=== PATIENT | male | born 1945 | race Caucasian/White ===

== ENCOUNTER 2018-05-10 13:47 | Inpatient (IN) ==
[2018-05-10] MEDS ORDERED: LACTATED RINGERS 1,000 ML IV ONE ×2 (14:05→15:20)
--- NOTE | 2018-05-10 14:22 | Emergency Department Note ---
General Adult HPI - General Chief complaint: Blood Pressure Problem Stated complaint: BG 380, low BP, comes from wound care Time Seen by Provider: 05/10/18 14:03 Source: patient Mode of arrival: ambulatory Limitations: no limitations - History of Present Illness HPI Narrative: This patient was sent over from wound care for hypotension. His blood pressure was in the 70s-80s range. Patient does take the pressure medicine and Lasix although he says he has been drinking plenty of fluid recently he has a little chronic pain in his right leg that got worse after having back surgery in September. He spent 3 months in the detention after that. He did fall in January aggravated a buttock ulcer and he has been getting wound care for that. He has had a cough productive of white phlegm recently but not short of breath. Denies nausea vomiting or abdominal pain or chest pain. This patient does take a number of antihypertensives as well as Lasix in the morning. - Related Data Home Medications Medication Instructions Recorded Confirmed cholecalciferol (vitamin D3) 5,000 5,000 unit PO QDAY tab 08/27/14 05/10/18 unit tablet furosemide 40 mg tablet 40 mg PO QDAY tab 12/09/17 05/10/18 HYDROcodone/ACETAMINOPHEN [Lorcet 10 mg PO BID 05/10/18 05/10/18 Hd 10-325 mg Tablet] Liraglutide [Victoza 2-Dagoberto] 0.3 mg SC DAILY 05/10/18 05/10/18 Minocycline [Minocin] 100 mg PO BID 05/10/18 05/10/18 Testosterone Cypionate 100 mg IM Q2W 05/10/18 05/10/18 [Depo-Testosterone] Warfarin [Coumadin] 5 mg PO DAILY 05/10/18 05/10/18 sitaGLIPtin [Januvia] 100 mg PO DAILY 05/10/18 05/10/18 tiZANidine [Zanaflex] 4 mg PO Q6H 05/10/18 05/10/18 Previous Rx's Medication Instructions Recorded pen needle,diabetic 31 gauge X See Dose Instructions .ROUTE 11/27/14 1/4", remover and disposal unit .MEDSUPPLY #100 each pravastatin 20 mg tablet 20 mg PO HS #90 tab 02/16/16 allopurinol 300 mg tablet 300 mg PO QDAY #90 tab 03/09/17 ramipril 5 mg capsule 5 mg PO BID 90 Days #180 cap 04/27/17 sotalol 80 mg tablet 40 mg PO QDAY #45 tab 06/20/17 CPAP Machine #1 each 08/22/17 gabapentin 300 mg capsule 600 mg PO Q8H #180 cap 08/22/17 Heavy Duty Wheelchair #1 ea 01/03/18 Hospital bed #1 ea 01/03/18 ROHO Cushion #1 ea 02/10/18 carvedilol 25 mg tablet 25 mg PO BID 90 Days #180 tab 02/10/18 Allergies Allergy/AdvReac Type Severity Reaction Status Date / Time No Known Drug Allergies Allergy Verified 05/10/18 13:54 Review of Systems All systems ED: reviewed and negative except as stated. Past Medical History - Past Medical History [facility] Narrative: Medical History (Last Reviewed 01/03/18 @ 18:15 by Heike Raman, JAILYN, DAYANA) Pressure ulcer (Acute) Pressure ulcer of foot (Acute) Anticoagulant long-term use (Chronic) Lumbar disc disease (Chronic) Carpal tunnel syndrome (Chronic) Hypogonadism in male (Chronic) Peripheral vascular disease (Chronic) Testicular hypofunction (Chronic) Obstructive sleep apnea (Chronic) Morbid obesity (Chronic) Hypertension (Chronic) Hyperlipidemia (Chronic) Hormone replacement therapy (Chronic) Gout (Chronic) Diabetes mellitus, type II (Chronic) Coronary artery disease (Chronic) Congestive heart failure (Chronic) History of colonic polyps (Chronic) Atrial fibrillation (Chronic) MRSA (methicillin resistant staph aureus) culture positive (Resolved) Ulcer of lower extremity due to diabetes mellitus (Resolved) Past Surgical History (Last Reviewed 01/03/18 @ 18:15 by Heike Raman, JAILYN, DAYANA) Colonoscopy planned (Resolved) H/O vascular surgery (Resolved) History of cardioversion (Resolved) History of total right knee replacement (Resolved) Family History (Last Reviewed 01/03/18 @ 18:15 by Heike Raman, JAILYN, CREDIT AND COLLECTIONS REPRESENTATIVE) Father Family history of coronary artery bypass surgery Acute myocardial infarction Mother Type 2 diabetes mellitus Cardiac disease Cerebrovascular accident - Social History smoking status: Former smoker Physical Exam Limitations: no limitations General appearance: alert Head: atraumatic, normocephalic Eye: Present: normal appearance ENT: normal exam Neck: Present: normal inspection Chest: Present: normal inspection Respiratory: Present: normal lung sounds bilaterally Cardiovascular: Present: regular rate, normal rhythm, normal heart sounds Abdominal: Present: soft. Absent: distention, tenderness Neurological: Present: alert Psychiatric: Present: normal affect, normal mood Skin: Present: warm, cool, dry Course Vital Signs Temperature 97.1 F 05/10/18 13:51 Pulse Rate 74 05/10/18 13:51 Respiratory Rate 18 05/10/18 13:51 Blood Pressure 87/58 05/10/18 13:51 Pulse Oximetry (%) 97 05/10/18 13:51 Temperature 97.1 F 05/10/18 13:51 Pulse Rate 75 05/10/18 15:21 Respiratory Rate 18 05/10/18 15:21 Blood Pressure 106/56 05/10/18 15:21 Pulse Oximetry (%) 99 05/10/18 15:21 Medical Decision Making - MDM Narrative Medical decision making narrative: Patient's blood pressure responded to 2 L of fluid coming up to 120 systolic. However his lactic acid was 6 his INR was 4.7 without any evidence of bleeding. This patient will be admitted to the hospital by Dr. Maloney. We did blood cultures and gave him antibiotics. - Lab Data Lab results reviewed: Yes I reviewed the patient's lab results. Result diagrams: 05/10/18 14:17 05/10/18 14:17 Lab Results 05/10/18 05/10/18 05/10/18 Range/Units 14:17 14:17 14:17 WBC 6.3 (4.5-11.0) K/mcL RBC 4.00 L (4.50-5.90) M/mcL Hgb 13.1 L (13.5-16.5) g/dL Hct 39.2 L (41.0-55.0) % MCV 98.2 (80.0-100.0) fL MCH 32.7 (26.0-34.0) pg MCHC 33.3 (31.0-36.0) g/dL RDW 15.2 H (11.5-14.5) % Plt Count 162 (140-440) K/mcL MPV 8.8 (7.4-10.4) fL Gran % 74.0 (38.0-78.0) % Lymph % (Auto) 13.1 L (15.5-49.0) % [place] % (Auto) 12.1 H (1.0-12.0) % Eos % (Auto) 0.6 (0.0-7.0) % Baso % (Auto) 0.2 (0.0-2.0) % Gran # 4.7 (1.8-8.0) K/mcL Lymph # (Auto) 0.8 L (1.5-4.8) K/mcL [place] # (Auto) 0.8 (0.1-0.9) K/mcL Eos # (Auto) 0 (0.0-0.7) K/mcL Baso # (Auto) 0 (0.0-0.3) K/mcL PT (11.9-14.5) sec INR (0.9-1.1) VBG Lactic Acid 6.0 H* (0.5-2.0) mmol/L Sodium 136 (133-145) mmol/L Potassium 4.1 (3.3-5.1) mmol/L Chloride 92 L (96-108) mmol/L Carbon Dioxide 25 (22-30) mmol/L Anion Gap 19.0 H (8-16) BUN 17 (8-23) mg/dl Creatinine 1.3 H (0.7-1.2) mg/dl GFR Calculation 55 Glucose 228 H (70-105) mg/dL Calcium 9.3 (8.6-10.4) mg/dl Total Bilirubin 0.8 (0.0-1.0) mg/dL AST 18 (0-37) U/l ALT 14 (0-40) U/l Alkaline Phosphatase 110 (39-117) U/L Troponin T (0-0.03) ng/ml Total Protein 6.9 (5.9-8.4) gm/dL Albumin 3.5 (3.2-5.2) gm/dL Globulin 3.4 (2.2-3.7) gm/dL Albumin/Globulin Ratio 1.0 (1.0-2.3) Beta-Hydroxybutyrate 0.38 H (< 0.27) mmol/L 05/10/18 05/10/18 Range/Units 14:17 14:22 WBC (4.5-11.0) K/mcL RBC (4.50-5.90) M/mcL Hgb (13.5-16.5) g/dL Hct (41.0-55.0) % MCV (80.0-100.0) fL MCH (26.0-34.0) pg MCHC (31.0-36.0) g/dL RDW (11.5-14.5) % Plt Count (140-440) K/mcL MPV (7.4-10.4) fL Gran % (38.0-78.0) % Lymph % (Auto) (15.5-49.0) % [place] % (Auto) (1.0-12.0) % Eos % (Auto) (0.0-7.0) % Baso % (Auto) (0.0-2.0) % Gran # (1.8-8.0) K/mcL Lymph # (Auto) (1.5-4.8) K/mcL [place] # (Auto) (0.1-0.9) K/mcL Eos # (Auto) (0.0-0.7) K/mcL Baso # (Auto) (0.0-0.3) K/mcL PT 43.6 H (11.9-14.5) sec INR 4.7 H (0.9-1.1) VBG Lactic Acid (0.5-2.0) mmol/L Sodium (133-145) mmol/L Potassium (3.3-5.1) mmol/L Chloride (96-108) mmol/L Carbon Dioxide (22-30) mmol/L Anion Gap (8-16) BUN (8-23) mg/dl Creatinine (0.7-1.2) mg/dl GFR Calculation Glucose (70-105) mg/dL Calcium (8.6-10.4) mg/dl Total Bilirubin (0.0-1.0) mg/dL AST (0-37) U/l ALT (0-40) U/l Alkaline Phosphatase (39-117) U/L Troponin T 0.02 (0-0.03) ng/ml Total Protein (5.9-8.4) gm/dL Albumin (3.2-5.2) gm/dL Globulin (2.2-3.7) gm/dL Albumin/Globulin Ratio (1.0-2.3) Beta-Hydroxybutyrate (< 0.27) mmol/L - Radiology Data Radiology results reviewed: Yes I reviewed the patient's radiology results. Disposition Pt seen by DATE PITTER/PA only: No Clinical Impression: Sepsis Disposition: Xfer As Inpt ([facility]) Condition: Good Referrals: Heike Raman, JAILYN, CREDIT AND COLLECTIONS REPRESENTATIVE [Primary Care Provider] - Time of Disposition: 16:31
[2018-05-10 14:52] LABS: Basophils # (Auto) 0 K/mcL (0.0-0.3); Basophils % (Auto) 0.2 % (0.0-2.0); Eosinophils # (Auto) 0 K/mcL (0.0-0.7); Eosinophils % (Auto) 0.6 % (0.0-7.0); Lymphocytes # (Auto) 0.8 K/mcL (1.5-4.8); Lymphocytes % (Auto) 13.1 % (15.5-49.0); Mean Cell Volume 98.2 fL (80.0-100.0); Mean Corpuscular HGB Conc 33.3 g/dL (31.0-36.0); Monocytes # (Auto) 0.8 K/mcL (0.1-0.9); Monocytes % (Auto) 12.1 % (1.0-12.0); Platelet Count 162 K/mcL (140-440); Red Cell Distribution Width 15.2 % (11.5-14.5)
--- NOTE | 2018-05-10 15:07 | XRay Report ---
CLINICAL INFORMATION: hypotension COMPARISON: 11/16/2011 FINDINGS: Mild cardiomegaly is accentuated by lordotic positioning and suboptimal inspiratory result. Mediastinum and pulmonary vessels are normal. There is minor bibasilar atelectasis. IMPRESSION: Mild stable cardiomegaly. Minor bibasilar atelectasis Interpreted and Authenticated by: Philippe Edwards 05/10/18
[2018-05-10 15:21] LABS: ALT/SGPT 14 U/l (0-40); Albumin 3.5 gm/dL (3.2-5.2); Alkaline Phosphatase 110 U/L (39-117); Beta Hydroxybutyrate 0.38 mmol/L (< 0.27); Blood Urea Nitrogen 17 mg/dl (8-23)
[2018-05-10] MEDS ORDERED: VANCOMYCIN 1,500 MG in 0.9 % SODIUM CHLORIDE 500 ML IV ONE (15:23)
[2018-05-10] MEDS ORDERED: LEVOFLOXACIN 750 MG/150 ML BAG IV ONE (15:23)
[2018-05-10] MEDS ORDERED: PIPERACILLIN SODIUM/TAZOBACTAM 3.375 GM in DEXTROSE 5% IN WATER 50 ML IV ONE (15:23)
[2018-05-10] MEDS ORDERED: 0.9 % SODIUM CHLORIDE 1,000 ML IV ONE (15:47)
[2018-05-10 16:54] LABS: Appearance,Urine CLEAR; Bacteria,Urine 0 /hpf (0); Bilirubin,Urine NEG (NEG); Color,Urine STRAW; Glucose,Urine (UA) NEGATIVE (NEG); Leukocyte Esterase,Urine NEG /uL (NEG); Protein,Urine NEG (NEG); Specific Gravity,Urine 1.009 (1.000-1.035); Urine Blood 0.03 mg/dL (<0.03); Urine Hyaline Cast 3 /lpf (0-2); Urine RBC 7 /hpf (0-1); Urine Squamous Epithelial Cell < 1 /hpf (0-4); Urine WBC 0 /hpf (0-4); Urobilinogen,Urine NEG (NEG)
--- NOTE | 2018-05-10 17:19 | Internal Med History&Physical ---
Medical - H&P: [facility] Patient information: Note initiated : 05/10/18 at 5:15 pm Service Date, if different from initiated Date: [] Patient: Luke Palacios a 72 y/o M admitted on for BG 380, low BP, comes from wound care. Chief Complaint: [] History of present illness: Mr. Palacios is a 72 year old M who was sent in from the wound care clinic because he was hypotensive in the 70s and 80s. Patient states his blood pressures checked by home health care worker 3 days a week and he typically runs around 110 systolic. He takes beta-abner LAURA inhibitors Lasix and hydrocodone. He states his been no changes in medication lately. He says he had a head cold recently with some cough of white sputum and some sinus congestion but otherwise no shortness of breath no fevers or chills. No other recent illnesses. Does have diarrhea 3-4 episodes per day for the past 3-4 days. However he says that is not too unusual as he occasionally gets diarrhea. He was given 2 L of IV fluids in the ER with improvement his blood pr essure to systolic 120. Chest x-ray unremarkable urinalysis shows hyaline casts. His renal function has worsened and his lactate was 6 when he came in. Glucose was elevated with a mild elevated BHB. Wound surgeon evaluated his wound and felt it looked okay. Is also found to have an elevated INR. No abdominal pain. Other than the low blood pressures vital signs are stable in the ED. He was afebrile. Patient states his felt little bit more tired over the past couple days but otherwise no real complaints of abnormality other than the head cold. He does not recall taking any extra blood pressure medications diuretics. States he may have taken an extra pain medication lately but could not give any specifics. Review of Systems: Pertinent positives as above. Denies headache/fever/c hills/nausea/vomiting/chest or abdominal pain/dyspnea. Remaining 10 point review of systems reviewed negative Medical - H&P: PM Medical history: Medical History (Last Reviewed 01/03/18 @ 18:15 by Heike Raman, JAILYN, DIRECTOR OF FIRST IMPRESSIONS) Pressure ulcer (Acute) Pressure ulcer of foot (Acute) Anticoagulant long-term use (Chronic) Lumbar disc disease (Chronic) Carpal tunnel syndrome (Chronic) Hypogonadism in male (Chronic) Peripheral vascular disease (Chronic) Testicular hypofunction (Chronic) Obstructive sleep apnea (Chronic) Morbid obesity (Chronic) Hypertension (Chronic) Hyperlipidemia (Chronic) Hormone replacement therapy (Chronic) Gout (Chronic) Diabetes mellitus, type II (Chronic) Coronary artery disease (Chronic) Congestive heart failure (Chronic) History of colonic polyps (Chronic) Atrial fibrillation (Chronic) MRSA (methicillin resistant staph aureus) culture positive (Resolved) Ulcer of lower extremity due to diabetes mellitus (Resolved) Past Surgical History (Last Reviewed 01/03/18 @ 18:15 by Heike Raman, JAILYN, DAYANA) Colonoscopy planned (Resolved) H/O vascular surgery (Resolved) History of cardioversion (Resolved) History of total right knee replacement (Resolved) Family History (Last Reviewed 01/03/18 @ 18:15 by Heike Raman, JAILYN, DAYANA) Father Family history of coronary artery bypass surgery Acute myocardial infarction Mother Type 2 diabetes mellitus Cardiac disease Cerebrovascular accident Social History (Last Updated 02/03/18 @ 13:57 by Heike Raman, JAILYN, DAYANA) Quit smoking and drinking 30 years ago Ambulate with walker Lives by himself Medical - H&P: Meds Home Medications Medication Instructions Recorded Confirmed Type cholecalciferol (vitamin D3) 5,000 5,000 unit PO QDAY tab 08/27/14 05/10/18 History unit tablet pen needle,diabetic 31 gauge X See Dose Instructions .ROUTE 11/27/14 02/03/18 Rx 1/4", remover and disposal unit .MEDSUPPLY #100 each pravastatin 20 mg tablet 20 mg PO HS #90 tab 02/16/16 05/10/18 Rx allopurinol 300 mg tablet 300 mg PO QDAY #90 tab 03/09/17 05/10/18 Rx ramipril 5 mg capsule 5 mg PO BID 90 Days #180 cap 04/27/17 05/10/18 Rx sotalol 80 mg tablet 40 mg PO QDAY #45 tab 06/20/17 05/10/18 Rx CPAP Machine #1 each 08/22/17 02/03/18 Rx gabapentin 300 mg capsule 600 mg PO Q8H #180 cap 08/22/17 05/10/18 Rx furosemide 40 mg tablet 40 mg PO QDAY tab 12/09/17 05/10/18 History Heavy Duty Wheelchair #1 ea 01/03/18 02/03/18 Rx Hospital bed #1 ea 01/03/18 02/03/18 Rx DARIANA Cushion #1 ea 02/10/18 Rx carvedilol 25 mg tablet 25 mg PO BID 90 Days #180 tab 02/10/18 05/10/18 Rx HYDROcodone/ACETAMINOPHEN [Lorcet 10 mg PO BID 05/10/18 05/10/18 History Hd 10-325 mg Tablet] Liraglutide [Victoza 2-Dagoberto] 0.3 mg SC DAILY 05/10/18 05/10/18 History Minocycline [Minocin] 100 mg PO BID 05/10/18 05/10/18 History Testosterone Cypionate 100 mg IM Q2W 05/10/18 05/10/18 History [Depo-Testosterone] Warfarin [Coumadin] 5 mg PO DAILY 05/10/18 05/10/18 History sitaGLIPtin [Januvia] 100 mg PO DAILY 05/10/18 05/10/18 History tiZANidine [Zanaflex] 4 mg PO Q6H 05/10/18 05/10/18 History Allergies Allergy/AdvReac Type Severity Reaction Status Date / Time No Known Drug Allergies Allergy Verified 05/10/18 13:54 Medical - H&P: Exam - Constitutional Vitals: Temp Pulse Resp BP Pulse Ox 97.1 F 71 18 128/68 96 05/10/18 13:51 05/10/18 16:42 05/10/18 15:21 05/10/18 16:42 05/10/18 16:42 Exam: General: Alert, Awake, No acute Distress, obese Eyes/N/T: EOMI, PEERL, DMM Head/Neck: neck supple, normocephalic atraumatic CV: irreg irreg, 2/6 SM Pulm: Clear b/l, no wheezing/rhonchi/rales Abd: soft, nontender, +BS x4 Ext: no clubbing/cyanosis, 2+ b/l LE edema chronic and venous stasis changes Neuro: Alert, no focal deficits, moves all extremities, CN 2-12 grossly intact, symmetrical strength b/l upper/lower but much weaker lower, sensations intact b/l upper/lower Skin: warm/dry Medical - H&P: Reslt - Labs CBC & Chem 7: 05/10/18 14:17 05/10/18 14:17 Labs: Short CBC 05/10/18 Range/Units 14:17 WBC 6.3 (4.5-11.0) K/mcL Hgb 13.1 L (13.5-16.5) g/dL Hct 39.2 L (41.0-55.0) % Plt Count 162 (140-440) K/mcL BMP 05/10/18 14:17 Sodium 136 Potassium 4.1 Chloride 92 L Carbon Dioxide 25 BUN 17 Creatinine 1.3 H Glucose 228 H Calcium 9.3 Cardiac Enzymes 05/10/18 Range/Units 14:17 Troponin T 0.02 (0-0.03) ng/ml Liver Function 05/10/18 Range/Units 14:17 Total Bilirubin 0.8 (0.0-1.0) mg/dL AST 18 (0-37) U/l ALT 14 (0-40) U/l Alkaline Phosphatase 110 (39-117) U/L Albumin 3.5 (3.2-5.2) gm/dL Urine 05/10/18 Range/Units 16:23 Urine Color Straw Urine Appearance Clear Urine pH 6.0 (5.0-9.0) Ur Specific [place] 1.009 (1.000-1.035) Urine Protein Neg (NEG) mg/dL Urine Glucose (UA) Negative (NEG) mg/dL - Impressions Chest x-ray with some atelectasis urinalysis with hyaline casts Medical - H&P: A/P - Narrative A/P Narrative: A: *Hypotension: Exact etiology undetermined. Mild bandemia but no fever. CXR/UA unremarkable. Does have a wound that was seen by nuclear weapons specialist which is felt to be okay, but still could be a source of infection. Also could be combination of diuretics/pain/blood pressure medications - *Lactic acidosis: 2/2 above *early DKA: Also contributing to hypovolemia *DEVORA: 2/2 above *Coagulopathy: Secondary to warfarin *Afib: on sotolol/coreg/warfarin *Buttock wounds: follows with Dr. Mayes *Deconditioning/debility: *Obesity: *PVD w/stents by Dr. Meek: *DM w/neuropathy: *Obese: *HTN: BB/ACEI/lasix *chronic pain: *diarrhea P: -IVF's, f/u Lacate -f/u renal fxn -Abx, f/u BC's -[facility] -Dr. Mak -stool studies -coreg/ramipril/lasix held, - -may need placement, CORRECTION was discussed in past -pt/ot -ppx: warfarin per pharmacy (held currently for elevated INR) Full code
[2018-05-10 17:33] LABS: Anisocytosis FEW (NONE SEEN); Band Neutrophils % 12 % (0-10); Basophils % (Manual) 1 % (0-2); Eosinophils % (Manual) 1 % (0-7); Lymphocytes % 7 % (15-49); Monocytes % (Manual) 14 % (1-12); Platelet Estimate NORMAL (NORMAL); RBC Morphology ABNORMAL (NORMAL); Segmented Neutrophils % 65 % (38-78)
[2018-05-10] MEDS ORDERED: VANCOMYCIN PER PHARMACY IV SCH (17:37)
[2018-05-10] MEDS ORDERED: PROCHLORPERAZINE 10 MG/2 ML VIAL IV PRN (19:39)
[2018-05-10] MEDS ORDERED: ACETAMINOPHEN 325 MG TABLET PO PRN (19:39)
[2018-05-10] MEDS ORDERED: DEXTROSE 50% 50 ML VIAL IV PRN (19:39)
[2018-05-10] MEDS ORDERED: POTASSIUM CHLORIDE 20 MEQ TABLET PO PRN ×2 (19:39)
[2018-05-10] MEDS ORDERED: IPRATROPIUM/ALBUTEROL 3 ML AMPUL.NEB NEB PRN (19:39)
[2018-05-10] MEDS ORDERED: ONDANSETRON 4 MG/2 ML VIAL IV PRN (19:39)
[2018-05-10] MEDS ORDERED: METOPROLOL TARTRATE 5 MG/5 ML VIAL IV PRN (19:39)
[2018-05-10] MEDS ORDERED: DEXTROSE 31 GM ORAL.SUSP PO PRN (19:39)
[2018-05-10] MEDS ORDERED: POLYETHYLENE GLYCOL 3350 17 GM PACKET PO PRN (19:39)
[2018-05-10] MEDS ORDERED: POTASSIUM CHLORIDE 40 MEQ in DEXTROSE 5% IN WATER 500 ML IV PRN (19:39)
[2018-05-10] MEDS ORDERED: PROMETHAZINE 25 MG TABLET PO PRN (19:39)
[2018-05-10] MEDS ORDERED: MAGNESIUM SULFATE 2 GM/50 ML BAG IV PRN (19:39)
[2018-05-10] MEDS ORDERED: PRAVASTATIN 20 MG TABLET PO SCH (21:00)
[2018-05-10] MEDS: SIMVASTATIN 10 MG TABLET PO SCH (21:12)
[2018-05-10] MEDS: HYDROcodone/APAP 10/325MG TABLET PO SCH (21:12)
[2018-05-10] MEDS: tiZANidine 4 MG TABLET PO SCH (21:12)
[2018-05-10] MEDS: GABAPENTIN 300 MG CAPSULE PO SCH (21:12)
[2018-05-10] MEDS: INSULIN LISPRO 1 UNIT/0.01 ML UNIT SQ SCH (21:13)
[2018-05-10] MEDS: 0.9 % SODIUM CHLORIDE 1,000 ML IV SCH (21:16)
[2018-05-10] MEDS: 0.9 % SODIUM CHLORIDE 10 ML SYRINGE IV SCH (21:17)
[2018-05-10] MEDS: PIPERACILLIN SODIUM/TAZOBACTAM 3.375 GM in DEXTROSE 5% IN WATER 50 ML IV SCH ×2 (22:58→23:46)
[2018-05-11] MEDS: PIPERACILLIN SODIUM/TAZOBACTAM 3.375 GM in DEXTROSE 5% IN WATER 50 ML IV SCH ×4 (05:21→23:59)
[2018-05-11] MEDS: 0.9 % SODIUM CHLORIDE 10 ML SYRINGE IV SCH ×3 (05:22→21:35)
[2018-05-11] MEDS: GABAPENTIN 300 MG CAPSULE PO SCH ×3 (05:23→21:34)
[2018-05-11] MEDS: 0.9 % SODIUM CHLORIDE 1,000 ML IV SCH (05:23)
[2018-05-11 06:16] LABS: Mean Cell Volume 98.4 fL (80.0-100.0); Mean Corpuscular HGB Conc 33.9 g/dL (31.0-36.0); Platelet Count 117 K/mcL (140-440); RBC 3.34 M/mcL (4.50-5.90); Red Cell Distribution Width 15.3 % (11.5-14.5)
[2018-05-11 06:33] LABS: ALT/SGPT 11 U/l (0-40); Albumin 2.9 gm/dL (3.2-5.2); Albumin/Globulin Ratio 1.1 (1.0-2.3); Alkaline Phosphatase 89 U/L (39-117); Bilirubin,Direct < 0.2 mg/dL (0.0-0.3); Blood Urea Nitrogen 14 mg/dl (8-23); Gamma Glutamyl Transpeptidase 47 U/L (8-61); Uric Acid 3.7 mg/dL (2.5-8.0)
[2018-05-11 07:36] LABS: Band Neutrophils % 2 % (0-10); Lymphocytes % 26 % (15-49); Monocytes % (Manual) 8 % (1-12); Platelet Estimate DECREASED (NORMAL); RBC Morphology NORMAL (NORMAL); Segmented Neutrophils % 64 % (38-78)
--- NOTE | 2018-05-11 07:37 | Internal Med Progress Note ---
Medical - PN: Subj Patient information: Note initiated : 05/11/18 at 7:34 am Service Date, if different from initiated Date: [] Patient: Luke Palacios a 72 y/o M admitted on 05/10/18 for BG 380, low BP, comes from wound care. Chief Complaint: [] Interval history: Mr. Palacios is a 72 year old M who was sent in from the wound care clinic because he was hypotensive in the 70s and 80s. Patient states his blood pressures checked by home health care worker 3 days a week and he typically runs around 110 systolic. He takes beta-abner LAURA inhibitors Lasix and hydrocodone. He states his been no changes in medication lately. He says he had a head cold recently with some cough of white sputum and some sinus congestion but otherwise no shortness of breath no fevers or chills. No other recent illnesses. Does have diarrhea 3-4 episodes per day for the past 3-4 days. However he says that is not too unusual as he occasionally gets diarrhea. He was given 2 L of IV fluids in the ER with improvement his blood pressure to systolic 120. Chest x-ray unremarkable urinalysis shows hyaline casts. His renal function has worsened and his lactate was 6 when he came in. Glucose was elevated with a mild elevated BHB. Wound surgeon evaluated his wound and felt it looked okay. Is also found to have an elevated INR. No abdominal pain. Other than the low blood pressures vital signs are stable in the ED. He was a febrile. Patient states his felt little bit more tired over the past couple days but otherwise no real complaints of abnormality other than the head cold. He does not recall taking any extra blood pressure medications diuretics. States he may have taken an extra pain medication lately but could not give any specifics. 05/11 - Constitutional Vitals: Vital Signs Temp Pulse Resp BP Pulse Ox 98.1 F 86 18 144/76 97 05/11/18 04:00 05/10/18 21:30 05/11/18 04:00 05/11/18 04:00 05/11/18 04:00 Period Temp Pulse Resp BP Sys/Elizalde Pulse Ox Last 24 Hr 97.1 F-98.6 F 71-88 14-20 87-144/51-78 94-99 Intake and Output 05/10/18 05/11/18 05/11/18 21:59 05:59 13:59 Intake Total 2900 1222 Output Total 1000 Balance 2900 222 Weight 132.619 kg Intake & Output: Intake & Output 05/10/18 05/11/18 05/11/18 21:59 05:59 13:59 Intake Total 2900 1222 Output Total 1000 Balance 2900 222 Weight 132.619 kg Intake: IV 2900 862 Sodium Chloride 0.9% 1,000 ml @ 1000 812 100 mls/hr IV .Q10H [facility] Rx#: [id number] Lactated Ringers 1,000 ml @ 1200 Wide Open IV BOLUS ONE Rx#: [id number] Zosyn 3.375 gm In Dextrose 5% 50 50 in Water 50 ml @ 100 mls/hr IV Q6H [facility] Rx#:[id number] Vancomycin 1,500 mg In Sodium 500 Chloride 0.9% 500 ml @ 333.3 mls/hr IV ONCE ONE Rx#: [id number] Oral 360 Output: Urine Catheter Amount 1000 Other: Meal Nourishment/Supplement Percent of Meal Consumed 100% Feeding Ability Independent Nourishment/Supplement name sandwich Urine Appearance Uretheral (Hyman) Clear Urine Color Dark Yellow Uretheral (Hyman) Bright Yellow Urine Odor Normal Exam: General: Alert, Awake, No acute Distress, obese Eyes/N/T: EOMI, Head/Neck: neck supple, CV: irreg irreg, 2/6 SM Pulm: Clear b/l, no wheezing/rhonchi/rales Abd: soft, nontender, +BS x4 Ext: no clubbing/cyanosis, 2+ b/l LE edema chronic and venous stasis changes Neuro: Alert, no focal deficits, moves all extremities, Skin: warm/dry Medical - PN: Obj Da - Labs CBC & Chem 7: 05/11/18 03:48 05/11/18 03:48 Labs: Abnormal Lab Results 05/11/18 05/11/18 05/11/18 04:16 03:48 03:48 RBC 3.34 L Hgb 11.1 L Hct 32.9 L RDW 15.3 H Plt Count 117 L Lymph % (Auto) [place] % (Auto) Lymph # (Auto) Band Neutrophils % Lymphocytes % Monocytes % (Manual) Anisocytosis PT INR VBG Lactic Acid 2.5 H Chloride Anion Gap Creatinine Glucose 182 H Calcium 8.5 L C-Reactive Protein Total Protein 5.6 L Albumin 2.9 L Triglycerides 173 H Beta-Hydroxybutyrate Urine Occult Blood Urine RBC Hyaline Casts 05/11/18 05/10/18 05/10/18 03:48 19:50 16:23 RBC Hgb Hct RDW Plt Count Lymph % (Auto) [place] % (Auto) Lymph # (Auto) Band Neutrophils % Lymphocytes % Monocytes % (Manual) Anisocytosis PT 45.7 H INR 5.0 H VBG Lactic Acid 2.4 H Chloride Anion Gap Creatinine Glucose Calcium C-Reactive Protein Total Protein Albumin Triglycerides Beta-Hydroxybutyrate Urine Occult Blood 0.03 A Urine RBC 7 H Hyaline Casts 3 H 05/10/18 05/10/18 05/10/18 14:22 14:17 14:17 RBC Hgb Hct RDW Plt Count Lymph % (Auto) [place] % (Auto) Lymph # (Auto) Band Neutrophils % 12 H Lymphocytes % 7 L Monocytes % (Manual) 14 H Anisocytosis Few A PT 43.6 H INR 4.7 H VBG Lactic Acid Chloride Anion Gap Creatinine Glucose Calcium C-Reactive Protein 2.6 H Total Protein Albumin Triglycerides Beta-Hydroxybutyrate Urine Occult Blood Urine RBC Hyaline Casts 05/10/18 05/10/18 05/10/18 14:17 14:17 14:17 RBC 4.00 L Hgb 13.1 L Hct 39.2 L RDW 15.2 H Plt Count Lymph % (Auto) 13.1 L [place] % (Auto) 12.1 H Lymph # (Auto) 0.8 L Band Neutrophils % Lymphocytes % Monocytes % (Manual) Anisocytosis PT INR VBG Lactic Acid 6.0 H* Chloride 92 L Anion Gap 19.0 H Creatinine 1.3 H Glucose 228 H Calcium C-Reactive Protein Total Protein Albumin Triglycerides Beta-Hydroxybutyrate 0.38 H Urine Occult Blood Urine RBC Hyaline Casts Meds: Medications Acetaminophen (Tylenol) 650 mg PO Q6HP PRN PRN Reason: PAIN/FEVER > 101 Hydrocodone Bitart/Acetaminophen ([place] 10/325mg) 1 tab PO BID [facility] Last Admin: 05/10/18 21:12 Dose: 1 tab Documented by: Albuterol/Ipratropium (Duoneb) 3 ml NEB Q4HP PRN PRN Reason: Shortness Of Breath Allopurinol (Zylopriim) 300 mg PO QDAY [facility] Dextrose (Dextrose 50%) 0 ml IV UD PRN PRN Reason: Hypoglycemia Diagnostic Test (Pha) (Accu-Chek) 1 each FS ACHS [facility] Last Admin: 05/10/18 21:13 Dose: 1 each Documented by: Gabapentin (Neurontin) 600 mg PO Q8 [facility] Last Admin: 05/11/18 05:23 Dose: 600 mg Documented by: Glucose (Insta-Glucose) 15 gm PO PRN PRN PRN Reason: Hypoglycemia Piperacillin Sod/Tazobactam (Sod 3.375 gm/ Dextrose) 50 mls @ 100 mls/hr IV Q6H [facility]; Protocol Last Admin: 05/11/18 05:21 Dose: 100 mls/hr Documented by: Vancomycin HCl 2,000 mg/ (Sodium Chloride) 500 mls @ 250 mls/hr IV Q24H [facility] Potassium Chloride 40 meq/ (Dextrose) 520 mls @ 130 mls/hr IV ONCE PRN PRN Reason: Potassium < 3 Magnesium Sulfate (Magnesium Sulfate) 2 gm in 50 mls @ 50 mls/hr IV ONCE PRN PRN Reason: Magnesium </= 1.6 Sodium Chloride (Sodium Chloride 0.9%) 1,000 mls @ 100 mls/hr IV .Q10H [facility] Stop: 05/11/18 15:38 Last Admin: 05/11/18 05:23 Dose: 100 mls/hr Documented by: Insulin Human Lispro (Humalog) 0 unit SQ [facility]; Protocol Last Admin: 05/10/18 21:13 Dose: Not Given Documented by: Metoprolol Tartrate (Lopressor) 5 mg IV Q2HP PRN PRN Reason: HR>110 Non-Formulary Medication (Testosterone Cypionate [Depo-Testosterone]) 100 mg IM Q2W [facility] Ondansetron HCl (Zofran) 4 mg IV Q4HP PRN PRN Reason: Nausea And Vomiting Polyethylene Glycol (Miralax) 17 gm PO DAILYP PRN PRN Reason: Constipation Potassium Chloride (Kdur) 40 meq PO ONCE PRN PRN Reason: Potssium is 3-3.5 Potassium Chloride (Kdur) 40 meq PO ONCE PRN PRN Reason: Potassium < 3 Prochlorperazine (Compazine) 10 mg IV Q6HP PRN PRN Reason: Nausea And Vomiting Promethazine HCl (Phenergan) 0 mg PO Q6HP PRN PRN Reason: Nausea And Vomiting Simvastatin (Zocor) 10 mg PO HS [facility] Last Admin: 05/10/18 21:12 Dose: 10 mg Documented by: Sitagliptin Phosphate (Januvia) 100 mg PO DAILY [facility] Sodium Chloride (Saline Flush) 10 ml IV Q8 [facility] Last Admin: 05/11/18 05:22 Dose: 10 ml Documented by: Sotalol HCl (Betapace) 40 mg PO QDAY [facility] Tizanidine HCl (Zanaflex) 4 mg PO Q12 [facility] Last Admin: 05/10/18 21:12 Dose: 4 mg Documented by: Vancomycin HCl (Vancomycin Per Pharmacy) 1 order IV UD [facility]; Protocol Medical - PN: A/P - Time Spent With Patient Total time spent is greater than 50% in coordination of care (as documented) at patient's floor/unit and/or counseling patient: - Narrative A/P Narrative: A: *Hypotension: Exact etiology undetermined. Mild bandemia initially but no fever. Bandemia resolved. CXR/UA unremarkable. Does have new cough he states from "cold". Does have a wound that was seen by addictions recovery specialist which is felt to be okay, but still could be a source of infection. Also could be combination of diuretics/pain/blood pressure medications -resolved with IVF's *Lactic acidosis: 2/2 above, improving *DM w/hyperglycemia and ?early DKA/HHS: Improved, contributor to hypovolemia *DEVORA: 2/2 above -improved with IVF *Coagulopathy: Secondary to warfarin *Afib: on sotolol/coreg/warfarin *Buttock wounds: follows with Dr. Mayes *Deconditioning/debility: *Obesity: *PVD w/stents by Dr. Meek: *DM w/neuropathy: *Obese: *HTN: BB/ACEI/lasix *chronic pain: *diarrhea: since since admit *?PNA: initial cxr unremarkable but PCT elevated, with cough P: -IVF's finish, f/u [facility] -emiric Abx vanc/zosyn (h/o MRSA wound), f/u BC's and PCT -[facility] -Dr. Mayes -stool studies -CT chest given neg cxr and cough with elevated pct -cont sotalol, slowly restart on coreg/ramipril/lasix held, -INR increase, low dose PO vit k -may need placement, LISA was discussed in past -pt/ot -ppx: warfarin per pharmacy (held currently for elevated INR) Full code Medical - PN: Qual - VTE Deep Vein Thrombosis/Pulmonary Embolism Present on Admission: No
[2018-05-11] MEDS: INSULIN LISPRO 1 UNIT/0.01 ML UNIT SQ SCH ×4 (08:14→21:33)
[2018-05-11] MEDS ORDERED: PHYTONADIONE 10 MG/ML AMPUL PO ONE (09:05)
[2018-05-11] MEDS ORDERED: CARVEDILOL 12.5 MG TABLET PO ONE (09:24)
[2018-05-11] MEDS: SOTALOL 80 MG TABLET PO SCH (09:36)
[2018-05-11] MEDS: tiZANidine 4 MG TABLET PO SCH ×2 (09:36→21:34)
[2018-05-11] MEDS: ALLOPURINOL 300 MG TABLET PO SCH (09:36)
[2018-05-11] MEDS: sitaGLIPtin 100 MG TABLET PO SCH (09:36)
[2018-05-11] MEDS: HYDROcodone/APAP 10/325MG TABLET PO SCH ×2 (09:37→21:34)
[2018-05-11] MEDS: VANCOMYCIN 2,000 MG in 0.9 % SODIUM CHLORIDE 500 ML IV SCH (09:41)
--- NOTE | 2018-05-11 12:40 | Cat Scan Report ---
CLINICAL INFORMATION: Chest pain and hypotension COMPARISON: None TECHNIQUE: 0.625 mm axial slices were obtained from the lung apices through the bases without intravenous contrast. 2.5 mm Sagittal, coronal and axial reformatted images were processed and reviewed at bone, lung and soft tissue windows. 7 mm axial MIP images were also reconstructed to optimize pulmonary nodule detection.The exam was performed using radiation dose optimization techniques including, but not limited to, automated exposure control, adjustment of the mA and/or kV according to patient size and use of iterative reconstruction technique. FINDINGS: Pulmonary parenchymal windows show minimal atelectasis in both posterior dependent lower lobes. No diffuse or regional infiltrates. Small region of tubular bronchiectasis in the posterior medial basilar segmental and subsegmental bronchi of the right lower lobe appreciated. Small left and tiny right pleural effusions are noted. Mediastinal windows show the heart is moderately enlarged with very heavy calcific plaque in the coronary arteries. Central pulmonary artery are enlarged: Main pulmonary diameter is 3.7 cm. The noncontrast rescuer is normal in contour and caliber. There is no adenopathy in the mediastinal, hilar or axillary regions. The esophagus is unremarkable. Bones and soft tissues of the chest wall are unremarkable. Images through the superior abdomen show tiny stones layering dependently within the gallbladder. IMPRESSION: 1. Minor atelectasis in both dependent posterior lower lobes. No infiltrates or nodules. 2. Central pulmonary artery enlargement suggesting pulmonary hypertension. This is more specifically evaluated with echocardiogram. 3. Moderate cardiomegaly with heavy calcific plaque in the coronary arteries. Patient is at risk for ischemic heart disease. 4. Tiny bilateral pleural effusions 5. Cholelithiasis Interpreted and Authenticated by: Philippe Edwards 05/11/18
--- NOTE | 2018-05-11 15:07 | General Surgery Consult Note ---
History of Present Illness Patient information: Note initiated : 05/11/18 at 2:36 pm Service Date, if different from initiated Date: [] Patient: Luke Palacios 72 y/o M admitted on 05/10/18 for BG 380, low BP, comes from wound care. Chief Complaint: [] Requesting physician: Neal Maloney (Wound Management) History of present illness: I saw this patient in ICU 120 / B along with Heike RN, In patient wound care nurse. Patient was seen in wound care center and to sent to ER prior to admission. He presented with Hypotension, diarrhea and SIRS. In ER noted to have lactic acidosis and flare up / exacerbation of pre-existing multiple medical problems. He has progressive weakness/ deconditioning and mobility restriction over the past few years. There are chronic skin wounds and pressure sores over the sacral region, dorsal feet and onychomycotic toe nails both feet. He is morbidly obese and ambulates few steps with a cane. Medications and Allergies Home Medications Medication Instructions Recorded Confirmed Type cholecalciferol (vitamin D3) 5,000 5,000 unit PO QDAY tab 08/27/14 05/10/18 History unit tablet pravastatin 20 mg tablet 20 mg PO HS #90 tab 02/16/16 05/10/18 Rx allopurinol 300 mg tablet 300 mg PO QDAY #90 tab 03/09/17 05/10/18 Rx ramipril 5 mg capsule 5 mg PO BID 90 Days #180 cap 04/27/17 05/10/18 Rx sotalol 80 mg tablet 40 mg PO QDAY #45 tab 06/20/17 05/10/18 Rx CPAP Machine #1 each 08/22/17 02/03/18 Rx gabapentin 300 mg capsule 600 mg PO Q8H #180 cap 08/22/17 05/10/18 Rx furosemide 40 mg tablet 40 mg PO QDAY tab 12/09/17 05/10/18 History Heavy Duty Wheelchair #1 ea 01/03/18 02/03/18 Rx Hospital bed #1 ea 01/03/18 02/03/18 Rx ROHO Cushion #1 ea 02/10/18 Rx carvedilol 25 mg tablet 25 mg PO BID 90 Days #180 tab 02/10/18 05/10/18 Rx Ascorbic Acid/Bioflavonoids [C 1 tab PO DAILY 05/10/18 05/10/18 History 1,558-[id number] Cap] HYDROcodone/ACETAMINOPHEN [[place]et 10 mg PO BID 05/10/18 05/10/18 History Hd 10-325 mg Tablet] Liraglutide [Victoza 2-Dagoberto] 0.3 mg SC DAILY 05/10/18 05/10/18 History Liraglutide [Victoza 2-Dagoberto] 0.3 mg SQ BID 05/10/18 05/10/18 History Minocycline [Minocin] 100 mg PO BID 05/10/18 05/10/18 History Pen Needle, Diabetic [Carefine Pen 1 each MC BID 05/10/18 05/10/18 History Needle] Testosterone Cypionate 100 mg IM Q2W 05/10/18 05/10/18 History [Depo-Testosterone] Warfarin [Coumadin] 5 mg PO DAILY 05/10/18 05/10/18 History sitaGLIPtin [Januvia] 100 mg PO DAILY 05/10/18 05/10/18 History tiZANidine [Zanaflex] 4 mg PO Q6H 05/10/18 05/10/18 History Allergies Allergy/AdvReac Type Severity Reaction Status Date / Time No Known Drug Allergies Allergy Verified 05/10/18 13:54 Exam Temp Pulse Resp BP Pulse Ox 98.4 F 86 18 104/68 96 05/11/18 12:15 05/10/18 21:30 05/11/18 12:15 05/11/18 12:15 05/11/18 12:15 - General physical appearance well developed, well nourished, moderate distress, moderate pain, chronically ill, other (Pain is worse when moving in bed. ) - Eyes PERRL, normal ocular movement - ENT normal pinna, normal nares, normal mucosa, no congestion - Head Head exam IM: Present: atraumatic, normal inspection, normocephalic - Neck no masses, trachea midline, no venous distension, other (Clear speech) - Cardiovascular Cardiovascular exam IM: Present: irregular rhythm, systolic murmur - Respiratory normal respiratory effort, clear to auscultation - Abdomen Abdomen: Present: soft, non tender, bowel sounds - Rectum Rectum: Present: other (Loose stool. Guaic positive. Patient on anticoagulants, Coagulopathy correcting. Lactic acidosis resolved. ) - Integumentary Present: other (Sacral pressure ulcer Grade 1 / Epidermal. over 8 - 10 CM away from anal verge) - Neurologic Present: other (Moves all extermities) - Musculoskeletal Present: other (Bed confined at this time. Stiffness extremities muscles and joints, Mostly chronic.) - Psychiatric Present: oriented to time, oriented to person, oriented to place, speech is normal, memory intact Results - Labs 05/12/18 03:42 05/12/18 03:41 Abnormal lab results 05/10/18 05/10/18 05/10/18 Range/Units 14:17 14:17 14:17 RBC 4.00 L (4.50-5.90) M/mcL Hgb 13.1 L (13.5-16.5) g/dL Hct 39.2 L (41.0-55.0) % RDW 15.2 H (11.5-14.5) % Plt Count (140-440) K/mcL Lymph % (Auto) 13.1 L (15.5-49.0) % [place] % (Auto) 12.1 H (1.0-12.0) % Lymph # (Auto) 0.8 L (1.5-4.8) K/mcL Band Neutrophils % (0-10) % Lymphocytes % (15-49) % Monocytes % (Manual) (1-12) % Platelet Estimate (NORMAL) Anisocytosis (NONE SEEN) PT (11.9-14.5) sec INR (0.9-1.1) VBG Lactic Acid 6.0 H* (0.5-2.0) mmol/L Chloride 92 L (96-108) mmol/L Anion Gap 19.0 H (8-16) Creatinine 1.3 H (0.7-1.2) mg/dl Glucose 228 H (70-105) mg/dL Calcium (8.6-10.4) mg/dl C-Reactive Protein (0.0-0.8) mg/dl Total Protein (5.9-8.4) gm/dL Albumin (3.2-5.2) gm/dL Triglycerides (<150) mg/dl Beta-Hydroxybutyrate 0.38 H (< 0.27) mmol/L Urine Occult Blood (<0.03) mg/dL Urine RBC (0-1) /hpf Hyaline Casts (0-2) /lpf 05/10/18 05/10/18 05/10/18 Range/Units 14:17 14:17 14:22 RBC (4.50-5.90) M/mcL Hgb (13.5-16.5) g/dL Hct (41.0-55.0) % RDW (11.5-14.5) % Plt Count (140-440) K/mcL Lymph % (Auto) (15.5-49.0) % [place] % (Auto) (1.0-12.0) % Lymph # (Auto) (1.5-4.8) K/mcL Band Neutrophils % 12 H (0-10) % Lymphocytes % 7 L (15-49) % Monocytes % (Manual) 14 H (1-12) % Platelet Estimate (NORMAL) Anisocytosis Few A (NONE SEEN) PT 43.6 H (11.9-14.5) sec INR 4.7 H (0.9-1.1) VBG Lactic Acid (0.5-2.0) mmol/L Chloride (96-108) mmol/L Anion Gap (8-16) Creatinine (0.7-1.2) mg/dl Glucose (70-105) mg/dL Calcium (8.6-10.4) mg/dl C-Reactive Protein 2.6 H (0.0-0.8) mg/dl Total Protein (5.9-8.4) gm/dL Albumin (3.2-5.2) gm/dL Triglycerides (<150) mg/dl Beta-Hydroxybutyrate (< 0.27) mmol/L Urine Occult Blood (<0.03) mg/dL Urine RBC (0-1) /hpf Hyaline Casts (0-2) /lpf 05/10/18 05/10/18 05/11/18 Range/Units 16:23 19:50 03:48 RBC (4.50-5.90) M/mcL Hgb (13.5-16.5) g/dL Hct (41.0-55.0) % RDW (11.5-14.5) % Plt Count (140-440) K/mcL Lymph % (Auto) (15.5-49.0) % [place] % (Auto) (1.0-12.0) % Lymph # (Auto) (1.5-4.8) K/mcL Band Neutrophils % (0-10) % Lymphocytes % (15-49) % Monocytes % (Manual) (1-12) % Platelet Estimate (NORMAL) Anisocytosis (NONE SEEN) PT 45.7 H (11.9-14.5) sec INR 5.0 H (0.9-1.1) VBG Lactic Acid 2.4 H (0.5-2.0) mmol/L Chloride (96-108) mmol/L Anion Gap (8-16) Creatinine (0.7-1.2) mg/dl Glucose (70-105) mg/dL Calcium (8.6-10.4) mg/dl C-Reactive Protein (0.0-0.8) mg/dl Total Protein (5.9-8.4) gm/dL Albumin (3.2-5.2) gm/dL Triglycerides (<150) mg/dl Beta-Hydroxybutyrate (< 0.27) mmol/L Urine Occult Blood 0.03 A (<0.03) mg/dL Urine RBC 7 H (0-1) /hpf Hyaline Casts 3 H (0-2) /lpf 05/11/18 05/11/18 05/11/18 Range/Units 03:48 03:48 04:16 RBC 3.34 L (4.50-5.90) M/mcL Hgb 11.1 L (13.5-16.5) g/dL Hct 32.9 L (41.0-55.0) % RDW 15.3 H (11.5-14.5) % Plt Count 117 L (140-440) K/mcL Lymph % (Auto) (15.5-49.0) % [place] % (Auto) (1.0-12.0) % Lymph # (Auto) (1.5-4.8) K/mcL Band Neutrophils % (0-10) % Lymphocytes % (15-49) % Monocytes % (Manual) (1-12) % Platelet Estimate Decreased A (NORMAL) Anisocytosis (NONE SEEN) PT (11.9-14.5) sec INR (0.9-1.1) VBG Lactic Acid 2.5 H (0.5-2.0) mmol/L Chloride (96-108) mmol/L Anion Gap (8-16) Creatinine (0.7-1.2) mg/dl Glucose 182 H (70-105) mg/dL Calcium 8.5 L (8.6-10.4) mg/dl C-Reactive Protein (0.0-0.8) mg/dl Total Protein 5.6 L (5.9-8.4) gm/dL Albumin 2.9 L (3.2-5.2) gm/dL Triglycerides 173 H (<150) mg/dl Beta-Hydroxybutyrate (< 0.27) mmol/L Urine Occult Blood (<0.03) mg/dL Urine RBC (0-1) /hpf Hyaline Casts (0-2) /lpf Diabetes panel 05/10/18 05/11/18 Range/Units 14:17 03:48 Sodium 136 138 (133-145) mmol/L Potassium 4.1 3.7 (3.3-5.1) mmol/L Chloride 92 L 97 (96-108) mmol/L Carbon Dioxide 25 28 (22-30) mmol/L BUN 17 14 (8-23) mg/dl Creatinine 1.3 H 0.9 (0.7-1.2) mg/dl Glucose 228 H 182 H (70-105) mg/dL Calcium 9.3 8.5 L (8.6-10.4) mg/dl AST 18 16 (0-37) U/l ALT 14 11 (0-40) U/l Alkaline Phosphatase 110 89 (39-117) U/L Total Protein 6.9 5.6 L (5.9-8.4) gm/dL Albumin 3.5 2.9 L (3.2-5.2) gm/dL Triglycerides 173 H (<150) mg/dl Calcium panel 05/10/18 05/11/18 Range/Units 14:17 03:48 Calcium 9.3 8.5 L (8.6-10.4) mg/dl Phosphorus 3.1 (2.7-4.5) mg/dL Albumin 3.5 2.9 L (3.2-5.2) gm/dL Pituitary panel 05/10/18 05/11/18 Range/Units 14:17 03:48 Sodium 136 138 (133-145) mmol/L Potassium 4.1 3.7 (3.3-5.1) mmol/L Chloride 92 L 97 (96-108) mmol/L Carbon Dioxide 25 28 (22-30) mmol/L BUN 17 14 (8-23) mg/dl Creatinine 1.3 H 0.9 (0.7-1.2) mg/dl Glucose 228 H 182 H (70-105) mg/dL Calcium 9.3 8.5 L (8.6-10.4) mg/dl Adrenal panel 05/10/18 05/11/18 Range/Units 14:17 03:48 Sodium 136 138 (133-145) mmol/L Potassium 4.1 3.7 (3.3-5.1) mmol/L Chloride 92 L 97 (96-108) mmol/L Carbon Dioxide 25 28 (22-30) mmol/L BUN 17 14 (8-23) mg/dl Creatinine 1.3 H 0.9 (0.7-1.2) mg/dl Glucose 228 H 182 H (70-105) mg/dL Calcium 9.3 8.5 L (8.6-10.4) mg/dl Total Bilirubin 0.8 0.7 (0.0-1.0) mg/dL AST 18 16 (0-37) U/l ALT 14 11 (0-40) U/l Alkaline Phosphatase 110 89 (39-117) U/L Total Protein 6.9 5.6 L (5.9-8.4) gm/dL Albumin 3.5 2.9 L (3.2-5.2) gm/dL All other labs normal. Assessment and Plan (1) Pressure ulcer Status: Chronic Priority: Low Comment: See wound care orderes Qualifiers: Pressure injury location: sacral region Pressure injury stage: stage 2 Qualified Code(s): L89.152 - Pressure ulcer of sacral region, stage 2 (2) Pressure ulcer of foot See wound care orders. Status: Chronic Priority: Low Qualifiers: Pressure injury stage: stage 1 Laterality: right Qualified Code(s): L89.891 - Pressure ulcer of other site, stage 1
[2018-05-11] MEDS: CARVEDILOL 12.5 MG TABLET PO SCH (17:38)
[2018-05-11] MEDS: SIMVASTATIN 10 MG TABLET PO SCH (21:34)
[2018-05-12 04:13] LABS: Basophils # (Auto) 0 K/mcL (0.0-0.3); Basophils % (Auto) 0.6 % (0.0-2.0); Eosinophils # (Auto) 0.2 K/mcL (0.0-0.7); Eosinophils % (Auto) 5.3 % (0.0-7.0); Granulocytes % (Auto) 50.3 % (38.0-78.0); Lymphocytes # (Auto) 1.4 K/mcL (1.5-4.8); Lymphocytes % (Auto) 30.8 % (15.5-49.0); Mean Cell Volume 99.2 fL (80.0-100.0); Monocytes # (Auto) 0.6 K/mcL (0.1-0.9); Platelet Count 121 K/mcL (140-440); RBC 3.42 M/mcL (4.50-5.90); Red Cell Distribution Width 14.9 % (11.5-14.5)
[2018-05-12 04:37] LABS: ALT/SGPT 10 U/l (0-40); Albumin 2.8 gm/dL (3.2-5.2); Alkaline Phosphatase 84 U/L (39-117); Bilirubin,Direct 0.2 mg/dL (0.0-0.3); Blood Urea Nitrogen 10 mg/dl (8-23); Gamma Glutamyl Transpeptidase 50 U/L (8-61); Uric Acid 2.8 mg/dL (2.5-8.0)
[2018-05-12] MEDS: PIPERACILLIN SODIUM/TAZOBACTAM 3.375 GM in DEXTROSE 5% IN WATER 50 ML IV SCH ×3 (05:50→17:36)
[2018-05-12] MEDS: 0.9 % SODIUM CHLORIDE 10 ML SYRINGE IV SCH ×3 (05:51→21:45)
[2018-05-12] MEDS: GABAPENTIN 300 MG CAPSULE PO SCH ×3 (05:52→21:44)
--- NOTE | 2018-05-12 07:24 | Internal Med Progress Note ---
Medical - PN: Subj Patient information: Note initiated : 05/12/18 at 7:17 am Service Date, if different from initiated Date: [] Patient: Luke Palacios a 72 y/o M admitted on 05/10/18 for BG 380, low BP, comes from wound care. Chief Complaint: [] Interval history: Mr. Palacios is a 72 year old M who was sent in from the wound care clinic because he was hypotensive in the 70s and 80s. Patient states his blood pressures checked by home health care worker 3 days a week and he typically runs around 110 systolic. He takes beta-abner LAURA inhibitors Lasix and hydrocodone. He states his been no changes in medication lately. He says he had a head cold recently with some cough of white sputum and some sinus congestion but otherwise no shortness of breath no fevers or chills. No other recent illnesses. Does have diarrhea 3-4 episodes per day for the past 3-4 days. However he says that is not too unusual as he occasionally gets diarrhea. He was given 2 L of IV fluids in the ER with improvement his blood pressure to systolic 120. Chest x-ray unremarkable urinalysis shows hyaline casts. His renal function has worsened and his lactate was 6 when he came in. Glucose was elevated with a mild elevated BHB. Wound surgeon evaluated his wound and felt it looked okay. Is also found to have an elevated INR. No abdominal pain. Other than the low blood pressures vital signs are stable in the ED. He was a febrile. Patient states his felt little bit more tired over the past couple days but otherwise no real complaints of abnormality other than the head cold. He does not recall taking any extra blood pressure medications diuretics. States he may have taken an extra pain medication lately but could not give any specifics. 05/11 no diarrhea o/n. no other issues or complaints. occasional cough. Review of Systems: denies headache/fever/chills/nausea/vomiting/chest or abdominal pain/dyspnea/diarrhea. Otherwise see above. 05/12 Poor sleep from what he states is interruptions. Did have diarrhea last night, C. difficile negative. Generalized aches and pains. Has cough of white sputum, no shortness of breath or chest pain Review of Systems: denies headache/fever/chills/nausea/vomiting/chest or abdominal pain/dyspnea. Otherwise see above. - Constitutional Vitals: Vital Signs Temp Pulse Resp BP Pulse Ox 98.4 F 86 18 137/79 96 05/12/18 01:15 05/10/18 21:30 05/12/18 04:37 05/12/18 04:37 05/12/18 04:37 Period Temp Pulse Resp BP Sys/Elizalde Pulse Ox Last 24 Hr 98.1 F-100.4 F 18-20 104-156/68-85 93-98 Intake and Output 05/11/18 05/12/18 05/12/18 21:59 05:59 13:59 Intake Total 290 50 50 Output Total 1200 1000 Balance -910 -950 50 Weight 134.309 kg Intake & Output: Intake & Output 05/11/18 05/12/18 05/12/18 21:59 05:59 13:59 Intake Total 290 50 50 Output Total 1200 1000 Balance -910 -950 50 Weight 134.309 kg Intake: IV 50 50 50 Zosyn 3.375 gm In Dextrose 5% 50 50 50 in Water 50 ml @ 100 mls/hr IV Q6H [facility] Rx#:[id number] Oral 240 Output: Urine Catheter Amount 1200 1000 Other: Meal Dinner Percent of Meal Consumed 100% Feeding Ability Assist with Tray Set Up Urine Appearance Clear Urine Color Bright Yellow Light María Elena Urine Odor Normal Stool Size Moderate Stool Color Brown Stool Consistency Liquid # of times incontinent of 1 Bowels Exam: General: Alert, Awake, No acute Distress, obese Eyes/N/T: EOMI, Head/Neck: neck supple, CV: irreg irreg, 2/6 SM Pulm: Clear b/l, no wheezing/rhonchi/rales Abd: soft, nontender, +BS x4 Ext: no clubbing/cyanosis, 1+ b/l LE edema chronic and venous stasis changes Neuro: Alert, no focal deficits, moves all extremities, Skin: warm/dry Medical - PN: Obj Da - Labs CBC & Chem 7: 05/12/18 03:42 05/12/18 03:41 Labs: Abnormal Lab Results 05/12/18 05/12/18 05/12/18 03:43 03:42 03:41 WBC 4.4 L RBC 3.42 L Hgb 11.5 L Hct 33.9 L RDW 14.9 H Plt Count 121 L Lymph % (Auto) Mcleod % (Auto) 13.0 H Lymph # (Auto) 1.4 L Band Neutrophils % Lymphocytes % Monocytes % (Manual) Platelet Estimate Anisocytosis PT 21.5 H INR 1.9 H VBG Lactic Acid Chloride Anion Gap Creatinine Glucose 137 H Calcium C-Reactive Protein Total Protein 5.6 L Albumin 2.8 L Triglycerides Beta-Hydroxybutyrate Urine Occult Blood Urine RBC Hyaline Casts 05/11/18 05/11/18 05/11/18 04:16 03:48 03:48 WBC RBC 3.34 L Hgb 11.1 L Hct 32.9 L RDW 15.3 H Plt Count 117 L Lymph % (Auto) Mcleod % (Auto) Lymph # (Auto) Band Neutrophils % Lymphocytes % Monocytes % (Manual) Platelet Estimate Decreased A Anisocytosis PT INR VBG Lactic Acid 2.5 H Chloride Anion Gap Creatinine Glucose 182 H Calcium 8.5 L C-Reactive Protein Total Protein 5.6 L Albumin 2.9 L Triglycerides 173 H Beta-Hydroxybutyrate Urine Occult Blood Urine RBC Hyaline Casts 05/11/18 05/10/18 05/10/18 03:48 19:50 16:23 WBC RBC Hgb Hct RDW Plt Count Lymph % (Auto) [place]cleod % (Auto) Lymph # (Auto) Band Neutrophils % Lymphocytes % Monocytes % (Manual) Platelet Estimate Anisocytosis PT 45.7 H INR 5.0 H VBG Lactic Acid 2.4 H Chloride Anion Gap Creatinine Glucose Calcium C-Reactive Protein Total Protein Albumin Triglycerides Beta-Hydroxybutyrate Urine Occult Blood 0.03 A Urine RBC 7 H Hyaline Casts 3 H 05/10/18 05/10/18 05/10/18 14:22 14:17 14:17 WBC RBC Hgb Hct RDW Plt Count Lymph % (Auto) Mcleod % (Auto) Lymph # (Auto) Band Neutrophils % 12 H Lymphocytes % 7 L Monocytes % (Manual) 14 H Platelet Estimate Anisocytosis Few A PT 43.6 H INR 4.7 H VBG Lactic Acid Chloride Anion Gap Creatinine Glucose Calcium C-Reactive Protein 2.6 H Total Protein Albumin Triglycerides Beta-Hydroxybutyrate Urine Occult Blood Urine RBC Hyaline Casts 05/10/18 05/10/18 05/10/18 14:17 14:17 14:17 WBC RBC 4.00 L Hgb 13.1 L Hct 39.2 L RDW 15.2 H Plt Count Lymph % (Auto) 13.1 L Mcleod % (Auto) 12.1 H Lymph # (Auto) 0.8 L Band Neutrophils % Lymphocytes % Monocytes % (Manual) Platelet Estimate Anisocytosis PT INR VBG Lactic Acid 6.0 H* Chloride 92 L Anion Gap 19.0 H Creatinine 1.3 H Glucose 228 H Calcium C-Reactive Protein Total Protein Albumin Triglycerides Beta-Hydroxybutyrate 0.38 H Urine Occult Blood Urine RBC Hyaline Casts Meds: Medications Acetaminophen (Tylenol) 650 mg PO Q6HP PRN PRN Reason: PAIN/FEVER > 101 Hydrocodone Bitart/Acetaminophen ([place] 10/325mg) 1 tab PO BID [facility] Last Admin: 05/11/18 21:34 Dose: 1 tab Documented by: Albuterol/Ipratropium (Duoneb) 3 ml NEB Q4HP PRN PRN Reason: Shortness Of Breath Allopurinol (Zylopriim) 300 mg PO QDAY [facility] Last Admin: 05/11/18 09:36 Dose: 300 mg Documented by: Carvedilol (Coreg) 25 mg PO BIDCC [facility] Last Admin: 05/11/18 17:38 Dose: 25 mg Documented by: Dextrose (Dextrose 50%) 0 ml IV UD PRN PRN Reason: Hypoglycemia Diagnostic Test (Pha) (Accu-Chek) 1 each FS ACHS [facility] Last Admin: 05/11/18 21:33 Dose: 1 each Documented by: Gabapentin (Neurontin) 600 mg PO Q8 [facility] Last Admin: 05/12/18 05:52 Dose: 600 mg Documented by: Glucose (Insta-Glucose) 15 gm PO PRN PRN PRN Reason: Hypoglycemia Piperacillin Sod/Tazobactam (Sod 3.375 gm/ Dextrose) 50 mls @ 100 mls/hr IV Q6H [facility]; Protocol Last Infusion: 05/12/18 06:20 Dose: Infused Documented by: Vancomycin HCl 2,000 mg/ (Sodium Chloride) 500 mls @ 250 mls/hr IV Q24H [facility] Last Infusion: 05/11/18 12:00 Dose: Infused Documented by: Potassium Chloride 40 meq/ (Dextrose) 520 mls @ 130 mls/hr IV ONCE PRN PRN Reason: Potassium < 3 Magnesium Sulfate (Magnesium Sulfate) 2 gm in 50 mls @ 50 mls/hr IV ONCE PRN PRN Reason: Magnesium </= 1.6 Insulin Human Lispro (Humalog) 0 unit SQ [facility]; Protocol Last Admin: 05/11/18 21:33 Dose: 6 units Documented by: Metoprolol Tartrate (Lopressor) 5 mg IV Q2HP PRN PRN Reason: HR>110 Ondansetron HCl (Zofran) 4 mg IV Q4HP PRN PRN Reason: Nausea And Vomiting Polyethylene Glycol (Miralax) 17 gm PO DAILYP PRN PRN Reason: Constipation Potassium Chloride (Kdur) 40 meq PO ONCE PRN PRN Reason: Potssium is 3-3.5 Potassium Chloride (Kdur) 40 meq PO ONCE PRN PRN Reason: Potassium < 3 Prochlorperazine (Compazine) 10 mg IV Q6HP PRN PRN Reason: Nausea And Vomiting Promethazine HCl (Phenergan) 0 mg PO Q6HP PRN PRN Reason: Nausea And Vomiting Simvastatin (Zocor) 10 mg PO HS [facility] Last Admin: 05/11/18 21:34 Dose: 10 mg Documented by: Sitagliptin Phosphate (Januvia) 100 mg PO DAILY [facility] Last Admin: 05/11/18 09:36 Dose: 100 mg Documented by: Sodium Chloride (Saline Flush) 10 ml IV Q8 [facility] Last Admin: 05/12/18 05:51 Dose: 10 ml Documented by: Sotalol HCl (Betapace) 40 mg PO QDAY [facility] Last Admin: 05/11/18 09:36 Dose: 40 mg Documented by: Tizanidine HCl (Zanaflex) 4 mg PO Q12 [facility] Last Admin: 05/11/18 21:34 Dose: 4 mg Documented by: Vancomycin HCl (Vancomycin Per Pharmacy) 1 order IV [facility]; Protocol Medical - PN: A/P - Time Spent With Patient Total time spent is greater than 50% in coordination of care (as documented) at patient's floor/unit and/or counseling patient: - Narrative A/P Narrative: A: *Hypotension: Exact etiology undetermined. Mild bandemia initially but no fever. Bandemia resolved. Chest CT/UA unremarkable. Does have new cough he states from "cold". 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 Also could be combination of diuretics/pain/blood pressure medications -resolved with IVF's -PCT 0.22<<0.36 -BC neg *Lactic acidosis: 2/2 above, resolved *DM w/hyperglycemia and ?early DKA/HHS: Improved, contributor to hypovolemia *DEVORA: 2/2 above -improved with IVF *Coagulopathy: Secondary to warfarin *Afib: on sotolol/coreg/warfarin *Buttock wounds: follows with Dr. Mayes *Deconditioning/debility: *Obesity: *PVD w/stents by Dr. Meek: *DM w/neuropathy: *Obese: *HTN: BB/ACEI/lasix *chronic pain: *diarrhea: c. diff neg *URI: PCT elevated but nothing on chest CT P: -emiric Abx vanc(d/c)/zosyn (h/o MRSA wound 2017 - MRSA nares negative), f/u BC's and PCT -[facility] -Dr. Mayes for wounds -cont sotalol, restarted coreg, restart ramipril/lasix depending on BP -likely needs placement, -pt/ot -f/u with Cardio regarding CT chest coronary findings -ppx: warfarin per pharmacy, bridge Full code Medical - PN: Qual - VTE Deep Vein Thrombosis/Pulmonary Embolism Present on Admission: No
[2018-05-12] MEDS: INSULIN LISPRO 1 UNIT/0.01 ML UNIT SQ SCH ×4 (09:02→21:44)
[2018-05-12] MEDS: CARVEDILOL 12.5 MG TABLET PO SCH ×2 (09:04→17:36)
[2018-05-12] MEDS: sitaGLIPtin 100 MG TABLET PO SCH (09:04)
[2018-05-12] MEDS: ALLOPURINOL 300 MG TABLET PO SCH (09:04)
[2018-05-12] MEDS: HYDROcodone/APAP 10/325MG TABLET PO SCH ×2 (09:04→21:44)
[2018-05-12] MEDS: tiZANidine 4 MG TABLET PO SCH ×3 (09:04→17:39)
[2018-05-12] MEDS: SOTALOL 80 MG TABLET PO SCH (09:05)
[2018-05-12] MEDS: VANCOMYCIN 2,000 MG in 0.9 % SODIUM CHLORIDE 500 ML IV SCH (10:35)
[2018-05-12] MEDS: ENOXAPARIN 120 MG/0.8 ML SYRINGE SQ SCH ×2 (10:48→21:42)
[2018-05-12] MEDS: LOPERAMIDE 2 MG CAPSULE PO PRN ×2 (10:48→19:10)
--- NOTE | 2018-05-12 11:23 | Discharge Summary ---
Medical - DS: Prov Patient information: Note initiated : 05/12/18 at 11:20 am Service Date, if different from initiated Date: [] Patient: Luke Palacios 72 y/o M admitted on 05/10/18 for BG 380, low BP, comes from wound care. Chief Complaint: [] Date of admission: 05/10/18 19:12 Discharge date: 05/15/18 Primary care physician: Heike Raman Consults: 05/10/18 Consult to Physician [CONS] Stat Comment: Consulting Provider: Neal Maloney Reason For Exam: Physician to Consult 05/10/18 15:50 Consult to Physician [CONS] Stat Comment: Consulting Provider: Efrain Blas Reason For Exam: Physician to Consult Medical - DS: Meds - Discharge Medications Prescriptions: Enoxaparin [Lovenox] 120 mg SQ BID #4 syringe Ramipril [Altace] 2.5 mg PO BID 90 Days #30 cap Active and Home Medications: Home Medications cholecalciferol (vitamin D3) 5,000 unit tablet 5,000 unit PO QDAY tab 08/27/14 [History Confirmed 05/10/18 Last Taken 05/10/18 08:00] pravastatin 20 mg tablet 20 mg PO HS #90 tab 02/16/16 [Rx Confirmed 05/10/18 Last Taken 05/09/18 21:00] allopurinol 300 mg tablet 300 mg PO QDAY #90 tab 03/09/17 [Rx Confirmed 05/10/18 Last Taken 05/10/18 08:00] ramipril 5 mg capsule 5 mg PO BID 90 Days #180 cap 04/27/17 [Rx Confirmed 05/10/18 Last Taken 05/10/18 08:00] sotalol 80 mg tablet 40 mg PO QDAY #45 tab 06/20/17 [Rx Confirmed 05/10/18 Last Taken 05/10/18 08:00] CPAP Machine #1 each 08/22/17 [Rx Confirmed 02/03/18 Last Taken Unknown] gabapentin 300 mg capsule 600 mg PO Q8H #180 cap 08/22/17 [Rx Confirmed 05/10/18 Last Taken 05/10/18 15:00] furosemide 40 mg tablet 40 mg PO QDAY tab 12/09/17 [History Confirmed 05/10/18 Last Taken 05/10/18 08:00] Heavy Duty Wheelchair #1 ea 01/03/18 [Rx Confirmed 02/03/18 Last Taken Unknown] Hospital bed #1 ea 01/03/18 [Rx Confirmed 02/03/18 Last Taken Unknown] DARIANA Uribeion #1 ea 02/10/18 [Rx Last Taken Unknown] carvedilol 25 mg tablet 25 mg PO BID 90 Days #180 tab 02/10/18 [Rx Confirmed 05/10/18 Last Taken 05/10/18 08:00] Ascorbic Acid/Bioflavonoids [C 1,031-Uxrcxqtopmfgi-Oz Cap] 1 tab PO DAILY 05/10/18 [History Confirmed 05/10/18 Last Taken 05/10/18 08:00] HYDROcodone/ACETAMINOPHEN [Lorcet Hd 10-325 mg Tablet] 10 mg PO BID 05/10/18 [History Confirmed 05/10/18 Last Taken 05/10/18 08:00] Liraglutide [Victoza 2-Dagoberto] 0.3 mg SC DAILY 05/10/18 [History Confirmed 05/10/18 Last Taken Unknown] Liraglutide [Victoza 2-Dagoberto] 0.3 mg SQ BID 05/10/18 [History Confirmed 05/10/18 Last Taken 05/10/18 08:00] Minocycline [Minocin] 100 mg PO BID 05/10/18 [History Confirmed 05/10/18 Last Taken 05/10/18 08:00] Pen Needle, Diabetic [Carefine Pen Needle] 1 each MC BID 05/10/18 [History Confirmed 05/10/18 Last Taken 05/10/18 08:00] Testosterone Cypionate [Depo-Testosterone] 100 mg IM Q2W 05/10/18 [History Confirmed 05/10/18 Last Taken 01/25/18] Warfarin [Coumadin] 5 mg PO DAILY 05/10/18 [History Confirmed 05/10/18 Last Taken 05/10/18 08:00] sitaGLIPtin [Januvia] 100 mg PO DAILY 05/10/18 [History Confirmed 05/10/18 Last Taken 05/10/18 08:00] tiZANidine [Zanaflex] 4 mg PO Q6H 05/10/18 [History Confirmed 05/10/18 Last Taken 05/10/18 12:00] Home Medications cholecalciferol (vitamin D3) 5,000 unit tablet 5,000 unit PO QDAY tab 08/27/14 [History Confirmed 05/10/18 Last Taken 05/10/18 08:00] pravastatin 20 mg tablet 20 mg PO HS #90 tab 02/16/16 [Rx Confirmed 05/10/18 Last Taken 05/09/18 21:00] allopurinol 300 mg tablet 300 mg PO QDAY #90 tab 03/09/17 [Rx Confirmed 05/10/18 Last Taken 05/10/18 08:00] sotalol 80 mg tablet 40 mg PO QDAY #45 tab 06/20/17 [Rx Confirmed 05/10/18 Last Taken 05/10/18 08:00] CPAP Machine #1 each 08/22/17 [Rx Confirmed 02/03/18 Last Taken Unknown] gabapentin 300 mg capsule 600 mg PO Q8H #180 cap 08/22/17 [Rx Confirmed 05/10/18 Last Taken 05/10/18 15:00] furosemide 40 mg tablet 40 mg PO QDAY tab 12/09/17 [History Confirmed 05/10/18 Last Taken 05/10/18 08:00] Heavy Duty Wheelchair #1 ea 01/03/18 [Rx Confirmed 02/03/18 Last Taken Unknown] Hospital bed #1 ea 01/03/18 [Rx Confirmed 02/03/18 Last Taken Unknown] ROHO Cushion #1 ea 02/10/18 [Rx Last Taken Unknown] carvedilol 25 mg tablet 25 mg PO BID 90 Days #180 tab 02/10/18 [Rx Confirmed 05/10/18 Last Taken 05/10/18 08:00] Ascorbic Acid/Bioflavonoids [C 1,817-Irnvfhykmqdbk-Rq Cap] 1 tab PO DAILY 05/10/18 [History Confirmed 05/10/18 Last Taken 05/10/18 08:00] HYDROcodone/ACETAMINOPHEN [Lorcet Hd 10-325 mg Tablet] 10 mg PO BID 05/10/18 [History Confirmed 05/10/18 Last Taken 05/10/18 08:00] Liraglutide [Victoza 2-Dagoberto] 0.3 mg SC DAILY 05/10/18 [History Confirmed 05/10/18 Last Taken Unknown] Liraglutide [Victoza 2-Dagoberto] 0.3 mg SQ BID 05/10/18 [History Confirmed 05/10/18 Last Taken 05/10/18 08:00] Minocycline [Minocin] 100 mg PO BID 05/10/18 [History Confirmed 05/10/18 Last Taken 05/10/18 08:00] Pen Needle, Diabetic [Carefine Pen Needle] 1 each MC BID 05/10/18 [History Confirmed 05/10/18 Last Taken 05/10/18 08:00] Testosterone Cypionate [Depo-Testosterone] 100 mg IM Q2W 05/10/18 [History Confirmed 05/10/18 Last Taken 01/25/18] Warfarin [Coumadin] 5 mg PO DAILY 05/10/18 [History Confirmed 05/10/18 Last Taken 05/10/18 08:00] sitaGLIPtin [Januvia] 100 mg PO DAILY 05/10/18 [History Confirmed 05/10/18 Last Taken 05/10/18 08:00] tiZANidine [Zanaflex] 4 mg PO Q6H 05/10/18 [History Confirmed 05/10/18 Last Taken 05/10/18 12:00] Ramipril [Altace] 2.5 mg PO BID 90 Days #30 cap 05/12/18 [Rx Last Taken Unknown] Enoxaparin [Lovenox] 120 mg SQ BID #4 syringe 05/15/18 [Rx Last Taken Unknown] Medical - DS: Hosp Hospital course: Mr. Palacios is a 72 year old M Mr. Palacios is a 72 year old M who was sent in from the wound care clinic because he was hypotensive in the 70s and 80s. Patient states his blood pressures checked by home health care worker 3 days a week and he typically runs around 110 systolic. He takes beta-abner LAURA inhibitors Lasix and hydrocodone. He states his been no changes in medication lately. He says he had a head cold recently with some cough of white sputum and some sinus congestion but otherwise no shortness of breath no fevers or chills. No other recent illnesses. Does have diarrhea 3-4 episodes per day for the past 3-4 days. However he says that is not too unusual as he occasionally gets diarrhea. He was given 2 L of IV fluids in the ER with improvement his blood pressure to systolic 120. Chest x-ray unremarkable urinalysis shows hyaline casts. His renal function has worsened and his lactate was 6 when he came in. Glucose was elevated with a mild elevated BHB. Wound surgeon evaluated his wound and felt it looked okay. Is also found to have an elevated INR. No abdominal pain. Other than the low blood pressures vital signs are stable in the ED. He was afebrile. Patient states his felt little bit more tired over the past couple days but otherwise no real complaints of abnormality other than the head cold. He does not recall taking any extra blood pressure medications diuretics. States he may have taken an extra pain medication lately but could not give any specifics. 05/11 no diarrhea o/n. no other issues or complaints. occasional cough. Review of Systems: denies headache/fever/chills/nausea/vomiting/chest or abdominal pain/dyspnea/diarrhea. Otherwise see above. 05/12 Poor sleep from what he states is interruptions. Did have diarrhea last night, C. difficile negative. Generalized aches and pains. Has cough of white sputum, no shortness of breath or chest pain 05/13 One episode of diarrhea this morning. Does not seem to be complaining as many aches and pains. Occasional mild cough. No new complaints. 05/14 Poor sleep but is always had a hard time sleeping. Seems to be in good spirits. No new complaints. Desires to go to her nursing facility. 05/15 Overnight events. Doing well stable for discharge. Discharge diagnosis: Hypotension multifactorial including pain meds blood pressure meds diuretic Secondary discharge diagnosis: Diabetes with hyperglycemia acute kidney injury warfarin coagulopathy A. fib buttocks wounds deconditioning obesity peripheral vascular disease obesity hypertension chronic pain upper respiratory tract infection - Time Spent with Patient Total time spent providing and/or coordinating discharge services: Greater than 30 minutes Medical - DS: Exam - Constitutional Vitals: Vital Signs Temp Resp BP BP Pulse Ox 05/12/18 09:06 98.4 F 150/64 96 05/12/18 04:37 18 137/79 96 05/12/18 01:15 98.4 F 18 94 05/11/18 20:03 98.9 F 20 120/71 98 05/11/18 20:00 95 05/11/18 16:49 98.1 F 129/81 05/11/18 16:00 98.1 F 20 129/81 96 05/11/18 12:15 98.4 F 18 104/68 96 Intake and Output 05/11/18 05/12/18 05/12/18 21:59 05:59 13:59 Intake Total 290 50 50 Output Total 1200 1000 Balance -910 -950 50 Intake: IV 50 50 50 Zosyn 3.375 gm In Dextrose 5% 50 50 50 in Water 50 ml @ 100 mls/hr IV Q6H [facility] Rx#:[id number] Oral 240 Output: Urine Catheter Amount 1200 1000 Other: Meal Dinner Percent of Meal Consumed 100% Feeding Ability Assist with Tray Set Up Urine Appearance Clear Urine Color Bright Yellow Light María Elena Urine Odor Normal Stool Size Moderate Stool Color Brown Stool Consistency Liquid # of times incontinent of 1 Bowels Weight 134.309 kg Medical - DS: Data Labs on day of discharge: Labs from last 24 hours 05/12/18 05/12/18 05/12/18 08:02 03:43 03:43 WBC RBC Hgb Hct MCV MCH MCHC RDW Plt Count MPV Gran % Lymph % (Auto) [place] % (Auto) Eos % (Auto) Baso % (Auto) Gran # Lymph # (Auto) [place] # (Auto) Eos # (Auto) Baso # (Auto) PT 21.5 H INR 1.9 H VBG Lactic Acid Sodium Potassium Chloride Carbon Dioxide Anion Gap BUN Creatinine GFR Calculation Glucose Uric Acid Calcium Phosphorus Magnesium Total Bilirubin Direct Bilirubin GGT AST ALT Alkaline Phosphatase Lactate Dehydrogenase C-Reactive Protein Total Protein Albumin Globulin Albumin/Globulin Ratio Triglycerides Procalcitonin 0.22 Vancomycin Trough 10.3 05/12/18 05/12/18 05/12/18 03:42 03:42 03:41 WBC 4.4 L RBC 3.42 L Hgb 11.5 L Hct 33.9 L MCV 99.2 MCH 33.7 MCHC 34.0 RDW 14.9 H Plt Count 121 L MPV 8.3 Gran % 50.3 Lymph % (Auto) 30.8 [place] % (Auto) 13.0 H Eos % (Auto) 5.3 Baso % (Auto) 0.6 Gran # 2.2 Lymph # (Auto) 1.4 L [place] # (Auto) 0.6 Eos # (Auto) 0.2 Baso # (Auto) 0 PT INR VBG Lactic Acid 1.6 Sodium Potassium Chloride Carbon Dioxide Anion Gap BUN Creatinine GFR Calculation Glucose Uric Acid Calcium Phosphorus Magnesium Total Bilirubin Direct Bilirubin GGT AST ALT Alkaline Phosphatase Lactate Dehydrogenase C-Reactive Protein 3.7 H Total Protein Albumin Globulin Albumin/Globulin Ratio Triglycerides Procalcitonin Vancomycin Trough 05/12/18 03:41 WBC RBC Hgb Hct MCV MCH MCHC RDW Plt Count MPV Gran % Lymph % (Auto) [place] % (Auto) Eos % (Auto) Baso % (Auto) Gran # Lymph # (Auto) [place] # (Auto) Eos # (Auto) Baso # (Auto) PT INR VBG Lactic Acid Sodium 140 Potassium 3.5 Chloride 103 Carbon Dioxide 28 Anion Gap 9.0 BUN 10 Creatinine 0.8 GFR Calculation 89 Glucose 137 H Uric Acid 2.8 Calcium 8.6 Phosphorus 3.3 Magnesium 1.8 Total Bilirubin 0.9 Direct Bilirubin 0.2 GGT 50 AST 16 ALT 10 Alkaline Phosphatase 84 Lactate Dehydrogenase 152 C-Reactive Protein Total Protein 5.6 L Albumin 2.8 L Globulin 2.8 Albumin/Globulin Ratio 1.0 Triglycerides 133 Procalcitonin Vancomycin Trough Preliminary micro results at discharge 05/10/18 19:39 Stool Culture - Preliminary Stool 05/10/18 14:20 Blood Culture - Preliminary Blood 05/10/18 14:17 Blood Culture - Preliminary Blood Medical - DS: A/P - Patient/Caregiver Discharge Instructions Activity: as per physical therapy Diet: Consistent Carbohydrate Additional Instructions: Referral to see cardiology in 5-10 days regarding coronary artery findings on CT chest Prescriptions: Enoxaparin [Lovenox] 120 mg SQ BID #4 syringe Ramipril [Altace] 2.5 mg PO BID 90 Days #30 cap Other Amb Orders: Prothrombin Time INR Time Frame: 2 Days, Location: None Selected - Follow up Plan Follow up with: Heike Raman, DNP, [employer]CHNICIAN [Primary Care Provider] - Disposition: Xfer SNF Prognosis: Good Rehab Potential: Fair I certify that the patient requires SNF services: Yes Overall status at discharge: patient is back to baseline Medical - DS: Qual - VTE Deep Vein Thrombosis/Pulmonary Embolism Present on Admission: No
[2018-05-12] MEDS ORDERED: WARFARIN 5 MG TABLET PO SCH (14:00)
[2018-05-12] MEDS: SIMVASTATIN 10 MG TABLET PO SCH (21:44)
[2018-05-13] MEDS: PIPERACILLIN SODIUM/TAZOBACTAM 3.375 GM in DEXTROSE 5% IN WATER 50 ML IV SCH ×4 (00:32→17:31)
[2018-05-13] MEDS: tiZANidine 4 MG TABLET PO SCH ×4 (00:33→17:30)
[2018-05-13] MEDS: 0.9 % SODIUM CHLORIDE 10 ML SYRINGE IV SCH ×3 (06:02→21:08)
[2018-05-13] MEDS: GABAPENTIN 300 MG CAPSULE PO SCH ×3 (06:04→21:07)
--- NOTE | 2018-05-13 07:58 | Internal Med Progress Note ---
Medical - PN: Subj Patient information: Note initiated : 05/13/18 at 7:54 am Service Date, if different from initiated Date: [] Patient: Luke Palacios a 72 y/o M admitted on 05/10/18 for BG 380, low BP, comes from wound care. Chief Complaint: [] Interval history: Mr. Palacios is a 72 year old M who was sent in from the wound care clinic because he was hypotensive in the 70s and 80s. Patient states his blood pressures checked by home health care worker 3 days a week and he typically runs around 110 systolic. He takes beta-abner LAURA inhibitors Lasix and hydrocodone. He states his been no changes in medication lately. He says he had a head cold recently with some cough of white sputum and some sinus congestion but otherwise no shortness of breath no fevers or chills. No other recent illnesses. Does have diarrhea 3-4 episodes per day for the past 3-4 days. However he says that is not too unusual as he occasionally gets diarrhea. He was given 2 L of IV fluids in the ER with improvement his blood pressure to systolic 120. Chest x-ray unremarkable urinalysis shows hyaline casts. His renal function has worsened and his lactate was 6 when he came in. Glucose was elevated with a mild elevated BHB. Wound surgeon evaluated his wound and felt it looked okay. Is also found to have an elevated INR. No abdominal pain. Other than the low blood pressures vital signs are stable in the ED. He was a febrile. Patient states his felt little bit more tired over the past couple days but otherwise no real complaints of abnormality other than the head cold. He does not recall taking any extra blood pressure medications diuretics. States he may have taken an extra pain medication lately but could not give any specifics. 05/11 no diarrhea o/n. no other issues or complaints. occasional cough. Review of Systems: denies headache/fever/chills/nausea/vomiting/chest or abdominal pain/dyspnea/diarrhea. Otherwise see above. 05/12 Poor sleep from what he states is interruptions. Did have diarrhea last night, C. difficile negative. Generalized aches and pains. Has cough of white sputum, no shortness of breath or chest pain 05/13 One episode of diarrhea this morning. Does not seem to be complaining as many aches and pains. Occasional mild cough. No new complaints. Review of Systems: denies headache/fever/chills/nausea/vomiting/chest or abdominal pain/dyspnea. Otherwise see above. - Constitutional Vitals: Vital Signs Temp Pulse Resp BP Pulse Ox 98.2 F 80 20 138/82 94 05/13/18 06:48 05/13/18 04:00 05/13/18 06:48 05/13/18 06:48 05/13/18 06:48 Period Temp Pulse Resp BP Sys/Elizalde Pulse Ox Last 24 Hr 94.4 F-99.0 F 78-81 18-20 93-150/64-82 91-96 Intake and Output 05/12/18 05/13/18 05/13/18 21:59 05:59 13:59 Intake Total 910 650 50 Output Total 1000 650 Balance -90 0 50 Weight 133.356 kg Intake & Output: Intake & Output 05/12/18 05/13/18 05/13/18 21:59 05:59 13:59 Intake Total 910 650 50 Output Total 1000 650 Balance -90 0 50 Weight 133.356 kg Intake: IV 50 50 50 Zosyn 3.375 gm In Dextrose 5% 50 50 50 in Water 50 ml @ 100 mls/hr IV Q6H [facility] Rx#:[id number] Oral 860 600 Output: Urine Catheter Amount 1000 650 Other: Meal Dinner Percent of Meal Consumed 100% Feeding Ability Independent Exam: General: Alert, Awake, No acute Distress, obese Eyes/N/T: EOMI, Head/Neck: neck supple, CV: irreg irreg, 2/6 SM Pulm: Clear b/l, no wheezing/rhonchi/rales Abd: soft, nontender, +BS x4 Ext: no clubbing/cyanosis, 1+ b/l LE edema chronic and venous stasis changes Neuro: Alert, no focal deficits, moves all extremities, Skin: warm/dry Medical - PN: Obj Da - Labs CBC & Chem 7: 05/12/18 03:42 05/12/18 03:41 Labs: Abnormal Lab Results 05/12/18 05/12/18 05/12/18 03:43 03:42 03:41 WBC 4.4 L RBC 3.42 L Hgb 11.5 L Hct 33.9 L RDW 14.9 H Plt Count 121 L Lymph % (Auto) [place] % (Auto) 13.0 H Lymph # (Auto) 1.4 L Band Neutrophils % Lymphocytes % Monocytes % (Manual) Platelet Estimate Anisocytosis PT 21.5 H INR 1.9 H VBG Lactic Acid Chloride Anion Gap Creatinine Glucose Calcium C-Reactive Protein 3.7 H Total Protein Albumin Triglycerides Beta-Hydroxybutyrate Urine Occult Blood Urine RBC Hyaline Casts 05/12/18 05/11/18 05/11/18 03:41 04:16 03:48 WBC RBC 3.34 L Hgb 11.1 L Hct 32.9 L RDW 15.3 H Plt Count 117 L Lymph % (Auto) [place] % (Auto) Lymph # (Auto) Band Neutrophils % Lymphocytes % Monocytes % (Manual) Platelet Estimate Decreased A Anisocytosis PT INR VBG Lactic Acid 2.5 H Chloride Anion Gap Creatinine Glucose 137 H Calcium C-Reactive Protein Total Protein 5.6 L Albumin 2.8 L Triglycerides Beta-Hydroxybutyrate Urine Occult Blood Urine RBC Hyaline Casts 05/11/18 05/11/18 05/10/18 03:48 03:48 19:50 WBC RBC Hgb Hct RDW Plt Count Lymph % (Auto) [place] % (Auto) Lymph # (Auto) Band Neutrophils % Lymphocytes % Monocytes % (Manual) Platelet Estimate Anisocytosis PT 45.7 H INR 5.0 H VBG Lactic Acid 2.4 H Chloride Anion Gap Creatinine Glucose 182 H Calcium 8.5 L C-Reactive Protein Total Protein 5.6 L Albumin 2.9 L Triglycerides 173 H Beta-Hydroxybutyrate Urine Occult Blood Urine RBC Hyaline Casts 05/10/18 05/10/18 05/10/18 16:23 14:22 14:17 WBC RBC Hgb Hct RDW Plt Count Lymph % (Auto) [place] % (Auto) Lymph # (Auto) Band Neutrophils % 12 H Lymphocytes % 7 L Monocytes % (Manual) 14 H Platelet Estimate Anisocytosis Few A PT 43.6 H INR 4.7 H VBG Lactic Acid Chloride Anion Gap Creatinine Glucose Calcium C-Reactive Protein Total Protein Albumin Triglycerides Beta-Hydroxybutyrate Urine Occult Blood 0.03 A Urine RBC 7 H Hyaline Casts 3 H 05/10/18 05/10/18 05/10/18 14:17 14:17 14:17 WBC RBC Hgb Hct RDW Plt Count Lymph % (Auto) [place] % (Auto) Lymph # (Auto) Band Neutrophils % Lymphocytes % Monocytes % (Manual) Platelet Estimate Anisocytosis PT INR VBG Lactic Acid 6.0 H* Chloride 92 L Anion Gap 19.0 H Creatinine 1.3 H Glucose 228 H Calcium C-Reactive Protein 2.6 H Total Protein Albumin Triglycerides Beta-Hydroxybutyrate 0.38 H Urine Occult Blood Urine RBC Hyaline Casts 05/10/18 14:17 WBC RBC 4.00 L Hgb 13.1 L Hct 39.2 L RDW 15.2 H Plt Count Lymph % (Auto) 13.1 L [place] % (Auto) 12.1 H Lymph # (Auto) 0.8 L Band Neutrophils % Lymphocytes % Monocytes % (Manual) Platelet Estimate Anisocytosis PT INR VBG Lactic Acid Chloride Anion Gap Creatinine Glucose Calcium C-Reactive Protein Total Protein Albumin Triglycerides Beta-Hydroxybutyrate Urine Occult Blood Urine RBC Hyaline Casts Meds: Medications Acetaminophen (Tylenol) 650 mg PO Q6HP PRN PRN Reason: PAIN/FEVER > 101 Hydrocodone Bitart/Acetaminophen ([place] 10/325mg) 1 tab PO BID [facility] Last Admin: 05/12/18 21:44 Dose: 1 tab Documented by: Albuterol/Ipratropium (Duoneb) 3 ml NEB Q4HP PRN PRN Reason: Shortness Of Breath Allopurinol (Zylopriim) 300 mg PO QDAY [facility] Last Admin: 05/12/18 09:04 Dose: 300 mg Documented by: [facility] Last Admin: 05/12/18 17:36 Dose: 25 mg Documented by: Dextrose (Dextrose 50%) 0 ml IV UD PRN PRN Reason: Hypoglycemia Diagnostic Test (Pha) (Accu-Chek) 1 each FS ACHS [facility] Last Admin: 05/12/18 21:43 Dose: 1 each Documented by: Enoxaparin Sodium (Lovenox) 120 mg SQ BID [facility] Last Admin: 05/12/18 21:42 Dose: 120 mg Documented by: Furosemide (Lasix) 40 mg PO QDAY [facility] Gabapentin (Neurontin) 600 mg PO Q8 [facility] Last Admin: 05/13/18 06:04 Dose: 600 mg Documented by: Glucose (Insta-Glucose) 15 gm PO PRN PRN PRN Reason: Hypoglycemia Piperacillin Sod/Tazobactam (Sod 3.375 gm/ Dextrose) 50 mls @ 100 mls/hr IV Q6H [facility]; Protocol Last Infusion: 05/13/18 07:13 Dose: Infused Documented by: Potassium Chloride 40 meq/ (Dextrose) 520 mls @ 130 mls/hr IV ONCE PRN PRN Reason: Potassium < 3 Magnesium Sulfate (Magnesium Sulfate) 2 gm in 50 mls @ 50 mls/hr IV ONCE PRN PRN Reason: Magnesium </= 1.6 Insulin Human Lispro (Humalog) 0 unit SQ ACHS [facility]; Protocol Last Admin: 05/12/18 21:44 Dose: Not Given Documented by: Loperamide HCl (Imodium) 2 mg PO PRN PRN PRN Reason: Diarrhea Last Admin: 05/12/18 19:10 Dose: 2 mg Documented by: Metoprolol Tartrate (Lopressor) 5 mg IV Q2HP PRN PRN Reason: HR>110 Morphine Sulfate (Morphine) 1 - 2 mg IV Q3HP PRN PRN Reason: PAIN LEVEL > 6 Last Admin: 05/12/18 19:09 Dose: 1 mg Documented by: Ondansetron HCl (Zofran) 4 mg IV Q4HP PRN PRN Reason: Nausea And Vomiting Polyethylene Glycol (Miralax) 17 gm PO DAILYP PRN PRN Reason: Constipation Potassium Chloride (Kdur) 40 meq PO ONCE PRN PRN Reason: Potssium is 3-3.5 Last Admin: 05/12/18 09:05 Dose: 40 meq Documented by: Potassium Chloride (Kdur) 40 meq PO ONCE PRN PRN Reason: Potassium < 3 Prochlorperazine (Compazine) 10 mg IV Q6HP PRN PRN Reason: Nausea And Vomiting Promethazine HCl (Phenergan) 0 mg PO Q6HP PRN PRN Reason: Nausea And Vomiting Simvastatin (Zocor) 10 mg PO HS [facility] Last Admin: 05/12/18 21:44 Dose: 10 mg Documented by: Sitagliptin Phosphate (Januvia) 100 mg PO DAILY [facility] Last Admin: 05/12/18 09:04 Dose: 100 mg Documented by: Sodium Chloride (Saline Flush) 10 ml IV Q8 [facility] Last Admin: 05/13/18 06:02 Dose: 10 ml Documented by: Sotalol HCl (Betapace) 40 mg PO QDAY [facility] Last Admin: 03/15/19 09:05 Dose: 40 mg Documented by: Tizanidine HCl (Zanaflex) 4 mg PO Q6 [facility] Last Admin: 05/13/18 06:04 Dose: 4 mg Documented by: Warfarin Sodium (Coumadin Per Pharmacy) 1 order PO UD [facility] Warfarin Sodium (Coumadin) 5 mg PO DAILY@1400 [facility] Last Admin: 05/12/18 14:04 Dose: 5 mg Documented by: Medical - PN: A/P - Time Spent With Patient Total time spent is greater than 50% in coordination of care (as documented) at patient's floor/unit and/or counseling patient: - Narrative A/P Narrative: A: *Hypotension: Exact etiology undetermined. Mild bandemia initially but no fever. Bandemia resolved. Chest CT/UA unremarkable. Does have new cough he states from "cold". Does have a wound that was seen by tuberculosis specialist which is felt to be okay, but still could be a source of infection. Also could be combination of diuretics/pain/blood pressure medications. suspect may have take too many narcotics -resolved with IVF's -PCT 0.22<<0.36 -BC neg *Lactic acidosis: 2/2 above, resolved *DM w/hyperglycemia and ?early DKA/HHS & neuropathy: Improved, contributor to hypovolemia *DEVORA: 2/2 above -improved with IVF *Coagulopathy: Secondary to warfarin *Afib: on sotolol/coreg/warfarin *Buttock wounds: follows with Dr. Mayes *Deconditioning/debility: *Obesity: *PVD w/stents by Ho: *HTN: BB/ACEI/lasix *chronic pain: *diarrhea: c. diff neg *URI: PCT elevated but nothing on chest CT P: -emiric Abx vanc(d/c)/zosyn (h/o MRSA wound 2017 - MRSA nares negative), d/c -SSI -Dr. Mayes for wounds -cont sotalol, restarted coreg, restarted lasix, ramipril not started -needs placement -pt/ot -f/u with Cardio regarding CT chest coronary findings -ppx: warfarin per pharmacy, bridge Awaiting Placement Full code Medical - PN: Qual - VTE Deep Vein Thrombosis/Pulmonary Embolism Present on Admission: No
[2018-05-13] MEDS: ALLOPURINOL 300 MG TABLET PO SCH (08:57)
[2018-05-13] MEDS: INSULIN LISPRO 1 UNIT/0.01 ML UNIT SQ SCH ×4 (08:57→21:07)
[2018-05-13] MEDS: sitaGLIPtin 100 MG TABLET PO SCH (08:57)
[2018-05-13] MEDS: CARVEDILOL 12.5 MG TABLET PO SCH ×2 (08:57→17:29)
[2018-05-13] MEDS: SOTALOL 80 MG TABLET PO SCH (08:58)
[2018-05-13] MEDS: ENOXAPARIN 120 MG/0.8 ML SYRINGE SQ SCH ×2 (08:59→21:07)
[2018-05-13] MEDS: HYDROcodone/APAP 10/325MG TABLET PO SCH (08:59)
[2018-05-13] MEDS ORDERED: FUROSEMIDE 40 MG TABLET PO SCH (09:00)
[2018-05-13] MEDS: LOPERAMIDE 2 MG CAPSULE PO PRN ×3 (10:03→21:06)
[2018-05-13] MEDS ORDERED: POTASSIUM CHLORIDE 20 MEQ TABLET PO PRN ×2 (10:05)
[2018-05-13] MEDS ORDERED: MAGNESIUM SULFATE 2 GM/50 ML BAG IV PRN (10:05)
[2018-05-13] MEDS ORDERED: DEXTROSE 31 GM ORAL.SUSP PO PRN (10:05)
[2018-05-13] MEDS ORDERED: IPRATROPIUM/ALBUTEROL 3 ML AMPUL.NEB NEB PRN (10:05)
[2018-05-13] MEDS ORDERED: METOPROLOL TARTRATE 5 MG/5 ML VIAL IV PRN (10:05)
[2018-05-13] MEDS ORDERED: PROMETHAZINE 25 MG TABLET PO PRN (10:05)
[2018-05-13] MEDS ORDERED: DEXTROSE 50% 50 ML VIAL IV PRN (10:05)
[2018-05-13] MEDS ORDERED: ACETAMINOPHEN 325 MG TABLET PO PRN (10:05)
[2018-05-13] MEDS ORDERED: POTASSIUM CHLORIDE 40 MEQ in DEXTROSE 5% IN WATER 500 ML IV PRN (10:05)
[2018-05-13] MEDS ORDERED: PROCHLORPERAZINE 10 MG/2 ML VIAL IV PRN (10:05)
[2018-05-13] MEDS ORDERED: POLYETHYLENE GLYCOL 3350 17 GM PACKET PO PRN (10:05)
[2018-05-13] MEDS ORDERED: ONDANSETRON 4 MG/2 ML VIAL IV PRN (10:05)
--- NOTE | 2018-05-13 12:39 | General Surgery Progress Note ---
Subjective Patient reports: other (Patient out of ICU to Med Surg Floor. ) Narrative: Note initiated : 05/13/18 at 12:36 pm Service Date, if different from initiated Date: [] Patient: Luke Palacios 72 y/o M admitted on 05/10/18 for BG 380, low BP, comes from wound care. Chief Complaint: [] Objective Temp Pulse Resp BP Pulse Ox 98.2 F 80 20 138/82 96 05/13/18 06:48 05/13/18 04:00 05/13/18 06:48 05/13/18 06:48 05/13/18 08:00 AVSS. Saw patient. Resting comfortably. Pain is relieved. Eating lunch. No interval developments from wound care point of view. Lab results reviewed. - Additional Data Intake & Output - Last 24 hours: Intake & Output 05/11/18 05/12/18 05/13/18 05/14/18 05:59 05:59 05:59 05:59 Intake Total 4122 1550 1660 350 Output Total 1000 3100 1650 Balance 3122 -1550 10 350 Weight 292 lb 6 oz 296 lb 1.6 oz 294 lb - Labs 05/12/18 03:42 05/12/18 03:41 Assessment and Plan (1) Pressure ulcer Problem details: See wound care orderes Status: Chronic Current Visit: No (2) Pressure ulcer of foot Status: Chronic Current Visit: No - Narrative A/P Narrative: Assessment: Stable from wound care point of view. Plan: Continue current management. WILL SEE AGAIN ON Tuesday05/15/2018 - Time Spent With Patient Total time spent is greater than 50% in coordination of care (as documented) at patient's floor/unit and/or counseling patient: less than 15 minutes
[2018-05-13] MEDS: WARFARIN 5 MG TABLET PO SCH (14:47)
[2018-05-13] MEDS: SIMVASTATIN 10 MG TABLET PO SCH (21:06)
[2018-05-14] MEDS: HYDROcodone/APAP 10/325MG TABLET PO SCH ×3 (00:06→23:37)
[2018-05-14] MEDS: tiZANidine 4 MG TABLET PO SCH ×5 (00:06→23:37)
[2018-05-14] MEDS: LOPERAMIDE 2 MG CAPSULE PO PRN ×2 (03:47→11:19)
[2018-05-14] MEDS: GABAPENTIN 300 MG CAPSULE PO SCH ×3 (06:00→20:03)
[2018-05-14] MEDS: 0.9 % SODIUM CHLORIDE 10 ML SYRINGE IV SCH ×3 (06:00→20:03)
[2018-05-14] MEDS: CARVEDILOL 12.5 MG TABLET PO SCH ×2 (08:12→17:59)
[2018-05-14] MEDS: SOTALOL 80 MG TABLET PO SCH (08:13)
[2018-05-14] MEDS: sitaGLIPtin 100 MG TABLET PO SCH (08:13)
[2018-05-14] MEDS: ALLOPURINOL 300 MG TABLET PO SCH (08:14)
[2018-05-14] MEDS: INSULIN LISPRO 1 UNIT/0.01 ML UNIT SQ SCH ×4 (08:14→20:17)
[2018-05-14] MEDS: FUROSEMIDE 40 MG TABLET PO SCH (08:14)
[2018-05-14] MEDS: ENOXAPARIN 120 MG/0.8 ML SYRINGE SQ SCH ×2 (08:15→20:10)
--- NOTE | 2018-05-14 08:23 | Internal Med Progress Note ---
Medical - PN: Subj Patient information: Note initiated : 05/14/18 at 8:20 am Service Date, if different from initiated Date: [] Patient: Luke Palacios a 72 y/o M admitted on 05/10/18 for BG 380, low BP, comes from wound care. Chief Complaint: [] Interval history: Mr. Palacios is a 72 year old M who was sent in from the wound care clinic because he was hypotensive in the 70s and 80s. Patient states his blood pressures checked by home health care worker 3 days a week and he typically runs around 110 systolic. He takes beta-abner LAURA inhibitors Lasix and hydrocodone. He states his been no changes in medication lately. He says he had a head cold recently with some cough of white sputum and some sinus congestion but otherwise no shortness of breath no fevers or chills. No other recent illnesses. Does have diarrhea 3-4 episodes per day for the past 3-4 days. However he says that is not too unusual as he occasionally gets diarrhea. He was given 2 L of IV fluids in the ER with improvement his blood pressure to systolic 120. Chest x-ray unremarkable urinalysis shows hyaline casts. His renal function has worsened and his lactate was 6 when he came in. Glucose was elevated with a mild elevated BHB. Wound surgeon evaluated his wound and felt it looked okay. Is also found to have an elevated INR. No abdominal pain. Other than the low blood pressures vital signs are stable in the ED. He was a febrile. Patient states his felt little bit more tired over the past couple days but otherwise no real complaints of abnormality other than the head cold. He does not recall taking any extra blood pressure medications diuretics. States he may have taken an extra pain medication lately but could not give any specifics. 05/11 no diarrhea o/n. no other issues or complaints. occasional cough. Review of Systems: denies headache/fever/chills/nausea/vomiting/chest or abdominal pain/dyspnea/diarrhea. Otherwise see above. 05/12 Poor sleep from what he states is interruptions. Did have diarrhea last night, C. difficile negative. Generalized aches and pains. Has cough of white sputum, no shortness of breath or chest pain 05/13 One episode of diarrhea this morning. Does not seem to be complaining as many aches and pains. Occasional mild cough. No new complaints. 05/14 Poor sleep but is always had a hard time sleeping. Seems to be in good spirits. No new complaints. Desires to go to her nursing facility. Review of Systems: denies headache/fever/chills/nausea/vomiting/chest or abdominal pain/dyspnea. Otherwise see above. - Constitutional Vitals: Vital Signs Temp Pulse Resp BP Pulse Ox 97.8 F 86 16 129/68 96 05/14/18 03:46 05/14/18 03:46 05/14/18 03:46 05/14/18 03:46 05/14/18 03:46 Period Temp Pulse Resp BP Sys/Elizalde Pulse Ox Last 24 Hr 97.3 F-99.1 F 83-91 14-20 126-146/68-80 94-97 Intake and Output 05/13/18 05/14/18 05/14/18 21:59 05:59 13:59 Intake Total 1150 800 Output Total 3050 850 Balance -1900 -50 Weight 134.037 kg Intake & Output: Intake & Output 05/13/18 05/14/18 05/14/18 21:59 05:59 13:59 Intake Total 1150 800 Output Total 3050 850 Balance -1900 -50 Weight 134.037 kg Intake: Oral 1150 800 Output: Urine Catheter Amount 3050 850 Other: Meal Dinner Nourishment/Supplement Percent of Meal Consumed 100% 100% Feeding Ability Independent Independent Urine Appearance Clear Uretheral ([place]) Clear Urine Color Light María Elena Uretheral ([place]) Light María Elena Urine Odor Normal Stool Size Large Moderate Stool Color Yellow Brown Stool Consistency Loose Liquid # Bowel Movements 1 1 # of times incontinent of 1 Bowels Exam: General: Alert, Awake, No acute Distress, obese Eyes/N/T: EOMI, Head/Neck: neck supple, CV: irreg irreg, 2/6 SM Pulm: Clear b/l, no wheezing/rhonchi/rales Abd: soft, nontender, +BS x4 Ext: no clubbing/cyanosis, 1+ b/l LE edema chronic and venous stasis changes Neuro: Alert, no focal deficits, moves all extremities, Skin: warm/dry Medical - PN: Obj Da - Labs CBC & Chem 7: 05/12/18 03:42 05/12/18 03:41 Labs: Abnormal Lab Results 05/14/18 05/13/18 05/12/18 05:03 08:42 03:43 WBC RBC Hgb Hct RDW Plt Count [place] % (Auto) Lymph # (Auto) PT 18.3 H 18.5 H 21.5 H INR 1.5 H 1.6 H 1.9 H Glucose C-Reactive Protein Total Protein Albumin 05/12/18 05/12/18 05/12/18 03:42 03:41 03:41 WBC 4.4 L RBC 3.42 L Hgb 11.5 L Hct 33.9 L RDW 14.9 H Plt Count 121 L [place] % (Auto) 13.0 H Lymph # (Auto) 1.4 L PT INR Glucose 137 H C-Reactive Protein 3.7 H Total Protein 5.6 L Albumin 2.8 L Meds: Medications Acetaminophen (Tylenol) 650 mg PO Q6HP PRN PRN Reason: PAIN/FEVER > 101 Hydrocodone Bitart/Acetaminophen ([place] 10/325mg) 1 tab PO BID [facility] Last Admin: 05/14/18 08:13 Dose: 1 tab Documented by: Albuterol/Ipratropium (Duoneb) 3 ml NEB Q4HP PRN PRN Reason: Shortness Of Breath Allopurinol (Zylopriim) 300 mg PO QDAY [facility] Last Admin: 05/14/18 08:14 Dose: 300 mg Documented by: [facility]) [facility] Last Admin: 05/14/18 08:12 Dose: 25 mg Documented by: Dextrose (Dextrose 50%) 0 ml IV UD PRN PRN Reason: Hypoglycemia Diagnostic Test (Pha) (Accu-Chek) 1 each FS ACHS [facility] Last Admin: 05/14/18 08:14 Dose: 1 each Documented by: Enoxaparin Sodium (Lovenox) 120 mg SQ BID [facility] Last Admin: 05/14/18 08:15 Dose: 120 mg Documented by: Furosemide (Lasix) 40 mg PO QDAY [facility] Last Admin: 05/14/18 08:14 Dose: 40 mg Documented by: Gabapentin (Neurontin) 600 mg PO Q8 [facility] Last Admin: 05/14/18 06:00 Dose: 600 mg Documented by: Glucose (Insta-Glucose) 15 gm PO PRN PRN PRN Reason: Hypoglycemia Potassium Chloride 40 meq/ (Dextrose) 520 mls @ 130 mls/hr IV ONCE PRN PRN Reason: Potassium < 3 Magnesium Sulfate (Magnesium Sulfate) 2 gm in 50 mls @ 50 mls/hr IV ONCE PRN PRN Reason: Magnesium </= 1.6 Insulin Human Lispro (Humalog) 0 unit SQ ACHS [facility]; Protocol Last Admin: 05/14/18 08:14 Dose: 2 units Documented by: Loperamide HCl (Imodium) 2 mg PO PRN PRN PRN Reason: Diarrhea Last Admin: 05/14/18 03:47 Dose: 2 mg Documented by: Metoprolol Tartrate (Lopressor) 5 mg IV Q2HP PRN PRN Reason: HR>110 Morphine Sulfate (Morphine) 1 - 2 mg IV Q3HP PRN PRN Reason: PAIN LEVEL > 6 Last Admin: 05/13/18 21:06 Dose: 2 mg Documented by: Ondansetron HCl (Zofran) 4 mg IV Q4HP PRN PRN Reason: Nausea And Vomiting Polyethylene Glycol (Miralax) 17 gm PO DAILYP PRN PRN Reason: Constipation Potassium Chloride (Kdur) 40 meq PO ONCE PRN PRN Reason: Potssium is 3-3.5 Potassium Chloride (Kdur) 40 meq PO ONCE PRN PRN Reason: Potassium < 3 Prochlorperazine (Compazine) 10 mg IV Q6HP PRN PRN Reason: Nausea And Vomiting Promethazine HCl (Phenergan) 0 mg PO Q6HP PRN PRN Reason: Nausea And Vomiting Simvastatin (Zocor) 10 mg PO HS [facility] Last Admin: 05/13/18 21:06 Dose: 10 mg Documented by: Sitagliptin Phosphate (Januvia) 100 mg PO DAILY [facility] Last Admin: 05/14/18 08:13 Dose: 100 mg Documented by: Sodium Chloride (Saline Flush) 10 ml IV Q8 [facility] Last Admin: 05/14/18 06:00 Dose: 10 ml Documented by: Sotalol HCl (Betapace) 40 mg PO QDAY [facility] Last Admin: 05/14/18 08:13 Dose: 40 mg Documented by: Tizanidine HCl (Zanaflex) 4 mg PO Q6 [facility] Last Admin: 05/14/18 06:00 Dose: 4 mg Documented by: Warfarin Sodium (Coumadin) 5 mg PO DAILY@1400 [facility] Last Admin: 03/16/19 14:47 Dose: 5 mg Documented by: Warfarin Sodium (Coumadin Per Pharmacy) 1 order PO UD [facility] Medical - PN: A/P - Time Spent With Patient Total time spent is greater than 50% in coordination of care (as documented) at patient's floor/unit and/or counseling patient: - Narrative A/P Narrative: A: *Hypotension: Exact etiology undetermined. Mild bandemia initially but no fever. Bandemia resolved. Chest CT/UA unremarkable. Does have new cough he states from "cold". Does have a wound that was seen by relationship specialist wh ich is felt to be okay, but still could be a source of infection. Also could be combination of diuretics/pain/blood pressure medications. suspect may have take too much of his narcotics -resolved with IVF's -PCT 0.22<<0.36 -BC neg *Lactic acidosis: 2/2 above, resolved *DM w/hyperglycemia and ?early DKA/HHS & neuropathy: Improved, contributor to hypovolemia *DEVORA: 2/2 above -improved with IVF *Coagulopathy: Secondary to warfarin *Afib: on sotolol/coreg/warfarin *Buttock wounds: follows with Dr. Mayes *Deconditioning/debility: *Obesity: *PVD w/stents by Dr. Meek: *HTN: BB/ACEI/lasix *chronic pain: *diarrhea: c. diff neg *URI: PCT elevated but nothing on chest CT P: -emiric Abx d/c'd -SSI -Dr. Mayes for wounds -cont sotalol, restarted coreg, restarted lasix, ramipril not started yet -needs placement -pt/ot -f/u with Cardio regarding CT chest coronary findings -ppx: warfarin per pharmacy, bridge Awaiting Placement Full code Medical - PN: Qual - VTE Deep Vein Thrombosis/Pulmonary Embolism Present on Admission: No
[2018-05-14] MEDS: WARFARIN 5 MG TABLET PO SCH (14:31)
[2018-05-14] MEDS: SIMVASTATIN 10 MG TABLET PO SCH (20:03)
[2018-05-14] MEDS ORDERED: diphenhydrAMINE 25 MG CAPSULE PO ONE (21:00)
[2018-05-14] MEDS ORDERED: MELATONIN 3 MG TABLET PO SCH (21:00)
[2018-05-15] MEDS: GABAPENTIN 300 MG CAPSULE PO SCH ×2 (05:58→13:45)
[2018-05-15] MEDS: tiZANidine 4 MG TABLET PO SCH ×2 (05:58→11:59)
[2018-05-15] MEDS: 0.9 % SODIUM CHLORIDE 10 ML SYRINGE IV SCH (05:58)
[2018-05-15] MEDS: ENOXAPARIN 120 MG/0.8 ML SYRINGE SQ SCH (08:20)
[2018-05-15] MEDS: INSULIN LISPRO 1 UNIT/0.01 ML UNIT SQ SCH ×2 (08:20→11:59)
[2018-05-15] MEDS: sitaGLIPtin 100 MG TABLET PO SCH (08:21)
[2018-05-15] MEDS: ALLOPURINOL 300 MG TABLET PO SCH (08:21)
[2018-05-15] MEDS: SOTALOL 80 MG TABLET PO SCH (08:21)
[2018-05-15] MEDS: HYDROcodone/APAP 10/325MG TABLET PO SCH (08:21)
[2018-05-15] MEDS: CARVEDILOL 12.5 MG TABLET PO SCH (08:22)
[2018-05-15] MEDS: FUROSEMIDE 40 MG TABLET PO SCH (08:22)
[2018-05-15] MEDS: LOPERAMIDE 2 MG CAPSULE PO PRN (10:45)
[2018-05-15] MEDS: WARFARIN 5 MG TABLET PO SCH (13:45)
[2018-05-24] MEDS ORDERED: TESTOSTERONE CYPIONATE 100 MG IM SCH (09:00)
== END 2018-05-15 14:10 | DRG 312 ==
LOC: ED 13:47 → ICU 19:12 → MEDSUR 05-13 10:40
PROVIDERS: ADMIT Internal Medicine; ATTEND Internal Medicine

== ENCOUNTER 2019-02-12 01:25 | Inpatient (IN) ==
[2019-02-12] MEDS ORDERED: 0.9 % SODIUM CHLORIDE 1,000 ML IV ONE ×2 (01:51→03:06)
[2019-02-12] MEDS ORDERED: INSULIN REGULAR, HUMAN 1 UNIT/0.01 ML UNIT IV ONE ×2 (01:58→06:48)
[2019-02-12] MEDS ORDERED: ONDANSETRON 4 MG/2 ML VIAL IV ONE (02:09)
[2019-02-12 02:35] LABS: Hematocrit 48.1 % (41.0-55.0); Hemoglobin 15.8 g/dL (13.5-16.5); Mean Cell Volume 102.3 fL (80.0-100.0); Mean Corpuscular HGB Conc 32.9 g/dL (31.0-36.0); Mean Platelet Volume 8.5 fL (7.4-10.4); Platelet Count 256 K/mcL (140-440); RBC 4.71 M/mcL (4.50-5.90); Red Cell Distribution Width 15.4 % (11.5-14.5)
[2019-02-12 02:53] LABS: ALT/SGPT 45 U/l (0-40); AST/SGOT 69 U/l (0-37); Albumin 4.1 gm/dL (3.2-5.2); Albumin/Globulin Ratio 1.2 (1.0-2.3); Alkaline Phosphatase 100 U/L (39-117); Bilirubin,Total 0.7 mg/dL (0.0-1.0); Blood Urea Nitrogen 32 mg/dl (8-23); Calcium 10.2 mg/dl (8.6-10.4); Carbon Dioxide 21 mmol/L (22-30); Globulin 3.4 gm/dL (2.2-3.7); Glomerular Filtration Rate 49; Glucose 444 mg/dL (70-105)
[2019-02-12 02:58] LABS: Chloride 91 mmol/L (96-108)
[2019-02-12 03:02] LABS: Lymphocytes % 8 % (15-49); Macrocytosis 1+ (NONE SEEN); Monocytes % (Manual) 10 % (1-12); Platelet Estimate NORMAL (NORMAL); Polychromasia 1+ (NONE SEEN); RBC Morphology ABNORM (NORMAL); Segmented Neutrophils % 82 % (38-78)
[2019-02-12] MEDS ORDERED: LACTATED RINGERS 1,000 ML IV ONE (03:04)
[2019-02-12 04:48] LABS: Appearance,Urine HAZY; Bacteria,Urine 0 /hpf (0); Bilirubin,Urine NEG (NEG); Color,Urine YELLOW; Culture Indicated,Urine NO; Glucose,Urine (UA) >=500 mg/dL (NEG); Ketones,Urine 5/TR mg/dL (NEG); Leukocyte Esterase,Urine 75 /uL (NEG); Mucus,Urine FEW /hpf (0); Nitrate,Urine NEG (NEG); Protein,Urine 30 mg/dL (NEG); Specific Gravity,Urine 1.024 (1.000-1.035); Urine Amorphous Crystals FEW /hpf (0); Urine Blood NEG mg/dL (<0.03); Urine Hyaline Cast 88 /lpf (0-2); Urine RBC 1 /hpf (0-1); Urine Squamous Epithelial Cell < 1 /hpf (0-4); Urine WBC 7 /hpf (0-4); Urobilinogen,Urine NEG (NEG)
[2019-02-12] MEDS ORDERED: DILTIAZEM 25 MG/5 ML VIAL IV ONE (05:12)
[2019-02-12] MEDS ORDERED: cefTRIAXone 1 GM VIAL IV ONE (05:13)
[2019-02-12] MEDS ORDERED: AZITHROMYCIN 500 MG in DEXTROSE 5% IN WATER 250 ML IV ONE (05:13)
[2019-02-12] MEDS ORDERED: 0.9 % SODIUM CHLORIDE 1,000 ML IV SCH ×3 (05:15→12:30)
[2019-02-12] MEDS ORDERED: DILTIAZEM 125 MG in DEXTROSE 5% IN WATER 100 ML IV SCH (05:15)
[2019-02-12] MEDS ORDERED: NOREPINEPHRINE BITARTRATE 8 MG in 0.9 % SODIUM CHLORIDE 242 ML IV SCH ×2 (06:30→20:30)
[2019-02-12] MEDS ORDERED: 0.9 % SODIUM CHLORIDE 250 ML IV SCH (06:30)
--- NOTE | 2019-02-12 06:38 | Emergency Department Note ---
Nausea/Vomiting/Diarrhea HPI - General Chief complaint: Nausea/Vomiting/Diarrhea Stated complaint: n/v Time Seen by Provider: 02/12/19 05:11 Source: patient, EMS Mode of arrival: EMS - History of Present Illness HPI Narrative: This patient came to the emergency room because of a 2-day history of nausea and vomiting he is morbidly obese and bedridden at home and has 24-hour home care. He is a dqx-lrxearn-cfmarachr diabetic and has blood sugars in the 400 range. Also found to have a heart rate in the 130 range with atrial fib RVR. Does not have much in the way of cough. - Related Data Home Medications Medication Instructions Recorded Confirmed cholecalciferol (vitamin D3) 5,000 5,000 unit PO QDAY tab 08/27/14 05/10/18 unit tablet furosemide 40 mg tablet 40 mg PO QDAY tab 12/09/17 05/10/18 Ascorbic Acid/Bioflavonoids [C 1 tab PO DAILY 05/10/18 05/10/18 1,099-[id number]-Jv Cap] HYDROcodone/ACETAMINOPHEN [Lorcet 10 mg PO BID 05/10/18 05/10/18 Hd 10-325 mg Tablet] Liraglutide [Victoza 2-Dagoberto] 0.3 mg SC DAILY 05/10/18 05/10/18 Testosterone Cypionate 100 mg IM Q2W 05/10/18 05/10/18 [Depo-Testosterone] Warfarin [Coumadin] 5 mg PO DAILY 05/10/18 05/10/18 sitaGLIPtin [Januvia] 100 mg PO DAILY 05/10/18 05/10/18 DULoxetine [Cymbalta] 20 mg PO DAILY 02/12/19 02/12/19 Dapagliflozin Propanediol [Farxiga] 10 mg PO DAILY 02/12/19 02/12/19 Ramipril [Altace] 2.5 mg PO BID 02/12/19 02/12/19 Warfarin [Coumadin] 02/12/19 Previous Rx's Medication Instructions Recorded pravastatin 20 mg tablet 20 mg PO HS #90 tab 02/16/16 allopurinol 300 mg tablet 300 mg PO QDAY #90 tab 03/09/17 CPAP Machine #1 each 08/22/17 gabapentin 300 mg capsule 600 mg PO Q8H #180 cap 08/22/17 Heavy Duty Wheelchair #1 ea 01/03/18 Hospital bed #1 ea 01/03/18 DARIANA Cushion #1 ea 02/10/18 carvedilol 25 mg tablet 25 mg PO BID 90 Days #180 tab 02/10/18 Allergies Allergy/AdvReac Type Severity Reaction Status Date / Time No Known Drug Allergies Allergy Verified 02/12/19 01:38 Review of Systems All systems ED: reviewed and negative except as stated. Past Medical History - Past Medical History PMFSH Narrative: Medical History (Last Reviewed 01/03/18 @ 18:15 by Heike Raman, JAILYN, DAYANA) Pressure ulcer (Chronic) Pressure ulcer of foot (Chronic) Anticoagulant long-term use (Chronic) Lumbar disc disease (Chronic) Carpal tunnel syndrome (Chronic) Hypogonadism in male (Chronic) Peripheral vascular disease (Chronic) Testicular hypofunction (Chronic) Obstructive sleep apnea (Chronic) Morbid obesity (Chronic) Hypertension (Chronic) Hyperlipidemia (Chronic) Hormone replacement therapy (Chronic) Gout (Chronic) Diabetes mellitus, type II (Chronic) Coronary artery disease (Chronic) Congestive heart failure (Chronic) History of colonic polyps (Chronic) Atrial fibrillation (Chronic) MRSA (methicillin resistant staph aureus) culture positive (Resolved) Ulcer of lower extremity due to diabetes mellitus (Resolved) Past Surgical History (Last Reviewed 01/03/18 @ 18:15 by Heike Raman DNP, DAYANA) Colonoscopy planned (Resolved) H/O vascular surgery (Resolved) History of cardioversion (Resolved) History of total right knee replacement (Resolved) Family History (Last Reviewed 01/03/18 @ 18:15 by Heike Raman DNP, DAYANA) Father Family history of coronary artery bypass surgery Acute myocardial infarction Mother Type 2 diabetes mellitus Cardiac disease Cerebrovascular accident - Social History smoking status: Former smoker Physical Exam Patient does have some erythema of his coccyx and lower lumbar area but no specific breakdown or ulceration. Limitations: physical limitation General appearance: alert Head: atraumatic Eye: Present: normal appearance ENT: Present: normal exam Neck: Present: normal inspection Chest: Present: normal inspection Respiratory: Present: rales/crackles Cardiovascular: Present: tachycardia, irregular rhythm Abdominal: Present: soft. Absent: distention, tenderness Neurological: Present: alert Psychiatric: Present: normal affect Skin: Present: warm, dry Course Vital Signs Temperature 97.9 F 02/12/19 01:26 Pulse Rate 111 H 02/12/19 01:26 Respiratory Rate 20 02/12/19 01:26 Blood Pressure 125/80 02/12/19 01:26 Pulse Oximetry (%) 94 02/12/19 01:26 Temperature 99.1 F H 02/12/19 03:41 Pulse Rate 64 02/12/19 09:04 Respiratory Rate 22 02/12/19 05:53 Blood Pressure 104/81 02/12/19 09:04 Pulse Oximetry (%) 96 02/12/19 09:04 Nausea/Vomiting/Diarrhea - [facility] Narrative Medical decision making narrative: This patient seemed to be septic with a white count of 23,000 and possible pneumonia on his chest x-ray. His urine was clear. We started Zithromax and Rocephin. He did require some blood pressure support with Levophed in order to treat his atrial fib with diltiazem. His heart rate is now down to 100. He has had a slight cough for the last 2 days but nothing real prominent. No abdominal pain. I have discussed this with the hospitalist and he will be admi tted to the hospital. - Lab Data Lab results reviewed: Yes I reviewed the patient's lab results. Result diagrams: 02/12/19 02:00 02/12/19 02:00 Lab Results 02/12/19 02/12/19 02/12/19 Range/Units 02:00 02:00 02:00 WBC 23.0 H (4.5-11.0) K/mcL RBC 4.71 (4.50-5.90) M/mcL Hgb 15.8 (13.5-16.5) g/dL Hct 48.1 (41.0-55.0) % MCV 102.3 H (80.0-100.0) fL MCH 33.6 (26.0-34.0) pg MCHC 32.9 (31.0-36.0) g/dL RDW 15.4 H (11.5-14.5) % Plt Count 256 (140-440) K/mcL MPV 8.5 (7.4-10.4) fL Total Counted 100 Seg Neutrophils % 82 H (38-78) % Band Neutrophils % Not Reportable Lymphocytes % 8 L (15-49) % Monocytes % (Manual) 10 (1-12) % Platelet Estimate Normal (NORMAL) RBC Morphology Abnorm A (NORMAL) Polychromasia 1+ A (NONE SEEN) Macrocytosis 1+ A (NONE SEEN) VBG Lactic Acid (0.5-2.0) mmol/L Sodium 136 (133-145) mmol/L Potassium 5.6 H (3.3-5.1) mmol/L Chloride 91 L (96-108) mmol/L Carbon Dioxide 21 L (22-30) mmol/L Anion Gap 24.0 H (8-16) BUN 32 H (8-23) mg/dl Creatinine 1.4 H (0.7-1.2) mg/dl GFR Calculation 49 Glucose 444 H (70-105) mg/dL Calcium 10.2 (8.6-10.4) mg/dl Total Bilirubin 0.7 (0.0-1.0) mg/dL AST 69 H (0-37) U/l ALT 45 H (0-40) U/l Alkaline Phosphatase 100 (39-117) U/L Total Protein 7.5 (5.9-8.4) gm/dL Albumin 4.1 (3.2-5.2) gm/dL Globulin 3.4 (2.2-3.7) gm/dL Albumin/Globulin Ratio 1.2 (1.0-2.3) Beta-Hydroxybutyrate 3.41 H (< 0.27) mmol/L Urine Color Urine Appearance Urine pH (5.0-9.0) Ur Specific [place] (1.000-1.035) Urine Protein (NEG) mg/dL Urine Glucose (UA) (NEG) mg/dL Urine Ketones (NEG) mg/dL Urine Occult Blood (<0.03) mg/dL Urine Nitrate (NEG) Urine Bilirubin (NEG) mg/dL Urine Urobilinogen (NEG) mg/dL Ur Leukocyte Esterase (NEG) /uL Urine RBC (0-1) /hpf Urine WBC (0-4) /hpf Ur Squamous Epith Cells (0-4) /hpf Amorphous Crystals (0) /hpf Urine Bacteria (0) /hpf Hyaline Casts (0-2) /lpf Urine Mucus (0) /hpf Ur Culture Indicated? 02/12/19 02/12/19 Range/Units 03:40 05:20 WBC (4.5-11.0) K/mcL RBC (4.50-5.90) M/mcL Hgb (13.5-16.5) g/dL Hct (41.0-55.0) % MCV (80.0-100.0) fL MCH (26.0-34.0) pg MCHC (31.0-36.0) g/dL RDW (11.5-14.5) % Plt Count (140-440) K/mcL MPV (7.4-10.4) fL Total Counted Seg Neutrophils % (38-78) % Band Neutrophils % Lymphocytes % (15-49) % Monocytes % (Manual) (1-12) % Platelet Estimate (NORMAL) RBC Morphology (NORMAL) Polychromasia (NONE SEEN) Macrocytosis (NONE SEEN) VBG Lactic Acid 4.7 H* (0.5-2.0) mmol/L Sodium (133-145) mmol/L Potassium (3.3-5.1) mmol/L Chloride (96-108) mmol/L Carbon Dioxide (22-30) mmol/L Anion Gap (8-16) BUN (8-23) mg/dl Creatinine (0.7-1.2) mg/dl GFR Calculation Glucose (70-105) mg/dL Calcium (8.6-10.4) mg/dl Total Bilirubin (0.0-1.0) mg/dL AST (0-37) U/l ALT (0-40) U/l Alkaline Phosphatase (39-117) U/L Total Protein (5.9-8.4) gm/dL Albumin (3.2-5.2) gm/dL Globulin (2.2-3.7) gm/dL Albumin/Globulin Ratio (1.0-2.3) Beta-Hydroxybutyrate (< 0.27) mmol/L Urine Color Yellow Urine Appearance Hazy Urine pH 5.0 (5.0-9.0) Ur Specific [place] 1.024 (1.000-1.035) Urine Protein 30 A (NEG) mg/dL Urine Glucose (UA) >=500 A (NEG) mg/dL Urine Ketones 5/tr A (NEG) mg/dL Urine Occult Blood Neg (<0.03) mg/dL Urine Nitrate Neg (NEG) Urine Bilirubin Neg (NEG) mg/dL Urine Urobilinogen Neg (NEG) mg/dL Ur Leukocyte Esterase 75 A (NEG) /uL Urine RBC 1 (0-1) /hpf Urine WBC 7 H (0-4) /hpf Ur Squamous Epith Cells < 1 (0-4) /hpf Amorphous Crystals Few A (0) /hpf Urine Bacteria 0 (0) /hpf Hyaline Casts 88 H (0-2) /lpf Urine Mucus Few (0) /hpf Ur Culture Indicated? No - Radiology Data Radiology results reviewed: Yes I reviewed the patient's radiology results. Disposition Pt seen by RESTAURANT LEAD/PA only: No Clinical Impression: Sepsis, Atrial fibrillation with RVR Disposition: Xfer As Inpt ([facility]) Condition: Fair Referrals: Heike Raman, JAILYN, FRONT END MANAGER [Primary Care Provider] - Time of Disposition: 09:14
--- NOTE | 2019-02-12 08:24 | XRay Report ---
CLINICAL INFORMATION: cough COMPARISON: 06/23/2018 FINDINGS: Borderline cardiomegaly is unchanged. Mediastinum and pulmonary vessels are normal. Small left basilar infiltrate or atelectasis has developed with small left pleural effusion IMPRESSION: Small left basilar infiltrate or atelectasis and small left pleural effusion - new. Consider two-view upright chest x-ray. Patient can tolerate better assess the left lower lobe Interpreted and Authenticated by: Philippe Edwards 02/12/19
--- NOTE | 2019-02-12 10:07 | Cat Scan Report ---
CLINICAL INFORMATION: Sepsis. Evaluate for infection source COMPARISON: Chest CT 05/11/2018 TECHNIQUE: Water was utilized as enteric contrast. There are 0.625 mm helical slices were obtained from the lung apices through the subtrochanteric regions of the femurs. Following reconstruction, 2.5 mm sagittal, coronal and axial reformatted images were processed and reviewed at multiple windows and levels. 7 mm MIP reconstructions were obtained through the lungs to optimize nodule detection.The exam was performed using radiation dose optimization techniques including, but not limited to, automated exposure control, adjustment of the mA and/or kV according to patient size and use of iterative reconstruction technique. FINDINGS: Mediastinal windows show mild, yet stable, enlargement of the central pulmonary arteries compatible with pulmonary hypertension - main pulmonary diameter is 3.9 cm.. The noncontrast aorta is normal in diameter. The heart is mildly enlarged with very heavy calcific atherosclerotic plaque throughout the coronary arteries. The esophagus is grossly normal. There is no adenopathy in the mediastinal hilar or axillary regions. Thyroid is unremarkable. Pulmonary parenchymal windows show moderate left and small right pleural effusions which are new. There is subsegmental atelectasis in both posterior lower lobes. Complete consolidated atelectasis of the lingula is new from the previous exam. Abdominal images show the noncontrasted liver is normal. Small stones layer dependently within the gallbladder as previously seen. The gallbladder is, otherwise, normal CBD 5 mm. Both kidneys, adrenal glands, spleen pancreas and aorta are unremarkable. There is no free air, free fluid or adenopathy. The stomach, small large bowel are grossly normal. Pelvic images show a Hyman catheter properly positioned urinary bladder which is decompressed. No gross bladder abnormality. Prostate and seminal vesicles are normal. Bone windows show severe bilateral hip degeneration. Extensive postsurgical changes seen in the lower lumbar spine featuring L3-4 and L4-5 anterior/posterior fusion with wide laminectomy. There is extensive postsurgical granulation seen in the epidural space IMPRESSION: 1. No cause identified for sepsis 2. Completely consolidated atelectasis of the lingula likely due to mucus plugging. 3. Moderate left and small right pleural effusion with subsegmental atelectasis in both posterior lower lobes 4. Extensive calcific plaque in the coronary arteries that as previously seen 5. Mild enlargement central pulmonary arteries compatible pulmonary hypertension no change 6. Cholelithiasis. 7. Severe degeneration both hips Interpreted and Authenticated by: Philippe Edwards 02/12/19
[2019-02-12] MEDS ORDERED: ONDANSETRON 4 MG/2 ML VIAL IV PRN ×2 (12:23→13:08)
[2019-02-12] MEDS ORDERED: ACETAMINOPHEN 325 MG TABLET PO PRN ×2 (12:23→13:08)
[2019-02-12] MEDS ORDERED: INSULIN REGULAR, HUMAN 50 UNIT in 0.9 % SODIUM CHLORIDE 99.5 ML IV SCH (12:30)
[2019-02-12] MEDS ORDERED: NOREPINEPHRINE BITARTRATE 16 MG in 0.9 % SODIUM CHLORIDE 234 ML IV SCH (12:30)
[2019-02-12] MEDS: 0.9 % SODIUM CHLORIDE 1,000 ML IV SCH ×3 (13:57→15:33)
[2019-02-12] MEDS: 0.9 % SODIUM CHLORIDE 250 ML IV SCH (13:57)
[2019-02-12] MEDS: DILTIAZEM 125 MG in DEXTROSE 5% IN WATER 100 ML IV SCH ×2 (13:58→19:53)
[2019-02-12 13:59] LABS: ABG Methemoglobin 0.3 % (0.4-1.5); Total Hemoglobin 14.4 gm/dL (13.5-16.5); VBG Base Excess -2.4 (-2.0-2.0); VBG HCO3 23.1 mmol/L (24.0-28.0); VBG Oxygen Saturation 86.2 % (40.0-70.0); VBG PCO2 42.5 mmHg (41.0-51.0); VBG PH 7.35 U (7.32-7.42); VBG PO2 62 mmHg (25-40); VBG Total CO2 24.5 mmol/L (25.0-29.0)
[2019-02-12] MEDS ORDERED: 0.9 % SODIUM CHLORIDE 10 ML SYRINGE IV SCH (14:00)
[2019-02-12] MEDS: INSULIN REGULAR, HUMAN 50 UNIT in 0.9 % SODIUM CHLORIDE 99.5 ML IV SCH (14:08)
[2019-02-12 14:28] LABS: ALT/SGPT 64 U/l (0-40); AST/SGOT 102 U/l (0-37); Albumin 3.8 gm/dL (3.2-5.2); Albumin/Globulin Ratio 1.1 (1.0-2.3); Alkaline Phosphatase 83 U/L (39-117); Bilirubin,Direct < 0.2 mg/dL (0.0-0.3); Bilirubin,Total 0.6 mg/dL (0.0-1.0); Blood Urea Nitrogen 36 mg/dl (8-23); Calcium 9.7 mg/dl (8.6-10.4); Carbon Dioxide 23 mmol/L (22-30); Chloride 94 mmol/L (96-108); Globulin 3.4 gm/dL (2.2-3.7); Glomerular Filtration Rate 49; Glucose 381 mg/dL (70-105); Lactate Dehydrogenase 316 U/L (94-250); Triglycerides 128 mg/dl (<150); Uric Acid 6.6 mg/dL (2.5-8.0)
[2019-02-12] MEDS: PIPERACILLIN SODIUM/TAZOBACTAM 3.375 GM in DEXTROSE 5% IN WATER 50 ML IV SCH ×2 (15:22→19:00)
[2019-02-12] MEDS: 0.9 % SODIUM CHLORIDE 10 ML SYRINGE IV SCH ×2 (15:43→21:05)
[2019-02-12 16:23] LABS: Blood Urea Nitrogen 37 mg/dl (8-23); Calcium 9.9 mg/dl (8.6-10.4); Chloride 96 mmol/L (96-108); Glomerular Filtration Rate 54; Glucose 378 mg/dL (70-105)
[2019-02-12 16:26] LABS: Carbon Dioxide 18 mmol/L (22-30)
[2019-02-12 16:54] LABS: ABG Methemoglobin 0.3 % (0.4-1.5); Total Hemoglobin 14.1 gm/dL (13.5-16.5); VBG Base Excess 0.1 (-2.0-2.0); VBG HCO3 23.5 mmol/L (24.0-28.0); VBG Oxygen Saturation 92.7 % (40.0-70.0); VBG PCO2 34.5 mmHg (41.0-51.0); VBG PH 7.45 U (7.32-7.42); VBG PO2 161 mmHg (25-40); VBG Total CO2 24.6 mmol/L (25.0-29.0)
[2019-02-12 19:11] LABS: Appearance,Urine HAZY; Bacteria,Urine 0 /hpf (0); Bilirubin,Urine NEG (NEG); Color,Urine YELLOW; Culture Indicated,Urine YES; Glucose,Urine (UA) >=500 mg/dL (NEG); Ketones,Urine 5/TR mg/dL (NEG); Leukocyte Esterase,Urine 250 /uL (NEG); Mucus,Urine FEW /hpf (0); Nitrate,Urine NEG (NEG); Protein,Urine 100 mg/dL (NEG); Specific Gravity,Urine 1.027 (1.000-1.035); Urine Blood >=1.0 mg/dL (<0.03); Urine Budding Yeast FEW /hpf (0); Urine Hyaline Cast 140 /lpf (0-2); Urine RBC 117 /hpf (0-1); Urine Squamous Epithelial Cell 0 /hpf (0-4); Urine Transitional Epi Cells < 1 /hpf (0-2); Urine WBC 131 /hpf (0-4); Urobilinogen,Urine NEG (NEG)
[2019-02-12] MEDS ORDERED: DILTIAZEM 125 MG/25 ML VIAL IV ONE (19:46)
[2019-02-12 20:40] LABS: Blood Urea Nitrogen 36 mg/dl (8-23); Calcium 9.1 mg/dl (8.6-10.4); Carbon Dioxide 20 mmol/L (22-30); Chloride 98 mmol/L (96-108); Glomerular Filtration Rate 66; Glucose 341 mg/dL (70-105)
[2019-02-12 20:57] LABS: ABG Methemoglobin 0.3 % (0.4-1.5); Total Hemoglobin 13.6 gm/dL (13.5-16.5); VBG Base Excess 1.6 (-2.0-2.0); VBG HCO3 26.2 mmol/L (24.0-28.0); VBG Oxygen Saturation 92.4 % (40.0-70.0); VBG PCO2 41.2 mmHg (41.0-51.0); VBG PH 7.42 U (7.32-7.42); VBG PO2 93 mmHg (25-40); VBG Total CO2 27.4 mmol/L (25.0-29.0)
[2019-02-12] MEDS ORDERED: HEPARIN 5,000 UNIT/ML VIAL SQ SCH (21:00)
[2019-02-12] MEDS: HEPARIN 5,000 UNIT/ML VIAL SQ SCH (21:08)
--- NOTE | 2019-02-12 21:50 | Internal Med History&Physical ---
Medical - H&P: [facility] Patient information: Note initiated : 02/12/19 at 9:48 pm Service Date, if different from initiated Date: [] Patient: Luke Palacios a 73 y/o M admitted on 02/12/19 for n/v. Chief Complaint: [] History of present illness: Mr. Palacios is a 73 year old M This is a 73-year-old gentleman with morbid obesity, type 2 diabetes, atrial fibrillation on anticoagulation and sleep apnea was brought to the ER because of tiredness weakness nausea vomiting and severe abdominal pain. Patient has been having severe abdominal pain for the last 2 days and he was brought to the ER and initial evaluation in the ER his blood sugar was more than 400 his heart rate was in the 130s and blood pressure was in the 70s. Patient was started on given IV fluid and started on Levophed to improve the blood pressure as he was not improving with IV fluid. He was then started on Cardizem drip for the heart rate control and started on ceftriaxone and azithromycin and underwent CT of the abdomen pelvis and chest which did not reveal any source of infection but probable pneumonia. - Constitutional Constitutional: Present: chills, excessive sweating, fatigue, fever(s), headache(s), increased appetite, lethargy, malaise, night sweats - Cardiovascular Cardiovascular: Present: diaphoresis, dyspnea, dyspnea on exertion, edema, irregular heart rhythm, lightheadedness. Absent: chest pain - Respiratory Respiratory: Present: cough, dyspnea, dyspnea on exertion, wheezing. Absent: hemoptysis - Gastrointestinal Gastrointestinal: Present: abdominal pain, diarrhea, excessive flatus, nausea, vomiting. Absent: coffee ground emesis, constipation, melena - Genitourinary Genitourinary: Absent: genital lesions, genital pain, hematospermia, hematuria - Neurological Neurological: Present: dizziness, headache(s). Absent: burning sensations, confusion, convulsions, disequilibrium, focal weakness, frequent falls - Psychiatric Psychiatric: Present: anxiety. Absent: auditory hallucinations, behavioral changes, change in appetite, change in libido Medical - H&P: H Medical history: Medical History (Last Reviewed 01/03/18 @ 18:15 by Heike Raman, JAILYN, ASSISTANT ACTIVITIES DIRECTOR) Pressure ulcer (Chronic) Pressure ulcer of foot (Chronic) Anticoagulant long-term use (Chronic) Lumbar disc disease (Chronic) Carpal tunnel syndrome (Chronic) Hypogonadism in male (Chronic) Peripheral vascular disease (Chronic) Testicular hypofunction (Chronic) Obstructive sleep apnea (Chronic) Morbid obesity (Chronic) Hypertension (Chronic) Hyperlipidemia (Chronic) Hormone replacement therapy (Chronic) Gout (Chronic) Diabetes mellitus, type II (Chronic) Coronary artery disease (Chronic) Congestive heart failure (Chronic) History of colonic polyps (Chronic) Atrial fibrillation (Chronic) MRSA (methicillin resistant staph aureus) culture positive (Resolved) Ulcer of lower extremity due to diabetes mellitus (Resolved) Surgical history: Past Surgical History (Last Reviewed 01/03/18 @ 18:15 by Heike Raman, JAILYN, ASSISTANT ACTIVITIES DIRECTOR) Colonoscopy planned (Resolved) H/O vascular surgery (Resolved) History of cardioversion (Resolved) History of total right knee replacement (Resolved) Pertinent family history: Family History (Last Reviewed 01/03/18 @ 18:15 by Heike Raman, JAILYN, ASSISTANT ACTIVITIES DIRECTOR) Father Family history of coronary artery bypass surgery Acute myocardial infarction Mother Type 2 diabetes mellitus Cardiac disease Cerebrovascular accident Social history: Social History (Last Updated 02/03/18 @ 13:57 by Heike Raman, JAILYN, ASSISTANT ACTIVITIES DIRECTOR) No Social History Section defined Medical - H&P: Meds Home Medications Medication Instructions Recorded Confirmed Type cholecalciferol (vitamin D3) 5,000 5,000 unit PO QDAY tab 08/27/14 05/10/18 History unit tablet pravastatin 20 mg tablet 20 mg PO HS #90 tab 02/16/16 05/10/18 Rx allopurinol 300 mg tablet 300 mg PO QDAY #90 tab 03/09/17 05/10/18 Rx CPAP Machine #1 each 08/22/17 02/03/18 Rx gabapentin 300 mg capsule 600 mg PO Q8H #180 cap 08/22/17 05/10/18 Rx furosemide 40 mg tablet 40 mg PO QDAY tab 12/09/17 05/10/18 History Heavy Duty Wheelchair #1 ea 01/03/18 02/03/18 Rx Hospital bed #1 ea 01/03/18 02/03/18 Rx ROHO Cushion #1 ea 02/10/18 Rx carvedilol 25 mg tablet 25 mg PO BID 90 Days #180 tab 02/10/18 05/10/18 Rx Ascorbic Acid/Bioflavonoids [C 1 tab PO DAILY 05/10/18 05/10/18 History 1,694-Uobokfnxfqdne-Eh Cap] HYDROcodone/ACETAMINOPHEN [Lorcet 10 mg PO BID 05/10/18 05/10/18 History Hd 10-325 mg Tablet] Liraglutide [Victoza 2-Dagoberto] 0.3 mg SC DAILY 05/10/18 05/10/18 History Testosterone Cypionate 100 mg IM Q2W 05/10/18 05/10/18 History [Depo-Testosterone] Warfarin [Coumadin] 5 mg PO DAILY 05/10/18 05/10/18 History sitaGLIPtin [Januvia] 100 mg PO DAILY 05/10/18 05/10/18 History DULoxetine [Cymbalta] 20 mg PO DAILY 02/12/19 02/12/19 History Dapagliflozin Propanediol [Farxiga] 10 mg PO DAILY 02/12/19 02/12/19 History Ramipril [Altace] 2.5 mg PO BID 02/12/19 02/12/19 History Warfarin [Coumadin] 02/12/19 History Allergies Allergy/AdvReac Type Severity Reaction Status Date / Time No Known Drug Allergies Allergy Verified 02/12/19 01:38 Medical - H&P: Exam - Constitutional Vitals: Temp Pulse Resp BP Pulse Ox 97.8 F 94 H 23 H 118/56 94 02/12/19 16:31 02/12/19 16:31 02/12/19 16:31 02/12/19 16:31 02/12/19 16:31 General appearance: morbidly obese, severe distress - Head Head exam: Present: atraumatic - Expanded Head Exam Head exam: Absent: abrasion, Bedolla's sign, contusion, CSF otorrhea - Eye Eye exam: Present: conjunctival injection, PERRL. Absent: scleral icterus - ENT ENT exam: Present: mucous membranes dry. Absent: normal exam, normal oropharynx - Expanded ENT Exam Ear exam: Absent: auricular hematoma, auricular trauma, external canal tenderness Mouth exam: Present: dry mucosa, muffled voice. Absent: laceration - Neck Neck exam: Present: normal inspection. Absent: lymphadenopathy, meningismus, tenderness, thyromegaly - Expanded Neck Exam Neck exam: Absent: anterior neck swelling, midline deformity, tenderness - Respiratory Respiratory exam: Present: decreased breath sounds, prolonged expiratory phase. Absent: accessory muscle use, chest wall tenderness - Cardiovascular Cardiovascular exam: Present: irregular rhythm. Absent: JVD, rubs, +S3, +S4, systolic murmur - GI/Abdominal GI/Abdominal exam: Present: distended. Absent: organomegaly, tenderness - Back Exam Back exam: Present: normal inspection. Absent: CVA tenderness (R), rash noted - Neurological Exam Neurological exam: Present: alert, CN II-XII intact, motor sensory deficit, oriented X3, reflexes normal - Expanded Neurological Exam Neurological exam expanded: Present: ataxia Medical - H&P: Reslt - Labs CBC & Chem 7: 02/12/19 02:00 02/12/19 20:26 Labs: Short CBC 02/12/19 Range/Units 02:00 WBC 23.0 H (4.5-11.0) K/mcL Hgb 15.8 (13.5-16.5) g/dL Hct 48.1 (41.0-55.0) % Plt Count 256 (140-440) K/mcL BMP 02/12/19 02/12/19 02/12/19 02:00 13:30 13:30 Sodium 136 137 135 Potassium 5.6 H 5.1 5.0 Chloride 91 L 96 94 L Carbon Dioxide 21 L 18 L 23 BUN 32 H 37 H 36 H Creatinine 1.4 H 1.3 H 1.4 H Glucose 444 H 378 H 381 H Calcium 10.2 9.9 9.7 02/12/19 02/12/19 18:46 20:26 Sodium 137 136 Potassium 4.6 5.0 Chloride 98 95 L Carbon Dioxide 20 L 24 BUN 36 H Creatinine 1.1 Glucose 341 H Calcium 9.1 Cardiac Enzymes 02/12/19 02/12/19 Range/Units 13:30 18:46 Troponin T 0.21 H* 0.22 H* (0-0.03) ng/ml Liver Function 02/12/19 02/12/19 Range/Units 02:00 13:30 Total Bilirubin 0.7 0.6 (0.0-1.0) mg/dL Direct Bilirubin < 0.2 (0.0-0.3) mg/dL GGT 134 H (8-61) U/L AST 69 H 102 H (0-37) U/l ALT 45 H 64 H (0-40) U/l Alkaline Phosphatase 100 83 (39-117) U/L Albumin 4.1 3.8 (3.2-5.2) gm/dL Urine 02/12/19 02/12/19 Range/Units 03:40 16:19 Urine Color Yellow Yellow Urine Appearance Hazy Hazy Urine pH 5.0 5.0 (5.0-9.0) Ur Specific [place] 1.024 1.027 (1.000-1.035) Urine Protein 30 A 100 A (NEG) mg/dL Urine Glucose (UA) >=500 A >=500 A (NEG) mg/dL - ABG Interpretation ABG results: 02/12/19 02/12/19 02/12/19 13:30 16:27 20:26 ABG Methemoglobin 0.3 L 0.3 L 0.3 L VBG pH 7.35 7.45 H 7.42 VBG pCO2 42.5 34.5 L 41.2 VBG pO2 62 H 161 H 93 H VBG HCO3 23.1 L 23.5 L 26.2 VBG Total CO2 24.5 L 24.6 L 27.4 VBG O2 Saturation 86.2 H 92.7 H 92.4 H VBG Base Excess -2.4 L 0.1 1.6 Medical - H&P: A/P - Narrative A/P Narrative: Septic shock Probable community-acquired pneumonia Patient was in sepsis with a leukocytosis tachycardia lactic acidosis CT of the chest showing possible pneumonia Started him on Zosyn Blood culture pending Urine culture pending He was on Levophed drip will wean off the Levophed IV fluid resuscitation Possibility of aspiration pneumonitis Probable DKA We will start him on insulin drip Electrolyte monitoring Recheck metabolic panel every 4 hours Once his anion gap closed will stop the insulin drip and will start him on long- acting insulin Non-ST elevation NE probably due to septic shock and atrial fibrillation RVR Troponin was 0.2 we will monitor the troponin Ordered echocardiogram If it is remained plateaued probably due to non-ST lesion might type II Telemetry monitoring Atrial fibrillation RVR History atrial fibrillation We will start him on Cardizem drip Echocardiogram ordered Titrate the Cardizem drip He is on warfarin We will check his INR Pharmacy to dose Coumadin Patient takes Coreg 25 twice daily Morbid obesity and obesity hypoventilation Probable pulmonary hypertension Encourage the patient use CPAP Type 2 diabetes We will hold his p.o. medications He is on insulin drip Sliding scale insulin and long-acting insulin once his DKA is under control DVT prophylaxis-SCDs and he is on Coumadin CODE STATUS-full code Expected length of stay-2-3 midnights CPT code [id number] critical care time spent 105 minutes Medical - H&P: Qual - VTE Deep Vein Thrombosis/Pulmonary Embolism Present on Admission: No
[2019-02-12 23:06] LABS: INR 3.9 (0.9-1.1); Prothrombin Time 37.8 sec (11.9-14.5)
[2019-02-13] MEDS: PIPERACILLIN SODIUM/TAZOBACTAM 3.375 GM in DEXTROSE 5% IN WATER 50 ML IV SCH ×4 (00:22→17:51)
[2019-02-13] MEDS: 0.9 % SODIUM CHLORIDE 1,000 ML IV SCH ×6 (00:24→21:39)
[2019-02-13 00:36] LABS: ABG Methemoglobin 0.3 % (0.4-1.5); Total Hemoglobin 13.1 gm/dL (13.5-16.5); VBG Base Excess -0.7 (-2.0-2.0); VBG HCO3 23.2 mmol/L (24.0-28.0); VBG Oxygen Saturation 92.9 % (40.0-70.0); VBG PCO2 36.1 mmHg (41.0-51.0); VBG PH 7.43 U (7.32-7.42); VBG PO2 101 mmHg (25-40); VBG Total CO2 24.3 mmol/L (25.0-29.0)
[2019-02-13] MEDS ORDERED: INSULIN REGULAR, HUMAN 1 UNIT/0.01 ML UNIT ONE ×2 (00:47→00:52)
[2019-02-13] MEDS: INSULIN REGULAR, HUMAN 50 UNIT in 0.9 % SODIUM CHLORIDE 99.5 ML IV SCH ×2 (00:54→17:28)
[2019-02-13 01:17] LABS: Blood Urea Nitrogen 39 mg/dl (8-23); Calcium 8.9 mg/dl (8.6-10.4); Carbon Dioxide 22 mmol/L (22-30); Chloride 97 mmol/L (96-108); Glomerular Filtration Rate 74; Glucose 210 mg/dL (70-105)
[2019-02-13] MEDS ORDERED: DILTIAZEM 125 MG/25 ML VIAL IV ONE (03:10)
[2019-02-13] MEDS: DILTIAZEM 125 MG in DEXTROSE 5% IN WATER 100 ML IV SCH ×2 (03:14→17:30)
[2019-02-13 04:37] LABS: ABG Methemoglobin 0.3 % (0.4-1.5); VBG Base Excess 2.5 (-2.0-2.0); VBG HCO3 27.3 mmol/L (24.0-28.0); VBG Oxygen Saturation 92.5 % (40.0-70.0); VBG PCO2 42.5 mmHg (41.0-51.0); VBG PH 7.43 U (7.32-7.42); VBG PO2 83 mmHg (25-40); VBG Total CO2 28.6 mmol/L (25.0-29.0)
[2019-02-13 04:56] LABS: Basophils # (Auto) 0 K/mcL (0.0-0.3); Basophils % (Auto) 0.3 % (0.0-2.0); Eosinophils # (Auto) 0 K/mcL (0.0-0.7); Eosinophils % (Auto) 0 % (0.0-7.0); Granulocytes % (Auto) 80.1 % (38.0-78.0); Hematocrit 40.2 % (41.0-55.0); Hemoglobin 13.2 g/dL (13.5-16.5); Lymphocytes # (Auto) 1.7 K/mcL (1.5-4.8); Lymphocytes % (Auto) 10.3 % (15.5-49.0); Mean Cell Volume 101.6 fL (80.0-100.0); Mean Corpuscular HGB Conc 32.7 g/dL (31.0-36.0); Mean Platelet Volume 7.9 fL (7.4-10.4); Monocytes # (Auto) 1.5 K/mcL (0.1-0.9); Monocytes % (Auto) 9.3 % (1.0-12.0); Platelet Count 190 K/mcL (140-440); RBC 3.96 M/mcL (4.50-5.90); Red Cell Distribution Width 15.8 % (11.5-14.5); WBC 16.2 K/mcL (4.5-11.0)
[2019-02-13] MEDS: 0.9 % SODIUM CHLORIDE 10 ML SYRINGE IV SCH ×3 (05:58→21:51)
[2019-02-13] MEDS: 0.9 % SODIUM CHLORIDE 250 ML IV SCH ×2 (05:58→17:04)
[2019-02-13 08:51] LABS: INR 3.7 (0.9-1.1); Prothrombin Time 35.8 sec (11.9-14.5)
[2019-02-13] MEDS ORDERED: DEXTROSE 50% 50 ML VIAL IV PRN (10:45)
[2019-02-13] MEDS ORDERED: DEXTROSE 31 GM ORAL.SUSP PO PRN (10:45)
[2019-02-13 10:47] LABS: Blood Urea Nitrogen 33 mg/dl (8-23); Calcium 8.7 mg/dl (8.6-10.4); Carbon Dioxide 24 mmol/L (22-30); Chloride 97 mmol/L (96-108); Glomerular Filtration Rate 89; Glucose 166 mg/dL (70-105)
[2019-02-13] MEDS ORDERED: VANCOMYCIN PER PHARMACY IV SCH (11:12)
[2019-02-13] MEDS: HYDROcodone/APAP 5/325MG TABLET PO PRN ×3 (11:14→21:50)
[2019-02-13] MEDS: CARVEDILOL 12.5 MG TABLET PO SCH ×2 (11:14→17:09)
--- NOTE | 2019-02-13 11:22 | Internal Med Progress Note ---
Medical - PN: Subj Patient information: Note initiated : 02/13/19 at 11:20 am Service Date, if different from initiated Date: [] Patient: Luke Palacios 73 y/o M admitted on 02/12/19 for n/v. Chief Complaint: [] Interval history: This is a 73-year-old gentleman with morbid obesity, type 2 diabetes and atrial fibrillation admitted with A. fib RVR, septic shock and potential source of infection pneumonia versus sacral wound. He was started on DKA protocol with insulin drip and his blood sugar has been improved and started him on Lantus 30 units with the mealtime NovoLog and sliding scale 02/13-has had DKA improved anion gap closed and started him on long-acting insulin ordered an A1c level. His sacral wound culture growing heavy growth of gram-negative rods and gram-positive's and added vancomycin in addition to the Zosyn until we get the final report. Pertinent ROS: Review of system General-distress improved, morbidly obese having difficulty in breathing Respiratory-difficulty in breathing CVS-no chest pain no palpitation Abdomen-abdominal pain nausea vomiting improved Urinary symptoms no dysuria no pain Neuro-no dizziness no headache for now - Constitutional Vitals: Vital Signs Temp Pulse Resp BP Pulse Ox 98.1 F 97 H 17 81/58 99 02/13/19 08:01 02/13/19 09:01 02/13/19 10:01 02/13/19 10:01 02/13/19 10:01 Period Temp Pulse Resp BP Sys/Elizalde Pulse Ox Last 24 Hr 97 F-99.1 F 43-136 13-31 81-145/56-131 88-99 Intake and Output 02/12/19 02/13/19 02/13/19 21:59 05:59 13:59 Intake Total 477 2222 1189 Output Total 410 331 235 Balance 67 1891 954 Intake & Output: Intake & Output 02/12/19 02/13/19 02/13/19 21:59 05:59 13:59 Intake Total 477 2222 1189 Output Total 410 331 235 Balance 67 1891 954 Intake: IV 237 1882 1089 Sodium Chloride 0.9% 1,000 ml @ 1397 940 20 mls/hr IV .Q24H [facility] Rx#: [id number] Sodium Chloride 0.9% 250 ml @ 250 20 mls/hr IV .[id number] [facility] Rx#: [id number] Cardizem 125 mg In Dextrose 5% 118 125 95 in Water 100 ml @ 5 MG/HR 5 mls /hr IV Q24H [facility] Rx#:[id number] HumuLIN R 50 UNIT In Sodium 19 60 4 Chloride 0.9% 99.5 ml @ Per Protocol IV Q12H [facility] Rx#: [id number] Zosyn 3.375 gm In Dextrose 5% 100 50 50 in Water 50 ml @ 100 mls/hr IV Q6H [facility] Rx#:[id number] Oral 240 340 100 Output: Urine Catheter Amount 395 331 235 Emesis 15 Other: Urine Appearance Sediment Cloudy Cloudy Straight Sediment Sediment Urine Color Dark María Elena Dark Yellow Dark Yellow Straight Dark María Elena Dark Yellow General appearance: mild distress, morbidly obese - Head Head exam: Present: atraumatic, normal inspection - Eye Eye exam: Present: normal appearance. Absent: conjunctival injection, nystagmus, periorbital swelling - ENT ENT exam: Present: mucous membranes moist, normal external ear exam, normal oropharynx - Respiratory Respiratory exam: Present: accessory muscle use, decreased breath sounds, prolo nged expiratory phase. Absent: chest wall tenderness, respiratory distress - Cardiovascular Cardiovascular exam: Present: irregular rhythm. Absent: bradycardia, clicks, diastolic murmur, systolic murmur - GI/Abdominal GI/Abdominal exam: Present: normal bowel sounds, soft, distended. Absent: bruit - Neurological Exam Neurological exam: Present: alert, CN II-XII intact, oriented X3, reflexes normal. Absent: motor sensory deficit - Skin Additional comments: Sacral pressure ulcer stage III with a cellulitis Medical - PN: Obj Da - Labs CBC & Chem 7: 02/13/19 04:16 02/13/19 09:23 Labs: Abnormal Lab Results 02/13/19 02/13/19 02/13/19 09:23 07:55 04:16 WBC RBC Hgb Hct MCV RDW Gran % Lymph % (Auto) Gran # Carter # (Auto) Seg Neutrophils % Lymphocytes % RBC Morphology Polychromasia Macrocytosis PT 35.8 H INR 3.7 H ABG Methemoglobin 0.3 L VBG pH 7.43 H VBG pCO2 VBG pO2 83 H VBG HCO3 VBG Total CO2 VBG O2 Saturation 92.5 H VBG Base Excess 2.5 H VBG Lactic Acid Carboxyhemoglobin 3.8 H Total Hemoglobin 13.0 L Potassium Chloride Carbon Dioxide Anion Gap BUN 33 H Creatinine Glucose 166 H GGT AST ALT Lactate Dehydrogenase Troponin T Beta-Hydroxybutyrate Urine Protein Urine Glucose (UA) Urine Ketones Urine Occult Blood Ur Leukocyte Esterase Urine RBC Urine WBC Amorphous Crystals Hyaline Casts Urine Yeast (Budding) 02/13/19 02/13/19 02/13/19 04:16 00:15 00:15 WBC 16.2 H RBC 3.96 L Hgb 13.2 L Hct 40.2 L MCV 101.6 H RDW 15.8 H Gran % 80.1 H Lymph % (Auto) 10.3 L Gran # 13.0 H Carter # (Auto) 1.5 H Seg Neutrophils % Lymphocytes % RBC Morphology Polychromasia Macrocytosis PT INR ABG Methemoglobin 0.3 L VBG pH 7.43 H VBG pCO2 36.1 L VBG pO2 101 H VBG HCO3 23.2 L VBG Total CO2 24.3 L VBG O2 Saturation 92.9 H VBG Base Excess VBG Lactic Acid Carboxyhemoglobin 5.0 H Total Hemoglobin 13.1 L Potassium Chloride Carbon Dioxide Anion Gap BUN Creatinine Glucose GGT AST ALT Lactate Dehydrogenase Troponin T 0.21 H* Beta-Hydroxybutyrate Urine Protein Urine Glucose (UA) Urine Ketones Urine Occult Blood Ur Leukocyte Esterase Urine RBC Urine WBC Amorphous Crystals Hyaline Casts Urine Yeast (Budding) 02/13/19 02/12/19 02/12/19 00:15 22:14 20:26 WBC RBC Hgb Hct MCV RDW Gran % Lymph % (Auto) Gran # Carter # (Auto) Seg Neutrophils % Lymphocytes % RBC Morphology Polychromasia Macrocytosis PT 37.8 H INR 3.9 H ABG Methemoglobin VBG pH VBG pCO2 VBG pO2 VBG HCO3 VBG Total CO2 VBG O2 Saturation VBG Base Excess VBG Lactic Acid 3.3 H Carboxyhemoglobin Total Hemoglobin Potassium Chloride Carbon Dioxide Anion Gap BUN 39 H Creatinine Glucose 210 H GGT AST ALT Lactate Dehydrogenase Troponin T Beta-Hydroxybutyrate Urine Protein Urine Glucose (UA) Urine Ketones Urine Occult Blood Ur Leukocyte Esterase Urine RBC Urine WBC Amorphous Crystals Hyaline Casts Urine Yeast (Budding) 02/12/19 02/12/19 02/12/19 20:26 20:26 18:46 WBC RBC Hgb Hct MCV RDW Gran % Lymph % (Auto) Gran # Carter # (Auto) Seg Neutrophils % Lymphocytes % RBC Morphology Polychromasia Macrocytosis PT INR ABG Methemoglobin 0.3 L VBG pH VBG pCO2 VBG pO2 93 H VBG HCO3 VBG Total CO2 VBG O2 Saturation 92.4 H VBG Base Excess VBG Lactic Acid Carboxyhemoglobin 4.0 H Total Hemoglobin Potassium Chloride 95 L Carbon Dioxide Anion Gap 17.0 H BUN Creatinine Glucose GGT AST ALT Lactate Dehydrogenase Troponin T 0.22 H* Beta-Hydroxybutyrate Urine Protein Urine Glucose (UA) Urine Ketones Urine Occult Blood Ur Leukocyte Esterase Urine RBC Urine WBC Amorphous Crystals Hyaline Casts Urine Yeast (Budding) 02/12/19 02/12/19 02/12/19 18:46 16:27 16:19 WBC RBC Hgb Hct MCV RDW Gran % Lymph % (Auto) Gran # Carter # (Auto) Seg Neutrophils % Lymphocytes % RBC Morphology Polychromasia Macrocytosis PT INR ABG Methemoglobin 0.3 L VBG pH 7.45 H VBG pCO2 34.5 L VBG pO2 161 H VBG HCO3 23.5 L VBG Total CO2 24.6 L VBG O2 Saturation 92.7 H VBG Base Excess VBG Lactic Acid Carboxyhemoglobin 6.1 H Total Hemoglobin Potassium Chloride Carbon Dioxide 20 L Anion Gap 19.0 H BUN 36 H Creatinine Glucose 341 H GGT AST ALT Lactate Dehydrogenase Troponin T Beta-Hydroxybutyrate Urine Protein 100 A Urine Glucose (UA) >=500 A Urine Ketones 5/tr A Urine Occult Blood >=1.0 A Ur Leukocyte Esterase 250 A Urine RBC 117 H Urine WBC 131 H Amorphous Crystals Hyaline Casts 140 H Urine Yeast (Budding) Few A 02/12/19 02/12/19 02/12/19 13:30 13:30 13:30 WBC RBC Hgb Hct MCV RDW Gran % Lymph % (Auto) Gran # Carter # (Auto) Seg Neutrophils % Lymphocytes % RBC Morphology Polychromasia Macrocytosis PT INR ABG Methemoglobin 0.3 L VBG pH VBG pCO2 VBG pO2 62 H VBG HCO3 23.1 L VBG Total CO2 24.5 L VBG O2 Saturation 86.2 H VBG Base Excess -2.4 L VBG Lactic Acid Carboxyhemoglobin 4.5 H Total Hemoglobin Potassium Chloride 94 L Carbon Dioxide Anion Gap 18.0 H BUN 36 H Creatinine 1.4 H Glucose 381 H GGT 134 H AST 102 H ALT 64 H Lactate Dehydrogenase 316 H Troponin T 0.21 H* Beta-Hydroxybutyrate Urine Protein Urine Glucose (UA) Urine Ketones Urine Occult Blood Ur Leukocyte Esterase Urine RBC Urine WBC Amorphous Crystals Hyaline Casts Urine Yeast (Budding) 02/12/19 02/12/19 02/12/19 13:30 08:41 05:20 WBC RBC Hgb Hct MCV RDW Gran % Lymph % (Auto) Gran # Carter # (Auto) Seg Neutrophils % Lymphocytes % RBC Morphology Polychromasia Macrocytosis PT INR ABG Methemoglobin VBG pH VBG pCO2 VBG pO2 VBG HCO3 VBG Total CO2 VBG O2 Saturation VBG Base Excess VBG Lactic Acid 3.4 H 4.7 H* Carboxyhemoglobin Total Hemoglobin Potassium Chloride Carbon Dioxide 18 L Anion Gap 23.0 H BUN 37 H Creatinine 1.3 H Glucose 378 H GGT AST ALT Lactate Dehydrogenase Troponin T Beta-Hydroxybutyrate Urine Protein Urine Glucose (UA) Urine Ketones Urine Occult Blood Ur Leukocyte Esterase Urine RBC Urine WBC Amorphous Crystals Hyaline Casts Urine Yeast (Budding) 02/12/19 02/12/19 02/12/19 03:40 02:00 02:00 WBC RBC Hgb Hct MCV RDW Gran % Lymph % (Auto) Gran # Carter # (Auto) Seg Neutrophils % Lymphocytes % RBC Morphology Polychromasia Macrocytosis PT INR ABG Methemoglobin VBG pH VBG pCO2 VBG pO2 VBG HCO3 VBG Total CO2 VBG O2 Saturation VBG Base Excess VBG Lactic Acid Carboxyhemoglobin Total Hemoglobin Potassium 5.6 H Chloride 91 L Carbon Dioxide 21 L Anion Gap 24.0 H BUN 32 H Creatinine 1.4 H Glucose 444 H GGT AST 69 H ALT 45 H Lactate Dehydrogenase Troponin T Beta-Hydroxybutyrate 3.41 H Urine Protein 30 A Urine Glucose (UA) >=500 A Urine Ketones 5/tr A Urine Occult Blood Ur Leukocyte Esterase 75 A Urine RBC Urine WBC 7 H Amorphous Crystals Few A Hyaline Casts 88 H Urine Yeast (Budding) 02/12/19 02:00 WBC 23.0 H RBC Hgb Hct MCV 102.3 H RDW 15.4 H Gran % Lymph % (Auto) Gran # Carter # (Auto) Seg Neutrophils % 82 H Lymphocytes % 8 L RBC Morphology Abnorm A Polychromasia 1+ A Macrocytosis 1+ A PT INR ABG Methemoglobin VBG pH VBG pCO2 VBG pO2 VBG HCO3 VBG Total CO2 VBG O2 Saturation VBG Base Excess VBG Lactic Acid Carboxyhemoglobin Total Hemoglobin Potassium Chloride Carbon Dioxide Anion Gap BUN Creatinine Glucose GGT AST ALT Lactate Dehydrogenase Troponin T Beta-Hydroxybutyrate Urine Protein Urine Glucose (UA) Urine Ketones Urine Occult Blood Ur Leukocyte Esterase Urine RBC Urine WBC Amorphous Crystals Hyaline Casts Urine Yeast (Budding) Meds: Medications Acetaminophen (Tylenol) 650 mg PO Q4-6HP PRN; Protocol PRN Reason: Per Pain Protocol/Fever > 101 Hydrocodone Bitart/Acetaminophen ([place] 5/325mg) 1 tab PO Q4-6HP PRN; Protocol PRN Reason: Per Pain Protocol Last Admin: 02/13/19 11:14 Dose: 1 tab Documented by: Carvedilol (Coreg) 25 mg PO BIDCC K[facility]INE Last Admin: 02/13/19 11:14 Dose: 25 mg Documented by: Dextrose (Dextrose 50%) 0 ml IV UD PRN PRN Reason: Hypoglycemia Diagnostic Test (Pha) (Accu-Chek) 1 each FS Q1 [facility]; Protocol Last Admin: 02/13/19 10:28 Dose: 1 each Documented by: Diagnostic Test (Pha) (Accu-Chek) 1 each FS ACHS [facility] Glucose (Insta-Glucose) 15 gm PO PRN PRN PRN Reason: Hypoglycemia Diltiazem HCl 125 mg/ Dextrose 125 mls @ 5 mls/hr IV Q24H [facility]; Protocol Last Titration: 02/13/19 10:20 Dose: Infused Documented by: Norepinephrine Bitartrate 16 (mg/ Sodium Chloride) 250 mls @ 9.375 mls/hr IV Q24HP PRN; Protocol PRN Reason: Hypotension Sodium Chloride (Sodium Chloride 0.9%) 1,000 mls @ 20 mls/hr IV .Q24H [facility] Last Admin: 02/13/19 03:21 Dose: 5 mls/hr Documented by: Sodium Chloride (Sodium Chloride 0.9%) 1,000 mls @ 20 mls/hr IV .Q24H [facility] Last Infusion: 02/13/19 10:40 Dose: 10 mls/hr Documented by: Sodium Chloride (Sodium Chloride 0.9%) 1,000 mls @ 100 mls/hr IV .Q10H [facility] Last Admin: 02/13/19 09:20 Dose: 100 mls/hr Documented by: Sodium Chloride (Sodium Chloride 0.9%) 250 mls @ 20 mls/hr IV .[id number] [facility] Last Admin: 02/13/19 05:58 Dose: Not Given Documented by: Insulin Human Regular 50 unit/ (Sodium Chloride) 100 mls @ 0 mls/hr IV Q12H [facility]; Protocol Last Titration: 02/13/19 07:02 Dose: 6 ml/hr, 6 mls/hr Documented by: Piperacillin Sod/Tazobactam (Sod 3.375 gm/ Dextrose) 50 mls @ 100 mls/hr IV Q6H [facility]; Protocol Last Infusion: 02/13/19 07:10 Dose: Infused Documented by: Insulin Glargine (Lantus) 20 unit SQ DAILY [facility] Insulin Human Lispro (Humalog) 5 unit SQ ACHS [facility] Insulin Human Lispro (Humalog) 0 unit SQ ACHS [facility]; Protocol Ondansetron HCl (Zofran) 4 mg IV Q4-6HP PRN; Protocol PRN Reason: Nausea And Vomiting Sodium Chloride (Saline Flush) 10 ml IV Q8 [facility] Last Admin: 02/13/19 05:58 Dose: Not Given Documented by: Vancomycin HCl (Vancomycin Per Pharmacy) 1 order IV ONCE ONE; Protocol Stop: 02/13/19 11:13 Warfarin Sodium (Coumadin Per Pharmacy) 1 order PO DAILY@1400 [facility] - ABG Interpretation ABG results: 02/12/19 02/12/19 02/12/19 13:30 16:27 20:26 ABG Methemoglobin 0.3 L 0.3 L 0.3 L VBG pH 7.35 7.45 H 7.42 VBG pCO2 42.5 34.5 L 41.2 VBG pO2 62 H 161 H 93 H VBG HCO3 23.1 L 23.5 L 26.2 VBG Total CO2 24.5 L 24.6 L 27.4 VBG O2 Saturation 86.2 H 92.7 H 92.4 H VBG Base Excess -2.4 L 0.1 1.6 02/13/19 02/13/19 00:15 04:16 ABG Methemoglobin 0.3 L 0.3 L VBG pH 7.43 H 7.43 H VBG pCO2 36.1 L 42.5 VBG pO2 101 H 83 H VBG HCO3 23.2 L 27.3 VBG Total CO2 24.3 L 28.6 VBG O2 Saturation 92.9 H 92.5 H VBG Base Excess -0.7 2.5 H Medical - PN: A/P - Time Spent With Patient Total time spent is greater than 50% in coordination of care (as documented) at patient's floor/unit and/or counseling patient: - Narrative A/P Narrative: Septic shock-improved Probable sacral pressure ulcer cellulitis and or enterococcus UTI probable infected sacral wound patient was in sepsis with a leukocytosis ta chycardia lactic acidosis CT of the chest showing possible pneumonia patient did not have much respiratory symptom Sacral wound culture growing heavy growth of gram-negative rods and gram- positive's He was on Zosyn since admission and added vancomycin until we get the final report Blood culture pending Urine culture growing enterococcus We will decrease IV fluid resuscitation and eventually stop DKA-improved Uncontrolled diabetes Patient was on p.o. antidiabetic medications We will start him on Lantus 30 units and mealtime NovoLog 5 units and sliding scale His anion gap closed and insulin drip stopped Non-ST elevation VT probably due to septic shock and atrial fibrillation RVR Troponin was 0.2 remained plateaued around the same number No active chest pain No evidence of ischemic changes on the EKG Ordered echocardiogram If it is remained plateaued probably due to non-ST lesion might type II Telemetry monitoring Atrial fibrillation RVR History atrial fibrillation We will start him on Cardizem drip and titrate of the Cardizem drip Restarted Coreg 25 mg twice daily We will consider starting Cardizem p.o. if needed Echocardiogram ordered-pending T pharmacy to dose Coumadin his INR is supratherapeutic Pharmacy to dose Coumadin Morbid obesity and obesity hypoventilation Probable pulmonary hypertension Encourage the patient use CPAP Type 2 diabetes We will hold his p.o. medications Started him on Lantus 30 units, mealtime NovoLog and sliding scale DVT prophylaxis-SCDs and he is on Coumadin CODE STATUS-full code Expected length of stay-2-3 midnights Total critical care time 60 [id number] Medical - PN: Qual - VTE Deep Vein Thrombosis/Pulmonary Embolism Present on Admission: No
[2019-02-13] MEDS: INSULIN GLARGINE, HUMAN 1 UNIT/0.01 ML SQ SCH (11:38)
[2019-02-13] MEDS: INSULIN LISPRO 1 UNIT/0.01 ML UNIT SQ SCH ×6 (11:45→21:48)
[2019-02-13] MEDS: VANCOMYCIN 1,500 MG in 0.9 % SODIUM CHLORIDE 500 ML IV SCH ×2 (11:50→21:48)
[2019-02-13] MEDS ORDERED: NOREPINEPHRINE BITARTRATE 16 MG in 0.9 % SODIUM CHLORIDE 234 ML IV PRN (12:30)
[2019-02-13 14:51] LABS: Blood Urea Nitrogen 32 mg/dl (8-23); Calcium 8.9 mg/dl (8.6-10.4); Carbon Dioxide 27 mmol/L (22-30); Chloride 96 mmol/L (96-108); Glomerular Filtration Rate 89; Glucose 224 mg/dL (70-105)
[2019-02-13] MEDS: DILTIAZEM 30 MG TABLET PO SCH ×2 (15:43→18:50)
[2019-02-13] MEDS: HEPARIN 5,000 UNIT/ML VIAL SQ SCH (17:44)
[2019-02-13 20:36] LABS: Blood Urea Nitrogen 29 mg/dl (8-23); Calcium 8.6 mg/dl (8.6-10.4); Carbon Dioxide 22 mmol/L (22-30); Chloride 98 mmol/L (96-108); Glomerular Filtration Rate 89; Glucose 226 mg/dL (70-105)
[2019-02-14] MEDS: PIPERACILLIN SODIUM/TAZOBACTAM 3.375 GM in DEXTROSE 5% IN WATER 50 ML IV SCH ×4 (00:30→17:42)
[2019-02-14] MEDS: DILTIAZEM 30 MG TABLET PO SCH ×4 (00:31→18:48)
[2019-02-14] MEDS: INSULIN REGULAR, HUMAN 50 UNIT in 0.9 % SODIUM CHLORIDE 99.5 ML IV SCH ×2 (03:04→14:27)
[2019-02-14] MEDS: 0.9 % SODIUM CHLORIDE 250 ML IV SCH ×2 (03:05→15:35)
[2019-02-14] MEDS: 0.9 % SODIUM CHLORIDE 10 ML SYRINGE IV SCH ×3 (05:40→20:50)
[2019-02-14] MEDS: HYDROcodone/APAP 5/325MG TABLET PO PRN ×3 (06:48→20:47)
[2019-02-14 07:13] LABS: Basophils # (Auto) 0 K/mcL (0.0-0.3); Basophils % (Auto) 0.4 % (0.0-2.0); Eosinophils # (Auto) 0 K/mcL (0.0-0.7); Eosinophils % (Auto) 0.4 % (0.0-7.0); Granulocytes % (Auto) 83.2 % (38.0-78.0); Hematocrit 36.1 % (41.0-55.0); Lymphocytes % (Auto) 8.4 % (15.5-49.0); Mean Cell Volume 103.4 fL (80.0-100.0); Mean Corpuscular HGB Conc 33.2 g/dL (31.0-36.0); Mean Platelet Volume 8.4 fL (7.4-10.4); Monocytes # (Auto) 0.9 K/mcL (0.1-0.9); Monocytes % (Auto) 7.6 % (1.0-12.0); Platelet Count 154 K/mcL (140-440); RBC 3.49 M/mcL (4.50-5.90); Red Cell Distribution Width 14.8 % (11.5-14.5); WBC 11.5 K/mcL (4.5-11.0)
[2019-02-14 07:30] LABS: INR 3.2 (0.9-1.1); Prothrombin Time 32.6 sec (11.9-14.5)
[2019-02-14 07:35] LABS: Blood Urea Nitrogen 26 mg/dl (8-23); Calcium 8.7 mg/dl (8.6-10.4); Carbon Dioxide 22 mmol/L (22-30); Chloride 99 mmol/L (96-108); Glomerular Filtration Rate 94; Glucose 214 mg/dL (70-105)
[2019-02-14] MEDS: 0.9 % SODIUM CHLORIDE 1,000 ML IV SCH ×4 (07:41→15:36)
[2019-02-14] MEDS: INSULIN LISPRO 1 UNIT/0.01 ML UNIT SQ SCH ×8 (07:41→20:43)
[2019-02-14] MEDS: INSULIN GLARGINE, HUMAN 1 UNIT/0.01 ML SQ SCH (07:43)
[2019-02-14] MEDS: CARVEDILOL 12.5 MG TABLET PO SCH ×2 (08:41→17:42)
--- NOTE | 2019-02-14 10:52 | Internal Med Progress Note ---
Medical - PN: Subj Patient information: Note initiated : 02/14/19 at 10:50 am Service Date, if different from initiated Date: [] Patient: Luke Palacios 73 y/o M admitted on 02/12/19 for n/v. Chief Complaint: [] Interval history: This is a 73-year-old gentleman with morbid obesity, type 2 diabetes and atrial fibrillation admitted with A. fib RVR, septic shock and potential source of infection pneumonia versus sacral wound. He was started on DKA protocol with insulin drip and his blood sugar has been improved and started him on Lantus 30 units with the mealtime NovoLog and sliding scale 02/13-has had DKA improved anion gap closed and started him on long-acting insulin ordered an A1c level. His sacral wound culture growing heavy growth of gram-negative rods and gram-positive's and added vancomycin in addition to the Zosyn until we get the final report. 02/14-his culture reports urine culture pending, wound culture report pending and continued Zosyn and vancomycin for now. His A1c level is 7.1. Patient was started on Lantus 30 units, NovoLog 5 units with a meal and sliding scale his b lood sugar has been controlled. Explained to the patient and family about the elevated troponin level and this most likely due to septic shock. His heart rate improved and he is on Coreg and Cardizem p.o. and once his heart rate is controlled better with the Cardizem p.o. can be changed to extended release once daily. Pertinent ROS: Review of system General-distress improved, morbidly obese having difficulty in breathing Respiratory-difficulty in breathing CVS-no chest pain no palpitation Abdomen-abdominal pain nausea vomiting improved Urinary symptoms no dysuria no pain Neuro-no dizziness no headache for now - Constitutional Vitals: Vital Signs Temp Pulse Resp BP Pulse Ox 97.9 F 95 H 19 103/71 94 02/14/19 04:01 02/14/19 07:24 02/14/19 07:24 02/14/19 07:01 02/14/19 07:24 Period Temp Pulse Resp BP Sys/Elizalde Pulse Ox Last 24 Hr 97.4 F-98.7 F 48-135 13-37 81-128/48-98 92-97 Intake and Output 02/13/19 02/14/19 02/14/19 21:59 05:59 13:59 Intake Total 2446 159 3686 Output Total 546 510 60 Balance 1017 40 990 Weight 322 lb 9.6 oz Intake & Output: Intake & Output 02/13/19 02/14/19 02/14/19 21:59 05:59 13:59 Intake Total 0310 077 9157 Output Total 546 510 60 Balance 1017 40 990 Weight 322 lb 9.6 oz Intake: IV 5256 303 9206 Sodium Chloride 0.9% 1,000 ml @ 1000 1000 100 mls/hr IV .Q10H [facility] Rx#: [id number] Zosyn 3.375 gm In Dextrose 5% 50 50 50 in Water 50 ml @ 100 mls/hr IV Q6H [facility] Rx#:[id number] Vancomycin 1,500 mg In Sodium 333 500 Chloride 0.9% 500 ml @ 333.3 mls/hr IV Q12H [facility] Rx#: [id number] Oral 180 Output: Urine Catheter Amount 546 510 60 Other: Meal Dinner Percent of Meal Consumed 25% Urine Appearance Sediment Sediment Sediment Straight Sediment Clear Urine Color Straw Dark Yellow Dark Yellow Straight Straw Dark Yellow General appearance: mild distress, morbidly obese - Head Head exam: Present: atraumatic, normal inspection, normocephalic - Eye Eye exam: Present: conjunctival injection, normal appearance. Absent: periorbital swelling, periorbital tenderness - ENT ENT exam: Present: mucous membranes moist, normal exam, normal external ear exam, normal oropharynx - Neck Neck exam: Present: normal inspection. Absent: lymphadenopathy, tenderness - Respiratory Respiratory exam: Present: accessory muscle use, decreased breath sounds. Absent: respiratory distress - Cardiovascular Cardiovascular exam: Present: irregular rhythm. Absent: diastolic murmur, gallop - GI/Abdominal GI/Abdominal exam: Present: normal bowel sounds, soft, distended. Absent: bruit, tenderness - Neurological Exam Neurological exam: Present: alert, oriented X3, reflexes normal. Absent: motor sensory deficit Medical - PN: Obj Da - Labs CBC & Chem 7: 02/14/19 03:53 02/14/19 03:54 Labs: Abnormal Lab Results 02/14/19 02/14/19 02/14/19 03:54 03:54 03:53 WBC 11.5 H RBC 3.49 L Hgb 12.0 L Hct 36.1 L MCV 103.4 H MCH 34.3 H RDW 14.8 H Gran % 83.2 H Lymph % (Auto) 8.4 L Gran # 9.6 H Lymph # (Auto) 1.0 L [place] # (Auto) Seg Neutrophils % Lymphocytes % RBC Morphology Polychromasia Macrocytosis PT 32.6 H INR 3.2 H ABG Methemoglobin VBG pH VBG pCO2 VBG pO2 VBG HCO3 VBG Total CO2 VBG O2 Saturation VBG Base Excess VBG Lactic Acid Carboxyhemoglobin Total Hemoglobin Sodium Potassium Chloride Carbon Dioxide Anion Gap BUN 26 H Creatinine Glucose 214 H GGT AST ALT Lactate Dehydrogenase Troponin T Beta-Hydroxybutyrate Urine Protein Urine Glucose (UA) Urine Ketones Urine Occult Blood Ur Leukocyte Esterase Urine RBC Urine WBC Amorphous Crystals Hyaline Casts Urine Yeast (Budding) 02/13/19 02/13/19 02/13/19 20:38 18:29 13:52 WBC RBC Hgb Hct MCV MCH RDW Gran % Lymph % (Auto) Gran # Lymph # (Auto) [place] # (Auto) Seg Neutrophils % Lymphocytes % RBC Morphology Polychromasia Macrocytosis PT INR ABG Methemoglobin VBG pH VBG pCO2 VBG pO2 VBG HCO3 VBG Total CO2 VBG O2 Saturation VBG Base Excess VBG Lactic Acid Carboxyhemoglobin Total Hemoglobin Sodium 132 L Potassium Chloride Carbon Dioxide Anion Gap BUN 29 H 32 H Creatinine Glucose 226 H 224 H GGT AST ALT Lactate Dehydrogenase Troponin T Beta-Hydroxybutyrate Urine Protein Urine Glucose (UA) Urine Ketones Urine Occult Blood Ur Leukocyte Esterase Urine RBC Urine WBC Amorphous Crystals Hyaline Casts Urine Yeast (Budding) 02/13/19 02/13/19 02/13/19 09:23 07:55 04:16 WBC RBC Hgb Hct MCV MCH RDW Gran % Lymph % (Auto) Gran # Lymph # (Auto) [place] # (Auto) Seg Neutrophils % Lymphocytes % RBC Morphology Polychromasia Macrocytosis PT 35.8 H INR 3.7 H ABG Methemoglobin 0.3 L VBG pH 7.43 H VBG pCO2 VBG pO2 83 H VBG HCO3 VBG Total CO2 VBG O2 Saturation 92.5 H VBG Base Excess 2.5 H VBG Lactic Acid Carboxyhemoglobin 3.8 H Total Hemoglobin 13.0 L Sodium Potassium Chloride Carbon Dioxide Anion Gap BUN 33 H Creatinine Glucose 166 H GGT AST ALT Lactate Dehydrogenase Troponin T Beta-Hydroxybutyrate Urine Protein Urine Glucose (UA) Urine Ketones Urine Occult Blood Ur Leukocyte Esterase Urine RBC Urine WBC Amorphous Crystals Hyaline Casts Urine Yeast (Budding) 02/13/19 02/13/19 02/13/19 04:16 00:15 00:15 WBC 16.2 H RBC 3.96 L Hgb 13.2 L Hct 40.2 L MCV 101.6 H MCH RDW 15.8 H Gran % 80.1 H Lymph % (Auto) 10.3 L Gran # 13.0 H Lymph # (Auto) [place] # (Auto) 1.5 H Seg Neutrophils % Lymphocytes % RBC Morphology Polychromasia Macrocytosis PT INR ABG Methemoglobin 0.3 L VBG pH 7.43 H VBG pCO2 36.1 L VBG pO2 101 H VBG HCO3 23.2 L VBG Total CO2 24.3 L VBG O2 Saturation 92.9 H VBG Base Excess VBG Lactic Acid Carboxyhemoglobin 5.0 H Total Hemoglobin 13.1 L Sodium Potassium Chloride Carbon Dioxide Anion Gap BUN Creatinine Glucose GGT AST ALT Lactate Dehydrogenase Troponin T 0.21 H* Beta-Hydroxybutyrate Urine Protein Urine Glucose (UA) Urine Ketones Urine Occult Blood Ur Leukocyte Esterase Urine RBC Urine WBC Amorphous Crystals Hyaline Casts Urine Yeast (Budding) 02/13/19 02/12/19 02/12/19 00:15 22:14 20:26 WBC RBC Hgb Hct MCV MCH RDW Gran % Lymph % (Auto) Gran # Lymph # (Auto) [place] # (Auto) Seg Neutrophils % Lymphocytes % RBC Morphology Polychromasia Macrocytosis PT 37.8 H INR 3.9 H ABG Methemoglobin VBG pH VBG pCO2 VBG pO2 VBG HCO3 VBG Total CO2 VBG O2 Saturation VBG Base Excess VBG Lactic Acid 3.3 H Carboxyhemoglobin Total Hemoglobin Sodium Potassium Chloride Carbon Dioxide Anion Gap BUN 39 H Creatinine Glucose 210 H GGT AST ALT Lactate Dehydrogenase Troponin T Beta-Hydroxybutyrate Urine Protein Urine Glucose (UA) Urine Ketones Urine Occult Blood Ur Leukocyte Esterase Urine RBC Urine WBC Amorphous Crystals Hyaline Casts Urine Yeast (Budding) 02/12/19 02/12/19 02/12/19 20:26 20:26 18:46 WBC RBC Hgb Hct MCV MCH RDW Gran % Lymph % (Auto) Gran # Lymph # (Auto) [place] # (Auto) Seg Neutrophils % Lymphocytes % RBC Morphology Polychromasia Macrocytosis PT INR ABG Methemoglobin 0.3 L VBG pH VBG pCO2 VBG pO2 93 H VBG HCO3 VBG Total CO2 VBG O2 Saturation 92.4 H VBG Base Excess VBG Lactic Acid Carboxyhemoglobin 4.0 H Total Hemoglobin Sodium Potassium Chloride 95 L Carbon Dioxide Anion Gap 17.0 H BUN Creatinine Glucose GGT AST ALT Lactate Dehydrogenase Troponin T 0.22 H* Beta-Hydroxybutyrate Urine Protein Urine Glucose (UA) Urine Ketones Urine Occult Blood Ur Leukocyte Esterase Urine RBC Urine WBC Amorphous Crystals Hyaline Casts Urine Yeast (Budding) 02/12/19 02/12/19 02/12/19 18:46 16:27 16:19 WBC RBC Hgb Hct MCV MCH RDW Gran % Lymph % (Auto) Gran # Lymph # (Auto) [place] # (Auto) Seg Neutrophils % Lymphocytes % RBC Morphology Polychromasia Macrocytosis PT INR ABG Methemoglobin 0.3 L VBG pH 7.45 H VBG pCO2 34.5 L VBG pO2 161 H VBG HCO3 23.5 L VBG Total CO2 24.6 L VBG O2 Saturation 92.7 H VBG Base Excess VBG Lactic Acid Carboxyhemoglobin 6.1 H Total Hemoglobin Sodium Potassium Chloride Carbon Dioxide 20 L Anion Gap 19.0 H BUN 36 H Creatinine Glucose 341 H GGT AST ALT Lactate Dehydrogenase Troponin T Beta-Hydroxybutyrate Urine Protein 100 A Urine Glucose (UA) >=500 A Urine Ketones 5/tr A Urine Occult Blood >=1.0 A Ur Leukocyte Esterase 250 A Urine RBC 117 H Urine WBC 131 H Amorphous Crystals Hyaline Casts 140 H Urine Yeast (Budding) Few A 02/12/19 02/12/19 02/12/19 13:30 13:30 13:30 WBC RBC Hgb Hct MCV MCH RDW Gran % Lymph % (Auto) Gran # Lymph # (Auto) [place] # (Auto) Seg Neutrophils % Lymphocytes % RBC Morphology Polychromasia Macrocytosis PT INR ABG Methemoglobin 0.3 L VBG pH VBG pCO2 VBG pO2 62 H VBG HCO3 23.1 L VBG Total CO2 24.5 L VBG O2 Saturation 86.2 H VBG Base Excess -2.4 L VBG Lactic Acid Carboxyhemoglobin 4.5 H Total Hemoglobin Sodium Potassium Chloride 94 L Carbon Dioxide Anion Gap 18.0 H BUN 36 H Creatinine 1.4 H Glucose 381 H GGT 134 H AST 102 H ALT 64 H Lactate Dehydrogenase 316 H Troponin T 0.21 H* Beta-Hydroxybutyrate Urine Protein Urine Glucose (UA) Urine Ketones Urine Occult Blood Ur Leukocyte Esterase Urine RBC Urine WBC Amorphous Crystals Hyaline Casts Urine Yeast (Budding) 02/12/19 02/12/19 02/12/19 13:30 08:41 05:20 WBC RBC Hgb Hct MCV MCH RDW Gran % Lymph % (Auto) Gran # Lymph # (Auto) [place] # (Auto) Seg Neutrophils % Lymphocytes % RBC Morphology Polychromasia Macrocytosis PT INR ABG Methemoglobin VBG pH VBG pCO2 VBG pO2 VBG HCO3 VBG Total CO2 VBG O2 Saturation VBG Base Excess VBG Lactic Acid 3.4 H 4.7 H* Carboxyhemoglobin Total Hemoglobin Sodium Potassium Chloride Carbon Dioxide 18 L Anion Gap 23.0 H BUN 37 H Creatinine 1.3 H Glucose 378 H GGT AST ALT Lactate Dehydrogenase Troponin T Beta-Hydroxybutyrate Urine Protein Urine Glucose (UA) Urine Ketones Urine Occult Blood Ur Leukocyte Esterase Urine RBC Urine WBC Amorphous Crystals Hyaline Casts Urine Yeast (Budding) 02/12/19 02/12/19 02/12/19 03:40 02:00 02:00 WBC RBC Hgb Hct MCV MCH RDW Gran % Lymph % (Auto) Gran # Lymph # (Auto) [place] # (Auto) Seg Neutrophils % Lymphocytes % RBC Morphology Polychromasia Macrocytosis PT INR ABG Methemoglobin VBG pH VBG pCO2 VBG pO2 VBG HCO3 VBG Total CO2 VBG O2 Saturation VBG Base Excess VBG Lactic Acid Carboxyhemoglobin Total Hemoglobin Sodium Potassium 5.6 H Chloride 91 L Carbon Dioxide 21 L Anion Gap 24.0 H BUN 32 H Creatinine 1.4 H Glucose 444 H GGT AST 69 H ALT 45 H Lactate Dehydrogenase Troponin T Beta-Hydroxybutyrate 3.41 H Urine Protein 30 A Urine Glucose (UA) >=500 A Urine Ketones 5/tr A Urine Occult Blood Ur Leukocyte Esterase 75 A Urine RBC Urine WBC 7 H Amorphous Crystals Few A Hyaline Casts 88 H Urine Yeast (Budding) 02/12/19 02:00 WBC 23.0 H RBC Hgb Hct MCV 102.3 H MCH RDW 15.4 H Gran % Lymph % (Auto) Gran # Lymph # (Auto) [place] # (Auto) Seg Neutrophils % 82 H Lymphocytes % 8 L RBC Morphology Abnorm A Polychromasia 1+ A Macrocytosis 1+ A PT INR ABG Methemoglobin VBG pH VBG pCO2 VBG pO2 VBG HCO3 VBG Total CO2 VBG O2 Saturation VBG Base Excess VBG Lactic Acid Carboxyhemoglobin Total Hemoglobin Sodium Potassium Chloride Carbon Dioxide Anion Gap BUN Creatinine Glucose GGT AST ALT Lactate Dehydrogenase Troponin T Beta-Hydroxybutyrate Urine Protein Urine Glucose (UA) Urine Ketones Urine Occult Blood Ur Leukocyte Esterase Urine RBC Urine WBC Amorphous Crystals Hyaline Casts Urine Yeast (Budding) Meds: Medications Acetaminophen (Tylenol) 650 mg PO Q4-6HP PRN; Protocol PRN Reason: Per Pain Protocol/Fever > 101 Hydrocodone Bitart/Acetaminophen ([place] 5/325mg) 1 tab PO Q4-6HP PRN; Protocol PRN Reason: Per Pain Protocol Last Admin: 02/14/19 10:14 Dose: 1 tab Documented by: Carvedilol (Coreg) 25 mg PO BIDCC [facility] Last Admin: 02/14/19 08:41 Dose: 25 mg Documented by: Dextrose (Dextrose 50%) 0 ml IV UD PRN PRN Reason: Hypoglycemia Diagnostic Test (Pha) (Accu-Chek) 1 each FS ACHS [facility] Last Admin: 02/14/19 07:41 Dose: 1 each Documented by: Diltiazem HCl (Cardizem) 30 mg PO Q6 [facility] Last Admin: 02/14/19 05:36 Dose: 30 mg Documented by: Glucose (Insta-Glucose) 15 gm PO PRN PRN PRN Reason: Hypoglycemia Diltiazem HCl 125 mg/ Dextrose 125 mls @ 5 mls/hr IV Q24H [facility]; Protocol Last Admin: 02/13/19 17:30 Dose: Not Given Documented by: Norepinephrine Bitartrate 16 (mg/ Sodium Chloride) 250 mls @ 9.375 mls/hr IV Q24HP PRN; Protocol PRN Reason: Hypotension Sodium Chloride (Sodium Chloride 0.9%) 1,000 mls @ 20 mls/hr IV .Q24H [facility] Last Admin: 02/13/19 17:03 Dose: Not Given Documented by: Sodium Chloride (Sodium Chloride 0.9%) 1,000 mls @ 20 mls/hr IV .Q24H [facility] Last Admin: 02/13/19 17:05 Dose: Not Given Documented by: Sodium Chloride (Sodium Chloride 0.9%) 1,000 mls @ 100 mls/hr IV .Q10H [facility] Last Admin: 02/14/19 07:41 Dose: 100 mls/hr Documented by: Sodium Chloride (Sodium Chloride 0.9%) 250 mls @ 20 mls/hr IV .[id number] [facility] Last Admin: 02/14/19 03:05 Dose: Not Given Documented by: Insulin Human Regular 50 unit/ (Sodium Chloride) 100 mls @ 0 mls/hr IV Q12H [facility]; Protocol Last Admin: 02/14/19 03:04 Dose: Not Given Documented by: Piperacillin Sod/Tazobactam (Sod 3.375 gm/ Dextrose) 50 mls @ 100 mls/hr IV Q6H [facility]; Protocol Last Infusion: 02/14/19 07:00 Dose: Infused Documented by: Vancomycin HCl 1,500 mg/ (Sodium Chloride) 500 mls @ 333.3 mls/hr IV Q12H [facility] Last Infusion: 02/14/19 00:00 Dose: Infused Documented by: Insulin Glargine (Lantus) 20 unit SQ DAILY [facility] Last Admin: 02/14/19 07:43 Dose: 20 units Documented by: Insulin Human Lispro (Humalog) 5 unit SQ [facility] Last Admin: 02/14/19 07:41 Dose: 5 units Documented by: Insulin Human Lispro (Humalog) 0 unit SQ [facility]; Protocol Last Admin: 02/14/19 07:42 Dose: 3 units Documented by: Ondansetron HCl (Zofran) 4 mg IV Q4-6HP PRN; Protocol PRN Reason: Nausea And Vomiting Sodium Chloride (Saline Flush) 10 ml IV Q8 [facility] Last Admin: 02/14/19 05:40 Dose: 10 ml Documented by: Vancomycin HCl (Vancomycin Per Pharmacy) 1 order IV UD [facility]; Protocol Warfarin Sodium (Coumadin Per Pharmacy) 1 order PO DAILY@1400 [facility] Last Admin: 02/13/19 17:30 Dose: Not Given Documented by: - ABG Interpretation ABG results: 02/12/19 02/12/19 02/12/19 13:30 16:27 20:26 ABG Methemoglobin 0.3 L 0.3 L 0.3 L VBG pH 7.35 7.45 H 7.42 VBG pCO2 42.5 34.5 L 41.2 VBG pO2 62 H 161 H 93 H VBG HCO3 23.1 L 23.5 L 26.2 VBG Total CO2 24.5 L 24.6 L 27.4 VBG O2 Saturation 86.2 H 92.7 H 92.4 H VBG Base Excess -2.4 L 0.1 1.6 02/13/19 02/13/19 00:15 04:16 ABG Methemoglobin 0.3 L 0.3 L VBG pH 7.43 H 7.43 H VBG pCO2 36.1 L 42.5 VBG pO2 101 H 83 H VBG HCO3 23.2 L 27.3 VBG Total CO2 24.3 L 28.6 VBG O2 Saturation 92.9 H 92.5 H VBG Base Excess -0.7 2.5 H Medical - PN: A/P - Time Spent With Patient Total time spent is greater than 50% in coordination of care (as documented) at patient's floor/unit and/or counseling patient: - Narrative A/P Narrative: Septic shock-improved Probable enterococcus UTI sacral cellulitis Probable enterococcus UTI patient also has a skin abrasion and mild cellulitis of the sacral area probably from sliding in his bed no sacral pressure ulcer CT of the chest showing possible pneumonia patient did not have much respiratory symptom Sacral wound culture growing heavy growth of gram-negative rods and gram-positive's-final report pending He was on Zosyn since admission and added vancomycin until we get the final report Blood culture pending Urine culture growing enterococcus-final sensitivity pending Stopped IV fluid DKA-improved Uncontrolled diabetes Patient was on p.o. antidiabetic medications We will start him on Lantus 30 units and mealtime NovoLog 5 units and sliding scale His anion gap closed and insulin drip stopped Blood sugar has been controlled well Non-ST elevation VT probably due to septic shock and atrial fibrillation RVR Troponin was 0.2 remained plateaued around the same number No active chest pain No evidence of ischemic changes on the EKG Ordered echocardiogram-pending If it is remained plateaued probably due to non-ST lesion might type II Telemetry monitoring Atrial fibrillation RVR History atrial fibrillation Restarted Coreg 25 mg twice daily and Cardizem drip was stopped and started him on Cardizem p.o. 30 every 6 hourly Once his heart rate is under control the Cardizem can be changed to extended release Echocardiogram ordered-pending Tpharmacy to dose Coumadin his INR is supratherapeutic Pharmacy to dose Coumadin Morbid obesity and obesity hypoventilation Probable pulmonary hypertension Encourage the patient use CPAP Type 2 diabetes We will hold his p.o. medications Started him on Lantus 30 units, mealtime NovoLog and sliding scale DVT prophylaxis-SCDs and he is on Coumadin CODE STATUS-full code Expected length of stay-2 more midnights Medical - PN: Qual - VTE Deep Vein Thrombosis/Pulmonary Embolism Present on Admission: No
[2019-02-14] MEDS: VANCOMYCIN 1,500 MG in 0.9 % SODIUM CHLORIDE 500 ML IV SCH ×2 (11:03→20:42)
[2019-02-14] MEDS: DILTIAZEM 125 MG in DEXTROSE 5% IN WATER 100 ML IV SCH (14:27)
[2019-02-14] MEDS ORDERED: FUROSEMIDE 40 MG TABLET PO ONE (14:34)
[2019-02-14] MEDS: GABAPENTIN 300 MG CAPSULE PO SCH ×2 (14:40→20:42)
[2019-02-14 15:16] LABS: Blood Urea Nitrogen 24 mg/dl (8-23); Calcium 8.4 mg/dl (8.6-10.4); Carbon Dioxide 25 mmol/L (22-30); Chloride 99 mmol/L (96-108); Glomerular Filtration Rate 94; Glucose 263 mg/dL (70-105)
[2019-02-14] MEDS: tiZANidine 4 MG TABLET PO SCH ×2 (16:50→20:43)
[2019-02-14 20:31] LABS: Blood Urea Nitrogen 24 mg/dl (8-23); Calcium 8.7 mg/dl (8.6-10.4); Carbon Dioxide 26 mmol/L (22-30); Chloride 99 mmol/L (96-108); Glomerular Filtration Rate 89; Glucose 241 mg/dL (70-105)
[2019-02-15] MEDS: PIPERACILLIN SODIUM/TAZOBACTAM 3.375 GM in DEXTROSE 5% IN WATER 50 ML IV SCH ×2 (00:08→05:46)
[2019-02-15] MEDS: DILTIAZEM 30 MG TABLET PO SCH ×4 (00:09→17:28)
[2019-02-15] MEDS: INSULIN REGULAR, HUMAN 50 UNIT in 0.9 % SODIUM CHLORIDE 99.5 ML IV SCH (00:10)
[2019-02-15] MEDS: 0.9 % SODIUM CHLORIDE 250 ML IV SCH ×2 (02:55→17:14)
[2019-02-15] MEDS: HYDROcodone/APAP 5/325MG TABLET PO PRN ×4 (03:55→20:47)
[2019-02-15] MEDS: 0.9 % SODIUM CHLORIDE 10 ML SYRINGE IV SCH ×3 (05:46→20:57)
[2019-02-15 06:09] LABS: Basophils # (Auto) 0 K/mcL (0.0-0.3); Basophils % (Auto) 0.5 % (0.0-2.0); Eosinophils # (Auto) 0.1 K/mcL (0.0-0.7); Eosinophils % (Auto) 2.1 % (0.0-7.0); Granulocytes % (Auto) 73.3 % (38.0-78.0); Hematocrit 34.6 % (41.0-55.0); Hemoglobin 11.4 g/dL (13.5-16.5); Lymphocytes # (Auto) 1.2 K/mcL (1.5-4.8); Lymphocytes % (Auto) 16.6 % (15.5-49.0); Mean Cell Volume 103.3 fL (80.0-100.0); Mean Platelet Volume 8.3 fL (7.4-10.4); Monocytes # (Auto) 0.5 K/mcL (0.1-0.9); Monocytes % (Auto) 7.5 % (1.0-12.0); Platelet Count 139 K/mcL (140-440); RBC 3.34 M/mcL (4.50-5.90); Red Cell Distribution Width 15.3 % (11.5-14.5); WBC 7.3 K/mcL (4.5-11.0)
[2019-02-15 06:19] LABS: INR 2.9 (0.9-1.1); Prothrombin Time 29.6 sec (11.9-14.5)
[2019-02-15] MEDS: INSULIN LISPRO 1 UNIT/0.01 ML UNIT SQ SCH ×8 (07:54→20:46)
[2019-02-15] MEDS: CARVEDILOL 12.5 MG TABLET PO SCH ×3 (08:29→17:26)
[2019-02-15] MEDS: GABAPENTIN 300 MG CAPSULE PO SCH ×3 (08:29→20:47)
[2019-02-15] MEDS: tiZANidine 4 MG TABLET PO SCH ×3 (08:29→20:49)
[2019-02-15] MEDS: INSULIN GLARGINE, HUMAN 1 UNIT/0.01 ML SQ SCH (08:38)
[2019-02-15] MEDS ORDERED: FUROSEMIDE 40 MG TABLET PO SCH (09:00)
[2019-02-15] MEDS: VANCOMYCIN 1,500 MG in 0.9 % SODIUM CHLORIDE 500 ML IV SCH (09:13)
[2019-02-15] MEDS ORDERED: INSULIN GLARGINE, HUMAN 1 UNIT/0.01 ML SQ ONE (10:15)
[2019-02-15] MEDS: CIPROFLOXACIN 400 MG/200 ML BAG IV SCH ×3 (11:49→20:57)
[2019-02-15 12:37] LABS: Appearance,Urine HAZY; Bacteria,Urine FEW /hpf (0); Bilirubin,Urine NEG (NEG); Color,Urine YELLOW; Culture Indicated,Urine YES; Glucose,Urine (UA) 150 mg/dL (NEG); Ketones,Urine NEG (NEG); Leukocyte Esterase,Urine 75 /uL (NEG); Mucus,Urine FEW /hpf (0); Nitrate,Urine NEG (NEG); Protein,Urine NEG (NEG); Specific Gravity,Urine 1.016 (1.000-1.035); Urine Blood 0.2 mg/dL (<0.03); Urine Hyaline Cast 100 /lpf (0-2); Urine RBC 25 /hpf (0-1); Urine Squamous Epithelial Cell 3 /hpf (0-4); Urine Transitional Epi Cells < 1 /hpf (0-2); Urine WBC 20 /hpf (0-4); Urobilinogen,Urine NEG (NEG)
[2019-02-15] MEDS ORDERED: DILTIAZEM 125 MG in DEXTROSE 5% IN WATER 100 ML IV PRN (13:00)
[2019-02-15] MEDS ORDERED: INSULIN REGULAR, HUMAN 50 UNIT in 0.9 % SODIUM CHLORIDE 99.5 ML IV PRN (13:00)
[2019-02-15] MEDS ORDERED: WARFARIN 5 MG TABLET PO ONE (14:00)
[2019-02-15] MEDS: 0.9 % SODIUM CHLORIDE 1,000 ML IV SCH ×2 (14:32→15:09)
[2019-02-15] MEDS: FUROSEMIDE 40 MG/4 ML VIAL IV SCH (20:47)
--- NOTE | 2019-02-15 21:08 | Internal Med Progress Note ---
Medical - PN: Subj Patient information: Note initiated : 02/15/19 at 8:56 pm Service Date, if different from initiated Date: [] Patient: Luke Palacios 73 y/o M admitted on 02/12/19 for n/v. Chief Complaint: [] This is a 73-year-old gentleman with morbid obesity, type 2 diabetes and atrial fibrillation admitted with A. fib RVR, septic shock and potential source of infection pneumonia versus sacral wound. In the hospital, patient was given vancomycin and Zosyn. Wound culture showed Pseudomonas and urine culture showed enterococcus. Both are sensitive to the Cipro. his both lower legs were noted to be red, possible cellulitis. Today patient does not have any new complaints. Lying comfortably in bed. Denies fever, chills, nausea, or vomiting. No overnight events. - Constitutional Vitals: Vital Signs Temp Pulse Resp BP Pulse Ox 97.6 F 65 13 100/63 95 02/15/19 12:00 02/15/19 19:01 02/15/19 19:01 02/15/19 19:01 02/15/19 19:01 Period Temp Pulse Resp BP Sys/Elizalde Pulse Ox Last 24 Hr 97.6 F-97.6 F 45-103 11-21 85-198/57-179 86-99 Intake and Output 02/15/19 02/15/19 02/15/19 05:59 13:59 21:59 Intake Total 950 760 619 Output Total 475 720 650 Balance 475 40 -31 Intake & Output: Intake & Output 02/15/19 02/15/19 02/15/19 05:59 13:59 21:59 Intake Total 950 760 619 Output Total 475 720 650 Balance 475 40 -31 Intake: IV 550 200 319 Sodium Chloride 0.9% 1,000 ml @ 319 20 mls/hr IV .Q24H [facility] Rx#: [id number] Zosyn 3.375 gm In Dextrose 5% 50 in Water 50 ml @ 100 mls/hr IV Q6H [facility] Rx#:[id number] Vancomycin 1,500 mg In Sodium 500 Chloride 0.9% 500 ml @ 333.3 mls/hr IV Q12H [facility] Rx#: [id number] Oral 400 560 300 Output: Urine Catheter Amount 475 720 650 Other: Meal Breakfast Dinner Percent of Meal Consumed 75% 100% Urine Appearance Clear Clear Clear Straight Sediment Urine Color Pale Pale Straw # Bowel Movements 1 General appearance: no acute distress - Head Head exam: Present: atraumatic, normocephalic - Eye Eye exam: Present: EOMI, PERRL - ENT ENT exam: Present: normal exam - Neck Neck exam: Present: normal inspection - Respiratory Respiratory exam: Present: CTAB - Cardiovascular Cardiovascular exam: Present: normal rate and rhythm. Absent: JVD - GI/Abdominal GI/Abdominal exam: Present: normal bowel sounds, soft. Absent: tenderness - Extremities Exam Extremities exam: Present: tenderness (erythema and mild edema over both lower legs) - Neurological Exam Neurological exam: Present: alert, oriented X3. Absent: motor sensory deficit - Psychiatric Psychiatric exam: Present: normal affect, normal mood - Skin Skin exam: Present: warm Medical - PN: Obj Da - Labs CBC & Chem 7: 02/15/19 03:45 02/14/19 18:30 Labs: Abnormal Lab Results 02/15/19 02/15/19 02/15/19 12:09 03:45 03:45 WBC RBC 3.34 L Hgb 11.4 L Hct 34.6 L MCV 103.3 H MCH 34.1 H RDW 15.3 H Plt Count 139 L Gran % Lymph % (Auto) Gran # Lymph # (Auto) 1.2 L [place] # (Auto) PT 29.6 H INR 2.9 H ABG Methemoglobin VBG pH VBG pCO2 VBG pO2 VBG HCO3 VBG Total CO2 VBG O2 Saturation VBG Base Excess VBG Lactic Acid Carboxyhemoglobin Total Hemoglobin Sodium Chloride Anion Gap BUN Glucose Calcium Troponin T Urine Glucose (UA) 150 A Urine Occult Blood 0.2 A Ur Leukocyte Esterase 75 A Urine RBC 25 H Urine WBC 20 H Urine Bacteria Few A Hyaline Casts 100 H 02/14/1919 02/14/19 18:30 12:30 03:54 WBC RBC Hgb Hct MCV MCH RDW Plt Count Gran % Lymph % (Auto) Gran # Lymph # (Auto) [place] # (Auto) PT 32.6 H INR 3.2 H ABG Methemoglobin VBG pH VBG pCO2 VBG pO2 VBG HCO3 VBG Total CO2 VBG O2 Saturation VBG Base Excess VBG Lactic Acid Carboxyhemoglobin Total Hemoglobin Sodium Chloride Anion Gap BUN 24 H 24 H Glucose 241 H 263 H Calcium 8.4 L Troponin T Urine Glucose (UA) Urine Occult Blood Ur Leukocyte Esterase Urine RBC Urine WBC Urine Bacteria Hyaline Casts 02/14/19 02/14/19 02/13/19 03:54 03:53 20:38 WBC 11.5 H RBC 3.49 L Hgb 12.0 L Hct 36.1 L MCV 103.4 H MCH 34.3 H RDW 14.8 H Plt Count Gran % 83.2 H Lymph % (Auto) 8.4 L Gran # 9.6 H Lymph # (Auto) 1.0 L [place] # (Auto) PT INR ABG Methemoglobin VBG pH VBG pCO2 VBG pO2 VBG HCO3 VBG Total CO2 VBG O2 Saturation VBG Base Excess VBG Lactic Acid Carboxyhemoglobin Total Hemoglobin Sodium 132 L Chloride Anion Gap BUN 26 H Glucose 214 H Calcium Troponin T Urine Glucose (UA) Urine Occult Blood Ur Leukocyte Esterase Urine RBC Urine WBC Urine Bacteria Hyaline Casts 02/13/19 02/13/19 02/13/19 18:29 13:52 09:23 WBC RBC Hgb Hct MCV MCH RDW Plt Count Gran % Lymph % (Auto) Gran # Lymph # (Auto) [place] # (Auto) PT INR ABG Methemoglobin VBG pH VBG pCO2 VBG pO2 VBG HCO3 VBG Total CO2 VBG O2 Saturation VBG Base Excess VBG Lactic Acid Carboxyhemoglobin Total Hemoglobin Sodium Chloride Anion Gap BUN 29 H 32 H 33 H Glucose 226 H 224 H 166 H Calcium Troponin T Urine Glucose (UA) Urine Occult Blood Ur Leukocyte Esterase Urine RBC Urine WBC Urine Bacteria Hyaline Casts 02/13/19 02/13/19 02/13/19 07:55 04:16 04:16 WBC 16.2 H RBC 3.96 L Hgb 13.2 L Hct 40.2 L MCV 101.6 H MCH RDW 15.8 H Plt Count Gran % 80.1 H Lymph % (Auto) 10.3 L Gran # 13.0 H Lymph # (Auto) [place] # (Auto) 1.5 H PT 35.8 H INR 3.7 H ABG Methemoglobin 0.3 L VBG pH 7.43 H VBG pCO2 VBG pO2 83 H VBG HCO3 VBG Total CO2 VBG O2 Saturation 92.5 H VBG Base Excess 2.5 H VBG Lactic Acid Carboxyhemoglobin 3.8 H Total Hemoglobin 13.0 L Sodium Chloride Anion Gap BUN Glucose Calcium Troponin T Urine Glucose (UA) Urine Occult Blood Ur Leukocyte Esterase Urine RBC Urine WBC Urine Bacteria Hyaline Casts 02/13/19 02/13/19 02/13/19 00:15 00:15 00:15 WBC RBC Hgb Hct MCV MCH RDW Plt Count Gran % Lymph % (Auto) Gran # Lymph # (Auto) [place] # (Auto) PT INR ABG Methemoglobin 0.3 L VBG pH 7.43 H VBG pCO2 36.1 L VBG pO2 101 H VBG HCO3 23.2 L VBG Total CO2 24.3 L VBG O2 Saturation 92.9 H VBG Base Excess VBG Lactic Acid Carboxyhemoglobin 5.0 H Total Hemoglobin 13.1 L Sodium Chloride Anion Gap BUN 39 H Glucose 210 H Calcium Troponin T 0.21 H* Urine Glucose (UA) Urine Occult Blood Ur Leukocyte Esterase Urine RBC Urine WBC Urine Bacteria Hyaline Casts 02/12/19 02/12/19 02/12/19 22:14 20:26 20:26 WBC RBC Hgb Hct MCV MCH RDW Plt Count Gran % Lymph % (Auto) Gran # Lymph # (Auto) [place] # (Auto) PT 37.8 H INR 3.9 H ABG Methemoglobin 0.3 L VBG pH VBG pCO2 VBG pO2 93 H VBG HCO3 VBG Total CO2 VBG O2 Saturation 92.4 H VBG Base Excess VBG Lactic Acid 3.3 H Carboxyhemoglobin 4.0 H Total Hemoglobin Sodium Chloride Anion Gap BUN Glucose Calcium Troponin T Urine Glucose (UA) Urine Occult Blood Ur Leukocyte Esterase Urine RBC Urine WBC Urine Bacteria Hyaline Casts 02/12/19 20:26 WBC RBC Hgb Hct MCV MCH RDW Plt Count Gran % Lymph % (Auto) Gran # Lymph # (Auto) [place] # (Auto) PT INR ABG Methemoglobin VBG pH VBG pCO2 VBG pO2 VBG HCO3 VBG Total CO2 VBG O2 Saturation VBG Base Excess VBG Lactic Acid Carboxyhemoglobin Total Hemoglobin Sodium Chloride 95 L Anion Gap 17.0 H BUN Glucose Calcium Troponin T Urine Glucose (UA) Urine Occult Blood Ur Leukocyte Esterase Urine RBC Urine WBC Urine Bacteria Hyaline Casts Meds: Medications Acetaminophen (Tylenol) 650 mg PO Q4-6HP PRN; Protocol PRN Reason: Per Pain Protocol/Fever > 101 Hydrocodone Bitart/Acetaminophen ([place] 5/325mg) 1 tab PO Q4-6HP PRN; Protocol PRN Reason: Per Pain Protocol Last Admin: 02/15/19 20:47 Dose: 1 tab Documented by: Carvedilol (Coreg) 12.5 mg PO BIDCC [facility] Last Admin: 02/15/19 17:26 Dose: 12.5 mg Documented by: Dextrose (Dextrose 50%) 0 ml IV UD PRN PRN Reason: Hypoglycemia Diagnostic Test (Pha) (Accu-Chek) 1 each FS ACHS [facility] Last Admin: 02/15/19 20:46 Dose: 1 each Documented by: Diltiazem HCl (Cardizem) 30 mg PO Q6 [facility] Stop: 02/16/19 00:00 Last Admin: 02/15/19 17:28 Dose: Not Given Documented by: Diltiazem HCl (Cardizem) 30 mg PO Q8H [facility] Furosemide (Lasix) 40 mg IV Q12 [facility] Last Admin: 02/15/19 20:47 Dose: 40 mg Documented by: Gabapentin (Neurontin) 600 mg PO TID [facility] Last Admin: 02/15/19 20:47 Dose: 600 mg Documented by: Glucose (Insta-Glucose) 15 gm PO PRN PRN PRN Reason: Hypoglycemia Norepinephrine Bitartrate 16 (mg/ Sodium Chloride) 250 mls @ 9.375 mls/hr IV Q24HP PRN; Protocol PRN Reason: Hypotension Sodium Chloride (Sodium Chloride 0.9%) 1,000 mls @ 20 mls/hr IV .Q24H [facility] Last Infusion: 02/15/19 19:07 Dose: Infused Documented by: Sodium Chloride (Sodium Chloride 0.9%) 1,000 mls @ 20 mls/hr IV .Q24H [facility] Last Admin: 02/15/19 14:32 Dose: Not Given Documented by: Sodium Chloride (Sodium Chloride 0.9%) 250 mls @ 20 mls/hr IV .[id number] [facility] Last Admin: 02/15/19 17:14 Dose: Not Given Documented by: Ciprofloxacin (Cipro) 400 mg in 200 mls @ 200 mls/hr IV Q8H [facility] Last Admin: 02/15/19 16:30 Dose: 200 mls/hr Documented by: Diltiazem HCl 125 mg/ Dextrose 125 mls @ 5 mls/hr IV Q24HP PRN; Protocol PRN Reason: TITRATE TO KEEP HR <100,SBP>90 Insulin Human Regular 50 unit/ (Sodium Chloride) 100 mls @ 0 mls/hr IV Q12HP PRN; Protocol PRN Reason: HYPERGLYCEMIA, PER PROTOCOL Insulin Glargine (Lantus) 23 unit SQ DAILY [facility] Insulin Human Lispro (Humalog) [address] [facility] Last Admin: 02/15/19 20:46 Dose: 5 units Documented by: Insulin Human Lispro (Humalog) 0 unit SQ ACHS [facility]; Protocol Last Admin: 02/15/19 20:46 Dose: 4 units Documented by: Ondansetron HCl (Zofran) 4 mg IV Q4-6HP PRN; Protocol PRN Reason: Nausea And Vomiting Sodium Chloride (Saline Flush) 10 ml IV Q8 [facility] Last Admin: 02/15/19 15:09 Dose: 10 ml Documented by: Tizanidine HCl (Zanaflex) 4 mg PO TID [facility] Last Admin: 02/15/19 20:49 Dose: 4 mg Documented by: Warfarin Sodium (Coumadin Per Pharmacy) 1 order PO DAILY@1400 [facility] Last Admin: 02/15/19 15:06 Dose: Not Given Documented by: - ABG Interpretation ABG results: 02/12/19 02/12/19 02/12/19 13:30 16:27 20:26 ABG Methemoglobin 0.3 L 0.3 L 0.3 L VBG pH 7.35 7.45 H 7.42 VBG pCO2 42.5 34.5 L 41.2 VBG pO2 62 H 161 H 93 H VBG HCO3 23.1 L 23.5 L 26.2 VBG Total CO2 24.5 L 24.6 L 27.4 VBG O2 Saturation 86.2 H 92.7 H 92.4 H VBG Base Excess -2.4 L 0.1 1.6 02/13/19 02/13/19 00:15 04:16 ABG Methemoglobin 0.3 L 0.3 L VBG pH 7.43 H 7.43 H VBG pCO2 36.1 L 42.5 VBG pO2 101 H 83 H VBG HCO3 23.2 L 27.3 VBG Total CO2 24.3 L 28.6 VBG O2 Saturation 92.9 H 92.5 H VBG Base Excess -0.7 2.5 H Medical - PN: A/P - Time Spent With Patient Total time spent is greater than 50% in coordination of care (as documented) at patient's floor/unit and/or counseling patient: (1) Sepsis Status: Acute Current Visit: Yes (2) Atrial fibrillation with RVR Status: Acute Current Visit: Yes - Narrative A/P Narrative: Assessment: 1. Septic shock-improved Probable enterococcus UTI sacral cellulitis Urine culture showed enterococcus, sensitive to Cipro; wound culture showed Pseudomonas, sensitive to Cipro Blood culture no growth so far I discontinued vancomycin and Zosyn today, started patient on Cipro 2. Uncontrolled diabetes Continue Lantus 23 units and mealtime NovoLog 5 units and sliding scale 3. Elevation of troponin, Most likely due to septic shock and atrial fibrillation RVR Troponin was 0.2 remained plateaued around the same number No active chest pain No evidence of ischemic changes on the EKG echocardiogram-pending Lipitor 40m daily 4. Atrial fibrillation RVR History atrial fibrillation Rate controlled decreased Coreg to 12.5 mg twice daily and Cardizem p.o. to 30 every 8 hourly due to HR around 60 and soft BP. Echocardiogram ordered-pending pharmacy to dose Coumadin his INR 5. Morbid obesity and obesity hypoventilation Probable pulmonary hypertension Encourage the patient use CPAP DVT prophylaxis-SCDs and he is on Coumadin CODE STATUS-full code Medical - PN: Qual - VTE Deep Vein Thrombosis/Pulmonary Embolism Present on Admission: No
[2019-02-16] MEDS: DILTIAZEM 30 MG TABLET PO SCH ×4 (00:10→15:45)
[2019-02-16] MEDS: 0.9 % SODIUM CHLORIDE 250 ML IV SCH ×3 (04:35→23:37)
[2019-02-16] MEDS: HYDROcodone/APAP 5/325MG TABLET PO PRN ×3 (04:36→13:43)
[2019-02-16 05:11] LABS: Basophils # (Auto) 0 K/mcL (0.0-0.3); Basophils % (Auto) 0.5 % (0.0-2.0); Eosinophils # (Auto) 0.4 K/mcL (0.0-0.7); Eosinophils % (Auto) 5.1 % (0.0-7.0); Granulocytes % (Auto) 65.7 % (38.0-78.0); Hemoglobin 11.3 g/dL (13.5-16.5); Lymphocytes # (Auto) 1.4 K/mcL (1.5-4.8); Mean Cell Volume 102.7 fL (80.0-100.0); Mean Corpuscular HGB Conc 33.2 g/dL (31.0-36.0); Mean Platelet Volume 8.2 fL (7.4-10.4); Monocytes # (Auto) 0.6 K/mcL (0.1-0.9); Monocytes % (Auto) 8.7 % (1.0-12.0); Platelet Count 129 K/mcL (140-440); RBC 3.31 M/mcL (4.50-5.90); WBC 6.9 K/mcL (4.5-11.0)
[2019-02-16 05:36] LABS: ALT/SGPT 35 U/l (0-40); AST/SGOT 22 U/l (0-37); Albumin 2.9 gm/dL (3.2-5.2); Alkaline Phosphatase 63 U/L (39-117); Bilirubin,Total 0.3 mg/dL (0.0-1.0); Blood Urea Nitrogen 21 mg/dl (8-23); Calcium 8.6 mg/dl (8.6-10.4); Carbon Dioxide 25 mmol/L (22-30); Chloride 99 mmol/L (96-108); Glomerular Filtration Rate 94; Glucose 186 mg/dL (70-105)
[2019-02-16 05:40] LABS: Albumin/Globulin Ratio 1.2 (1.0-2.3); Globulin 2.5 gm/dL (2.2-3.7)
[2019-02-16 05:50] LABS: INR 2.4 (0.9-1.1); Prothrombin Time 26.2 sec (11.9-14.5)
[2019-02-16] MEDS: 0.9 % SODIUM CHLORIDE 10 ML SYRINGE IV SCH ×3 (06:01→23:36)
[2019-02-16] MEDS: CIPROFLOXACIN 400 MG/200 ML BAG IV SCH (06:01)
[2019-02-16] MEDS ORDERED: CARVEDILOL 12.5 MG TABLET PO SCH (08:00)
[2019-02-16] MEDS: FUROSEMIDE 40 MG/4 ML VIAL IV SCH ×2 (08:15→22:53)
[2019-02-16] MEDS: CARVEDILOL 12.5 MG TABLET PO SCH (08:16)
[2019-02-16] MEDS: GABAPENTIN 300 MG CAPSULE PO SCH ×3 (08:16→21:16)
[2019-02-16] MEDS: INSULIN LISPRO 1 UNIT/0.01 ML UNIT SQ SCH ×8 (08:23→21:17)
[2019-02-16] MEDS: tiZANidine 4 MG TABLET PO SCH ×3 (08:27→21:16)
[2019-02-16] MEDS ORDERED: ATORVASTATIN 40 MG TABLET PO SCH (09:00)
[2019-02-16] MEDS ORDERED: INSULIN GLARGINE, HUMAN 1 UNIT/0.01 ML SQ SCH (09:00)
[2019-02-16] MEDS ORDERED: LOPERAMIDE 2 MG CAPSULE PO ONE (09:09)
[2019-02-16] MEDS ORDERED: LOPERAMIDE 2 MG CAPSULE PO PRN ×2 (09:10→10:35)
[2019-02-16] MEDS ORDERED: INSULIN REGULAR, HUMAN 50 UNIT in 0.9 % SODIUM CHLORIDE 99.5 ML IV PRN (10:35)
[2019-02-16] MEDS ORDERED: DEXTROSE 31 GM ORAL.SUSP PO PRN (10:35)
[2019-02-16] MEDS ORDERED: DEXTROSE 50% 50 ML VIAL IV PRN (10:35)
[2019-02-16] MEDS ORDERED: ACETAMINOPHEN 325 MG TABLET PO PRN (10:35)
[2019-02-16] MEDS ORDERED: NOREPINEPHRINE BITARTRATE 16 MG in 0.9 % SODIUM CHLORIDE 234 ML IV PRN (10:35)
[2019-02-16] MEDS ORDERED: ONDANSETRON 4 MG/2 ML VIAL IV PRN (10:35)
[2019-02-16] MEDS ORDERED: DILTIAZEM 125 MG in DEXTROSE 5% IN WATER 100 ML IV PRN (10:35)
[2019-02-16] MEDS: 0.9 % SODIUM CHLORIDE 1,000 ML IV SCH ×2 (11:02)
[2019-02-16] MEDS ORDERED: WARFARIN 7.5 MG TABLET PO ONE (14:00)
[2019-02-16] MEDS ORDERED: CIPROFLOXACIN 400 MG/200 ML BAG IV SCH ×2 (14:00)
--- NOTE | 2019-02-16 19:51 | Internal Med Progress Note ---
Medical - PN: Subj Patient information: Note initiated : 02/16/19 at 7:49 pm Service Date, if different from initiated Date: [] Patient: Luke Palacios 73 y/o M admitted on 02/12/19 for n/v. Chief Complaint: [] This is a 73-year-old gentleman with morbid obesity, type 2 diabetes and atrial fibrillation admitted with A. fib RVR, septic shock and potential source of infection pneumonia versus sacral wound. In the hospital, patient was given vancomycin and Zosyn. Wound culture showed Pseudomonas and urine culture showed enterococcus. Both are sensitive to the Cipro. his both lower legs were noted to be red, possible cellulitis. Today patient is feeling fine adn does not have any new complaints. Denies fever, chills, nausea, or vomiting. No overnight events. - Constitutional Vitals: Vital Signs Temp Pulse Resp BP Pulse Ox 97.5 F 74 18 110/64 96 02/16/19 19:18 02/16/19 19:18 02/16/19 19:18 02/16/19 19:18 02/16/19 19:18 Period Temp Pulse Resp BP Sys/Elizalde Pulse Ox Last 24 Hr 97.1 F-98.1 F 48-74 12-20 94-162/55-89 93-99 Intake and Output 02/16/19 02/16/19 02/16/19 05:59 13:59 21:59 Intake Total 200 240 Output Total 5231 137 3006 Balance -1275 165 -1060 Weight 152.861 kg Patient Weight 02/17/19 05:59 Weight 152.861 kg Intake & Output: Intake & Output 02/16/19 02/16/19 02/16/19 05:59 13:59 21:59 Intake Total 200 240 Output Total 5275 368 2531 Balance -1275 -165 -1060 Weight 152.861 kg Intake: IV 200 Oral 240 Output: Urine Catheter Amount 8345 262 6859 Other: Meal Breakfast Percent of Meal Consumed 100% Urine Appearance Clear Clear Urine Color Bright Yellow Bright Yellow Urine Odor Normal # Bowel Movements 1 General appearance: no acute distress, obese - Head Head exam: Present: atraumatic, normocephalic - Eye Eye exam: Present: EOMI, PERRL - ENT ENT exam: Present: normal exam - Neck Neck exam: Present: normal inspection - Respiratory Respiratory exam: Present: normal respiratory exam, CTAB - Cardiovascular Cardiovascular exam: Present: normal rate and rhythm, RRR - GI/Abdominal GI/Abdominal exam: Present: normal bowel sounds, soft. Absent: tenderness - Extremities Exam Extremities exam: Absent: Mikaela's sign (Erythema is noted to the both the lower legs but improved) - Neurological Exam Neurological exam: Present: alert, oriented X3 (No focal neurological deficits) - Psychiatric Psychiatric exam: Present: normal mood - Skin Skin exam: Present: warm Medical - PN: Obj Da - Labs CBC & Chem 7: 02/16/19 03:50 02/16/19 03:50 Labs: Abnormal Lab Results 02/16/19 02/16/19 02/16/19 03:50 03:50 03:50 WBC RBC 3.31 L Hgb 11.3 L Hct 34.0 L MCV 102.7 H MCH 34.1 H RDW 15.0 H Plt Count 129 L Gran % Lymph % (Auto) Gran # Lymph # (Auto) 1.4 L PT 26.2 H INR 2.4 H Sodium BUN Glucose 186 H Calcium Total Protein 5.4 L Albumin 2.9 L Urine Glucose (UA) Urine Occult Blood Ur Leukocyte Esterase Urine RBC Urine WBC Urine Bacteria Hyaline Casts 02/15/19 02/15/19 02/15/19 12:09 03:45 03:45 WBC RBC 3.34 L Hgb 11.4 L Hct 34.6 L MCV 103.3 H MCH 34.1 H RDW 15.3 H Plt Count 139 L Gran % Lymph % (Auto) Gran # Lymph # (Auto) 1.2 L PT 29.6 H INR 2.9 H Sodium BUN Glucose Calcium Total Protein Albumin Urine Glucose (UA) 150 A Urine Occult Blood 0.2 A Ur Leukocyte Esterase 75 A Urine RBC 25 H Urine WBC 20 H Urine Bacteria Few A Hyaline Casts 100 H 02/14/19 02/14/19 02/14/19 18:30 12:30 03:54 WBC RBC Hgb Hct MCV MCH RDW Plt Count Gran % Lymph % (Auto) Gran # Lymph # (Auto) PT 32.6 H INR 3.2 H Sodium BUN 24 H 24 H Glucose 241 H 263 H Calcium 8.4 L Total Protein Albumin Urine Glucose (UA) Urine Occult Blood Ur Leukocyte Esterase Urine RBC Urine WBC Urine Bacteria Hyaline Casts 02/14/19 02/14/19 02/13/19 03:54 03:53 20:38 WBC 11.5 H RBC 3.49 L Hgb 12.0 L Hct 36.1 L MCV 103.4 H MCH 34.3 H RDW 14.8 H Plt Count Gran % 83.2 H Lymph % (Auto) 8.4 L Gran # 9.6 H Lymph # (Auto) 1.0 L PT INR Sodium 132 L BUN 26 H Glucose 214 H Calcium Total Protein Albumin Urine Glucose (UA) Urine Occult Blood Ur Leukocyte Esterase Urine RBC Urine WBC Urine Bacteria Hyaline Casts 02/13/19 18:29 WBC RBC Hgb Hct MCV MCH RDW Plt Count Gran % Lymph % (Auto) Gran # Lymph # (Auto) PT INR Sodium BUN 29 H Glucose 226 H Calcium Total Protein Albumin Urine Glucose (UA) Urine Occult Blood Ur Leukocyte Esterase Urine RBC Urine WBC Urine Bacteria Hyaline Casts Meds: Medications Acetaminophen (Tylenol) 650 mg PO Q4-6HP PRN; Protocol PRN Reason: Per Pain Protocol/Fever > 101 Hydrocodone Bitart/Acetaminophen ([place] 5/325mg) 1 tab PO Q4-6HP PRN; Protocol PRN Reason: Per Pain Protocol Last Admin: 02/16/19 13:43 Dose: 1 tab Documented by: Atorvastatin Calcium (Lipitor) 40 mg PO DAILY [facility] Carvedilol (Coreg) 6.25 mg PO BIDCC [facility] Dextrose (Dextrose 50%) 0 ml IV UD PRN PRN Reason: Hypoglycemia Diagnostic Test (Pha) (Accu-Chek) 1 each FS ACHS [facility] Last Admin: 02/16/19 17:12 Dose: 1 each Documented by: Diltiazem HCl (Cardizem) 30 mg PO Q8H [facility] Last Admin: 02/16/19 15:45 Dose: 30 mg Documented by: Furosemide (Lasix) 40 mg IV Q12 [facility] Gabapentin (Neurontin) 600 mg PO TID [facility] Last Admin: 02/16/19 14:13 Dose: 600 mg Documented by: Glucose (Insta-Glucose) 15 gm PO PRN PRN PRN Reason: Hypoglycemia Diltiazem HCl 125 mg/ Dextrose 125 mls @ 5 mls/hr IV Q24HP PRN; Protocol PRN Reason: TITRATE TO KEEP HR <100,SBP>90 Insulin Human Regular 50 unit/ (Sodium Chloride) 100 mls @ 0 mls/hr IV Q12HP PRN; Protocol PRN Reason: HYPERGLYCEMIA, PER PROTOCOL Norepinephrine Bitartrate 16 (mg/ Sodium Chloride) 250 mls @ 9.375 mls/hr IV Q24HP PRN; Protocol PRN Reason: Hypotension Sodium Chloride (Sodium Chloride 0.9%) 1,000 mls @ 20 mls/hr IV .Q24H [facility] Last Admin: 02/16/19 11:02 Dose: Not Given Documented by: Sodium Chloride (Sodium Chloride 0.9%) 1,000 mls @ 20 mls/hr IV .Q24H [facility] Last Admin: 02/16/19 11:02 Dose: Not Given Documented by: Sodium Chloride (Sodium Chloride 0.9%) 250 mls @ 20 mls/hr IV .[id number] [facility] Last Admin: 02/16/19 11:02 Dose: Not Given Documented by: Ciprofloxacin (Cipro) 400 mg in 200 mls @ 200 mls/hr IV Q8H [facility] Last Admin: 02/16/19 14:31 Dose: 200 mls/hr Documented by: Insulin Glargine (Lantus) 23 unit SQ DAILY [facility] Insulin Human Lispro (Humalog) 5 unit SQ ACHS [facility] Last Admin: 02/16/19 17:11 Dose: 5 units Documented by: Insulin Human Lispro (Humalog) 0 unit SQ ACHS [facility]; Protocol Last Admin: 02/16/19 17:12 Dose: 4 units Documented by: Loperamide HCl (Imodium) 2 mg PO PRN PRN PRN Reason: Diarrhea Ondansetron HCl (Zofran) 4 mg IV Q4-6HP PRN; Protocol PRN Reason: Nausea And Vomiting Sodium Chloride (Saline Flush) 10 ml IV Q8 [facility] Last Admin: 02/16/19 14:31 Dose: 10 ml Documented by: Tizanidine HCl (Zanaflex) 4 mg PO TID [facility] Last Admin: 02/16/19 14:13 Dose: 4 mg Documented by: Warfarin Sodium (Coumadin Per Pharmacy) 1 order PO UD [facility] - ABG Interpretation ABG results: 02/12/19 02/12/19 02/12/19 13:30 16:27 20:26 ABG Methemoglobin 0.3 L 0.3 L 0.3 L VBG pH 7.35 7.45 H 7.42 VBG pCO2 42.5 34.5 L 41.2 VBG pO2 62 H 161 H 93 H VBG HCO3 23.1 L 23.5 L 26.2 VBG Total CO2 24.5 L 24.6 L 27.4 VBG O2 Saturation 86.2 H 92.7 H 92.4 H VBG Base Excess -2.4 L 0.1 1.6 02/13/19 02/13/19 00:15 04:16 ABG Methemoglobin 0.3 L 0.3 L VBG pH 7.43 H 7.43 H VBG pCO2 36.1 L 42.5 VBG pO2 101 H 83 H VBG HCO3 23.2 L 27.3 VBG Total CO2 24.3 L 28.6 VBG O2 Saturation 92.9 H 92.5 H VBG Base Excess -0.7 2.5 H Medical - PN: A/P - Time Spent With Patient Total time spent is greater than 50% in coordination of care (as documented) at patient's floor/unit and/or counseling patient: (1) Sepsis Status: Acute Current Visit: Yes (2) Atrial fibrillation with RVR Status: Acute Current Visit: Yes - Narrative A/P Narrative: Assessment: 1. Septic shock-improved Probable enterococcus UTI sacral cellulitis Urine culture showed enterococcus, sensitive to Cipro; wound culture showed Pseudomonas, sensitive to Cipro Blood culture no growth so far I discontinued vancomycin and Zosyn today, started patient on Cipro. Leukocytosis resolved. Discussed with ID Dr. Brothers, we can switch to levaquin for convenient purpose. 2. Uncontrolled diabetes, better controlled Continue Lantus 23 units and mealtime NovoLog 5 units and sliding scale, 3. Elevation of troponin, Most likely due to septic shock and atrial fibrillation RVR Troponin was 0.2 remained plateaued around the same number No active chest pain No evidence of ischemic changes on the EKG echocardiogram-pending Lipitor 40m daily 4. Atrial fibrillation RVR History atrial fibrillation Rate controlled decreased Coreg to 12.5 mg twice daily and Cardizem p.o. to 30 every 8 hourly due to HR around 60 and soft BP. Echocardiogram ordered-pending pharmacy to dose Coumadin his INR 5. Morbid obesity and obesity hypoventilation Probable pulmonary hypertension Encourage the patient use CPAP DVT prophylaxis-SCDs and he is on Coumadin CODE STATUS-full code Medical - PN: Qual - VTE Deep Vein Thrombosis/Pulmonary Embolism Present on Admission: No
[2019-02-16] MEDS: LEVOFLOXACIN 750 MG/150 ML BAG IV SCH (21:25)
[2019-02-17] MEDS: DILTIAZEM 30 MG TABLET PO SCH ×2 (00:17→08:43)
[2019-02-17] MEDS: 0.9 % SODIUM CHLORIDE 10 ML SYRINGE IV SCH ×3 (05:16→21:06)
[2019-02-17] MEDS: HYDROcodone/APAP 5/325MG TABLET PO PRN ×2 (06:06→20:55)
[2019-02-17 06:40] LABS: Basophils # (Auto) 0 K/mcL (0.0-0.3); Basophils % (Auto) 0.6 % (0.0-2.0); Eosinophils # (Auto) 0.4 K/mcL (0.0-0.7); Eosinophils % (Auto) 4.5 % (0.0-7.0); Granulocytes % (Auto) 74.2 % (38.0-78.0); Hematocrit 38.4 % (41.0-55.0); Hemoglobin 12.5 g/dL (13.5-16.5); Lymphocytes # (Auto) 1.1 K/mcL (1.5-4.8); Mean Cell Volume 102.3 fL (80.0-100.0); Mean Corpuscular HGB Conc 32.7 g/dL (31.0-36.0); Mean Platelet Volume 8.2 fL (7.4-10.4); Monocytes # (Auto) 0.7 K/mcL (0.1-0.9); Monocytes % (Auto) 7.7 % (1.0-12.0); Platelet Count 168 K/mcL (140-440); RBC 3.75 M/mcL (4.50-5.90); Red Cell Distribution Width 14.8 % (11.5-14.5); WBC 8.7 K/mcL (4.5-11.0)
[2019-02-17 06:43] LABS: ALT/SGPT 31 U/l (0-40); AST/SGOT 23 U/l (0-37); Albumin/Globulin Ratio 1.1 (1.0-2.3); Alkaline Phosphatase 86 U/L (39-117); Bilirubin,Total 0.4 mg/dL (0.0-1.0); Blood Urea Nitrogen 19 mg/dl (8-23); Calcium 8.6 mg/dl (8.6-10.4); Carbon Dioxide 26 mmol/L (22-30); Chloride 97 mmol/L (96-108); Globulin 2.7 gm/dL (2.2-3.7); Glomerular Filtration Rate 100; Glucose 168 mg/dL (70-105)
[2019-02-17 07:05] LABS: INR 1.9 (0.9-1.1); Prothrombin Time 21.9 sec (11.9-14.5)
--- NOTE | 2019-02-17 07:37 | Internal Med Progress Note ---
Medical - PN: Subj Patient information: Note initiated : 02/17/19 at 7:30 am Service Date, if different from initiated Date: [] Patient: Luke Palacios 73 y/o M admitted on 02/12/19 for n/v. Chief Complaint: [] This is a 73-year-old gentleman with morbid obesity, type 2 diabetes and atrial fibrillation admitted with A. fib RVR, septic shock and potential source of infection pneumonia versus sacral wound. In the hospital, patient was given vancomycin and Zosyn. Wound culture showed Pseudomonas and urine culture showed enterococcus. Both are sensitive to the Cipro. his both lower legs were noted to be red, possible cellulitis. Today patient still complains of diarrhea. He had loose stool 5 times over the past 24 hours. Denies nausea, vomiting, fever, chills, or abdominal pain. She also complains of dry mouth. No overnight events. Vital signs are stable. INR 1.9 today, Potassium of 3.1 - Constitutional Vitals: Vital Signs Temp Pulse Resp BP Pulse Ox 97.5 F 87 22 101/60 92 02/17/19 06:41 02/17/19 06:41 02/17/19 06:41 02/17/19 06:41 02/17/19 06:41 Period Temp Pulse Resp BP Sys/Elizalde Pulse Ox Last 24 Hr 97.1 F-98.8 F 59-100 15-22 94-162/58-89 92-98 Intake and Output 02/16/19 02/17/19 02/17/19 21:59 05:59 13:59 Intake Total 240 300 Output Total 1300 2700 Balance -1060 -2700 300 Weight 152.861 kg Intake & Output: Intake & Output 02/16/19 02/17/19 02/17/19 21:59 05:59 13:59 Intake Total 240 300 Output Total 1300 2700 Balance -1060 -2700 300 Weight 152.861 kg Intake: Oral 240 300 Output: Urine Catheter Amount 1300 2700 Other: Meal Breakfast Percent of Meal Consumed 100% Urine Appearance Clear Urine Color Bright Yellow Urine Odor Normal General appearance: no acute distress - Head Head exam: Present: atraumatic, normal inspection, normocephalic - Eye Eye exam: Present: EOMI, PERRL - ENT ENT exam: Present: normal exam - Neck Neck exam: Present: normal inspection - Respiratory Respiratory exam: Present: normal respiratory exam, CTAB - Cardiovascular Cardiovascular exam: Present: irregular rhythm. Absent: JVD - GI/Abdominal GI/Abdominal exam: Present: normal bowel sounds, soft. Absent: tenderness - Extremities Exam Extremities exam: Absent: tenderness (Both lower leg erythema but significantly improved) - Neurological Exam Neurological exam: Present: alert, CN II-XII intact, oriented X3. Absent: motor sensory deficit - Psychiatric Psychiatric exam: Present: normal affect, normal mood - Skin Skin exam: Present: warm Medical - PN: Obj Da - Labs CBC & Chem 7: 02/17/19 04:20 02/17/19 04:20 Labs: Abnormal Lab Results 02/17/19 02/17/19 02/17/19 04:20 04:20 04:20 RBC 3.75 L Hgb 12.5 L Hct 38.4 L MCV 102.3 H MCH RDW 14.8 H Plt Count Lymph % (Auto) 13.0 L Lymph # (Auto) 1.1 L PT 21.9 H INR 1.9 H Potassium 3.1 L BUN Creatinine 0.6 L Glucose 168 H Calcium Total Protein 5.7 L Albumin 3.0 L Urine Glucose (UA) Urine Occult Blood Ur Leukocyte Esterase Urine RBC Urine WBC Urine Bacteria Hyaline Casts 02/16/19 02/16/19 02/16/19 03:50 03:50 03:50 RBC 3.31 L Hgb 11.3 L Hct 34.0 L MCV 102.7 H MCH 34.1 H RDW 15.0 H Plt Count 129 L Lymph % (Auto) Lymph # (Auto) 1.4 L PT 26.2 H INR 2.4 H Potassium BUN Creatinine Glucose 186 H Calcium Total Protein 5.4 L Albumin 2.9 L Urine Glucose (UA) Urine Occult Blood Ur Leukocyte Esterase Urine RBC Urine WBC Urine Bacteria Hyaline Casts 02/15/19 02/15/19 02/15/19 12:09 03:45 03:45 RBC 3.34 L Hgb 11.4 L Hct 34.6 L MCV 103.3 H MCH 34.1 H RDW 15.3 H Plt Count 139 L Lymph % (Auto) Lymph # (Auto) 1.2 L PT 29.6 H INR 2.9 H Potassium BUN Creatinine Glucose Calcium Total Protein Albumin Urine Glucose (UA) 150 A Urine Occult Blood 0.2 A Ur Leukocyte Esterase 75 A Urine RBC 25 H Urine WBC 20 H Urine Bacteria Few A Hyaline Casts 100 H 02/14/19 02/14/19 02/14/19 18:30 12:30 03:54 RBC Hgb Hct MCV MCH RDW Plt Count Lymph % (Auto) Lymph # (Auto) PT 32.6 H INR 3.2 H Potassium BUN 24 H 24 H Creatinine Glucose 241 H 263 H Calcium 8.4 L Total Protein Albumin Urine Glucose (UA) Urine Occult Blood Ur Leukocyte Esterase Urine RBC Urine WBC Urine Bacteria Hyaline Casts 02/14/19 03:54 RBC Hgb Hct MCV MCH RDW Plt Count Lymph % (Auto) Lymph # (Auto) PT INR Potassium BUN 26 H Creatinine Glucose 214 H Calcium Total Protein Albumin Urine Glucose (UA) Urine Occult Blood Ur Leukocyte Esterase Urine RBC Urine WBC Urine Bacteria Hyaline Casts Meds: Medications Acetaminophen (Tylenol) 650 mg PO Q4-6HP PRN; Protocol PRN Reason: Per Pain Protocol/Fever > 101 Hydrocodone Bitart/Acetaminophen ([place] 5/325mg) 1 tab PO Q4-6HP PRN; Protocol PRN Reason: Per Pain Protocol Last Admin: 02/17/19 06:06 Dose: 1 tab Documented by: Atorvastatin Calcium (Lipitor) 40 mg PO DAILY [facility] Carvedilol (Coreg) 6.25 mg PO BIDCC [facility] Dextrose (Dextrose 50%) 0 ml IV UD PRN PRN Reason: Hypoglycemia Diagnostic Test (Pha) (Accu-Chek) 1 each FS ACHS [facility] Last Admin: 02/16/19 21:03 Dose: 1 each Documented by: Diltiazem HCl (Cardizem) 30 mg PO Q8H [facility] Last Admin: 02/17/19 00:17 Dose: 30 mg Documented by: Furosemide (Lasix) 40 mg IV Q12 [facility] Last Admin: 02/16/19 22:53 Dose: 40 mg Documented by: Gabapentin (Neurontin) 600 mg PO TID [facility] Last Admin: 02/16/19 21:16 Dose: 600 mg Documented by: Glucose (Insta-Glucose) 15 gm PO PRN PRN PRN Reason: Hypoglycemia Diltiazem HCl 125 mg/ Dextrose 125 mls @ 5 mls/hr IV Q24HP PRN; Protocol PRN Reason: TITRATE TO KEEP HR <100,SBP>90 Insulin Human Regular 50 unit/ (Sodium Chloride) 100 mls @ 0 mls/hr IV Q12HP PRN; Protocol PRN Reason: HYPERGLYCEMIA, PER PROTOCOL Norepinephrine Bitartrate 16 (mg/ Sodium Chloride) 250 mls @ 9.375 mls/hr IV Q24HP PRN; Protocol PRN Reason: Hypotension Sodium Chloride (Sodium Chloride 0.9%) 1,000 mls @ 20 mls/hr IV .Q24H [facility] Last Admin: 02/16/19 11:02 Dose: Not Given Documented by: Sodium Chloride (Sodium Chloride 0.9%) 1,000 mls @ 20 mls/hr IV .Q24H [facility] Last Admin: 02/16/19 11:02 Dose: Not Given Documented by: Sodium Chloride (Sodium Chloride 0.9%) 250 mls @ 20 mls/hr IV .[id number] [facility] Last Admin: 02/16/19 23:37 Dose: Not Given Documented by: Levofloxacin (Levaquin) 750 mg in 150 mls @ 100 mls/hr IV DAILY [facility] Last Admin: 02/16/19 21:25 Dose: 100 mls/hr Documented by: Insulin Glargine (Lantus) 23 unit SQ DAILY [facility] Insulin Human Lispro (Humalog) 5 unit SQ ACHS [facility] Last Admin: 02/16/19 21:16 Dose: 5 units Documented by: Insulin Human Lispro (Humalog) 0 unit SQ ACHS [facility]; Protocol Last Admin: 02/16/19 21:17 Dose: 3 units Documented by: Loperamide HCl (Imodium) 2 mg PO PRN PRN PRN Reason: Diarrhea Ondansetron HCl (Zofran) 4 mg IV Q4-6HP PRN; Protocol PRN Reason: Nausea And Vomiting Sodium Chloride (Saline Flush) 10 ml IV Q8 [facility] Last Admin: 02/17/19 05:16 Dose: 10 ml Documented by: Tizanidine HCl (Zanaflex) 4 mg PO TID [facility] Last Admin: 02/16/19 21:16 Dose: 4 mg Documented by: Warfarin Sodium (Coumadin Per Pharmacy) 1 order PO UD [facility] - ABG Interpretation ABG results: 02/12/19 02/12/19 02/12/19 13:30 16:27 20:26 ABG Methemoglobin 0.3 L 0.3 L 0.3 L VBG pH 7.35 7.45 H 7.42 VBG pCO2 42.5 34.5 L 41.2 VBG pO2 62 H 161 H 93 H VBG HCO3 23.1 L 23.5 L 26.2 VBG Total CO2 24.5 L 24.6 L 27.4 VBG O2 Saturation 86.2 H 92.7 H 92.4 H VBG Base Excess -2.4 L 0.1 1.6 02/13/19 02/13/19 00:15 04:16 ABG Methemoglobin 0.3 L 0.3 L VBG pH 7.43 H 7.43 H VBG pCO2 36.1 L 42.5 VBG pO2 101 H 83 H VBG HCO3 23.2 L 27.3 VBG Total CO2 24.3 L 28.6 VBG O2 Saturation 92.9 H 92.5 H VBG Base Excess -0.7 2.5 H Medical - PN: A/P - Time Spent With Patient Total time spent is greater than 50% in coordination of care (as documented) at patient's floor/unit and/or counseling patient: (1) Sepsis Status: Acute Current Visit: Yes (2) Atrial fibrillation with RVR Status: Acute Current Visit: Yes - Narrative A/P Narrative: Assessment: 1. Septic shock-improved Probable enterococcus UTI sacral cellulitis Urine culture showed enterococcus, sensitive to Cipro; wound culture showed Pseudomonas, sensitive to Cipro Blood culture no growth so far I discontinued vancomycin and Zosyn today, started patient on Cipro. Leukocytosis resolved. Discussed with ID Dr. Brothers, switched cipro to levaquin for more convenient purpose. 2. Uncontrolled diabetes, better controlled Continue Lantus 23 units and mealtime NovoLog 5 units and sliding scale, 3. Elevation of troponin, Most likely due to septic shock and atrial fibrillation RVR Troponin was 0.2 remained plateaued around the same number No active chest pain No evidence of ischemic changes on the EKG echocardiogram-pending Lipitor 40m daily 4. Atrial fibrillation RVR History atrial fibrillation Rate controlled decreased Coreg to 6.25 mg twice daily and Cardizem p.o. to 30 every 8 hourly because his HR is around 60 and BP is soft. continue to monitor HR and BP Echocardiogram ordered-pending INR 1.9 today. pharmacy to dose Coumadin his INR 5. Morbid obesity and obesity hypoventilation Probable pulmonary hypertension Encourage the patient use CPAP 6. Electrolytes derangement replaced DVT prophylaxis-SCDs and he is on Coumadin CODE STATUS-full code Deposition: Home health with PT/OT/RN possibly on Tuesday Medical - PN: Qual - VTE Deep Vein Thrombosis/Pulmonary Embolism Present on Admission: No
--- NOTE | 2019-02-17 07:56 | Internal Med Progress Note ---
Medical - PN: Subj Patient information: Note initiated : 02/17/19 at 7:47 am Service Date, if different from initiated Date: [] Patient: Luke Palacios 73 y/o M admitted on 02/12/19 for n/v. Chief Complaint: [] Patient is a 89-year-old female with a history of high blood pressure who was brought into the ER by EMS due to weakness. Today patient is feeling better. 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 denies fever, chills, nausea, vomiting, or chest pain. Vital signs are stable White blood cells 4.7. Potassium level 2.7 No overnight events - Constitutional Vitals: Vital Signs Temp Pulse Resp BP Pulse Ox 97.5 F 87 22 101/60 92 02/17/19 06:41 02/17/19 06:41 02/17/19 06:41 02/17/19 06:41 02/17/19 06:41 Period Temp Pulse Resp BP Sys/Elizalde Pulse Ox Last 24 Hr 97.1 F-98.8 F 59-100 15-22 94-162/58-89 92-98 Intake and Output 02/16/19 02/17/19 02/17/19 21:59 05:59 13:59 Intake Total 240 300 Output Total 1300 2700 350 Balance -1060 -2700 -50 Weight 152.861 kg Intake & Output: Intake & Output 02/16/19 02/17/19 02/17/19 21:59 05:59 13:59 Intake Total 240 300 Output Total 1300 2700 350 Balance -1060 -2700 -50 Weight 152.861 kg Intake: Oral 240 300 Output: Urine Catheter Amount 1300 2700 Void Amount 350 Other: Meal Breakfast Percent of Meal Consumed 100% Urine Appearance Clear Clear Urine Color Bright Yellow Pale Urine Odor Normal Normal General appearance: no acute distress - Head Head exam: Present: atraumatic, normal inspection, normocephalic - Eye Eye exam: Present: EOMI, normal appearance, PERRL - Neck Neck exam: Present: normal inspection - Respiratory Respiratory exam: Present: decreased breath sounds (Bibasilar crackles) - Cardiovascular Cardiovascular exam: Present: normal rate and rhythm, RRR - GI/Abdominal GI/Abdominal exam: Present: normal bowel sounds, soft. Absent: tenderness - Extremities Exam Extremities exam: Present: full ROM. Absent: pedal edema, tenderness, Mikaela's sign - Neurological Exam Neurological exam: Present: alert, reflexes normal (No focal neurological deficits) - Psychiatric Psychiatric exam: Present: normal affect, normal mood - Skin Skin exam: Present: warm Medical - PN: Obj Da - Labs CBC & Chem 7: 02/17/19 04:20 02/17/19 04:20 Labs: Abnormal Lab Results 02/17/19 02/17/19 02/17/19 04:20 04:20 04:20 RBC 3.75 L Hgb 12.5 L Hct 38.4 L MCV 102.3 H MCH RDW 14.8 H Plt Count Lymph % (Auto) 13.0 L Lymph # (Auto) 1.1 L PT 21.9 H INR 1.9 H Potassium 3.1 L BUN Creatinine 0.6 L Glucose 168 H Calcium Total Protein 5.7 L Albumin 3.0 L Urine Glucose (UA) Urine Occult Blood Ur Leukocyte Esterase Urine RBC Urine WBC Urine Bacteria Hyaline Casts 02/16/19 02/16/19 02/16/19 03:50 03:50 03:50 RBC 3.31 L Hgb 11.3 L Hct 34.0 L MCV 102.7 H MCH 34.1 H RDW 15.0 H Plt Count 129 L Lymph % (Auto) Lymph # (Auto) 1.4 L PT 26.2 H INR 2.4 H Potassium BUN Creatinine Glucose 186 H Calcium Total Protein 5.4 L Albumin 2.9 L Urine Glucose (UA) Urine Occult Blood Ur Leukocyte Esterase Urine RBC Urine WBC Urine Bacteria Hyaline Casts 02/15/19 02/15/19 02/15/19 12:09 03:45 03:45 RBC 3.34 L Hgb 11.4 L Hct 34.6 L MCV 103.3 H MCH 34.1 H RDW 15.3 H Plt Count 139 L Lymph % (Auto) Lymph # (Auto) 1.2 L PT 29.6 H INR 2.9 H Potassium BUN Creatinine Glucose Calcium Total Protein Albumin Urine Glucose (UA) 150 A Urine Occult Blood 0.2 A Ur Leukocyte Esterase 75 A Urine RBC 25 H Urine WBC 20 H Urine Bacteria Few A Hyaline Casts 100 H 02/14/19 02/14/19 18:30 12:30 RBC Hgb Hct MCV MCH RDW Plt Count Lymph % (Auto) Lymph # (Auto) PT INR Potassium BUN 24 H 24 H Creatinine Glucose 241 H 263 H Calcium 8.4 L Total Protein Albumin Urine Glucose (UA) Urine Occult Blood Ur Leukocyte Esterase Urine RBC Urine WBC Urine Bacteria Hyaline Casts Meds: Medications Acetaminophen (Tylenol) 650 mg PO Q4-6HP PRN; Protocol PRN Reason: Per Pain Protocol/Fever > 101 Hydrocodone Bitart/Acetaminophen ([place] 5/325mg) 1 tab PO Q4-6HP PRN; Protocol PRN Reason: Per Pain Protocol Last Admin: 02/17/19 06:06 Dose: 1 tab Documented by: Atorvastatin Calcium (Lipitor) 40 mg PO DAILY [facility] Carvedilol (Coreg) 6.25 mg PO BIDCC [facility] Dextrose (Dextrose 50%) 0 ml IV UD PRN PRN Reason: Hypoglycemia Diagnostic Test (Pha) (Accu-Chek) 1 each FS ACHS [facility] Last Admin: 02/16/19 21:03 Dose: 1 each Documented by: Diltiazem HCl (Cardizem) 30 mg PO Q8H [facility] Last Admin: 02/17/19 00:17 Dose: 30 mg Documented by: Furosemide (Lasix) 40 mg IV Q12 [facility] Last Admin: 02/16/19 22:53 Dose: 40 mg Documented by: Gabapentin (Neurontin) 600 mg PO TID [facility] Last Admin: 02/16/19 21:16 Dose: 600 mg Documented by: Glucose (Insta-Glucose) 15 gm PO PRN PRN PRN Reason: Hypoglycemia Diltiazem HCl 125 mg/ Dextrose 125 mls @ 5 mls/hr IV Q24HP PRN; Protocol PRN Reason: TITRATE TO KEEP HR <100,SBP>90 Insulin Human Regular 50 unit/ (Sodium Chloride) 100 mls @ 0 mls/hr IV Q12HP PRN; Protocol PRN Reason: HYPERGLYCEMIA, PER PROTOCOL Norepinephrine Bitartrate 16 (mg/ Sodium Chloride) 250 mls @ 9.375 mls/hr IV Q24HP PRN; Protocol PRN Reason: Hypotension Sodium Chloride (Sodium Chloride 0.9%) 1,000 mls @ 20 mls/hr IV .Q24H [facility] Last Admin: 02/16/19 11:02 Dose: Not Given Documented by: Sodium Chloride (Sodium Chloride 0.9%) 1,000 mls @ 20 mls/hr IV .Q24H [facility] Last Admin: 02/16/19 11:02 Dose: Not Given Documented by: Sodium Chloride (Sodium Chloride 0.9%) 250 mls @ 20 mls/hr IV .[id number] [facility] Last Admin: 02/16/19 23:37 Dose: Not Given Documented by: Levofloxacin (Levaquin) 750 mg in 150 mls @ 100 mls/hr IV DAILY [facility] Last Admin: 02/16/19 21:25 Dose: 100 mls/hr Documented by: Insulin Glargine (Lantus) 23 unit SQ DAILY [facility] Insulin Human Lispro (Humalog) 5 unit SQ [facility] Last Admin: 02/16/19 21:16 Dose: 5 units Documented by: Insulin Human Lispro (Humalog) 0 unit SQ [facility]; Protocol Last Admin: 02/16/19 21:17 Dose: 3 units Documented by: Loperamide HCl (Imodium) 2 mg PO PRN PRN PRN Reason: Diarrhea Ondansetron HCl (Zofran) 4 mg IV Q4-6HP PRN; Protocol PRN Reason: Nausea And Vomiting Potassium Chloride (Klor-Con) 20 meq PO TIDCC [facility] Sodium Chloride (Saline Flush) 10 ml IV Q8 [facility] Last Admin: 02/17/19 05:16 Dose: 10 ml Documented by: Tizanidine HCl (Zanaflex) 4 mg PO TID [facility] Last Admin: 02/16/19 21:16 Dose: 4 mg Documented by: Warfarin Sodium (Coumadin Per Pharmacy) 1 order PO UD [facility] - ABG Interpretation ABG results: 02/12/19 02/12/19 02/12/19 13:30 16:27 20:26 ABG Methemoglobin 0.3 L 0.3 L 0.3 L VBG pH 7.35 7.45 H 7.42 VBG pCO2 42.5 34.5 L 41.2 VBG pO2 62 H 161 H 93 H VBG HCO3 23.1 L 23.5 L 26.2 VBG Total CO2 24.5 L 24.6 L 27.4 VBG O2 Saturation 86.2 H 92.7 H 92.4 H VBG Base Excess -2.4 L 0.1 1.6 02/13/19 02/13/19 00:15 04:16 ABG Methemoglobin 0.3 L 0.3 L VBG pH 7.43 H 7.43 H VBG pCO2 36.1 L 42.5 VBG pO2 101 H 83 H VBG HCO3 23.2 L 27.3 VBG Total CO2 24.3 L 28.6 VBG O2 Saturation 92.9 H 92.5 H VBG Base Excess -0.7 2.5 H Medical - PN: A/P - Time Spent With Patient Total time spent is greater than 50% in coordination of care (as documented) at patient's floor/unit and/or counseling patient: (1) Sepsis Status: Acute Current Visit: Yes (2) Atrial fibrillation with RVR Status: Acute Current Visit: Yes - Narrative A/P Narrative: Assessment: 1. Bilateral pneumonia 2. Abnormal liver enzymes 3. Hypokalemia 4. HTN 5. Elevation of BNP 6. Electrolytes derangement Plan: 1. MRSA screening and the influenza a and B screening - negative Blood culture and sputum culture - no growth so far Swallow eval was performed by ST -no evidence of dysphagia. Continue azithromycin, and switched Zosyn to ceftriaxone. 2. Elevation of liver enzyme, etiology unknown. trending down, Repeated liver enzymes in the morning 3. Potassium replaced, repeat potassium level in the morning 4. Blood pressure now is > 140. Will restart Home blood pressure med - amlodipine 2.5mg daily 5. BNP 3974. Echo was ordered. Intake and outpatient. Daily weight. Low dose of lasix 20mg Bid, reeval tomorrow 6. DVT prophylaxis: Lovenox and SCD 7. CODE STATUS: DNI Disposition: OT PT Medical - PN: Qual - VTE Deep Vein Thrombosis/Pulmonary Embolism Present on Admission: No
[2019-02-17] MEDS: CARVEDILOL 12.5 MG TABLET PO SCH ×2 (08:38→17:47)
[2019-02-17] MEDS: INSULIN LISPRO 1 UNIT/0.01 ML UNIT SQ SCH ×8 (08:39→21:05)
[2019-02-17] MEDS: FUROSEMIDE 40 MG/4 ML VIAL IV SCH ×2 (08:41→21:05)
[2019-02-17] MEDS: GABAPENTIN 300 MG CAPSULE PO SCH ×3 (08:41→21:04)
[2019-02-17] MEDS: tiZANidine 4 MG TABLET PO SCH ×3 (08:43→21:03)
[2019-02-17] MEDS: ATORVASTATIN 40 MG TABLET PO SCH (08:43)
[2019-02-17] MEDS: POTASSIUM CHLORIDE 20 MEQ PACKET PO SCH ×3 (08:44→17:47)
[2019-02-17] MEDS ORDERED: INSULIN GLARGINE, HUMAN 1 UNIT/0.01 ML SQ SCH (09:00)
[2019-02-17] MEDS: LEVOFLOXACIN 750 MG/150 ML BAG IV SCH (10:15)
[2019-02-17] MEDS: 0.9 % SODIUM CHLORIDE 1,000 ML IV SCH ×2 (12:11)
[2019-02-17] MEDS: 0.9 % SODIUM CHLORIDE 250 ML IV SCH (12:11)
--- NOTE | 2019-02-17 13:12 | Internal Med Progress Note ---
Medical - PN: Subj Patient information: Note initiated : 02/17/19 at 1:10 pm Service Date, if different from initiated Date: [] Patient: Luke Palacios 73 y/o M admitted on 02/12/19 for n/v. Chief Complaint: [] Interval history: This is a 73-year-old gentleman with morbid obesity, type 2 diabetes and atrial fibrillation admitted with A. fib RVR, septic shock and potential source of infection pneumonia versus sacral wound. He was started on DKA protocol with insulin drip and his blood sugar has been improved and started him on Lantus 30 units with the mealtime NovoLog and sliding scale 02/13-has had DKA improved anion gap closed and started him on long-acting insulin ordered an A1c level. His sacral wound culture growing heavy growth of gram-negative rods and gram-positive's and added vancomycin in addition to the Zosyn until we get the final report. 02/14-his culture reports urine culture pending, wound culture report pending and continued Zosyn and vancomycin for now. His A1c level is 7.1. Patient was started on Lantus 30 units, NovoLog 5 units with a meal and sliding scale his blood sugar has been controlled. Explained to the patient and family about the elevated troponin level and this most likely due to septic shock. His heart rate improved and he is on Coreg and Cardizem p.o. and once his heart rate is controlled better with the Cardizem p.o. can be changed to extended release once daily. Today patient is feeling fine adn does not have any new complaints. Denies fever, chills, nausea, or vomiting. No overnight events. Today patient still complains of diarrhea. He had loose stool 5 times over the past 24 hours. Denies nausea, vomiting, fever, chills, or abdominal pain. She also complains of dry mouth. No overnight events. Vital signs are stable. INR 1.9 today, Potassium of 3.1 Today patient is feeling better. 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 denies fever, chills, nausea, vomiting, or chest pain. Vital signs are stable White blood cells 4.7. Potassium level 2.7 No overnight events - Constitutional Vitals: Vital Signs Temp Pulse Resp BP Pulse Ox 97.5 F 87 22 101/60 92 02/17/19 06:41 02/17/19 06:41 02/17/19 06:41 02/17/19 06:41 02/17/19 06:41 Period Temp Pulse Resp BP Sys/Elizalde Pulse Ox Last 24 Hr 97.5 F-98.8 F 61-100 99-150/60-72 92-98 Intake and Output 02/16/19 02/17/19 02/17/19 21:59 05:59 13:59 Intake Total 240 150 660 Output Total 1300 2700 350 Balance -1060 -2550 310 Weight 152.861 kg Intake & Output: Intake & Output 02/16/19 02/17/19 02/17/19 21:59 05:59 13:59 Intake Total 240 150 660 Output Total 1300 2700 350 Balance -1060 -2550 310 Weight 152.861 kg Intake: IV 150 Oral 240 660 Output: Urine Catheter Amount 1300 2700 Void Amount 350 Other: Meal Breakfast Breakfast Percent of Meal Consumed 100% 50% Feeding Ability Assist with Tray Set Up Urine Appearance Clear Clear Urine Color Bright Yellow Pale Urine Odor Normal Normal Exam: General: Alert, Awake, No acute Distress Eyes/N/T: EOMI, PERRL, Head/Neck: neck supple, CV: irreg irreg, No murmurs, Pulm: decreased breath sounds (Bibasilar crackles). no wheezing Abd: soft, nontender, +BS x4 Ext: no clubbing/cyanosis/edema Neuro: Alert, no focal deficits, moves all extremities, Skin: warm/dry Medical - PN: Obj Da - Labs CBC & Chem 7: 02/17/19 04:20 02/17/19 04:20 Labs: Abnormal Lab Results 02/17/19 02/17/19 02/17/19 04:20 04:20 04:20 RBC 3.75 L Hgb 12.5 L Hct 38.4 L MCV 102.3 H MCH RDW 14.8 H Plt Count Lymph % (Auto) 13.0 L Lymph # (Auto) 1.1 L PT 21.9 H INR 1.9 H Potassium 3.1 L BUN Creatinine 0.6 L Glucose 168 H Calcium Total Protein 5.7 L Albumin 3.0 L Urine Glucose (UA) Urine Occult Blood Ur Leukocyte Esterase Urine RBC Urine WBC Urine Bacteria Hyaline Casts 02/16/19 02/16/19 02/16/19 03:50 03:50 03:50 RBC 3.31 L Hgb 11.3 L Hct 34.0 L MCV 102.7 H MCH 34.1 H RDW 15.0 H Plt Count 129 L Lymph % (Auto) Lymph # (Auto) 1.4 L PT 26.2 H INR 2.4 H Potassium BUN Creatinine Glucose 186 H Calcium Total Protein 5.4 L Albumin 2.9 L Urine Glucose (UA) Urine Occult Blood Ur Leukocyte Esterase Urine RBC Urine WBC Urine Bacteria Hyaline Casts 02/15/19 02/15/19 02/15/19 12:09 03:45 03:45 RBC 3.34 L Hgb 11.4 L Hct 34.6 L MCV 103.3 H MCH 34.1 H RDW 15.3 H Plt Count 139 L Lymph % (Auto) Lymph # (Auto) 1.2 L PT 29.6 H INR 2.9 H Potassium BUN Creatinine Glucose Calcium Total Protein Albumin Urine Glucose (UA) 150 A Urine Occult Blood 0.2 A Ur Leukocyte Esterase 75 A Urine RBC 25 H Urine WBC 20 H Urine Bacteria Few A Hyaline Casts 100 H 02/14/19 02/14/19 18:30 12:30 RBC Hgb Hct MCV MCH RDW Plt Count Lymph % (Auto) Lymph # (Auto) PT INR Potassium BUN 24 H 24 H Creatinine Glucose 241 H 263 H Calcium 8.4 L Total Protein Albumin Urine Glucose (UA) Urine Occult Blood Ur Leukocyte Esterase Urine RBC Urine WBC Urine Bacteria Hyaline Casts Meds: Medications Acetaminophen (Tylenol) 650 mg PO Q4-6HP PRN; Protocol PRN Reason: Per Pain Protocol/Fever > 101 Hydrocodone Bitart/Acetaminophen ([place] 5/325mg) 1 tab PO Q4-6HP PRN; Protocol PRN Reason: Per Pain Protocol Last Admin: 02/17/19 06:06 Dose: 1 tab Documented by: Atorvastatin Calcium (Lipitor) 40 mg PO DAILY [facility] Last Admin: 02/17/19 08:43 Dose: 40 mg Documented by: [facility] ([facility] Last Admin: 02/17/19 08:38 Dose: 6.25 mg Documented by: Dextrose (Dextrose 50%) 0 ml IV UD PRN PRN Reason: Hypoglycemia Diagnostic Test (Pha) (Accu-Chek) 1 each FS ACHS [facility] Last Admin: 02/17/19 12:00 Dose: 1 each Documented by: Diltiazem HCl (Cardizem) 30 mg PO Q8H [facility] Last Admin: 02/17/19 08:43 Dose: 30 mg Documented by: Furosemide (Lasix) 40 mg IV Q12 [facility] Last Admin: 02/17/19 08:41 Dose: 40 mg Documented by: Gabapentin (Neurontin) 600 mg PO TID [facility] Last Admin: 02/17/19 08:41 Dose: 600 mg Documented by: Glucose (Insta-Glucose) 15 gm PO PRN PRN PRN Reason: Hypoglycemia Diltiazem HCl 125 mg/ Dextrose 125 mls @ 5 mls/hr IV Q24HP PRN; Protocol PRN Reason: TITRATE TO KEEP HR <100,SBP>90 Insulin Human Regular 50 unit/ (Sodium Chloride) 100 mls @ 0 mls/hr IV Q12HP PRN; Protocol PRN Reason: HYPERGLYCEMIA, PER PROTOCOL Norepinephrine Bitartrate 16 (mg/ Sodium Chloride) 250 mls @ 9.375 mls/hr IV Q24HP PRN; Protocol PRN Reason: Hypotension Sodium Chloride (Sodium Chloride 0.9%) 1,000 mls @ 20 mls/hr IV .Q24H [facility] Last Admin: 02/17/19 12:11 Dose: Not Given Documented by: Sodium Chloride (Sodium Chloride 0.9%) 1,000 mls @ 20 mls/hr IV .Q24H [facility] Last Admin: 02/17/19 12:11 Dose: Not Given Documented by: Sodium Chloride (Sodium Chloride 0.9%) 250 mls @ 20 mls/hr IV .[id number] [facility] Last Admin: 02/17/19 12:11 Dose: Not Given Documented by: Levofloxacin (Levaquin) 750 mg in 150 mls @ 100 mls/hr IV DAILY [facility] Last Admin: 02/17/19 10:15 Dose: 100 mls/hr Documented by: Insulin Glargine (Lantus) 23 unit SQ DAILY [facility] Last Admin: 02/17/19 08:45 Dose: 23 units Documented by: Insulin Human Lispro (Humalog) 5 unit SQ [facility] Last Admin: 02/17/19 11:59 Dose: 5 units Documented by: Insulin Human Lispro (Humalog) 0 unit SQ [facility]; Protocol Last Admin: 02/17/19 12:00 Dose: 3 units Documented by: Loperamide HCl (Imodium) 2 mg PO PRN PRN PRN Reason: Diarrhea Ondansetron HCl (Zofran) 4 mg IV Q4-6HP PRN; Protocol PRN Reason: Nausea And Vomiting Potassium Chloride (Klor-Con) 20 meq PO TIDCC [facility] Last Admin: 02/17/19 08:44 Dose: 20 meq Documented by: Sodium Chloride (Saline Flush) 10 ml IV Q8 [facility] Last Admin: 02/17/19 05:16 Dose: 10 ml Documented by: Tizanidine HCl (Zanaflex) 4 mg PO TID [facility] Last Admin: 02/17/19 08:43 Dose: 4 mg Documented by: Warfarin Sodium (Coumadin Per Pharmacy) 1 order PO UD [facility] Warfarin Sodium (Coumadin) 5 mg PO ONCE@1400 ONE Stop: 02/17/19 14:01 - ABG Interpretation ABG results: 02/12/19 02/12/19 02/12/19 13:30 16:27 20:26 ABG Methemoglobin 0.3 L 0.3 L 0.3 L VBG pH 7.35 7.45 H 7.42 VBG pCO2 42.5 34.5 L 41.2 VBG pO2 62 H 161 H 93 H VBG HCO3 23.1 L 23.5 L 26.2 VBG Total CO2 24.5 L 24.6 L 27.4 VBG O2 Saturation 86.2 H 92.7 H 92.4 H VBG Base Excess -2.4 L 0.1 1.6 02/13/19 02/13/19 00:15 04:16 ABG Methemoglobin 0.3 L 0.3 L VBG pH 7.43 H 7.43 H VBG pCO2 36.1 L 42.5 VBG pO2 101 H 83 H VBG HCO3 23.2 L 27.3 VBG Total CO2 24.3 L 28.6 VBG O2 Saturation 92.9 H 92.5 H VBG Base Excess -0.7 2.5 H Medical - PN: A/P - Time Spent With Patient Total time spent is greater than 50% in coordination of care (as documented) at patient's floor/unit and/or counseling patient: - Narrative A/P Narrative: Assessment: *Septic Shock: resolved * PNA: *Sacral cellulitis(Pseudomonas): -Follows with Dr. Blas *UTI (enterococcus): * Hypokalemia: * HTN *NSTEMI: felt d/t septic shock and Afib rvr, no chest pain *acute on chronic Systolic CHF: home lasix 40, coreg/ACEI -echo EF 25-30% *Afib RVR: on sotalol/coreg/warfarin *Morbid Obesity: *NEISHA on CPAP: *DKA (DM w/neuropathy): resolved *HTN: *PVD w/stents by Dr. Meek: *Conditioning/debility: Plan: -Blood culture and sputum culture - no growth so far -Continue cefepime, pt on sotalol thus stopped levaquin -ID consult -replete electrolytes -restarted Home Coreg and sotalol, d/c dilt for poor EF, hold home ACEI for low BP -on lasix 40bid -statin -basal insulin and SSI -ppx: warfarin per pharm CODE STATUS: DNI Medical - PN: Qual - VTE Deep Vein Thrombosis/Pulmonary Embolism Present on Admission: No
[2019-02-17] MEDS ORDERED: METOPROLOL TARTRATE 5 MG/5 ML VIAL IV PRN (13:31)
[2019-02-17] MEDS ORDERED: WARFARIN 5 MG TABLET PO ONE (14:00)
[2019-02-17] MEDS: SOTALOL 80 MG TABLET PO SCH (21:03)
[2019-02-18] MEDS: 0.9 % SODIUM CHLORIDE 250 ML IV SCH ×2 (00:08→18:13)
[2019-02-18] MEDS: HYDROcodone/APAP 5/325MG TABLET PO PRN ×4 (03:18→22:00)
[2019-02-18] MEDS: 0.9 % SODIUM CHLORIDE 10 ML SYRINGE IV SCH ×3 (04:47→22:02)
[2019-02-18 06:30] LABS: INR 1.8 (0.9-1.1); Prothrombin Time 21.1 sec (11.9-14.5)
[2019-02-18 06:39] LABS: Bilirubin,Direct < 0.2 mg/dL (0.0-0.3)
[2019-02-18 06:40] LABS: ALT/SGPT 29 U/l (0-40); AST/SGOT 32 U/l (0-37); Alkaline Phosphatase 106 U/L (39-117); Bilirubin,Total 0.6 mg/dL (0.0-1.0); Blood Urea Nitrogen 14 mg/dl (8-23); Carbon Dioxide 27 mmol/L (22-30); Chloride 94 mmol/L (96-108); Globulin 3.1 gm/dL (2.2-3.7); Glomerular Filtration Rate 94; Glucose 210 mg/dL (70-105); Lactate Dehydrogenase 230 U/L (94-250); Phosphorous 2.8 mg/dL (2.7-4.5); Triglycerides 118 mg/dl (<150); Uric Acid 7.3 mg/dL (2.5-8.0)
--- NOTE | 2019-02-18 07:43 | Internal Med Progress Note ---
Medical - PN: Subj Patient information: Note initiated : 02/18/19 at 7:37 am Service Date, if different from initiated Date: [] Patient: Luke Palacios 73 y/o M admitted on 02/12/19 for n/v. Chief Complaint: [] Interval history: This is a 73-year-old gentleman with morbid obesity, type 2 diabetes and atrial fibrillation admitted with A. fib RVR, septic shock and potential source of infection pneumonia versus sacral wound. He was started on DKA protocol with insulin drip and his blood sugar has been improved and started him on Lantus 30 units with the mealtime NovoLog and sliding scale 02/13-has had DKA improved anion gap closed and started him on long-acting insulin ordered an A1c level. His sacral wound culture growing heavy growth of gram-negative rods and gram-positive's and added vancomycin in addition to the Zosyn until we get the final report. 02/14-his culture reports urine culture pending, wound culture report pending and continued Zosyn and vancomycin for now. His A1c level is 7.1. Patient was started on Lantus 30 units, NovoLog 5 units with a meal and sliding scale his blood sugar has been controlled. Explained to the patient and family about the elevated troponin level and this most likely due to septic shock. His heart rate improved and he is on Coreg and Cardizem p.o. and once his heart rate is controlled better with the Cardizem p.o. can be changed to extended release once daily. Today patient is feeling fine adn does not have any new complaints. Denies fever, chills, nausea, or vomiting. No overnight events. Today patient still complains of diarrhea. He had loose stool 5 times over the past 24 hours. Denies nausea, vomiting, fever, chills, or abdominal pain. She also complains of dry mouth. No overnight events. Vital signs are stable. INR 1.9 today, Potassium of 3.1 Today patient is feeling better. 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 denies fever, chills, nausea, vomiting, or chest pain. Vital signs are stable White blood cells 4.7. Potassium level 2.7 No overnight events 02/18 Patient states he slept poorly last night because of noise and interruption. Patient felt sweaty this morning. Eyes any chest pain or nausea. Denies shortness of breath, has occasional cough first thing in morning Denies fevers. Review of Systems: denies headache/fever/chills/nausea/vomiting/chest or abdominal pain/dyspnea/diarrhea. Otherwise see above. - Constitutional Vitals: Vital Signs Temp Pulse Resp BP Pulse Ox 98.3 F 109 H 16 137/87 93 02/18/19 03:11 02/18/19 03:11 02/18/19 03:11 02/18/19 03:11 02/18/19 03:11 Period Temp Pulse Resp BP Sys/Elizalde Pulse Ox Last 24 Hr 97.2 F-98.3 F 80-109 16-20 118-147/72-87 93-94 Intake and Output 02/17/19 02/18/19 02/18/19 21:59 05:59 13:59 Intake Total 1250 0 Output Total 800 3125 Balance 450 -3125 Weight 148.461 kg Intake & Output: Intake & Output 02/17/19 02/18/19 02/18/19 21:59 05:59 13:59 Intake Total 1250 0 Output Total 800 3125 Balance 450 -3125 Weight 148.461 kg Intake: Oral 1250 0 Output: Urine Catheter Amount 800 3125 Other: Urine Appearance Clear Clear Urine Color Dark Yellow Pale Urine Odor Strong Normal Exam: General: Alert, Awake, No acute Distress, obese Eyes/N/T: EOMI Head/Neck: neck supple, CV: irreg irreg, No murmurs, Pulm: decreased breath sounds (Bibasilar crackles). no wheezing Abd: soft, nontender, +BS x4 Ext: no clubbing/cyanosis, 2-3+ b/l LE edema Neuro: Alert, no focal deficits, moves all extremities, Skin: warm/dry Medical - PN: Obj Da - Labs CBC & Chem 7: 02/17/19 04:20 02/18/19 05:02 Labs: Abnormal Lab Results 02/18/19 02/18/19 02/17/19 05:02 05:02 04:20 RBC Hgb Hct MCV MCH RDW Plt Count Lymph % (Auto) Lymph # (Auto) PT 21.1 H INR 1.8 H Potassium 3.1 L Chloride 94 L Creatinine 0.6 L Glucose 210 H 168 H GGT 147 H Total Protein 5.7 L Albumin 3.0 L 3.0 L Urine Glucose (UA) Urine Occult Blood Ur Leukocyte Esterase Urine RBC Urine WBC Urine Bacteria Hyaline Casts 02/17/19 02/17/19 02/16/19 04:20 04:20 03:50 RBC 3.75 L Hgb 12.5 L Hct 38.4 L MCV 102.3 H MCH RDW 14.8 H Plt Count Lymph % (Auto) 13.0 L Lymph # (Auto) 1.1 L PT 21.9 H INR 1.9 H Potassium Chloride Creatinine Glucose 186 H GGT Total Protein 5.4 L Albumin 2.9 L Urine Glucose (UA) Urine Occult Blood Ur Leukocyte Esterase Urine RBC Urine WBC Urine Bacteria Hyaline Casts 02/16/19 02/16/19 02/15/19 03:50 03:50 12:09 RBC 3.31 L Hgb 11.3 L Hct 34.0 L MCV 102.7 H MCH 34.1 H RDW 15.0 H Plt Count 129 L Lymph % (Auto) Lymph # (Auto) 1.4 L PT 26.2 H INR 2.4 H Potassium Chloride Creatinine Glucose GGT Total Protein Albumin Urine Glucose (UA) 150 A Urine Occult Blood 0.2 A Ur Leukocyte Esterase 75 A Urine RBC 25 H Urine WBC 20 H Urine Bacteria Few A Hyaline Casts 100 H Meds: Medications Acetaminophen (Tylenol) 650 mg PO Q4-6HP PRN; Protocol PRN Reason: Per Pain Protocol/Fever > 101 Hydrocodone Bitart/Acetaminophen ([place] 5/325mg) 1 tab PO Q4-6HP PRN; Protocol PRN Reason: Per Pain Protocol Last Admin: 02/18/19 03:18 Dose: 1 tab Documented by: Atorvastatin Calcium (Lipitor) 40 mg PO DAILY [facility] Last Admin: 02/17/19 08:43 Dose: 40 mg Documented by: Carvedilol (Coreg) 6.25 mg PO BIDCC [facility] Last Admin: 02/17/19 17:47 Dose: 6.25 mg Documented by: Cefepime HCl (Maxipime) 2 gm IV Q12H [facility] Dextrose (Dextrose 50%) 0 ml IV UD PRN PRN Reason: Hypoglycemia Diagnostic Test (Pha) (Accu-Chek) 1 each FS ACHS [facility] Last Admin: 02/17/19 20:36 Dose: 1 each Documented by: Furosemide (Lasix) 40 mg IV Q12 [facility] Last Admin: 02/17/19 21:05 Dose: 40 mg Documented by: Gabapentin (Neurontin) 600 mg PO TID [facility] Last Admin: 02/17/19 21:04 Dose: 600 mg Documented by: Glucose (Insta-Glucose) 15 gm PO PRN PRN PRN Reason: Hypoglycemia Sodium Chloride (Sodium Chloride 0.9%) 250 mls @ 20 mls/hr IV .[id number] [facility] Last Admin: 02/18/19 00:08 Dose: Not Given Documented by: Insulin Glargine (Lantus) 25 unit SQ DAILY [facility] Insulin Human Lispro (Humalog) 5 unit SQ ACHS [facility] Last Admin: 02/17/19 21:04 Dose: 5 units Documented by: Insulin Human Lispro (Humalog) 0 unit SQ ACHS [facility]; Protocol Last Admin: 02/17/19 21:05 Dose: 2 units Documented by: Loperamide HCl (Imodium) 2 mg PO PRN PRN PRN Reason: Diarrhea Metoprolol Tartrate (Lopressor) 5 mg IV Q2HP PRN PRN Reason: Tachyarrhythmias HR>110 Ondansetron HCl (Zofran) 4 mg IV Q4-6HP PRN; Protocol PRN Reason: Nausea And Vomiting Potassium Chloride (Klor-Con) 20 meq PO TIDCC [facility] Last Admin: 02/17/19 17:47 Dose: 20 meq Documented by: Sodium Chloride (Saline Flush) 10 ml IV Q8 [facility] Last Admin: 02/18/19 04:47 Dose: 10 ml Documented by: Sotalol HCl (Betapace) 40 mg PO BID [facility] Last Admin: 02/17/19 21:03 Dose: 40 mg Documented by: Tizanidine HCl (Zanaflex) 4 mg PO TID [facility] Last Admin: 02/17/19 21:03 Dose: 4 mg Documented by: Warfarin Sodium (Coumadin Per Pharmacy) 1 order PO UD [facility] - ABG Interpretation ABG results: 02/12/19 02/12/19 02/12/19 13:30 16:27 20:26 ABG Methemoglobin 0.3 L 0.3 L 0.3 L VBG pH 7.35 7.45 H 7.42 VBG pCO2 42.5 34.5 L 41.2 VBG pO2 62 H 161 H 93 H VBG HCO3 23.1 L 23.5 L 26.2 VBG Total CO2 24.5 L 24.6 L 27.4 VBG O2 Saturation 86.2 H 92.7 H 92.4 H VBG Base Excess -2.4 L 0.1 1.6 02/13/19 02/13/19 00:15 04:16 ABG Methemoglobin 0.3 L 0.3 L VBG pH 7.43 H 7.43 H VBG pCO2 36.1 L 42.5 VBG pO2 101 H 83 H VBG HCO3 23.2 L 27.3 VBG Total CO2 24.3 L 28.6 VBG O2 Saturation 92.9 H 92.5 H VBG Base Excess -0.7 2.5 H Medical - PN: A/P - Time Spent With Patient Total time spent is greater than 50% in coordination of care (as documented) at patient's floor/unit and/or counseling patient: - Narrative A/P Narrative: Assessment: *Septic Shock: resolved *UTI (enterococcus): *Sacral cellulitis(Pseudomonas): -Follows with Dr. Blas *Hypokalemia: resolved *NSTEMI: felt d/t septic shock and Afib rvr, no chest pain *acute on chronic Systolic CHF: likely from fluid resuscitation and afib rvr. home lasix 40, coreg/ACEI -echo EF 25-30% () -good diuresis last several days *Afib RVR: on sotalol/coreg/warfarin -rate controlled *HTN: *Morbid Obesity: *NEISHA on CPAP: *DKA (DM w/neuropathy): resolved -A1c 9.1 *PVD w/stents by Dr. Meek: *Deconditioning/debility/Poor functional status: wheelchair bound since April Plan: -on cefepime, pt on sotalol thus stopped levaquin. review skin and likely d/c abx -replete electrolytes prn -restarted Home Coreg and sotalol, d/c dilt for poor EF, hold home ACEI for low BP -on lasix 40 IV bid -statin -basal insulin, mealtime insulin and SSI, restart home dapagliflozin and sitaglipitin -[facility] upon d/c -f/u with cardiology outpt -ppx: warfarin per pharm CODE STATUS: DNI Medical - PN: Qual - VTE Deep Vein Thrombosis/Pulmonary Embolism Present on Admission: No
[2019-02-18] MEDS: tiZANidine 4 MG TABLET PO SCH ×3 (08:14→22:10)
[2019-02-18] MEDS: FUROSEMIDE 40 MG/4 ML VIAL IV SCH (08:14)
[2019-02-18] MEDS: GABAPENTIN 300 MG CAPSULE PO SCH ×3 (08:14→22:00)
[2019-02-18] MEDS: SOTALOL 80 MG TABLET PO SCH ×2 (08:15→22:01)
[2019-02-18] MEDS: CARVEDILOL 12.5 MG TABLET PO SCH ×2 (08:15→17:10)
[2019-02-18] MEDS: ATORVASTATIN 40 MG TABLET PO SCH (08:15)
[2019-02-18] MEDS: INSULIN GLARGINE, HUMAN 1 UNIT/0.01 ML SQ SCH (08:16)
[2019-02-18] MEDS: INSULIN LISPRO 1 UNIT/0.01 ML UNIT SQ SCH ×8 (08:17→22:09)
[2019-02-18] MEDS: POTASSIUM CHLORIDE 20 MEQ PACKET PO SCH ×3 (08:18→15:08)
[2019-02-18 09:06] LABS: Estimated Average Glucose(eAG) 214 mg/dL; Hemoglobin A1C 9.1 % HGB (4.0-6.0)
[2019-02-18] MEDS: CEFEPIME 2 GM VIAL IV SCH ×2 (09:56→22:01)
[2019-02-18] MEDS ORDERED: ASPIRIN 81 MG TAB.CHEW CHEWED ONE (10:49)
--- NOTE | 2019-02-18 12:00 | Discharge Summary ---
Medical - DS: Prov Patient information: Note initiated : 02/18/19 at 11:57 am Service Date, if different from initiated Date: [] Patient: Luke Palacios 73 y/o M admitted on 02/12/19 for n/v. Chief Complaint: [] Date of admission: 02/12/19 12:51 Discharge date: 02/21/19 Primary care physician: Heike Raman Consults: 02/12/19 Consult to Physician [CONS] Stat Comment: Consulting Provider: Laurie Aranda Reason For Exam: Physician to Consult Medical - DS: Meds - Discharge Medications Prescriptions: Blood-Glucose Meter [Advanced Glucose Meter] 1 each ACHS #1 each Ramipril [Altace] 1.25 mg PO BID #60 cap Insulin Glargine,Hum.rec.anlog [Basaglar Kwikpen U-100] See Protocol SQ ACHS #1 insuln.pen Carvedilol [Coreg] 12.5 mg PO BIDCC #60 tab Blood Sugar Diagnostic [Glucose Test Strip] 1 each ACHS #120 strip Insulin Glargine,Hum.rec.anlog [Lantus Solostar] 30 unit SQ DAILY #1 insuln.pen Active and Home Medications: Home Medications cholecalciferol (vitamin D3) 125 mcg (5,000 unit) tablet 5,000 unit PO QDAY tab 08/27/14 [History Confirmed 02/13/19 Last Taken 02/10/19] pravastatin 20 mg tablet 20 mg PO HS #90 tab 02/16/16 [Rx Confirmed 02/13/19 Last Taken 02/11/19] CPAP Machine #1 each 08/22/17 [Rx Confirmed 02/03/18 Last Taken 02/12/19] furosemide 40 mg tablet 40 mg PO DAILY tab 12/09/17 [History Confirmed 02/13/19 Last Taken 05/10/18 08:00] Heavy Duty Wheelchair #1 ea 01/03/18 [Rx Confirmed 02/03/18 Last Taken 02/11/19] Hospital bed #1 ea 01/03/18 [Rx Confirmed 02/03/18 Last Taken 02/12/19] ROHO Cushion #1 ea 02/10/18 [Rx Last Taken Unknown] carvedilol 25 mg tablet 25 mg PO BID 90 Days #180 tab 02/10/18 [Rx Confirmed 02/13/19 Last Taken 05/10/18 08:00] Ascorbic Acid/Bioflavonoids [C 1,843-Hxpjszcztfpon-Nz Cap] 1 tab PO DAILY 05/10/18 [History Confirmed 02/13/19 Last Taken 02/10/19] HYDROcodone/ACETAMINOPHEN [Lorcet Hd 10-325 mg Tablet] 1 tab PO TIDP PRN 05/10/18 [History Confirmed 02/13/19 Last Taken 02/12/19] Liraglutide [Victoza 2-Dagoberto] 0.3 mg SC DAILY 05/10/18 [History Confirmed 05/10/18 Last Taken Unknown] Testosterone Cypionate [Depo-Testosterone] 100 mg IM Q2W 05/10/18 [History Confirmed 05/10/18 Last Taken 12/29/18] Warfarin [Coumadin] 5 mg PO TUTHSA@1400 05/10/18 [History Confirmed 02/13/19 Last Taken 02/10/19] sitaGLIPtin [Januvia] 100 mg PO DAILY 05/10/18 [History Confirmed 02/13/19 Last Taken 02/11/19] DULoxetine [Cymbalta] 20 mg PO DAILY 02/12/19 [History Confirmed 02/12/19 Last Taken 02/11/19] Dapagliflozin Propanediol [Farxiga] 10 mg PO DAILY 02/12/19 [History Confirmed 02/12/19 Last Taken 02/11/19] Ramipril [Altace] 2.5 mg PO BID 02/12/19 [History Confirmed 02/12/19 Last Taken 02/11/19] Warfarin [Coumadin] 7.5 mg PO SUMOWEFR@1400 02/12/19 [History Confirmed 02/13/19 Last Taken 02/09/19] Allopurinol [Zylopriim] 300 mg PO DAILY 02/13/19 [History Confirmed 02/13/19 Last Taken Unknown] Diltiazem [Cardizem] 30 mg PO TID 02/13/19 [History Confirmed 02/13/19 Last Taken Unknown] Gabapentin 600 mg PO TIDP PRN 02/13/19 [History Confirmed 02/13/19 Last Taken Unknown] Sotalol HCl [Sorine] 40 mg PO BID 02/13/19 [History Confirmed 02/13/19 Last Taken Unknown] tiZANidine HCL [Tizanidine HCl] 4 mg PO QID 02/13/19 [History Confirmed 02/13/19 Last Taken Unknown] Home Medications cholecalciferol (vitamin D3) 125 mcg (5,000 unit) tablet 5,000 unit PO QDAY tab 08/27/14 [History Confirmed 02/13/19 Last Taken 02/10/19] pravastatin 20 mg tablet 20 mg PO HS #90 tab 02/16/16 [Rx Confirmed 02/13/19 Last Taken 02/11/19] furosemide 40 mg tablet 40 mg PO DAILY tab 12/09/17 [History Confirmed 02/13/19 Last Taken 05/10/18 08:00] Ascorbic Acid/Bioflavonoids [C 1,789-Gxmnwnjgrupbs-Xc Cap] 1 tab PO DAILY 05/10/18 [History Confirmed 02/13/19 Last Taken 02/10/19] HYDROcodone/ACETAMINOPHEN [Lorcet Hd 10-325 mg Tablet] 1 tab PO TIDP PRN 05/10/18 [History Confirmed 02/13/19 Last Taken 02/12/19] Liraglutide [Victoza 2-Dagoberto] 0.3 mg SC DAILY 05/10/18 [History Confirmed 02/19/19 Last Taken Unknown] Testosterone Cypionate [Depo-Testosterone] 100 mg IM Q2W 05/10/18 [History Confirmed 02/19/19 Last Taken 12/29/18] Warfarin [Coumadin] 5 mg PO TUTHSA@1400 05/10/18 [History Confirmed 02/13/19 Last Taken 02/10/19] sitaGLIPtin [Januvia] 100 mg PO DAILY 05/10/18 [History Confirmed 02/13/19 Last Taken 02/11/19] DULoxetine [Cymbalta] 20 mg PO DAILY 02/12/19 [History Confirmed 02/12/19 Last Taken 02/11/19] Dapagliflozin Propanediol [Farxiga] 10 mg PO DAILY 02/12/19 [History Confirmed 02/12/19 Last Taken 02/11/19] Warfarin [Coumadin] 7.5 mg PO SUMOWEFR@1400 02/12/19 [History Confirmed 02/13/19 Last Taken 02/09/19] Allopurinol [Zylopriim] 300 mg PO DAILY 02/13/19 [History Confirmed 02/13/19 Last Taken Unknown] Gabapentin 600 mg PO TIDP PRN 02/13/19 [History Confirmed 02/13/19 Last Taken Unknown] Sotalol HCl [Sorine] 40 mg PO BID 02/13/19 [History Confirmed 02/13/19 Last Taken Unknown] tiZANidine HCL [Tizanidine HCl] 4 mg PO QID 02/13/19 [History Confirmed 02/13/19 Last Taken Unknown] Ramipril [Altace] 1.25 mg PO BID #60 cap 02/18/19 [Rx Last Taken Unknown] CPAP Machine 1 each .ROUTE .MEDSUPPLY 02/19/19 [History Confirmed 02/19/19 Last Taken 02/12/19] Heavy Duty Wheelchair 1 each .ROUTE CONT 02/19/19 [History Confirmed 02/19/19 Last Taken Unknown] Hospital Bed 1 each .ROUTE CONT 02/19/19 [History Confirmed 02/19/19 Last Taken Unknown] Roho Cushion 1 each .ROUTE CONT 02/19/19 [History Confirmed 02/19/19 Last Taken Unknown] Carvedilol [Coreg] 12.5 mg PO BIDCC #60 tab 02/20/19 [Rx Last Taken Unknown] Insulin Glargine,Hum.rec.anlog [Lantus Solostar] 30 unit SQ DAILY #1 insuln.pen 02/20/19 [Rx Last Taken Unknown] Blood Sugar Diagnostic [Glucose Test Strip] 1 each ACHS #120 strip 02/21/19 [Rx Last Taken Unknown] Blood-Glucose Meter [Advanced Glucose Meter] 1 each ACHS #1 each 02/21/19 [Rx Last Taken Unknown] Insulin Glargine,Hum.rec.anlog [Basaglar Kwikpen U-100] See Protocol SQ ACHS #1 insuln.pen 02/21/19 [Rx Last Taken Unknown] Medical - DS: Hosp Hospital Course: Assessment: *Septic Shock: resolved *UTI (enterococcus): finished course abx *Sacral cellulitis(Pseudomonas): finished course abx -Follows with Dr. Blas *Hypokalemia: resolved *NSTEMI: felt d/t septic shock and Afib rvr, no chest pain *acute on chronic Systolic CHF: likely from fluid resuscitation and afib rvr. home lasix 40, coreg/ACEI. Improved -echo EF 25-30%. *Afib RVR: on sotalol/coreg/warfarin *HTN: *Morbid Obesity: *NEISHA on CPAP: *DKA (DM w/neuropathy): resolved -A1c 9.1 *PVD w/stents by Dr. Meek: *Deconditioning/debility/Poor functional status: wheelchair bound since April This is a 73-year-old gentleman with morbid obesity, type 2 diabetes and atrial fibrillation admitted with A. fib RVR, septic shock and potential source of infection pneumonia versus sacral wound. He was started on DKA protocol with insulin drip and his blood sugar has been improved and started him on Lantus 30 units with the mealtime NovoLog and sliding scale 02/13-has had DKA improved anion gap closed and started him on long-acting insulin ordered an A1c level. His sacral wound culture growing heavy growth of gram-negative rods and gram-positive's and added vancomycin in addition to the Zosyn until we get the final report. 02/14-his culture reports urine culture pending, wound culture report pending and continued Zosyn and vancomycin for now. His A1c level is 7.1. Patient was started on Lantus 30 units, NovoLog 5 units with a meal and sliding scale his blood sugar has been controlled. Explained to the patient and family about the elevated troponin level and this most likely due to septic shock. His heart rate improved and he is on Coreg and Cardizem p.o. and once his heart rate is controlled better with the Cardizem p.o. can be changed to extended release once daily. Today patient is feeling fine adn does not have any new complaints. Denies fever, chills, nausea, or vomiting. No overnight events. Today patient still complains of diarrhea. He had loose stool 5 times over the past 24 hours. Denies nausea, vomiting, fever, chills, or abdominal pain. She also complains of dry mouth. No overnight events. Vital signs are stable. INR 1.9 today, Potassium of 3.1 Today patient is feeling better. 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 denies fever, chills, nausea, vomiting, or chest pain. Vital signs are stable White blood cells 4.7. Potassium level 2.7 No overnight events 02/18 Patient states he slept poorly last night because of noise and interruption. Patient felt sweaty this morning. Eyes any chest pain or nausea. Denies shortness of breath, has occasional cough first thing in morning Denies fevers. 02/19 States poor sleep last night from "all of the above", noise, interru ptions,etc... Feels tired but otherwise no new complaints. Heart rate elevated this morning 120s to 130. 02/20 Always complains of sleep. Heart rate 80s and 90s overnight. No new events. CPAP intermittently throughout the night. Heart rate around 100s, blood pressure up this morning. We will switch him back from Lopressor to his home Coreg given elevated BP this AM. 02/21 Patient denies sleeping better even though he had no interruptions between 10 and 6. But states overall feeling better. Blood sugar was elevated last night but good this morning. BG 154 this morning. SBP 127 after morning meds. Given patient's significant comorbidities and age he is at high risk for readmission Discharge diagnosis: Septic shock UTI enterococcus sacral cellulitis non-STEMI CHF A. fib RVR Secondary discharge diagnosis: Hypertension morbid obesity obstructive sleep apnea DKA peripheral vascular disease deconditioning debility poor functional status - Time Spent with Patient Total time spent providing and/or coordinating discharge services: Greater than 30 minutes Medical - DS: Exam - Constitutional Vitals: Vital Signs Temp Pulse Pulse Resp BP Pulse Ox 02/18/19 10:10 73 104/65 94 02/18/19 10:05 96.3 F L 63 16 110/59 95 02/18/19 09:57 96.6 F L 145 H 16 141/95 96 02/18/19 03:11 98.3 F 109 H 16 137/87 93 02/17/19 23:00 97.2 F 80 16 118/72 94 02/17/19 18:52 98.0 F 85 16 139/75 93 02/17/19 16:00 98.1 F 88 20 147/81 93 02/17/19 12:00 97.2 F 82 20 136/77 94 Intake and Output 02/17/19 02/18/19 02/18/19 21:59 05:59 13:59 Intake Total 1250 0 Output Total 800 3125 Balance 450 -3125 Intake: Oral 1250 0 Output: Urine Catheter Amount 800 3125 Other: Urine Appearance Clear Clear Clear Urine Color Dark Yellow Pale Straw Urine Odor Strong Normal Weight 148.461 kg Medical - DS: Data Labs on day of discharge: Labs from last 24 hours 02/18/19 02/18/19 02/18/19 08:03 05:02 05:02 PT 21.1 H INR 1.8 H Sodium 136 Potassium 3.9 Chloride 94 L Carbon Dioxide 27 Anion Gap 15.0 BUN 14 Creatinine 0.7 GFR Calculation 94 Glucose 210 H Hemoglobin A1c 9.1 H Estim Average Glucose 214 Uric Acid 7.3 Calcium 9.0 Phosphorus 2.8 Magnesium 1.6 Total Bilirubin 0.6 Direct Bilirubin < 0.2 GGT 147 H AST 32 ALT 29 Alkaline Phosphatase 106 Lactate Dehydrogenase 230 Total Protein 6.1 Albumin 3.0 L Globulin 3.1 Albumin/Globulin Ratio 1.0 Triglycerides 118 Preliminary micro results at discharge 02/12/19 04:55 Wound Culture - Preliminary Buttock - Not Given Pseudomonas aeruginosa Pseudomonas aeruginosa#2 Escherichia coli Klebsiella pneumoniae Enterococcus species Coagulase negative staph Yeast Medical - DS: A/P - Patient/Caregiver Discharge Instructions Activity: increase activity as tolerated Diet: Consistent Carbohydrate Additional Instructions: Follow-up with your security investigator in 5-day 10 days for heart failure and atrial fibrillation and NSTEMI--See scheduled appointment. [facility] will begin on February 22. If you have any questions call Prescriptions: Blood-Glucose Meter [Advanced Glucose Meter] 1 each ACHS #1 each Ramipril [Altace] 1.25 mg PO BID #60 cap Insulin Glargine,Hum.rec.anlog [Basaglar Kwikpen U-100] See Protocol SQ ACHS #1 insuln.pen Carvedilol [Coreg] 12.5 mg PO BIDCC #60 tab Blood Sugar Diagnostic [Glucose Test Strip] 1 each ACHS #120 strip Insulin Glargine,Hum.rec.anlog [Lantus Solostar] 30 unit SQ DAILY #1 insuln.pen Other Amb Orders: Prothrombin Time INR Time Frame: 2 Days, Location: None Selected - Follow up Plan Follow up with: Heike Raman, JAILYN, PUFF IRONER [Primary Care Provider] - 02/26/19 11:30 am Efrain Blas MD [Physician] - (A referral has been sent to Dr. Blas; they will contact you at home to schedule an appointment.) Rajendra Dale [Physician] - 03/06/19 2:00 pm Disposition: Home Health Service Care Plan Goals: This discharge packet is provided to you to help keep you informed about your care. We want to ensure you get everything you need when you go home. You will also be receiving a call from us in a few days to follow up with you and see how you are doing since your discharge. This gives us a chance to listen to any concerns you maybe experiencing since you were discharged or any additional needs you may have, as well as providing us feedback on your care experience. We strive to always provide excellent care and thank you for your feedback and for choosing [facility]. Prognosis: Undetermined Rehab Potential: Fair Overall status at discharge: patient is progressing back to baseline Medical - DS: Qual - VTE Deep Vein Thrombosis/Pulmonary Embolism Present on Admission: No
[2019-02-18] MEDS ORDERED: WARFARIN 7.5 MG TABLET PO ONE (14:00)
[2019-02-18] MEDS: Dapagliflozin Propanediol [Farxiga] 10 MG Tablet PO SCH (14:02)
[2019-02-18] MEDS: sitaGLIPtin 100 MG TABLET PO SCH (14:12)
[2019-02-18] MEDS ORDERED: FUROSEMIDE 40 MG/4 ML VIAL IV SCH (16:00)
[2019-02-18] MEDS ORDERED: ALBUMIN HUMAN 12.5 GM/50 ML BAG IV ONE (16:00)
[2019-02-18] MEDS ORDERED: 0.9 % SODIUM CHLORIDE 250 ML IV ONE (18:55)
[2019-02-18] MEDS ORDERED: INSULIN GLARGINE, HUMAN 1 UNIT/0.01 ML SQ ONE (19:21)
[2019-02-19] MEDS: 0.9 % SODIUM CHLORIDE 250 ML IV SCH (01:50)
[2019-02-19] MEDS: 0.9 % SODIUM CHLORIDE 10 ML SYRINGE IV SCH ×3 (04:12→20:22)
[2019-02-19 06:51] LABS: INR 1.9 (0.9-1.1); Prothrombin Time 21.7 sec (11.9-14.5)
[2019-02-19 06:58] LABS: Bilirubin,Direct < 0.2 mg/dL (0.0-0.3)
[2019-02-19 07:00] LABS: ALT/SGPT 27 U/l (0-40); AST/SGOT 35 U/l (0-37); Albumin 3.2 gm/dL (3.2-5.2); Albumin/Globulin Ratio 1.1 (1.0-2.3); Alkaline Phosphatase 116 U/L (39-117); Bilirubin,Total 0.5 mg/dL (0.0-1.0); Blood Urea Nitrogen 17 mg/dl (8-23); Calcium 8.7 mg/dl (8.6-10.4); Carbon Dioxide 30 mmol/L (22-30); Chloride 95 mmol/L (96-108); Globulin 2.9 gm/dL (2.2-3.7); Glomerular Filtration Rate 94; Glucose 116 mg/dL (70-105); Lactate Dehydrogenase 271 U/L (94-250); Phosphorous 3.4 mg/dL (2.7-4.5); Triglycerides 107 mg/dl (<150); Uric Acid 7.9 mg/dL (2.5-8.0)
[2019-02-19] MEDS ORDERED: GABAPENTIN 300 MG CAPSULE PO PRN (07:00)
[2019-02-19] MEDS ORDERED: tiZANidine 4 MG TABLET PO PRN (07:03)
--- NOTE | 2019-02-19 07:05 | Internal Med Progress Note ---
Medical - PN: Subj Patient information: Note initiated : 02/19/19 at 7:02 am Service Date, if different from initiated Date: [] Patient: Luke Palacios 73 y/o M admitted on 02/12/19 for n/v. Chief Complaint: [] Interval history: This is a 73-year-old gentleman with morbid obesity, type 2 diabetes and atrial fibrillation admitted with A. fib RVR, septic shock and potential source of infection pneumonia versus sacral wound. He was started on DKA protocol with insulin drip and his blood sugar has been improved and started him on Lantus 30 units with the mealtime NovoLog and sliding scale 02/13-has had DKA improved anion gap closed and started him on long-acting insulin ordered an A1c level. His sacral wound culture growing heavy growth of gram-negative rods and gram-positive's and added vancomycin in addition to the Zosyn until we get the final report. 02/14-his culture reports urine culture pending, wound culture report pending and continued Zosyn and vancomycin for now. His A1c level is 7.1. Patient was started on Lantus 30 units, NovoLog 5 units with a meal and sliding scale his blood sugar has been controlled. Explained to the patient and family about the elevated troponin level and this most likely due to septic shock. His heart rate improved and he is on Coreg and Cardizem p.o. and once his heart rate is controlled better with the Cardizem p.o. can be changed to extended release once daily. Today patient is feeling fine adn does not have any new complaints. Denies fever, chills, nausea, or vomiting. No overnight events. Today patient still complains of diarrhea. He had loose stool 5 times over the past 24 hours. Denies nausea, vomiting, fever, chills, or abdominal pain. She also complains of dry mouth. No overnight events. Vital signs are stable. INR 1.9 today, Potassium of 3.1 Today patient is feeling better. 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 denies fever, chills, nausea, vomiting, or chest pain. Vital signs are stable White blood cells 4.7. Potassium level 2.7 No overnight events 02/18 Patient states he slept poorly last night because of noise and interruption. Patient felt sweaty this morning. Eyes any chest pain or nausea. Denies shortness of breath, has occasional cough first thing in morning Denies fevers. 02/19 States poor sleep last night from "all of the above", noise, interruptions,etc... Feels tired but otherwise no new complaints. Heart rate elevated this morning 120s to 130. Review of Systems: denies headache/fever/chills/nausea/vomiting/chest or abdominal pain/dyspnea/diarrhea. Otherwise see above. - Constitutional Vitals: Vital Signs Temp Pulse Resp BP Pulse Ox 97.6 F 102 H 20 139/81 92 02/19/19 03:50 02/19/19 03:50 02/19/19 03:50 02/19/19 03:50 02/19/19 03:50 Period Temp Pulse Resp BP Sys/Elizalde Pulse Ox Last 24 Hr 96.3 F-97.6 F 63-145 16-22 67-141/37-95 92-96 Intake and Output 02/18/19 02/19/19 02/19/19 21:59 05:59 13:59 Intake Total 1400 250 Output Total 2200 1875 Balance -800 -1625 Weight 150.048 kg Intake & Output: Intake & Output 02/18/19 02/19/19 02/19/19 21:59 05:59 13:59 Intake Total 1400 250 Output Total 2200 1875 Balance -800 -1625 Weight 150.048 kg Intake: Oral 1400 250 Output: Urine Catheter Amount 2200 850 Void Amount 1025 Other: Meal Breakfast Percent of Meal Consumed 100% Urine Appearance Sediment Clear Urine Color Straw Pale Urine Odor Normal Normal Exam: General: Alert, Awake, No acute Distress, obese Eyes/N/T: EOMI Head/Neck: neck supple, CV: irreg irreg and tachy, No murmurs, Pulm: decreased breath sounds (Bibasilar crackles). no wheezing Abd: soft, nontender, +BS x4 Ext: no clubbing/cyanosis, 1-2 on Left 2+ edema on Right - improved Neuro: Alert, no focal deficits, moves all extremities, Skin: warm/dry Medical - PN: Obj Da - Labs CBC & Chem 7: 02/17/19 04:20 02/19/19 05:14 Labs: Abnormal Lab Results 02/19/19 02/19/19 02/18/19 05:14 05:14 08:03 RBC Hgb Hct MCV RDW Lymph % (Auto) Lymph # (Auto) PT 21.7 H INR 1.9 H Potassium Chloride 95 L Creatinine Glucose 116 H Hemoglobin A1c 9.1 H GGT 157 H Lactate Dehydrogenase 271 H Total Protein Albumin 02/18/19 02/18/19 02/17/19 05:02 05:02 04:20 RBC Hgb Hct MCV RDW Lymph % (Auto) Lymph # (Auto) PT 21.1 H INR 1.8 H Potassium 3.1 L Chloride 94 L Creatinine 0.6 L Glucose 210 H 168 H Hemoglobin A1c GGT 147 H Lactate Dehydrogenase Total Protein 5.7 L Albumin 3.0 L 3.0 L 02/17/19 02/17/19 04:20 04:20 RBC 3.75 L Hgb 12.5 L Hct 38.4 L MCV 102.3 H RDW 14.8 H Lymph % (Auto) 13.0 L Lymph # (Auto) 1.1 L PT 21.9 H INR 1.9 H Potassium Chloride Creatinine Glucose Hemoglobin A1c GGT Lactate Dehydrogenase Total Protein Albumin Meds: Medications Acetaminophen (Tylenol) 650 mg PO Q4-6HP PRN; Protocol PRN Reason: Per Pain Protocol/Fever > 101 Last Admin: 02/18/19 17:57 Dose: 650 mg Documented by: Hydrocodone Bitart/Acetaminophen ([place] 5/325mg) 1 tab PO Q4-6HP PRN; Protocol PRN Reason: Per Pain Protocol Last Admin: 02/18/19 22:00 Dose: 1 tab Documented by: Allopurinol (Zylopriim) [address] [facility] Aspirin (Aspirin) [address] [facility] Atorvastatin Calcium (Lipitor) [address] [facility] Last Admin: 02/18/19 08:15 Dose: 40 mg Documented by: Cefepime HCl (Maxipime) [address] [facility] Last Admin: 02/18/19 22:01 Dose: 2 gm Documented by: Dextrose (Dextrose 50%) 0 ml IV UD PRN PRN Reason: Hypoglycemia Diagnostic Test (Pha) (Accu-Chek) [address] [facility] Last Admin: 02/18/19 22:08 Dose: 1 each Documented by: Duloxetine HCl (Cymbalta) [address] [facility] Gabapentin (Neurontin) [address] [facility] Last Admin: 02/18/19 22:00 Dose: 600 mg Documented by: Glucose (Insta-Glucose) 15 gm PO PRN PRN PRN Reason: Hypoglycemia Insulin Glargine (Lantus) [address] [facility] Last Admin: 02/18/19 08:16 Dose: 25 units Documented by: Insulin Human Lispro (Humalog) [address] [facility] Last Admin: 02/18/19 22:09 Dose: 5 units Documented by: Insulin Human Lispro (Humalog) [address] [facility]; Protocol Last Admin: 02/18/19 22:09 Dose: 3 units Documented by: Loperamide HCl (Imodium) 2 mg PO PRN PRN PRN Reason: Diarrhea Metoprolol Tartrate (Lopressor) 5 mg IV Q2HP PRN PRN Reason: Tachyarrhythmias HR>110 Non-Formulary Medication (Gabapentin) 600 mg PO TIDP PRN PRN Reason: Muscle Spasm Ondansetron HCl (Zofran) 4 mg IV Q4-6HP PRN; Protocol PRN Reason: Nausea And Vomiting Dapagliflozin Propanediol [Farxiga ] 10 Mg Tablet [address] [facility] Last Admin: 02/18/19 14:02 Dose: Not Given Documented by: Sitagliptin Phosphate (Januvia) [address] [facility] Last Admin: 02/18/19 14:12 Dose: 100 mg Documented by: Sodium Chloride (Saline Flush) [address] [facility] Last Admin: 02/19/19 04:12 Dose: 10 ml Documented by: Sotalol HCl (Betapace) [address] [facility] Last Admin: 02/18/19 22:01 Dose: 40 mg Documented by: Tizanidine HCl (Zanaflex) [address] [facility] Last Admin: 02/18/19 22:10 Dose: Not Given Documented by: Warfarin Sodium (Coumadin Per Pharmacy) [address] [facility] - ABG Interpretation ABG results: 02/12/19 02/12/19 02/12/19 13:30 16:27 20:26 ABG Methemoglobin 0.3 L 0.3 L 0.3 L VBG pH 7.35 7.45 H 7.42 VBG pCO2 42.5 34.5 L 41.2 VBG pO2 62 H 161 H 93 H VBG HCO3 23.1 L 23.5 L 26.2 VBG Total CO2 24.5 L 24.6 L 27.4 VBG O2 Saturation 86.2 H 92.7 H 92.4 H VBG Base Excess -2.4 L 0.1 1.6 02/13/19 02/13/19 00:15 04:16 ABG Methemoglobin 0.3 L 0.3 L VBG pH 7.43 H 7.43 H VBG pCO2 36.1 L 42.5 VBG pO2 101 H 83 H VBG HCO3 23.2 L 27.3 VBG Total CO2 24.3 L 28.6 VBG O2 Saturation 92.9 H 92.5 H VBG Base Excess -0.7 2.5 H Medical - PN: A/P - Time Spent With Patient Total time spent is greater than 50% in coordination of care (as documented) at patient's floor/unit and/or counseling patient: - Narrative A/P Narrative: Assessment: *Septic Shock: resolved *UTI (enterococcus): finished course abx *Sacral cellulitis(Pseudomonas): finished course abx -Follows with Dr. Blas *Hypokalemia: resolved *NSTEMI: felt d/t septic shock and Afib rvr, no chest pain *acute on chronic Systolic CHF: likely from fluid resuscitation and afib rvr. home lasix 40, coreg/ACEI. Improved -echo EF 25-30%. -good diuresis last several days *Afib RVR: on sotalol/coreg/warfarin -RVR this morning *HTN: *Morbid Obesity: *NEISHA on CPAP: *DKA (DM w/neuropathy): resolved -A1c 9.1 *PVD w/stents by Dr. Meek: *Deconditioning/debility/Poor functional status: wheelchair bound since April Plan: -PCU status for afib rvr -d/c abx -replete electrolytes prn -restarted Home sotalol, d/c'd dilt for poor EF, hold home coreg/ACEI for low BP, -change coreg to lopressor for HR control over BP -monitor weights,i/o's -statin -basal insulin, mealtime insulin and SSI, restart home dapagliflozin and sitaglipitin -[facility] upon d/c -f/u with cardiology outpt -ppx: warfarin per pharm CODE STATUS: DNI Medical - PN: Qual - VTE Deep Vein Thrombosis/Pulmonary Embolism Present on Admission: No
[2019-02-19] MEDS: sitaGLIPtin 100 MG TABLET PO SCH (07:52)
[2019-02-19] MEDS: SOTALOL 80 MG TABLET PO SCH ×2 (07:53→20:18)
[2019-02-19] MEDS: ATORVASTATIN 40 MG TABLET PO SCH (07:53)
[2019-02-19] MEDS: INSULIN LISPRO 1 UNIT/0.01 ML UNIT SQ SCH ×8 (08:41→20:31)
[2019-02-19] MEDS ORDERED: ALLOPURINOL 300 MG TABLET PO SCH (09:00)
[2019-02-19] MEDS ORDERED: DULoxetine 20 MG CAPSULE PO SCH (09:00)
[2019-02-19] MEDS ORDERED: ASPIRIN 81 MG TAB.CHEW PO SCH (09:00)
[2019-02-19] MEDS: INSULIN GLARGINE, HUMAN 1 UNIT/0.01 ML SQ SCH (09:10)
[2019-02-19] MEDS: Dapagliflozin Propanediol [Farxiga] 10 MG Tablet PO SCH (09:11)
[2019-02-19] MEDS ORDERED: METOPROLOL TARTRATE 5 MG/5 ML VIAL IV PRN (10:23)
[2019-02-19] MEDS ORDERED: DEXTROSE 31 GM ORAL.SUSP PO PRN (10:23)
[2019-02-19] MEDS ORDERED: LOPERAMIDE 2 MG CAPSULE PO PRN (10:23)
[2019-02-19] MEDS ORDERED: DEXTROSE 50% 50 ML VIAL IV PRN (10:23)
[2019-02-19] MEDS ORDERED: ACETAMINOPHEN 325 MG TABLET PO PRN (10:23)
[2019-02-19] MEDS ORDERED: ONDANSETRON 4 MG/2 ML VIAL IV PRN (10:23)
[2019-02-19] MEDS ORDERED: FUROSEMIDE 40 MG/4 ML VIAL IV ONE (10:31)
[2019-02-19] MEDS ORDERED: ALBUMIN HUMAN 12.5 GM/50 ML BAG IV ONE (10:31)
[2019-02-19] MEDS: HYDROcodone/APAP 5/325MG TABLET PO PRN ×2 (13:20→20:20)
[2019-02-19] MEDS: GABAPENTIN 300 MG CAPSULE PO PRN (13:20)
[2019-02-19] MEDS ORDERED: WARFARIN 7.5 MG TABLET PO ONE (14:00)
[2019-02-19] MEDS: tiZANidine 4 MG TABLET PO PRN ×2 (14:45→20:17)
[2019-02-19] MEDS: MELATONIN 3 MG TABLET PO SCH (20:19)
[2019-02-19] MEDS ORDERED: MELATONIN 3 MG TABLET PO SCH (21:00)
[2019-02-19] MEDS ORDERED: METOPROLOL TARTRATE 25 MG TABLET PO SCH (21:00)
[2019-02-20] MEDS: GABAPENTIN 300 MG CAPSULE PO PRN ×3 (01:45→23:55)
[2019-02-20] MEDS: HYDROcodone/APAP 5/325MG TABLET PO PRN ×4 (01:46→20:38)
[2019-02-20] MEDS: 0.9 % SODIUM CHLORIDE 10 ML SYRINGE IV SCH ×3 (05:24→20:38)
[2019-02-20 06:13] LABS: INR 2.2 (0.9-1.1); Prothrombin Time 23.9 sec (11.9-14.5)
[2019-02-20 06:37] LABS: ALT/SGPT 25 U/l (0-40); AST/SGOT 30 U/l (0-37); Albumin/Globulin Ratio 1.1 (1.0-2.3); Alkaline Phosphatase 127 U/L (39-117); Bilirubin,Direct < 0.2 mg/dL (0.0-0.3); Bilirubin,Total 0.6 mg/dL (0.0-1.0); Blood Urea Nitrogen 19 mg/dl (8-23); Calcium 8.9 mg/dl (8.6-10.4); Carbon Dioxide 29 mmol/L (22-30); Globulin 2.8 gm/dL (2.2-3.7); Glomerular Filtration Rate 94; Glucose 166 mg/dL (70-105); Lactate Dehydrogenase 223 U/L (94-250); Triglycerides 107 mg/dl (<150)
[2019-02-20 06:41] LABS: Chloride 94 mmol/L (96-108)
--- NOTE | 2019-02-20 07:40 | Internal Med Progress Note ---
Medical - PN: Subj Patient information: Note initiated : 02/20/19 at 7:35 am Service Date, if different from initiated Date: [] Patient: Luke Palacios 73 y/o M admitted on 02/12/19 for n/v. Chief Complaint: [] Interval history: This is a 73-year-old gentleman with morbid obesity, type 2 diabetes and atrial fibrillation admitted with A. fib RVR, septic shock and potential source of infection pneumonia versus sacral wound. He was started on DKA protocol with insulin drip and his blood sugar has been improved and started him on Lantus 30 units with the mealtime NovoLog and sliding scale 02/13-has had DKA improved anion gap closed and started him on long-acting insulin ordered an A1c level. His sacral wound culture growing heavy growth of gram-negative rods and gram-positive's and added vancomycin in addition to the Zosyn until we get the final report. 02/14-his culture reports urine culture pending, wound culture report pending and continued Zosyn and vancomycin for now. His A1c level is 7.1. Patient was started on Lantus 30 units, NovoLog 5 units with a meal and sliding scale his blood sugar has been controlled. Explained to the patient and family about the elevated troponin level and this most likely due to septic shock. His heart rate improved and he is on Coreg and Cardizem p.o. and once his heart rate is controlled better with the Cardizem p.o. can be changed to extended release once daily. Today patient is feeling fine adn does not have any new complaints. Denies fever, chills, nausea, or vomiting. No overnight events. Today patient still complains of diarrhea. He had loose stool 5 times over the past 24 hours. Denies nausea, vomiting, fever, chills, or abdominal pain. She also complains of dry mouth. No overnight events. Vital signs are stable. INR 1.9 today, Potassium of 3.1 Today patient is feeling better. 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 denies fever, chills, nausea, vomiting, or chest pain. Vital signs are stable White blood cells 4.7. Potassium level 2.7 No overnight events 02/18 Patient states he slept poorly last night because of noise and interruption. Patient felt sweaty this morning. Eyes any chest pain or nausea. Denies shortness of breath, has occasional cough first thing in morning Denies fevers. 02/19 States poor sleep last night from "all of the above", noise, interruptions,etc... Feels tired but otherwise no new complaints. Heart rate elevated this morning 120s to 130. 02/20 Always complains of sleep. Heart rate 80s and 90s overnight. No new events. CPAP intermittently throughout the night. Heart rate around 100s, blood pressure up this morning. We will switch him back from Lopressor to his home Coreg. Review of Systems: denies headache/fever/chills/nausea/vomiting/chest or abdominal pain/dyspnea/diarrhea. Otherwise see above. - Constitutional Vitals: Vital Signs Temp Pulse Resp BP Pulse Ox 98.1 F 98 H 16 136/82 91 02/20/19 04:00 02/19/19 12:00 02/20/19 00:01 02/20/19 07:16 02/20/19 07:16 Period Temp Pulse Resp BP Sys/Elizalde Pulse Ox Last 24 Hr 96.8 F-98.2 F 98-120 16- 90-163/51-101 90-97 Intake and Output 02/19/19 02/20/19 02/20/19 21:59 05:59 13:59 Intake Total 500 Output Total 1700 1200 Balance -1200 -1200 Weight 143.108 kg Intake & Output: Intake & Output 02/19/19 02/20/19 02/20/19 21:59 05:59 13:59 Intake Total 500 Output Total 1700 1200 Balance -1200 -1200 Weight 143.108 kg Intake: Oral 500 Output: Urine Catheter Amount 1700 1200 Other: Urine Appearance Clear Uretheral (Hyman) Clear Urine Color Bright Yellow Uretheral (Hyman) Pale Stool Size Moderate Stool Color Brown Stool Consistency Soft # Bowel Movements 1 # of times incontinent of 1 Bowels Exam: General: Alert, Awake, No acute Distress, obese Eyes/N/T: EOMI Head/Neck: neck supple, CV: irreg irreg and mildly tachy, No murmurs, Pulm: decreased breath sounds, no wheezing Abd: soft, nontender, +BS x4 Ext: no clubbing/cyanosis, 1 on Left 2+ edema on Right - improved Neuro: Alert, no focal deficits, moves all extremities, Skin: warm/dry Medical - PN: Obj Da - Labs CBC & Chem 7: 02/17/19 04:20 02/20/19 04:10 Labs: Abnormal Lab Results 02/20/19 02/20/19 02/19/19 04:10 04:10 05:14 PT 23.9 H INR 2.2 H Chloride 94 L 95 L Glucose 166 H 116 H Hemoglobin A1c GGT 169 H 157 H Alkaline Phosphatase 127 H Lactate Dehydrogenase 271 H Total Protein 5.8 L Albumin 3.0 L 02/19/19 02/18/19 02/18/19 05:14 08:03 05:02 PT 21.7 H INR 1.9 H Chloride 94 L Glucose 210 H Hemoglobin A1c 9.1 H GGT 147 H Alkaline Phosphatase Lactate Dehydrogenase Total Protein Albumin 3.0 L 02/18/19 05:02 PT 21.1 H INR 1.8 H Chloride Glucose Hemoglobin A1c GGT Alkaline Phosphatase Lactate Dehydrogenase Total Protein Albumin Meds: Medications Acetaminophen (Tylenol) 650 mg PO Q4-6HP PRN; Protocol PRN Reason: Per Pain Protocol/Fever > 101 Hydrocodone Bitart/Acetaminophen (Eckerman 5/325mg) 1 tab PO Q4-6HP PRN; Protocol PRN Reason: Per Pain Protocol Last Admin: 02/20/19 07:15 Dose: 1 tab Documented by: Allopurinol (Zylopriim) 300 mg PO DAILY [facility] Aspirin (Aspirin) 81 mg PO DAILY [facility] Atorvastatin Calcium (Lipitor) 40 mg PO DAILY [facility] Dextrose (Dextrose 50%) 0 ml IV UD PRN PRN Reason: Hypoglycemia Diagnostic Test (Pha) (Accu-Chek) 1 each FS [facility] Last Admin: 02/19/19 20:27 Dose: 1 each Documented by: Duloxetine HCl (Cymbalta) 20 mg PO DAILY [facility] Gabapentin (Neurontin) 600 mg PO TIDP PRN PRN Reason: Muscle Spasm Last Admin: 02/20/19 01:45 Dose: 600 mg Documented by: Glucose (Insta-Glucose) 15 gm PO PRN PRN PRN Reason: Hypoglycemia Insulin Glargine (Lantus) 25 unit SQ DAILY [facility] Insulin Human Lispro (Humalog) 5 unit SQ [facility] Last Admin: 02/19/19 20:30 Dose: 5 units Documented by: Insulin Human Lispro (Humalog) 0 unit SQ [facility]; Protocol Last Admin: 02/19/19 20:31 Dose: 4 units Documented by: Loperamide HCl (Imodium) 2 mg PO PRN PRN PRN Reason: Diarrhea Melatonin (Melatonin 3mg Tablet) 3 mg PO QHS [facility] Last Admin: 02/19/19 20:19 Dose: 3 mg Documented by: Metoprolol Tartrate (Lopressor) 5 mg IV Q2HP PRN PRN Reason: Tachyarrhythmias HR>110 Last Admin: 02/19/19 17:50 Dose: 5 mg Documented by: Metoprolol Tartrate (Lopressor) 12.5 mg PO BID [facility] Last Admin: 02/19/19 20:21 Dose: 12.5 mg Documented by: Ondansetron HCl (Zofran) 4 mg IV Q4-6HP PRN; Protocol PRN Reason: Nausea And Vomiting Dapagliflozin Propanediol [Farxiga ] 10 Mg Tab 1 dose PO DAILY [facility] Sitagliptin Phosphate (Januvia) 100 mg PO DAILY [facility] Sodium Chloride (Saline Flush) 10 ml IV Q8 [facility] Last Admin: 02/20/19 05:24 Dose: 10 ml Documented by: Sotalol HCl (Betapace) 40 mg PO BID [facility] Last Admin: 02/19/19 20:18 Dose: 40 mg Documented by: Tizanidine HCl (Zanaflex) 4 mg PO TID PRN PRN Reason: Spasms Last Admin: 02/19/19 20:17 Dose: 4 mg Documented by: Warfarin Sodium (Coumadin Per Pharmacy) 1 order PO UD [facility] - ABG Interpretation ABG results: 02/12/19 02/12/19 02/12/19 13:30 16:27 20:26 ABG Methemoglobin 0.3 L 0.3 L 0.3 L VBG pH 7.35 7.45 H 7.42 VBG pCO2 42.5 34.5 L 41.2 VBG pO2 62 H 161 H 93 H VBG HCO3 23.1 L 23.5 L 26.2 VBG Total CO2 24.5 L 24.6 L 27.4 VBG O2 Saturation 86.2 H 92.7 H 92.4 H VBG Base Excess -2.4 L 0.1 1.6 02/13/19 02/13/19 00:15 04:16 ABG Methemoglobin 0.3 L 0.3 L VBG pH 7.43 H 7.43 H VBG pCO2 36.1 L 42.5 VBG pO2 101 H 83 H VBG HCO3 23.2 L 27.3 VBG Total CO2 24.3 L 28.6 VBG O2 Saturation 92.9 H 92.5 H VBG Base Excess -0.7 2.5 H Medical - PN: A/P - Time Spent With Patient Total time spent is greater than 50% in coordination of care (as documented) at patient's floor/unit and/or counseling patient: - Narrative A/P Narrative: Assessment: *Septic Shock: resolved *UTI (enterococcus): finished course abx *Sacral cellulitis(Pseudomonas): finished course abx -Follows with Dr. Blas *Hypokalemia: resolved *NSTEMI: felt d/t septic shock and Afib rvr, no chest pain *acute on chronic Systolic CHF: likely from fluid resuscitation and afib rvr. home lasix 40, coreg/ACEI. Improved -echo EF 25-30%. -good diuresis *Afib RVR: on sotalol/coreg/warfarin -RVR yesteray morning, now improving *HTN: *Morbid Obesity: *NEISHA on CPAP: *DKA (DM w/neuropathy): resolved -A1c 9.1 *PVD w/stents by Dr. Meek: *Deconditioning/debility/Poor functional status: wheelchair bound since April Plan: -restarted Home sotalol, d/c'd dilt for poor EF -change back to home coreg from lopressor, ACEI originally held for low BP, restart as able -monitor weights,i/o's -lasix -home CPAP -statin -basal insulin (lantus 30), mealtime insulin and SSI, restart home dapagliflozin and sitaglipitin -[facility] upon d/c -f/u with cardiology outpt -ppx: warfarin per pharm CODE STATUS: DNI Medical - PN: Qual - VTE Deep Vein Thrombosis/Pulmonary Embolism Present on Admission: No
[2019-02-20] MEDS: ASPIRIN 81 MG TAB.CHEW PO SCH (08:13)
[2019-02-20] MEDS: ATORVASTATIN 40 MG TABLET PO SCH (08:13)
[2019-02-20] MEDS: INSULIN LISPRO 1 UNIT/0.01 ML UNIT SQ SCH ×8 (08:13→20:36)
[2019-02-20] MEDS: SOTALOL 80 MG TABLET PO SCH ×2 (08:30→20:37)
[2019-02-20] MEDS: ALLOPURINOL 300 MG TABLET PO SCH (08:31)
[2019-02-20] MEDS: sitaGLIPtin 100 MG TABLET PO SCH (08:31)
[2019-02-20] MEDS: tiZANidine 4 MG TABLET PO PRN ×2 (08:31→23:55)
[2019-02-20] MEDS: DULoxetine 20 MG CAPSULE PO SCH (08:37)
[2019-02-20] MEDS: Dapagliflozin Propanediol [Farxiga] 10 mg Tab PO SCH (08:39)
[2019-02-20] MEDS ORDERED: METOPROLOL TARTRATE 25 MG TABLET PO SCH (09:00)
[2019-02-20] MEDS ORDERED: INSULIN GLARGINE, HUMAN 1 UNIT/0.01 ML SQ SCH ×2 (09:00)
[2019-02-20] MEDS: CARVEDILOL 12.5 MG TABLET PO SCH ×2 (09:22→16:53)
[2019-02-20] MEDS ORDERED: ALBUMIN HUMAN 12.5 GM/50 ML BAG IV ONE (09:25)
[2019-02-20] MEDS ORDERED: FUROSEMIDE 40 MG/4 ML VIAL IV ONE (09:25)
[2019-02-20] MEDS ORDERED: LABETALOL 5 MG/ML ML IV PRN (09:56)
[2019-02-20] MEDS ORDERED: WARFARIN 7.5 MG TABLET PO ONE (14:00)
[2019-02-20] MEDS: MELATONIN 3 MG TABLET PO SCH (20:37)
[2019-02-21] MEDS: 0.9 % SODIUM CHLORIDE 10 ML SYRINGE IV SCH ×2 (05:46→14:15)
[2019-02-21] MEDS: HYDROcodone/APAP 5/325MG TABLET PO PRN (05:46)
[2019-02-21 06:51] LABS: INR 2.5 (0.9-1.1); Prothrombin Time 26.4 sec (11.9-14.5)
--- NOTE | 2019-02-21 08:05 | Internal Med Progress Note ---
Medical - PN: Subj Patient information: Note initiated : 02/21/19 at 7:59 am Service Date, if different from initiated Date: [] Patient: Luke Palacios 73 y/o M admitted on 02/12/19 for n/v. Chief Complaint: [] Interval history: This is a 73-year-old gentleman with morbid obesity, type 2 diabetes and atrial fibrillation admitted with A. fib RVR, septic shock and potential source of infection pneumonia versus sacral wound. He was started on DKA protocol with insulin drip and his blood sugar has been improved and started him on Lantus 30 units with the mealtime NovoLog and sliding scale 02/13-has had DKA improved anion gap closed and started him on long-acting insulin ordered an A1c level. His sacral wound culture growing heavy growth of gram-negative rods and gram-positive's and added vancomycin in addition to the Zosyn until we get the final report. 02/14-his culture reports urine culture pending, wound culture report pending and continued Zosyn and vancomycin for now. His A1c level is 7.1. Patient was started on Lantus 30 units, NovoLog 5 units with a meal and sliding scale his blood sugar has been controlled. Explained to the patient and family about the elevated troponin level and this most likely due to septic shock. His heart rate improved and he is on Coreg and Cardizem p.o. and once his heart rate is controlled better with the Cardizem p.o. can be changed to extended release once daily. Today patient is feeling fine adn does not have any new complaints. Denies fever, chills, nausea, or vomiting. No overnight events. Today patient still complains of diarrhea. He had loose stool 5 times over the past 24 hours. Denies nausea, vomiting, fever, chills, or abdominal pain. She also complains of dry mouth. No overnight events. Vital signs are stable. INR 1.9 today, Potassium of 3.1 Today patient is feeling better. 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 Vital signs are stable White blood cells 4.7. Potassium level 2.7 No overnight events 02/18 Patient states he slept poorly last night because of noise and interruption. Patient felt sweaty this morning. Eyes any chest pain or nausea. Denies shortness of breath, has occasional cough first thing in morning Denies fevers. 02/19 States poor sleep last night from "all of the above", noise, interruptions,etc... Feels tired but otherwise no new complaints. Heart rate elevated this morning 120s to 130. 02/20 Always complains of sleep. Heart rate 80s and 90s overnight. No new events. CPAP intermittently throughout the night. Heart rate around 100s, blood pressure up this morning. We will switch him back from Lopressor to his home Coreg. 02/21 Patient denies sleeping better even though he had no interruptions between 10 and 6. But states overall feeling better. Blood sugar was elevated last night but good this morning. Review of Systems: denies headache/fever/chills/nausea/vomiting/chest or abdominal pain/dyspnea/diarrhea. Otherwise see above. - Constitutional Vitals: Vital Signs Temp Pulse Resp BP Pulse Ox 98.9 F 87 20 160/84 92 02/20/19 20:00 02/20/19 20:00 02/20/19 20:00 02/20/19 20:00 02/20/19 20:00 Period Temp Pulse Resp BP Sys/Elizalde Pulse Ox Last 24 Hr 98 F-98.9 F 86-96 18-20 99-162/59-110 84-96 Intake and Output 02/20/19 02/21/19 02/21/19 21:59 05:59 13:59 Intake Total 1050 360 Output Total 980 550 Balance 70 -190 Weight 146.828 kg Intake & Output: Intake & Output 02/20/19 02/21/19 02/21/19 21:59 05:59 13:59 Intake Total 1050 360 Output Total 980 550 Balance 70 -190 Weight 146.828 kg Intake: IV 50 Oral 1000 360 Output: Urine Catheter Amount 980 550 Other: Meal Dinner Percent of Meal Consumed 100% Feeding Ability Independent Urine Appearance Sediment Uretheral (Hyman) Clear Urine Color Dark Yellow Uretheral (Hyman) Bright Yellow Urine Odor Normal Stool Size Large Stool Color Brown Stool Consistency Soft # of times incontinent of 1 Bowels Exam: General: Alert, Awake, No acute Distress, obese Eyes/N/T: EOMI Head/Neck: neck supple, CV: irreg irreg, No murmurs, Pulm: decreased breath sounds, no wheezing Abd: soft, nontender, +BS x4 Ext: no clubbing/cyanosis, 1 on Left 2+ edema on Right - improved Neuro: Alert, no focal deficits, moves all extremities, Skin: warm/dry Medical - PN: Obj Da - Labs CBC & Chem 7: 02/17/19 04:20 02/20/19 04:10 Labs: Abnormal Lab Results 02/21/19 02/20/19 02/20/19 04:00 04:10 04:10 PT 26.4 H 23.9 H INR 2.5 H 2.2 H Chloride 94 L Glucose 166 H Hemoglobin A1c GGT 169 H Alkaline Phosphatase 127 H Lactate Dehydrogenase Total Protein 5.8 L Albumin 3.0 L 02/19/19 02/19/19 02/18/19 05:14 05:14 08:03 PT 21.7 H INR 1.9 H Chloride 95 L Glucose 116 H Hemoglobin A1c 9.1 H GGT 157 H Alkaline Phosphatase Lactate Dehydrogenase 271 H Total Protein Albumin Meds: Medications Acetaminophen (Tylenol) 650 mg PO Q4-6HP PRN; Protocol PRN Reason: Per Pain Protocol/Fever > 101 Hydrocodone Bitart/Acetaminophen (Mccoll 5/325mg) 1 tab PO Q4-6HP PRN; Protocol PRN Reason: Per Pain Protocol Last Admin: 02/21/19 05:46 Dose: 1 tab Documented by: Allopurinol (Zylopriim) 300 mg PO DAILY [facility] Last Admin: 02/20/19 08:31 Dose: 300 mg Documented by: Aspirin (Aspirin) 81 mg PO DAILY [facility] Last Admin: 02/20/19 08:13 Dose: 81 mg Documented by: Atorvastatin Calcium (Lipitor) 40 mg PO DAILY [facility] Last Admin: 02/20/19 08:13 Dose: 40 mg Documented by: Carvedilol (Coreg) 12.5 mg PO BIDCC [facility] Last Admin: 02/20/19 16:53 Dose: 12.5 mg Documented by: Dextrose (Dextrose 50%) 0 ml IV UD PRN PRN Reason: Hypoglycemia Diagnostic Test (Pha) (Accu-Chek) 1 each FS [facility]CHS [facility] Last Admin: 02/20/19 20:21 Dose: 1 each Documented by: Duloxetine HCl (Cymbalta) 20 mg PO DAILY [facility] Last Admin: 02/20/19 08:37 Dose: 20 mg Documented by: Gabapentin (Neurontin) 600 mg PO TIDP PRN PRN Reason: Muscle Spasm Last Admin: 02/20/19 23:55 Dose: 600 mg Documented by: Glucose (Insta-Glucose) 15 gm PO PRN PRN PRN Reason: Hypoglycemia Insulin Glargine (Lantus) 30 unit SQ DAILY [facility] Last Admin: 02/20/19 08:12 Dose: 30 unit Documented by: Insulin Human Lispro (Humalog) 5 unit SQ [facility] Last Admin: 02/20/19 20:36 Dose: 5 units Documented by: Insulin Human Lispro (Humalog) 0 unit SQ ACHS [facility]; Protocol Last Admin: 02/20/19 20:36 Dose: 8 units Documented by: Labetalol HCl (Trandate) 0 mg IV Q2HP PRN PRN Reason: Hypertension Loperamide HCl (Imodium) 2 mg PO PRN PRN PRN Reason: Diarrhea Melatonin (Melatonin 3mg Tablet) 3 mg PO QHS [facility] Last Admin: 02/20/19 20:37 Dose: 3 mg Documented by: Metoprolol Tartrate (Lopressor) 5 mg IV Q2HP PRN PRN Reason: Tachyarrhythmias HR>110 Last Admin: 02/19/19 17:50 Dose: 5 mg Documented by: Ondansetron HCl (Zofran) 4 mg IV Q4-6HP PRN; Protocol PRN Reason: Nausea And Vomiting Dapagliflozin Propanediol [Farxiga ] 10 Mg Tab 1 dose PO DAILY [facility] Last Admin: 02/20/19 08:39 Dose: Not Given Documented by: Sitagliptin Phosphate (Januvia) 100 mg PO DAILY [facility] Last Admin: 02/20/19 08:31 Dose: 100 mg Documented by: Sodium Chloride (Saline Flush) 10 ml IV Q8 [facility] Last Admin: 02/21/19 05:46 Dose: 10 ml Documented by: Sotalol HCl (Betapace) 40 mg PO BID [facility] Last Admin: 02/20/19 20:37 Dose: 40 mg Documented by: Tizanidine HCl (Zanaflex) 4 mg PO TID PRN PRN Reason: Spasms Last Admin: 02/20/19 23:55 Dose: 4 mg Documented by: Warfarin Sodium (Coumadin Per Pharmacy) 1 order PO UD [facility] - ABG Interpretation ABG results: 02/12/19 02/12/1902/12/19 13:30 16:27 20:26 ABG Methemoglobin 0.3 L 0.3 L 0.3 L VBG pH 7.35 7.45 H 7.42 VBG pCO2 42.5 34.5 L 41.2 VBG pO2 62 H 161 H 93 H VBG HCO3 23.1 L 23.5 L 26.2 VBG Total CO2 24.5 L 24.6 L 27.4 VBG O2 Saturation 86.2 H 92.7 H 92.4 H VBG Base Excess -2.4 L 0.1 1.6 02/13/19 02/13/19 00:15 04:16 ABG Methemoglobin 0.3 L 0.3 L VBG pH 7.43 H 7.43 H VBG pCO2 36.1 L 42.5 VBG pO2 101 H 83 H VBG HCO3 23.2 L 27.3 VBG Total CO2 24.3 L 28.6 VBG O2 Saturation 92.9 H 92.5 H VBG Base Excess -0.7 2.5 H Medical - PN: A/P - Time Spent With Patient Total time spent is greater than 50% in coordination of care (as documented) at patient's floor/unit and/or counseling patient: - Narrative A/P Narrative: Assessment: *Septic Shock: resolved *UTI (enterococcus): finished course abx *Sacral cellulitis(Pseudomonas): finished course abx -Follows with Dr. Blas *Hypokalemia: resolved *NSTEMI: felt d/t septic shock and Afib rvr, no chest pain *acute on chronic Systolic CHF: likely from fluid resuscitation and afib rvr. home lasix 40, coreg/ACEI. Improved -echo EF 25-30%. -good diuresis *Afib RVR: on sotalol/coreg/warfarin -RVR yesteray morning, now improving *HTN: *Morbid Obesity: *NEISHA on CPAP: *DKA (DM w/neuropathy): resolved -A1c 9.1 *PVD w/stents by Dr. Meek: *Deconditioning/debility/Poor functional status: wheelchair bound since April Plan: -restarted Home sotalol, -cont coreg, ACEI originally held for low BP restart as able -monitor weights,i/o's -home lasix -home CPAP -statin -basal insulin (lantus 30), mealtime insulin and SSI, restart home dapagliflozin and sitaglipitin -[facility] upon d/c -f/u with cardiology outpt -ppx: warfarin per pharm CODE STATUS: DNI Medical - PN: Qual - VTE Deep Vein Thrombosis/Pulmonary Embolism Present on Admission: No
[2019-02-21] MEDS: INSULIN LISPRO 1 UNIT/0.01 ML UNIT SQ SCH ×4 (08:27→12:31)
[2019-02-21] MEDS: ATORVASTATIN 40 MG TABLET PO SCH (08:28)
[2019-02-21] MEDS: SOTALOL 80 MG TABLET PO SCH (08:28)
[2019-02-21] MEDS: DULoxetine 20 MG CAPSULE PO SCH (08:28)
[2019-02-21] MEDS: ASPIRIN 81 MG TAB.CHEW PO SCH (08:29)
[2019-02-21] MEDS: CARVEDILOL 12.5 MG TABLET PO SCH (08:29)
[2019-02-21] MEDS: ALLOPURINOL 300 MG TABLET PO SCH (08:29)
[2019-02-21] MEDS: sitaGLIPtin 100 MG TABLET PO SCH (08:29)
[2019-02-21] MEDS: Dapagliflozin Propanediol [Farxiga] 10 mg Tab PO SCH (08:31)
[2019-02-21] MEDS ORDERED: FUROSEMIDE 40 MG TABLET PO SCH (09:00)
[2019-02-21] MEDS ORDERED: CARVEDILOL 6.25 MG TABLET PO ONE (09:00)
[2019-02-21] MEDS ORDERED: RAMIPRIL 2.5 MG CAPSULE PO SCH (09:00)
[2019-02-21] MEDS ORDERED: INSULIN GLARGINE, HUMAN 1 UNIT/0.01 ML SQ SCH ×2 (09:00)
[2019-02-21] MEDS ORDERED: WARFARIN 5 MG TABLET PO ONE (14:00)
== END 2019-02-21 14:20 | disposition home health service (06) | DRG 871 ==
LOC: ED 01:25 → ICU 12:51 → MEDSUR 02-16 10:40 → ICU 02-19 09:13
PROVIDERS: ADMIT Internal Medicine; ATTEND Internal Medicine

== ENCOUNTER 2019-02-26 12:43 | Observation (INO) ==
--- NOTE | 2019-02-26 13:16 | Emergency Department Note ---
General Adult HPI - General Chief complaint: Weakness Stated complaint: possible sepsis Time Seen by Provider: 02/26/19 12:54 Source: patient Mode of arrival: wheelchair Limitations: no limitations - History of Present Illness HPI Narrative: 73-year-old male, debilitated and confined to a wheelchair for the last 3 years, and history of morbid obesity type 2 insulin-dependent diabetes mellitus chronic vascular disease, atrial fibrillation, and most recently discharged from [facility] 3 days ago for an approximately 1 week stay for urinary tract infection related to enterococcus treated with Unasyn, apparently seen in follow-up this morning by his primary care physician who had him sent back to the emergency department. Patient is vague about any acute symptoms but in general has continued to feel weak and possibly febrile at night. Blood sugars have been in the high 100 range. He describes no focal neurologic deficits syncope chest pain shortness of breath or abdominal pain, however there is pain and mottling in his legs a bit more in the right question new. - Related Data Home Medications Medication Instructions Recorded Confirmed cholecalciferol (vitamin D3) 125 5,000 unit PO QDAY tab 08/27/14 02/26/19 mcg (5,000 unit) tablet furosemide 40 mg tablet 40 mg PO DAILY tab 12/09/17 02/26/19 HYDROcodone/ACETAMINOPHEN [Lorcet 1 tab PO TIDP PRN 05/10/18 02/26/19 Hd 10-325 mg Tablet] Warfarin [Coumadin] 5 mg PO TUTHSA@1400 05/10/18 02/26/19 sitaGLIPtin [Januvia] 100 mg PO DAILY 05/10/18 02/26/19 DULoxetine [Cymbalta] 20 mg PO DAILY 02/12/19 02/26/19 Dapagliflozin Propanediol [Farxiga] 10 mg PO DAILY 02/12/19 02/26/19 Warfarin [Coumadin] 7.5 mg PO SUMOWEFR@1400 02/12/19 02/26/19 Allopurinol [Zylopriim] 300 mg PO DAILY 02/13/19 02/26/19 Gabapentin 600 mg PO TIDP PRN 02/13/19 02/26/19 Sotalol HCl [Sorine] 40 mg PO BID 02/13/19 02/26/19 tiZANidine HCL [Tizanidine HCl] 4 mg PO QID 02/13/19 02/26/19 CPAP Machine 1 each .ROUTE .MEDSUPPLY 02/19/19 02/26/19 Heavy Duty Wheelchair 1 each .ROUTE CONT 02/19/19 02/26/19 Hospital Bed 1 each .ROUTE CONT 02/19/19 02/26/19 Roho Cushion 1 each .ROUTE CONT 02/19/19 02/26/19 Pravastatin Sodium [Pravachol] 40 mg PO HS 02/26/19 02/26/19 Previous Rx's Medication Instructions Recorded Ramipril [Altace] 1.25 mg PO BID #60 cap 02/18/19 Carvedilol [Coreg] 12.5 mg PO BIDCC #60 tab 02/20/19 Blood Sugar Diagnostic [Glucose 1 each ACHS #120 strip 02/21/19 Test Strip] Blood-Glucose Meter [Advanced 1 each ACHS #1 each 02/21/19 Glucose Meter] Insulin Glargine,Hum.rec.anlog See Protocol SQ ACHS #1 insuln.pen 02/21/19 [Basaglar Kwikpen U-100] Allergies Allergy/AdvReac Type Severity Reaction Status Date / Time No Known Drug Allergies Allergy Verified 02/12/19 01:38 Review of Systems All systems ED: reviewed and negative except as stated. Constitutional: Reports: as per HPI Past Medical History - Past Medical History [facility] Narrative: See HPI - Social History smoking status: Never smoker Physical Exam Chronically debilitated alert not acutely ill or septic appearing elderly white male morbidly obese in no immediate acute distress vital signs are unremarkable. GCS of 15 Limitations: no limitations General appearance: alert Head: atraumatic, normocephalic Eye: Present: normal appearance, PERRL ENT: Present: normal exam Neck: Present: normal inspection, full ROM Chest: Present: normal inspection, symmetric chest wall rise Respiratory: Present: normal lung sounds bilaterally. Absent: respiratory distress, rales/crackles, wheezes Cardiovascular: Present: regular rate, normal rhythm Abdominal: Present: soft, normal bowel sounds. Absent: distention, tenderness, guarding, rebound Extremities: Present: full ROM, tenderness, cyanosis. Absent: normal capillary refill (There is bilateral brawny skin changes present in both calves. No signs of trauma. The dorsalis pedis and posterior tibial pulses are definitely diminished bilaterally but still barely palpable. He has diminished capillary refill bilaterally to about 5 to 7 seconds bilaterally.), pedal edema, pretibial edema Skin: Present: warm, dry (Except for the lower extremities where his calves and toes are cool) Course Course Narrative: Clinical diagnosis is dehydration rule out recurrent urinary tract infection. Regards the legs there is no sign of an acute arterial occlusion but he has chronic severe peripheral vascular disease most likely, nonetheless we may need to pursue a CT angiogram to rule out an occlusion in his case. Vital Signs Temperature 97.4 F 02/26/19 12:44 Pulse Rate 60 02/26/19 12:44 Respiratory Rate 24 H 02/26/19 12:44 Pulse Oximetry (%) 96 02/26/19 12:44 Temperature 97.4 F 02/26/19 12:44 Pulse Rate 66 02/26/19 17:16 Respiratory Rate 17 02/26/19 17:16 Blood Pressure 147/111 02/26/19 17:16 Pulse Oximetry (%) 93 02/26/19 17:16 Medical Decision Making - [facility] Narrative Medical decision making narrative: 2:30 PM: Patient's status seems a bit better the pulses in his feet and cyanosis have improved, however his white cell count is still 15.4 I will empirically give him Unasyn for what may be a continuing UTI. 4 P.m.: Clinically patient's doing better but still feels weak enough to want a stay in the hospital. He is concerned about continuing urinary tract infection. Circulation in his legs have has improved greatly so the problem most likely is a chronic arterial insufficiency in the legs not acute. Therefore CT scan will not be required. In terms of his lab evaluation his white count is moderately elevated at 15.4 but his lactate is still high at 3.8 and this probably will allow continued admission for IV hydration and perhaps antibiotics. I will contact hospitalist Dr. Ramirez at this time. [address] Ramirez agrees to admit the patient for observation in addition I will give him a running IV of D5 normal saline at 250 cc an hour and repeat the lactate. His prognosis is good. - Lab Data Result diagrams: 02/26/19 13:10 02/26/19 13:10 Lab Results 02/26/19 02/26/19 02/26/19 Range/Units 13:10 13:10 13:10 WBC 15.4 H (4.5-11.0) K/mcL RBC 4.72 (4.50-5.90) M/mcL Hgb 15.6 (13.5-16.5) g/dL Hct 48.2 (41.0-55.0) % MCV 102.0 H (80.0-100.0) fL MCH 32.9 (26.0-34.0) pg MCHC 32.3 (31.0-36.0) g/dL RDW 15.3 H (11.5-14.5) % Plt Count 275 (140-440) K/mcL MPV 8.1 (7.4-10.4) fL Total Counted 100 Seg Neutrophils % 75 (38-78) % Band Neutrophils % 6 (0-10) % Lymphocytes % 7 L (15-49) % Monocytes % (Manual) 8 (1-12) % Reactive Lymphocytes 4 H (0-2) % Platelet Estimate Normal (NORMAL) RBC Morphology Abnormal (NORMAL) Anisocytosis Few A (NONE SEEN) Macrocytosis 1+ A (NONE SEEN) PT (11.9-14.5) sec INR (0.9-1.1) VBG Lactic Acid 3.9 H (0.5-2.0) mmol/L Sodium 136 (133-145) mmol/L Potassium 4.0 (3.3-5.1) mmol/L Chloride 91 L (96-108) mmol/L Carbon Dioxide 27 (22-30) mmol/L Anion Gap 18.0 H (8-16) BUN 11 (8-23) mg/dl Creatinine 0.9 (0.7-1.2) mg/dl GFR Calculation 84 Glucose 239 H (70-105) mg/dL Calcium 9.2 (8.6-10.4) mg/dl Total Bilirubin 0.8 (0.0-1.0) mg/dL AST 22 (0-37) U/l ALT 17 (0-40) U/l Alkaline Phosphatase 169 H (39-117) U/L Troponin T (0-0.03) ng/ml NT-Pro-B Natriuret Pep (0-125) pg/ml Total Protein 7.1 (5.9-8.4) gm/dL Albumin 3.7 (3.2-5.2) gm/dL Globulin 3.4 (2.2-3.7) gm/dL Albumin/Globulin Ratio 1.1 (1.0-2.3) Urine Color Urine Appearance Urine pH (5.0-9.0) Ur Specific [place] (1.000-1.035) Urine Protein (NEG) mg/dL Urine Glucose (UA) (NEG) mg/dL Urine Ketones (NEG) mg/dL Urine Occult Blood (<0.03) mg/dL Urine Nitrate (NEG) Urine Bilirubin (NEG) mg/dL Urine Urobilinogen (NEG) mg/dL Ur Leukocyte Esterase (NEG) /uL Urine RBC (0-1) /hpf Urine WBC (0-4) /hpf Ur Squamous Epith Cells (0-4) /hpf Urine Bacteria (0) /hpf Hyaline Casts (0-2) /lpf Urine Mucus (0) /hpf Urine Yeast (Budding) (0) /hpf Ur Culture Indicated? 02/26/19 02/26/19 02/26/19 Range/Units 13:10 13:15 13:15 WBC (4.5-11.0) K/mcL RBC (4.50-5.90) M/mcL Hgb (13.5-16.5) g/dL Hct (41.0-55.0) % MCV (80.0-100.0) fL MCH (26.0-34.0) pg MCHC (31.0-36.0) g/dL RDW (11.5-14.5) % Plt Count (140-440) K/mcL MPV (7.4-10.4) fL Total Counted Seg Neutrophils % (38-78) % Band Neutrophils % (0-10) % Lymphocytes % (15-49) % Monocytes % (Manual) (1-12) % Reactive Lymphocytes (0-2) % Platelet Estimate (NORMAL) RBC Morphology (NORMAL) Anisocytosis (NONE SEEN) Macrocytosis (NONE SEEN) PT 43.2 H (11.9-14.5) sec INR 4.7 H (0.9-1.1) VBG Lactic Acid (0.5-2.0) mmol/L Sodium (133-145) mmol/L Potassium (3.3-5.1) mmol/L Chloride (96-108) mmol/L Carbon Dioxide (22-30) mmol/L Anion Gap (8-16) BUN (8-23) mg/dl Creatinine (0.7-1.2) mg/dl GFR Calculation Glucose (70-105) mg/dL Calcium (8.6-10.4) mg/dl Total Bilirubin (0.0-1.0) mg/dL AST (0-37) U/l ALT (0-40) U/l Alkaline Phosphatase (39-117) U/L Troponin T 0.03 (0-0.03) ng/ml NT-Pro-B Natriuret Pep 75611.0 H (0-125) pg/ml Total Protein (5.9-8.4) gm/dL Albumin (3.2-5.2) gm/dL Globulin (2.2-3.7) gm/dL Albumin/Globulin Ratio (1.0-2.3) Urine Color Urine Appearance Urine pH (5.0-9.0) Ur Specific [place] (1.000-1.035) Urine Protein (NEG) mg/dL Urine Glucose (UA) (NEG) mg/dL Urine Ketones (NEG) mg/dL Urine Occult Blood (<0.03) mg/dL Urine Nitrate (NEG) Urine Bilirubin (NEG) mg/dL Urine Urobilinogen (NEG) mg/dL Ur Leukocyte Esterase (NEG) /uL Urine RBC (0-1) /hpf Urine WBC (0-4) /hpf Ur Squamous Epith Cells (0-4) /hpf Urine Bacteria (0) /hpf Hyaline Casts (0-2) /lpf Urine Mucus (0) /hpf Urine Yeast (Budding) (0) /hpf Ur Culture Indicated? 02/26/19 Range/Units 14:13 WBC (4.5-11.0) K/mcL RBC (4.50-5.90) M/mcL Hgb (13.5-16.5) g/dL Hct (41.0-55.0) % MCV (80.0-100.0) fL MCH (26.0-34.0) pg MCHC (31.0-36.0) g/dL RDW (11.5-14.5) % Plt Count (140-440) K/mcL MPV (7.4-10.4) fL Total Counted Seg Neutrophils % (38-78) % Band Neutrophils % (0-10) % Lymphocytes % (15-49) % Monocytes % (Manual) (1-12) % Reactive Lymphocytes (0-2) % Platelet Estimate (NORMAL) RBC Morphology (NORMAL) Anisocytosis (NONE SEEN) Macrocytosis (NONE SEEN) PT (11.9-14.5) sec INR (0.9-1.1) VBG Lactic Acid (0.5-2.0) mmol/L Sodium (133-145) mmol/L Potassium (3.3-5.1) mmol/L Chloride (96-108) mmol/L Carbon Dioxide (22-30) mmol/L Anion Gap (8-16) BUN (8-23) mg/dl Creatinine (0.7-1.2) mg/dl GFR Calculation Glucose (70-105) mg/dL Calcium (8.6-10.4) mg/dl Total Bilirubin (0.0-1.0) mg/dL AST (0-37) U/l ALT (0-40) U/l Alkaline Phosphatase (39-117) U/L Troponin T (0-0.03) ng/ml NT-Pro-B Natriuret Pep (0-125) pg/ml Total Protein (5.9-8.4) gm/dL Albumin (3.2-5.2) gm/dL Globulin (2.2-3.7) gm/dL Albumin/Globulin Ratio (1.0-2.3) Urine Color Yellow Urine Appearance Clear Urine pH 7.0 (5.0-9.0) Ur Specific [place] 1.016 (1.000-1.035) Urine Protein 30 A (NEG) mg/dL Urine Glucose (UA) 50 A (NEG) mg/dL Urine Ketones 5/tr A (NEG) mg/dL Urine Occult Blood Neg (<0.03) mg/dL Urine Nitrate Neg (NEG) Urine Bilirubin Neg (NEG) mg/dL Urine Urobilinogen Neg (NEG) mg/dL Ur Leukocyte Esterase Neg (NEG) /uL Urine RBC 0 (0-1) /hpf Urine WBC 0 (0-4) /hpf Ur Squamous Epith Cells < 1 (0-4) /hpf Urine Bacteria 0 (0) /hpf Hyaline Casts 14 H (0-2) /lpf Urine Mucus Few (0) /hpf Urine Yeast (Budding) Mod A (0) /hpf Ur Culture Indicated? Yes - EKG Data EKG #1 EKG results narrative: Chronic atrial fibrillation with ventricular response of 111. Disposition Pt seen by TOOLER/PA only: No Clinical Impression: Infection Disposition: Xfer As Inpt ([facility]) Condition: Good Referrals: Heike Raman, JAILYN, VP SECURITY [Primary Care Provider] -
[2019-02-26] MEDS ORDERED: 0.9 % SODIUM CHLORIDE 1,000 ML IV ONE (13:26)
--- NOTE | 2019-02-26 13:43 | XRay Report ---
CLINICAL INFORMATION: Decreased breath sounds, possible sepsis COMPARISON: 02/12/2019 FINDINGS: Moderate cardiomegaly is unchanged. Mediastinum and pulmonary vessels are normal normal. Moderate consolidated atelectasis or, less likely, infiltrate has developed in the left base (retrocardiac region). Small left pleural effusion noted. IMPRESSION: Moderate consolidated atelectasis or, less likely, infiltrate in the left lower lobe - new. Small effusion Interpreted and Authenticated by: Philippe Edwards 02/26/19
[2019-02-26 13:54] LABS: Hematocrit 48.2 % (41.0-55.0); Hemoglobin 15.6 g/dL (13.5-16.5); Mean Corpuscular HGB Conc 32.3 g/dL (31.0-36.0); Mean Platelet Volume 8.1 fL (7.4-10.4); Platelet Count 275 K/mcL (140-440); RBC 4.72 M/mcL (4.50-5.90); Red Cell Distribution Width 15.3 % (11.5-14.5); WBC 15.4 K/mcL (4.5-11.0)
[2019-02-26] MEDS: HYDROmorphone 2 MG/ML VIAL IV PRN ×2 (14:03→19:17)
[2019-02-26 14:13] LABS: ALT/SGPT 17 U/l (0-40); AST/SGOT 22 U/l (0-37); Albumin 3.7 gm/dL (3.2-5.2); Albumin/Globulin Ratio 1.1 (1.0-2.3); Alkaline Phosphatase 169 U/L (39-117); Bilirubin,Total 0.8 mg/dL (0.0-1.0); Blood Urea Nitrogen 11 mg/dl (8-23); Calcium 9.2 mg/dl (8.6-10.4); Carbon Dioxide 27 mmol/L (22-30); Chloride 91 mmol/L (96-108); Globulin 3.4 gm/dL (2.2-3.7); Glomerular Filtration Rate 84; Glucose 239 mg/dL (70-105)
[2019-02-26] MEDS ORDERED: PIPERACILLIN SODIUM/TAZOBACTAM 3.375 GM in DEXTROSE 5% IN WATER 50 ML IV ONE (14:45)
[2019-02-26 14:50] LABS: Anisocytosis FEW (NONE SEEN); Band Neutrophils % 6 % (0-10); Lymphocytes % 7 % (15-49); Macrocytosis 1+ (NONE SEEN); Monocytes % (Manual) 8 % (1-12); Platelet Estimate NORMAL (NORMAL); RBC Morphology ABNORMAL (NORMAL); Reactive Lymphocytes 4 % (0-2); Segmented Neutrophils % 75 % (38-78)
[2019-02-26 15:03] LABS: Appearance,Urine CLEAR; Bacteria,Urine 0 /hpf (0); Bilirubin,Urine NEG (NEG); Color,Urine YELLOW; Culture Indicated,Urine YES; Glucose,Urine (UA) 50 mg/dL (NEG); Ketones,Urine 5/TR mg/dL (NEG); Leukocyte Esterase,Urine NEG /uL (NEG); Mucus,Urine FEW /hpf (0); Nitrate,Urine NEG (NEG); Protein,Urine 30 mg/dL (NEG); Specific Gravity,Urine 1.016 (1.000-1.035); Urine Blood NEG mg/dL (<0.03); Urine Budding Yeast MOD /hpf (0); Urine Hyaline Cast 14 /lpf (0-2); Urine RBC 0 /hpf (0-1); Urine Squamous Epithelial Cell < 1 /hpf (0-4); Urine WBC 0 /hpf (0-4); Urobilinogen,Urine NEG (NEG)
[2019-02-26] MEDS ORDERED: DEXTROSE 5%-NS 1,000 ML IV SCH (17:00)
[2019-02-26 17:04] LABS: INR 4.7 (0.9-1.1); Prothrombin Time 43.2 sec (11.9-14.5)
--- NOTE | 2019-02-26 19:23 | Internal Med History&Physical ---
Medical - H&P: [facility] Patient information: Note initiated : 02/26/19 at 7:23 pm Service Date, if different from initiated Date: [] Patient: Luke Palacios a 73 y/o M admitted on for possible sepsis. Chief Complaint: Sweating, weak, sent in by PCP History of present illness: Mr. Palacios is a 73 year old M with extensive past medical history, including type 2 diabetes, atrial fibrillation intermittent RVR, morbid obesity with impaired mobility and general wheelchair-bound requiring Trisha lift, recent admission for sepsis from enterococcal UTI who presents from his PCPs office. He was being seen in follow-up, was noted to be sweaty and after evaluation sent to the ED. He notes that since his last discharge that he has been sweating at night in bed. Not so much of the day. He has had no shaking chills. He has not taken his temperature at home. Reports since his discharge he has had decreased p.o. intake. Denies any current headache, myalgias, rhinorrhea. In the emergency department evaluation included a white count of 15,000 and a lactate of 3.8. Radiograph did not reveal new infiltrates. Urine analysis was negative for infection. On further questioning, he states this morning he had coughing and gagging while he is eating toast. His caregiver had fixed to that for him. Denies any subsequent dyspnea or chest tightness or squeezing. He notes he occasionally coughs when he eats. Denies any abdominal pain. No nausea or vomiting. No dysuria. He has intermittently loose stools, however he has had no loose stools in the last 2 days. He is completed his antibiotic therapy. Patient is being hospitalized for observation and rule out sepsis as the etiology of his leukocytosis and lactic acidosis is not immediately apparent. All systems: reviewed and no additional remarkable complaints except as stated Medical - H&P: PM Medical history: Atrial fibrillation (Chronic) Morbid obesity (Chronic) Hypertension (Chronic) Hyperlipidemia (Chronic) Hormone replacement therapy (Chronic) Gout (Chronic) Diabetes mellitus, type II (Chronic) Coronary artery disease (Chronic) Congestive heart failure (Chronic) Pressure ulcer of foot (Chronic) Anticoagulant long-term use (Chronic) Lumbar disc disease (Chronic) Carpal tunnel syndrome (Chronic) Hypogonadism in male (Chronic) Peripheral vascular disease (Chronic) Testicular hypofunction (Chronic) Obstructive sleep apnea (Chronic) History of colonic polyps (Chronic) MRSA (methicillin resistant staph aureus) culture positive (Resolved) Ulcer of lower extremity due to diabetes mellitus (Resolved) Surgical history: H/O vascular surgery (Resolved) History of cardioversion (Resolved) History of total right knee replacement (Resolved) Pertinent family history: Father Family history of coronary artery bypass surgery Acute myocardial infarction Mother Type 2 diabetes mellitus Cardiac disease Cerebrovascular accident Social history: Lives at home. Has caregiver. Does not smoke or drink alcohol. Medical - H&P: Meds Home Medications Medication Instructions Recorded Confirmed Type cholecalciferol (vitamin D3) 125 5,000 unit PO QDAY tab 08/27/14 02/26/19 History mcg (5,000 unit) tablet furosemide 40 mg tablet 40 mg PO DAILY tab 12/09/17 02/26/19 History HYDROcodone/ACETAMINOPHEN [Lorcet 1 tab PO TIDP PRN 05/10/18 02/26/19 History Hd 10-325 mg Tablet] Warfarin [Coumadin] 5 mg PO TUTHSA@1400 05/10/18 02/26/19 History sitaGLIPtin [Januvia] 100 mg PO DAILY 05/10/18 02/26/19 History Dapagliflozin Propanediol [Farxiga] 10 mg PO DAILY 02/12/19 02/26/19 History Warfarin [Coumadin] 7.5 mg PO SUMOWEFR@1400 02/12/19 02/26/19 History Allopurinol [Zylopriim] 300 mg PO DAILY 02/13/19 02/26/19 History Gabapentin 600 mg PO TIDP PRN 02/13/19 02/26/19 History Sotalol HCl [Sorine] 40 mg PO BID 02/13/19 02/26/19 History tiZANidine HCL [Tizanidine HCl] 4 mg PO QID PRN 02/13/19 02/13/19 History Ramipril [Altace] 1.25 mg PO BID #60 cap 02/18/19 02/26/19 Rx CPAP Machine 1 each .ROUTE .MEDSUPPLY 02/19/19 02/26/19 History Heavy Duty Wheelchair 1 each .ROUTE CONT 02/19/19 02/26/19 History Hospital Bed 1 each .ROUTE CONT 02/19/19 02/26/19 History Roho Cushion 1 each .ROUTE CONT 02/19/19 02/26/19 History Carvedilol [Coreg] 12.5 mg PO BIDCC #60 tab 02/20/19 02/26/19 Rx Blood Sugar Diagnostic [Glucose 1 each [facility] #120 strip 02/21/19 02/26/19 Rx Test Strip] Blood-Glucose Meter [Advanced 1 each ACHS #1 each 02/21/19 02/26/19 Rx Glucose Meter] Insulin Glargine,Hum.rec.anlog See Protocol SQ ACHS #1 insuln.pen 02/21/19 Rx [Basaglar Kwikpen U-100] DULoxetine HCL [Duloxetine HCl] 20 mg PO DAILY 02/26/19 02/26/19 History Insulin Glargine,Hum.rec.anlog 30 unit SQ DAILY 02/26/19 02/26/19 History [Basaglar Kwikpen U-100] Pravastatin Sodium [Pravachol] 40 mg PO DAILY 02/26/19 02/26/19 History Allergies Allergy/AdvReac Type Severity Reaction Status Date / Time No Known Drug Allergies Allergy Verified 02/26/19 21:24 Medical - H&P: Exam - Constitutional Vitals: Temp Pulse Resp BP Pulse Ox 97.4 F 64 17 146/83 90 02/26/19 12:44 02/26/19 19:21 02/26/19 19:21 02/26/19 19:21 02/26/19 19:21 Exam: GENERAL: Alert, oriented, non-toxic, not ill-appearing HEENT: PERRL at 3 mm, conjunctiva clear, no scleral icterus. Hearing grossly intact. Oropharynx with moist mucous membranes, no pharyngeal erythema or exudate. Tongue midline, palate rises symmetrically. NECK: Supple, obese, no meningismus, no thyromegaly appreciated RESPIRATORY: Breath sounds clear on the right, mildly diminished left base, no wheezes or rales or rhonchi. No accessory muscle use. CARDIOVASCULAR: Irregular, distant, no murmur or gallop appreciated. No peripheral edema. Carotid pulses 2+ GI: Abdomen obese, soft, nontender, no guarding or rebound. Bowel sounds are present. MUSCULOSKELETAL: No joint erythema or swelling. Extremities are cool to the touch bilaterally. SKIN: Scattered angiomata and pigmented changes in the bilateral lower extremities. NEUROLOGIC: Cranial nerves II through XII grossly intact. Muscle mass diminished. Strength is 5-/5 with generalized weakness. Sensation intact to light touch bilaterally. PSYCHIATRIC: Alert, oriented x3, mood and affect congruent with situation, displays decreased insight to his health conditions. Medical - H&P: Reslt - Labs CBC & Chem 7: 02/26/19 13:10 02/26/19 13:10 Labs: Short CBC 02/26/19 Range/Units 13:10 WBC 15.4 H (4.5-11.0) K/mcL Hgb 15.6 (13.5-16.5) g/dL Hct 48.2 (41.0-55.0) % Plt Count 275 (140-440) K/mcL BMP 02/26/19 13:10 Sodium 136 Potassium 4.0 Chloride 91 L Carbon Dioxide 27 BUN 11 Creatinine 0.9 Glucose 239 H Calcium 9.2 Cardiac Enzymes 02/26/19 Range/Units 13:15 Troponin T 0.03 (0-0.03) ng/ml Liver Function 02/26/19 Range/Units 13:10 Total Bilirubin 0.8 (0.0-1.0) mg/dL AST 22 (0-37) U/l ALT 17 (0-40) U/l Alkaline Phosphatase 169 H (39-117) U/L Albumin 3.7 (3.2-5.2) gm/dL Urine 02/26/19 Range/Units 14:13 Urine Color Yellow Urine Appearance Clear Urine pH 7.0 (5.0-9.0) Ur Specific [place] 1.016 (1.000-1.035) Urine Protein 30 A (NEG) mg/dL Urine Glucose (UA) 50 A (NEG) mg/dL - EKG Data -: EKG Reviewed by Myself (Atrial fibrillation, rate of 111, inc left bundle, precordial [id number]) - Imaging and Cardiology Chest x-ray Status: image reviewed by me Additional comments: IMPRESSION: Moderate consolidated atelectasis or, less likely, infiltrate in the left lower lobe - new. Small effusion Medical - H&P: A/P - Narrative A/P Narrative: 73-year-old male with multiple medical problems sent in from clinic with history of sweats, apparently looking ill. Found to have leukocytosis and elevated lactate. Elevated lactate, leukocytosis. No focal source of infection identified. Urinalysis shows resolution of enterococcal UTI. Chronic basilar chest x-ray changes. Given his tenuous health, concern for developing sepsis. Other etiologies may be aspiration pneumonitis with history of coughing and gagging while eating a piece of toast this morning. He currently has no pulmonary symptoms and is saturating well. This may have been an inflammatory reaction. Plan: Observation Follow-up cultures Withhold antibiotics for now Recheck lactate after fluids Follow CBC in morning Type 2 diabetes. Continue home Lantus, diabetic diet, sliding scale insulin Obstructive sleep apnea. CPAP Atrial fibrillation. Initially with mild RVR, subsequently rate controlled. Continue home regimen Continue warfarin for stroke prophylaxis Deconditioning/poor functional status. States he has been wheelchair-bound since admission back in April Prophylaxis: Warfarin for A. fib
[2019-02-26] MEDS ORDERED: SENNOSIDES 1 TABLET PO PRN (19:54)
[2019-02-26] MEDS ORDERED: LACTULOSE 20 GM/30 ML ORAL.SOL PO PRN (19:54)
[2019-02-26] MEDS ORDERED: DEXTROSE 50% 50 ML VIAL IV PRN (19:54)
[2019-02-26] MEDS ORDERED: GABAPENTIN 300 MG CAPSULE PO PRN (19:54)
[2019-02-26] MEDS ORDERED: ONDANSETRON 4 MG/2 ML VIAL IV PRN (19:54)
[2019-02-26] MEDS ORDERED: DEXTROSE 31 GM ORAL.SUSP PO PRN (19:54)
[2019-02-26] MEDS ORDERED: ACETAMINOPHEN 325 MG TABLET PO PRN (19:54)
[2019-02-26] MEDS ORDERED: SIMVASTATIN 20 MG TABLET PO SCH (21:00)
[2019-02-26] MEDS ORDERED: PRAVASTATIN 20 MG TABLET PO SCH (21:00)
[2019-02-26] MEDS ORDERED: RAMIPRIL 2.5 MG CAPSULE PO SCH (21:00)
[2019-02-26] MEDS: INSULIN LISPRO 1 UNIT/0.01 ML UNIT SQ SCH (21:55)
[2019-02-26] MEDS: 0.9 % SODIUM CHLORIDE 10 ML SYRINGE IV SCH (21:56)
[2019-02-26] MEDS: tiZANidine 4 MG TABLET PO SCH (22:02)
[2019-02-26] MEDS: SOTALOL 80 MG TABLET PO SCH (22:02)
[2019-02-26] MEDS: DOCUSATE SODIUM 100 MG CAPSULE PO SCH (22:02)
[2019-02-27] MEDS: HYDROcodone/APAP 10/325MG TABLET PO PRN ×3 (01:00→11:51)
[2019-02-27] MEDS: 0.9 % SODIUM CHLORIDE 10 ML SYRINGE IV SCH ×2 (04:17→06:10)
[2019-02-27 06:21] LABS: Basophils # (Auto) 0 K/mcL (0.0-0.3); Basophils % (Auto) 0.5 % (0.0-2.0); Eosinophils # (Auto) 0.3 K/mcL (0.0-0.7); Eosinophils % (Auto) 3.1 % (0.0-7.0); Granulocytes % (Auto) 70.1 % (38.0-78.0); Hematocrit 40.5 % (41.0-55.0); Hemoglobin 13.1 g/dL (13.5-16.5); Lymphocytes # (Auto) 1.8 K/mcL (1.5-4.8); Lymphocytes % (Auto) 18.3 % (15.5-49.0); Mean Cell Volume 101.6 fL (80.0-100.0); Mean Corpuscular HGB Conc 32.3 g/dL (31.0-36.0); Monocytes # (Auto) 0.8 K/mcL (0.1-0.9); Platelet Count 213 K/mcL (140-440); RBC 3.99 M/mcL (4.50-5.90); Red Cell Distribution Width 15.1 % (11.5-14.5); WBC 9.8 K/mcL (4.5-11.0)
[2019-02-27 06:59] LABS: Bilirubin,Direct < 0.2 mg/dL (0.0-0.3)
[2019-02-27] MEDS: INSULIN LISPRO 1 UNIT/0.01 ML UNIT SQ SCH ×2 (07:04→13:17)
[2019-02-27 07:05] LABS: ALT/SGPT 13 U/l (0-40); AST/SGOT 20 U/l (0-37); Albumin 3.3 gm/dL (3.2-5.2); Albumin/Globulin Ratio 1.3 (1.0-2.3); Alkaline Phosphatase 134 U/L (39-117); Bilirubin,Total 0.7 mg/dL (0.0-1.0); Blood Urea Nitrogen 11 mg/dl (8-23); Calcium 8.6 mg/dl (8.6-10.4); Carbon Dioxide 29 mmol/L (22-30); Chloride 95 mmol/L (96-108); Globulin 2.5 gm/dL (2.2-3.7); Glomerular Filtration Rate 100; Glucose 84 mg/dL (70-105); Lactate Dehydrogenase 317 U/L (94-250); Phosphorous 3.2 mg/dL (2.7-4.5); Triglycerides 100 mg/dl (<150)
[2019-02-27] MEDS ORDERED: CARVEDILOL 12.5 MG TABLET PO SCH (08:00)
[2019-02-27] MEDS: tiZANidine 4 MG TABLET PO SCH (08:35)
[2019-02-27] MEDS: DOCUSATE SODIUM 100 MG CAPSULE PO SCH (08:35)
[2019-02-27] MEDS: SOTALOL 80 MG TABLET PO SCH (08:35)
[2019-02-27] MEDS ORDERED: INSULIN GLARGINE, HUMAN 1 UNIT/0.01 ML SQ SCH (09:00)
[2019-02-27] MEDS ORDERED: Dapagliflozin Propanediol [Farxiga] 10 MG PO SCH (09:00)
[2019-02-27] MEDS ORDERED: DULoxetine 20 MG CAPSULE PO SCH (09:00)
[2019-02-27] MEDS ORDERED: ALLOPURINOL 300 MG TABLET PO SCH (09:00)
[2019-02-27] MEDS ORDERED: LISINOPRIL 5 MG TABLET PO SCH (09:00)
[2019-02-27] MEDS ORDERED: sitaGLIPtin 100 MG TABLET PO SCH (09:00)
[2019-02-27] MEDS ORDERED: FUROSEMIDE 40 MG TABLET PO SCH (09:00)
[2019-02-27 09:30] LABS: INR 4.7 (0.9-1.1); Prothrombin Time 43.5 sec (11.9-14.5)
[2019-02-27] MEDS ORDERED: LIDOCAINE PATCH TOPICAL SCH (10:00)
[2019-02-27] MEDS ORDERED: tiZANidine 4 MG TABLET PO PRN (12:10)
--- NOTE | 2019-02-27 12:39 | Discharge Summary ---
Medical - DS: Prov Patient information: Note initiated : 02/27/19 at 12:36 pm Service Date, if different from initiated Date: [] Patient: Luke Palacios 73 y/o M admitted on 02/26/19 for possible sepsis. Chief Complaint: [] Date of admission: 02/26/19 19:27 Discharge date: 02/27/19 Primary care physician: Heike Raman Attending physician on admission: Sanam Dent Consults: 02/26/19 Consult to Physician [CONS] Stat Comment: Consulting Provider: Sanam Dent Reason For Exam: Physician to Consult Attending physician on discharge: Sanam Dent Medical - DS: Meds - Discharge Medications Prescriptions: Lidocaine [Lidoderm] 1 patch TOPICAL DAILY@1000 #30 patch Transmission Status: Pending to [facility] Active and Home Medications: Home Medications cholecalciferol (vitamin D3) 125 mcg (5,000 unit) tablet 5,000 unit PO QDAY tab 08/27/14 [History Confirmed 02/26/19 Last Taken 02/10/19] furosemide 40 mg tablet 40 mg PO DAILY tab 12/09/17 [History Confirmed 02/26/19 Last Taken 05/10/18 08:00] HYDROcodone/ACETAMINOPHEN [Lorcet Hd 10-325 mg Tablet] 1 tab PO TIDP PRN 05/10/18 [History Confirmed 02/26/19 Last Taken 02/12/19] Warfarin [Coumadin] 5 mg PO TUTHSA@1400 05/10/18 [History Confirmed 02/26/19 Last Taken 02/10/19] sitaGLIPtin [Januvia] 100 mg PO DAILY 05/10/18 [History Confirmed 02/26/19 Last Taken 02/11/19] Dapagliflozin Propanediol [Farxiga] 10 mg PO DAILY 02/12/19 [History Confirmed 02/26/19 Last Taken 02/11/19] Warfarin [Coumadin] 7.5 mg PO SUMOWEFR@1400 02/12/19 [History Confirmed 02/26/19 Last Taken 02/26/19] Allopurinol [Zylopriim] 300 mg PO DAILY 02/13/19 [History Confirmed 02/26/19 Last Taken Unknown] Gabapentin 600 mg PO TIDP PRN 02/13/19 [History Confirmed 02/26/19 Last Taken Unknown] Sotalol HCl [Sorine] 40 mg PO BID 02/13/19 [History Confirmed 02/26/19 Last Taken Unknown] tiZANidine HCL [Tizanidine HCl] 4 mg PO QID PRN 02/13/19 [History Confirmed 02/27/19 Last Taken Unknown] Ramipril [Altace] 1.25 mg PO BID #60 cap 02/18/19 [Rx Confirmed 02/26/19 Last Taken 02/26/19] CPAP Machine 1 each .ROUTE .MEDSUPPLY 02/19/19 [History Confirmed 02/26/19 Last Taken 02/12/19] Heavy Duty Wheelchair 1 each .ROUTE CONT 02/19/19 [History Confirmed 02/26/19 Last Taken Unknown] Hospital Bed 1 each .ROUTE CONT 02/19/19 [History Confirmed 02/26/19 Last Taken Unknown] Roho Cushion 1 each .ROUTE CONT 02/19/19 [History Confirmed 02/26/19 Last Taken Unknown] Carvedilol [Coreg] 12.5 mg PO BIDCC #60 tab 02/20/19 [Rx Confirmed 02/26/19 Last Taken 02/26/19] Blood Sugar Diagnostic [Glucose Test Strip] 1 each ACHS #120 strip 02/21/19 [Rx Confirmed 02/26/19 Last Taken Unknown] Blood-Glucose Meter [Advanced Glucose Meter] 1 each ACHS #1 each 02/21/19 [Rx Confirmed 02/26/19 Last Taken Unknown] DULoxetine HCL [Duloxetine HCl] 20 mg PO DAILY 02/26/19 [History Confirmed 02/26/19 Last Taken Unknown] Insulin Glargine,Hum.rec.anlog [Basaglar Kwikpen U-100] 30 unit SQ DAILY 02/26/19 [History Confirmed 02/26/19 Last Taken 02/26/19 08:15] Pravastatin Sodium [Pravachol] 40 mg PO DAILY 02/26/19 [History Confirmed 02/26/19 Last Taken Unknown] Medical - DS: Hosp Hospital Course: 02/26 Mr. Palacios is a 73 year old M with extensive past medical history, including type 2 diabetes, atrial fibrillation intermittent RVR, morbid obesity with impaired mobility and general wheelchair-bound requiring Trisha lift, recent admission for sepsis from enterococcal UTI who presents from his PCPs office. He was being seen in follow-up, was noted to be sweaty and after evaluation sent to the ED. He notes that since his last discharge that he has been sweating at night in bed. Not so much of the day. He has had no shaking chills. He has not taken his temperature at home. Reports since his discharge he has had decreased p.o. intake. Denies any current headache, myalgias, rhinorrhea. In the emergency department evaluation included a white count of 15,000 and a lactate of 3.8. Radiograph did not reveal new infiltrates. Urine analysis was negative for infection. On further questioning, he states this morning he had coughing and gagging while he is eating toast. His caregiver had fixed to that for him. Denies any subsequent dyspnea or chest tightness or squeezing. He notes he occasionally c oughs when he eats. Denies any abdominal pain. No nausea or vomiting. No dysuria. He has intermittently loose stools, however he has had no loose stools in the last 2 days. He is completed his antibiotic therapy. Patient is being hospitalized for observation and rule out sepsis as the etiology of his leukocytosis and lactic acidosis is not immediately apparent. 02/27 Patient continues to feel well this morning. Long conversation with patient and caregiver. The caregiver and family had concerns the patient had ongoing infection that had not been adequately treated during his last hospitalization. Shared the results of work-up, including no evidence of ongoing urinary tract infection. In retrospect, suspect the patient may have had an aspiration event with aspiration pneumonitis (not pneumonia), he tends to eat while semi- recumbent. Speech therapy has been added to his home health. Discussed with patient and caregiver the importance of him sitting upright to eat. White count normalized without specific intervention, lactated normalized prior to leaving the emergency department after IV fluids. Cultures remain negative, no fever, stable vital signs, patient will be disc harged home. In addition to speech therapy, lidocaine patch was added to his regimen for his back pain. He was encouraged to continue to work with home health physical therapy to work on mobility Discharge diagnosis: Leukocytosis, suspected aspiration pneumonitis Secondary discharge diagnosis: Lactic acidosis. Resolved. Sepsis ruled out Type 2 diabetes Obstructive sleep apnea Atrial fibrillation, on warfarin for stroke prophylaxis Deconditioning/poor functional status - Time Spent with Patient Total time spent providing and/or coordinating discharge services: Greater than 30 minutes Medical - DS: Exam - Constitutional Vitals: Vital Signs Temp Pulse Resp BP Pulse Ox 02/27/19 12:08 93 H 96/57 02/27/19 12:07 93 02/27/19 08:02 137/74 96 02/27/19 07:31 98.7 F 20 134/83 94 02/27/19 07:16 94 02/27/19 04:07 90 02/27/19 04:02 98.3 F 16 124/74 88 L 02/27/19 00:02 98.9 F 20 102/76 95 02/26/19 22:07 157/112 92 02/26/19 21:02 88 138/83 90 02/26/19 20:47 104 H 139/88 88 L 02/26/19 20:32 64 133/98 94 02/26/19 20:17 60 153/92 90 02/26/19 19:49 97.3 F 20 142/96 95 02/26/19 19:35 97.4 F 107 H 17 146/83 93 02/26/19 19:21 64 17 146/83 90 02/26/19 19:01 54 L 21 150/79 91 02/26/19 18:41 115 H 18 146/92 93 02/26/19 18:28 110 H 19 91 02/26/19 18:01 131 H 20 158/80 95 02/26/19 17:46 82 21 160/89 90 02/26/19 17:41 68 17 92 02/26/19 17:31 106 H 19 141/93 92 02/26/19 17:16 66 17 147/111 93 02/26/19 17:00 88 20 159/114 93 02/26/19 16:46 18 142/79 02/26/19 16:30 107 H 19 166/131 89 L 02/26/19 16:16 99 H 17 151/100 88 L 02/26/19 16:04 102 H 18 91 02/26/19 16:00 64 20 155/103 89 L 02/26/19 15:46 110 H 18 153/92 90 02/26/19 15:31 100 H 19 172/91 90 02/26/19 15:16 90 22 180/91 92 02/26/19 15:01 102 H 18 170/85 90 02/26/19 14:45 110 H 20 151/107 91 02/26/19 14:31 108 H 18 135/90 88 L 02/26/19 14:16 55 L 21 140/96 94 02/26/19 14:01 105 H 19 130/94 93 02/26/19 13:47 101 H 19 143/71 93 02/26/19 13:32 0 L 119/89 02/26/19 13:16 110 H 19 137/79 94 02/26/19 13:01 93 H 19 126/81 97 02/26/19 12:44 97.4 F 60 24 H 96 Intake and Output 02/26/19 02/27/19 02/27/19 21:59 05:59 13:59 Intake Total 1050 250 240 Output Total 1175 450 Balance 1050 925 -210 Intake: IV 1050 Sodium Chloride 0.9% 1,000 ml @ 1000 Wide Open IV BOLUS ONE Rx#: [id number] Zosyn 3.375 gm In Dextrose 5% 50 in Water 50 ml @ 100 mls/hr IV ONCE ONE Rx#:[id number] Oral 250 240 Output: Urine Catheter Amount 1175 450 Other: Meal Breakfast Percent of Meal Consumed 100% Feeding Ability Independent Urine Appearance Cloudy Uretheral (Hyman) Sediment Cloudy Urine Color Light María Elena Light María Elena Uretheral (Hyman) Light María Elena Straw Urine Odor Strong Stool Size Small Moderate Stool Color Brown Brown Stool Consistency Soft Soft # of times incontinent of 1 Bowels Weight 314 lb 6.4 oz Additional comments: General: Laying in bed no acute distress Chest: Clear to auscultation anteriorly and laterally Cardiovascular: Irregular, no edema Abdomen: Obese, soft, nontender Extremities: Cool, scattered excoriation on the shins without edema. Neuro: Alert, oriented x3, generally weak Medical - DS: Data Labs on day of discharge: Labs from last 24 hours 02/27/19 02/27/19 02/27/19 08:03 03:43 03:43 WBC RBC Hgb Hct MCV MCH MCHC RDW Plt Count MPV Gran % Lymph % (Auto) [place] % (Auto) Eos % (Auto) Baso % (Auto) Gran # Lymph # (Auto) [place] # (Auto) Eos # (Auto) Baso # (Auto) Total Counted Seg Neutrophils % Band Neutrophils % Lymphocytes % Monocytes % (Manual) Reactive Lymphocytes Platelet Estimate RBC Morphology Anisocytosis Macrocytosis PT 43.5 H INR 4.7 H VBG Lactic Acid 1.9 Sodium 139 Potassium 3.5 Chloride 95 L Carbon Dioxide 29 Anion Gap 15.0 BUN 11 Creatinine 0.6 L GFR Calculation 100 Glucose 84 Uric Acid 5.0 Calcium 8.6 Phosphorus 3.2 Magnesium 1.8 Total Bilirubin 0.7 Direct Bilirubin < 0.2 GGT 128 H AST 20 ALT 13 Alkaline Phosphatase 134 H Lactate Dehydrogenase 317 H Troponin T NT-Pro-B Natriuret Pep Total Protein 5.8 L Albumin 3.3 Globulin 2.5 Albumin/Globulin Ratio 1.3 Triglycerides 100 Urine Color Urine Appearance Urine pH Ur Specific [place] Urine Protein Urine Glucose (UA) Urine Ketones Urine Occult Blood Urine Nitrate Urine Bilirubin Urine Urobilinogen Ur Leukocyte Esterase Urine RBC Urine WBC Ur Squamous Epith Cells Urine Bacteria Hyaline Casts Urine Mucus Urine Yeast (Budding) Ur Culture Indicated? 02/27/19 02/26/19 02/26/19 03:43 17:01 14:13 WBC 9.8 RBC 3.99 L Hgb 13.1 L Hct 40.5 L MCV 101.6 H MCH 32.8 MCHC 32.3 RDW 15.1 H Plt Count 213 MPV 8.0 Gran % 70.1 Lymph % (Auto) 18.3 [place] % (Auto) 8.0 Eos % (Auto) 3.1 Baso % (Auto) 0.5 Gran # 6.8 Lymph # (Auto) 1.8 [place] # (Auto) 0.8 Eos # (Auto) 0.3 Baso # (Auto) 0 Total Counted Seg Neutrophils % Band Neutrophils % Lymphocytes % Monocytes % (Manual) Reactive Lymphocytes Platelet Estimate RBC Morphology Anisocytosis Macrocytosis PT INR VBG Lactic Acid 1.7 Sodium Potassium Chloride Carbon Dioxide Anion Gap BUN Creatinine GFR Calculation Glucose Uric Acid Calcium Phosphorus Magnesium Total Bilirubin Direct Bilirubin GGT AST ALT Alkaline Phosphatase Lactate Dehydrogenase Troponin T NT-Pro-B Natriuret Pep Total Protein Albumin Globulin Albumin/Globulin Ratio Triglycerides Urine Color Yellow Urine Appearance Clear Urine pH 7.0 Ur Specific [place] 1.016 Urine Protein 30 A Urine Glucose (UA) 50 A Urine Ketones 5/tr A Urine Occult Blood Neg Urine Nitrate Neg Urine Bilirubin Neg Urine Urobilinogen Neg Ur Leukocyte Esterase Neg Urine RBC 0 Urine WBC 0 Ur Squamous Epith Cells < 1 Urine Bacteria 0 Hyaline Casts 14 H Urine Mucus Few Urine Yeast (Budding) Mod A Ur Culture Indicated? Yes 02/26/19 02/26/19 02/26/19 13:15 13:15 13:10 WBC RBC Hgb Hct MCV MCH MCHC RDW Plt Count MPV Gran % Lymph % (Auto) [place] % (Auto) Eos % (Auto) Baso % (Auto) Gran # Lymph # (Auto) [place] # (Auto) Eos # (Auto) Baso # (Auto) Total Counted Seg Neutrophils % Band Neutrophils % Lymphocytes % Monocytes % (Manual) Reactive Lymphocytes Platelet Estimate RBC Morphology Anisocytosis Macrocytosis PT 43.2 H INR 4.7 H VBG Lactic Acid Sodium Potassium Chloride Carbon Dioxide Anion Gap BUN Creatinine GFR Calculation Glucose Uric Acid Calcium Phosphorus Magnesium Total Bilirubin Direct Bilirubin GGT AST ALT Alkaline Phosphatase Lactate Dehydrogenase Troponin T 0.03 NT-Pro-B Natriuret Pep 16998.0 H Total Protein Albumin Globulin Albumin/Globulin Ratio Triglycerides Urine Color Urine Appearance Urine pH Ur Specific [place] Urine Protein Urine Glucose (UA) Urine Ketones Urine Occult Blood Urine Nitrate Urine Bilirubin Urine Urobilinogen Ur Leukocyte Esterase Urine RBC Urine WBC Ur Squamous Epith Cells Urine Bacteria Hyaline Casts Urine Mucus Urine Yeast (Budding) Ur Culture Indicated? 02/26/19 02/26/19 02/26/19 13:10 13:10 13:10 WBC 15.4 H RBC 4.72 Hgb 15.6 Hct 48.2 MCV 102.0 H MCH 32.9 MCHC 32.3 RDW 15.3 H Plt Count 275 MPV 8.1 Gran % Lymph % (Auto) [place] % (Auto) Eos % (Auto) Baso % (Auto) Gran # Lymph # (Auto) [place] # (Auto) Eos # (Auto) Baso # (Auto) Total Counted 100 Seg Neutrophils % 75 Band Neutrophils % 6 Lymphocytes % 7 L Monocytes % (Manual) 8 Reactive Lymphocytes 4 H Platelet Estimate Normal RBC Morphology Abnormal Anisocytosis Few A Macrocytosis 1+ A PT INR VBG Lactic Acid 3.9 H Sodium 136 Potassium 4.0 Chloride 91 L Carbon Dioxide 27 Anion Gap 18.0 H BUN 11 Creatinine 0.9 GFR Calculation 84 Glucose 239 H Uric Acid Calcium 9.2 Phosphorus Magnesium Total Bilirubin 0.8 Direct Bilirubin GGT AST 22 ALT 17 Alkaline Phosphatase 169 H Lactate Dehydrogenase Troponin T NT-Pro-B Natriuret Pep Total Protein 7.1 Albumin 3.7 Globulin 3.4 Albumin/Globulin Ratio 1.1 Triglycerides Urine Color Urine Appearance Urine pH Ur Specific [place] Urine Protein Urine Glucose (UA) Urine Ketones Urine Occult Blood Urine Nitrate Urine Bilirubin Urine Urobilinogen Ur Leukocyte Esterase Urine RBC Urine WBC Ur Squamous Epith Cells Urine Bacteria Hyaline Casts Urine Mucus Urine Yeast (Budding) Ur Culture Indicated? Preliminary micro results at discharge 02/26/19 14:13 Urine Culture - Preliminary Urine - Catheterized - Imaging and Cardiology Chest x-ray Additional comments: IMPRESSION: Moderate consolidated atelectasis or, less likely, infiltrate in the left lower lobe - new. Small effusion Medical - DS: A/P - Patient/Caregiver Discharge Instructions Activity: as per physical therapy, increase activity as tolerated Diet: Consistent Carbohydrate - Follow up Plan Follow up with: Heike Raman, JAILYN, LARD TUB WASHER [Primary Care Provider] - 03/12/19 3:00 pm (Continue with your previously scheduled appt.) Efrain Blas MD [Physician] - (A referral has been sent to Dr. Blas, they will contact you at home to schedule an appt.) Rajendra Dale [Physician] - 03/06/19 2:00 pm (Continue with your previously scheduled appt.) Disposition: Home Health Service Care Plan Goals: This discharge packet is provided to you to help keep you informed about your care. We want to ensure you get everything you need when you go home. You will also be receiving a call from us in a few days to follow up with you and see how you are doing since your discharge. This gives us a chance to listen to any concerns you maybe experiencing since you were discharged or any additional needs you may have, as well as providing us feedback on your care experience. We strive to always provide excellent care and thank you for your feedback and for choosing [facility]. Prognosis: Fair Rehab Potential: Fair Overall status at discharge: patient is back to baseline
== END 2019-02-27 14:21 | disposition home health service (06) ==
LOC: ICU 12:43 → ED 12:43 → ICU 19:35
PROVIDERS: ADMIT Internal Medicine; ATTEND Internal Medicine

== ENCOUNTER 2019-05-14 09:51 | Inpatient (IN) ==
--- NOTE | 2019-05-14 10:19 | Emergency Department Note ---
General Adult HPI - General Chief complaint: Blood Pressure Problem Stated complaint: low BP, here yesterday Time Seen by Provider: 05/14/19 10:06 Source: patient, EMS Mode of arrival: EMS Limitations: no limitations - History of Present Illness HPI Narrative: Patient lives at home and has a caregiver. He is bedridden and has not walked in a year. He was here yesterday and had a low heart rate low blood pressure and high INR. He does have a history of atrial fib and takes Coumadin for that. He feels asymptomatic at this time. He does not have cough cold symptoms no chest pain abdominal pain no nausea or vomiting. His blood pressure is a little bit low here in the 90s. Heart rate also in the 40s. - Related Data Home Medications Medication Instructions Recorded Confirmed cholecalciferol (vitamin D3) 125 5,000 unit PO QDAY tab 08/27/14 02/26/19 mcg (5,000 unit) tablet furosemide 40 mg tablet 40 mg PO DAILY tab 12/09/17 02/26/19 HYDROcodone/ACETAMINOPHEN [Lorcet 1 tab PO TIDP PRN 05/10/18 02/26/19 Hd 10-325 mg Tablet] Warfarin [Coumadin] 5 mg PO TUTHSA@1400 05/10/18 02/26/19 sitaGLIPtin [Januvia] 100 mg PO DAILY 05/10/18 02/26/19 Dapagliflozin Propanediol [Farxiga] 10 mg PO DAILY 02/12/19 02/26/19 Warfarin [Coumadin] 7.5 mg PO SUMOWEFR@1400 02/12/19 02/26/19 Allopurinol [Zylopriim] 300 mg PO DAILY 02/13/19 02/26/19 Gabapentin 600 mg PO TIDP PRN 02/13/19 02/26/19 Sotalol HCl [Sorine] 40 mg PO BID 02/13/19 02/26/19 tiZANidine HCL [Tizanidine HCl] 4 mg PO QID PRN 02/13/19 02/27/19 CPAP Machine 1 each .ROUTE .MEDSUPPLY 02/19/19 02/26/19 Heavy Duty Wheelchair 1 each .ROUTE CONT 02/19/19 02/26/19 Hospital Bed 1 each .ROUTE CONT 02/19/19 02/26/19 Roho Cushion 1 each .ROUTE CONT 02/19/19 02/26/19 DULoxetine HCL [Duloxetine HCl] 20 mg PO DAILY 02/26/19 02/26/19 Insulin Glargine,Hum.rec.anlog 30 unit SQ DAILY 02/26/19 02/26/19 [Basaglvega Romeoikpen U-100] Pravastatin Sodium [Pravachol] 40 mg PO DAILY 02/26/19 02/26/19 Previous Rx's Medication Instructions Recorded Ramipril [Altace] 1.25 mg PO BID #60 cap 02/18/19 Carvedilol [Coreg] 12.5 mg PO BIDCC #60 tab 02/20/19 Blood Sugar Diagnostic [Glucose 1 each ACHS #120 strip 02/21/19 Test Strip] Blood-Glucose Meter [Advanced 1 each ACHS #1 each 02/21/19 Glucose Meter] Lidocaine [Lidoderm] 1 patch TOPICAL DAILY@1000 #30 02/27/19 patch Diltiazem [Cardizem Cd] 360 mg PO DAILY #30 cap.xl.24h 04/04/19 Nitrofurantoin Sr [Macrobid] 100 mg PO BID #14 cap 04/04/19 Allergies Allergy/AdvReac Type Severity Reaction Status Date / Time No Known Drug Allergies Allergy Verified 05/14/19 09:55 Review of Systems All systems ED: reviewed and negative except as stated. Past Medical History - Past Medical History [facility] Narrative: Medical History (Last Reviewed 01/03/18 @ 18:15 by Heike Raman, JAILYN, DAYANA) Pressure ulcer (Chronic) Pressure ulcer of foot (Chronic) Anticoagulant long-term use (Chronic) Lumbar disc disease (Chronic) Carpal tunnel syndrome (Chronic) Hypogonadism in male (Chronic) Peripheral vascular disease (Chronic) Testicular hypofunction (Chronic) Obstructive sleep apnea (Chronic) Morbid obesity (Chronic) Hypertension (Chronic) Hyperlipidemia (Chronic) Hormone replacement therapy (Chronic) Gout (Chronic) Diabetes mellitus, type II (Chronic) Coronary artery disease (Chronic) Congestive heart failure (Chronic) History of colonic polyps (Chronic) Atrial fibrillation (Chronic) MRSA (methicillin resistant staph aureus) culture positive (Resolved) Ulcer of lower extremity due to diabetes mellitus (Resolved) Past Surgical History (Last Reviewed 01/03/18 @ 18:15 by Heike Raman, JAILYN, DYAANA) Colonoscopy planned (Resolved) H/O vascular surgery (Resolved) History of cardioversion (Resolved) History of total right knee replacement (Resolved) Family History (Last Reviewed 01/03/18 @ 18:15 by Heike Raman, JAILYN, DISHING MACHINE OPERATOR) Father Family history of coronary artery bypass surgery Acute myocardial infarction Mother Type 2 diabetes mellitus Cardiac disease Cerebrovascular accident Medical history: Reports: atrial fibrillation - Social History smoking status: Former smoker Physical Exam Limitations: no limitations General appearance: alert Head: atraumatic Eye: Present: normal appearance ENT: Present: normal exam Neck: Present: normal inspection Chest: Present: normal inspection Respiratory: Present: normal lung sounds bilaterally Cardiovascular: Present: regular rate, normal rhythm, normal heart sounds Abdominal: Present: soft. Absent: distention, tenderness Neurological: Present: alert Psychiatric: Present: normal affect Skin: Present: warm, dry Course Vital Signs Temperature 97.4 F 05/14/19 09:52 Pulse Rate 49 L 05/14/19 09:52 Respiratory Rate 18 05/14/19 09:52 Blood Pressure 98/85 05/14/19 09:52 Pulse Oximetry (%) 93 05/14/19 09:52 Temperature 97.4 F 05/14/19 09:52 Pulse Rate 39 L 05/14/19 13:01 Respiratory Rate 13 05/14/19 13:01 Blood Pressure 69/40 05/14/19 13:01 Pulse Oximetry (%) 96 05/14/19 13:01 Medical Decision Making - [facility] Narrative Medical decision making narrative: This patient continued to be hypotensive with a low heart rate but did not have any symptoms of significance. We will of starting Levophed after giving him some fluid. This brought his blood pressure up to about 100 and his heart rate up in the 50s. He will be admitted to the hospital by Dr. Richardson. Plan will be to hold some of his medications at lower his heart rate and blood pressure and reassess after that. - Lab Data Lab results reviewed: Yes I reviewed the patient's lab results. Result diagrams: 05/14/19 10:19 05/14/19 10:19 Lab Results 05/14/19 05/14/19 05/14/19 Range/Units 10:19 10:19 10:19 WBC 9.2 (4.50-11.00) K/mcL RBC 4.29 L (4.63-6.08) M/mcL Hgb 13.9 (13.7-17.5) g/dL Hct 42.6 (40.1-51.0) % MCV 99.3 (80.0-100.0) fL MCH 32.4 (26.0-34.0) pg MCHC 32.6 (31.0-36.0) g/dL RDW 16.0 H (11.5-14.5) % Plt Count 191 (140-440) K/mcL MPV 10.8 H (7.4-10.4) fL Gran % 69.5 (38.0-78.0) % Lymph % (Auto) 17.0 (15.5-49.0) % [place] % (Auto) 10.3 (1.0-12.0) % Eos % (Auto) 2.3 (0.0-7.0) % Baso % (Auto) 0.9 (0.0-2.0) % Gran # 6.39 (1.80-8.00) K/mcL Lymph # (Auto) 1.56 (1.50-4.80) K/mcL [place] # (Auto) 0.95 H (0.10-0.90) K/mcL Eos # (Auto) 0.21 (0.00-0.70) K/mcL Baso # (Auto) 0.08 (0.00-0.30) K/mcL PT (11.9-14.5) sec INR (0.9-1.1) APTT 62 H (20-37) sec Sodium 135 (133-145) mmol/L Potassium 4.4 (3.3-5.1) mmol/L Chloride 94 L (96-108) mmol/L Carbon Dioxide 25 (22-30) mmol/L Anion Gap 16.0 (8-16) BUN 19 (8-23) mg/dl Creatinine 1.4 H (0.7-1.2) mg/dl GFR Calculation 49 Glucose 249 H (70-105) mg/dL Calcium 9.3 (8.6-10.4) mg/dl Total Bilirubin 0.5 (0.0-1.0) mg/dL AST 20 (0-37) U/l ALT 14 (0-40) U/l Alkaline Phosphatase 86 (39-117) U/L Total Protein 6.5 (5.9-8.4) gm/dL Albumin 3.4 (3.2-5.2) gm/dL Globulin 3.1 (2.2-3.7) gm/dL Albumin/Globulin Ratio 1.1 (1.0-2.3) 05/14/19 Range/Units 10:19 WBC (4.50-11.00) K/mcL RBC (4.63-6.08) M/mcL Hgb (13.7-17.5) g/dL Hct (40.1-51.0) % MCV (80.0-100.0) fL MCH (26.0-34.0) pg MCHC (31.0-36.0) g/dL RDW (11.5-14.5) % Plt Count (140-440) K/mcL MPV (7.4-10.4) fL Gran % (38.0-78.0) % Lymph % (Auto) (15.5-49.0) % [place] % (Auto) (1.0-12.0) % Eos % (Auto) (0.0-7.0) % Baso % (Auto) (0.0-2.0) % Gran # (1.80-8.00) K/mcL Lymph # (Auto) (1.50-4.80) K/mcL [place] # (Auto) (0.10-0.90) K/mcL Eos # (Auto) (0.00-0.70) K/mcL Baso # (Auto) (0.00-0.30) K/mcL PT 49.2 H (11.9-14.5) sec INR 5.3 H (0.9-1.1) APTT (20-37) sec Sodium (133-145) mmol/L Potassium (3.3-5.1) mmol/L Chloride (96-108) mmol/L Carbon Dioxide (22-30) mmol/L Anion Gap (8-16) BUN (8-23) mg/dl Creatinine (0.7-1.2) mg/dl GFR Calculation Glucose (70-105) mg/dL Calcium (8.6-10.4) mg/dl Total Bilirubin (0.0-1.0) mg/dL AST (0-37) U/l ALT (0-40) U/l Alkaline Phosphatase (39-117) U/L Total Protein (5.9-8.4) gm/dL Albumin (3.2-5.2) gm/dL Globulin (2.2-3.7) gm/dL Albumin/Globulin Ratio (1.0-2.3) - Radiology Data Radiology results reviewed: Yes I reviewed the patient's radiology results. Disposition Pt seen by CLIENT CARE CONSULTANT/PA only: No Clinical Impression: Over-anticoagulated, Bradycardia, Hypotension Atrial fibrillation Qualifiers: Atrial fibrillation type: paroxysmal Qualified Code(s): I48.0 - Paroxysmal atrial fibrillation Disposition: Xfer As Outpt/Obs ([facility]) Condition: Fair Referrals: Heike Raman DNP, DISHING MACHINE OPERATOR [Primary Care Provider] - Time of Disposition: 14:53
[2019-05-14] MEDS ORDERED: LACTATED RINGERS 1,000 ML IV ONE (10:29)
[2019-05-14 10:54] LABS: Basophils # (Auto) 0.08 K/mcL (0.00-0.30); Basophils % (Auto) 0.9 % (0.0-2.0); Eosinophils # (Auto) 0.21 K/mcL (0.00-0.70); Eosinophils % (Auto) 2.3 % (0.0-7.0); Granulocytes % (Auto) 69.5 % (38.0-78.0); Hematocrit 42.6 % (40.1-51.0); Hemoglobin 13.9 g/dL (13.7-17.5); Lymphocytes # (Auto) 1.56 K/mcL (1.50-4.80); Mean Cell Volume 99.3 fL (80.0-100.0); Mean Corpuscular HGB Conc 32.6 g/dL (31.0-36.0); Mean Platelet Volume 10.8 fL (7.4-10.4); Monocytes # (Auto) 0.95 K/mcL (0.10-0.90); Monocytes % (Auto) 10.3 % (1.0-12.0); Platelet Count 191 K/mcL (140-440); RBC 4.29 M/mcL (4.63-6.08); WBC 9.2 K/mcL (4.50-11.00)
[2019-05-14 11:15] LABS: ALT/SGPT 14 U/l (0-40); AST/SGOT 20 U/l (0-37); Albumin 3.4 gm/dL (3.2-5.2); Albumin/Globulin Ratio 1.1 (1.0-2.3); Alkaline Phosphatase 86 U/L (39-117); Bilirubin,Total 0.5 mg/dL (0.0-1.0); Blood Urea Nitrogen 19 mg/dl (8-23); Calcium 9.3 mg/dl (8.6-10.4); Carbon Dioxide 25 mmol/L (22-30); Globulin 3.1 gm/dL (2.2-3.7); Glomerular Filtration Rate 49; Glucose 249 mg/dL (70-105)
[2019-05-14 11:24] LABS: Chloride 94 mmol/L (96-108)
[2019-05-14 12:04] LABS: INR 5.3 (0.9-1.1); Prothrombin Time 49.2 sec (11.9-14.5)
[2019-05-14] MEDS ORDERED: NOREPINEPHRINE BITARTRATE 16 MG in 0.9 % SODIUM CHLORIDE 234 ML IV SCH (13:30)
[2019-05-14] MEDS ORDERED: 0.9 % SODIUM CHLORIDE 250 ML IV SCH (13:30)
--- NOTE | 2019-05-14 14:41 | Internal Med History&Physical ---
Medical - H&P: [facility] Patient information: Note initiated : 05/14/19 at 2:38 pm Service Date, if different from initiated Date: [] Patient: Luke Palacios a 73 y/o M admitted on for Low BP, Here Yesterday. Chief Complaint: [] Chief complaint: Confusion, weakness History of present illness: Mr. Palacios is a 73 year old M with extensive past medical history including T2 DM, A. 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 Patient was brought in the ER the night prior with complaints of palpitations/A. fib RVR. He was discharged after resolution of RVR and was advised to hold Coumadin for additional 2 days following an INR 5.9. Patient was found this morning by his caregiver in a confused and groggy state. He was subsequent brought into the ER for further evaluation. Initial work-up was consistent with hypotension with blood pressure in 60s attributed to calcium channel abner adverse reaction. Patient was started on Levophed/crystalloids with improvement in blood pressure. Hospitalist service was consulted. At the time evaluation patient is alert and now able to answer most of the questions. He denies chest pain, lightheadedness, diaphoresis or dizziness. He denies overnight fever chills. Is minimally short of breath. Review of systems A 10 point review system was performed and is negative except for discussed above Medical - H&P: PMH Medical history: Atrial fibrillation (Chronic) Morbid obesity (Chronic) Hypertension (Chronic) Hyperlipidemia (Chronic) Hormone replacement therapy (Chronic) Gout (Chronic) Diabetes mellitus, type II (Chronic) Coronary artery disease (Chronic) Congestive heart failure (Chronic) Pressure ulcer of foot (Chronic) Anticoagulant long-term use (Chronic) Lumbar disc disease (Chronic) Carpal tunnel syndrome (Chronic) Hypogonadism in male (Chronic) Peripheral vascular disease (Chronic) Testicular hypofunction (Chronic) Obstructive sleep apnea (Chronic) History of colonic polyps (Chronic) MRSA (methicillin resistant staph aureus) culture positive (Resolved) Ulcer of lower extremity due to diabetes mellitus (Resolved) Surgical history: H/O vascular surgery (Resolved) History of cardioversion (Resolved) History of total right knee replacement (Resolved) Pertinent family history: Father Family history of coronary artery bypass surgery Acute myocardial infarction Mother Type 2 diabetes mellitus Cardiac disease Cerebrovascular accident Social history: Lives at home. Has caregiver. Does not smoke or drink alcohol. Medical - H&P: Meds Home Medications Medication Instructions Recorded Confirmed Type cholecalciferol (vitamin D3) 125 5,000 unit PO QHS tab 08/27/14 05/14/19 History mcg (5,000 unit) tablet furosemide 40 mg tablet 40 mg PO DAILY tab 12/09/17 05/14/19 History HYDROcodone/ACETAMINOPHEN [Lorcet 1 tab PO TIDP PRN 05/10/18 05/14/19 History Hd 10-325 mg Tablet] Warfarin [Coumadin] 5 mg PO TUTHSA@1400 05/10/18 02/26/19 History sitaGLIPtin [Januvia] 100 mg PO DAILY 05/10/18 02/26/19 History Dapagliflozin Propanediol [Farxiga] 10 mg PO DAILY 02/12/19 05/14/19 History Allopurinol [Zylopriim] 300 mg PO DAILY 02/13/19 05/14/19 History Gabapentin 600 mg PO TIDP PRN 02/13/19 05/14/19 History Sotalol HCl [Sorine] 40 mg PO BID 02/13/19 02/26/19 History tiZANidine HCL [Tizanidine HCl] 4 mg PO QID PRN 02/13/19 02/27/19 History Ramipril [Altace] 1.25 mg PO BID #60 cap 02/18/19 02/26/19 Rx CPAP Machine 1 each .ROUTE .MEDSUPPLY 02/19/19 02/26/19 History Heavy Duty Wheelchair 1 each .ROUTE CONT 02/19/19 02/26/19 History Hospital Bed 1 each .ROUTE CONT 02/19/19 02/26/19 History Roho Cushion 1 each .ROUTE CONT 02/19/19 02/26/19 History Carvedilol [Coreg] 12.5 mg PO BIDCC #60 tab 02/20/19 05/14/19 Rx Blood Sugar Diagnostic [Glucose 1 each ACHS #120 strip 02/21/19 02/26/19 Rx Test Strip] Blood-Glucose Meter [Advanced 1 each ACHS #1 each 02/21/19 02/26/19 Rx Glucose Meter] DULoxetine HCL [Duloxetine HCl] 20 mg PO DAILY 02/26/19 05/14/19 History Insulin Glargine,Hum.rec.anlog 30 unit SQ DAILY 02/26/19 05/14/19 History [Basaglar Kwikpen U-100] Pravastatin Sodium [Pravachol] 40 mg PO DAILY 02/26/19 02/26/19 History Lidocaine [Lidoderm] 1 patch TOPICAL DAILY@1000 #30 02/27/19 Rx patch Diltiazem [Cardizem Cd] 360 mg PO DAILY #30 cap.xl.24h 04/04/19 05/14/19 Rx Acetaminophen [Tylenol] 500 mg PO QHS 05/14/19 05/14/19 History diphenhydrAMINE [Benadryl] 25 mg PO HSP PRN 05/14/19 05/14/19 History sitaGLIPtin [Januvia] 100 mg PO DAILY 05/15/19 05/15/19 History Allergies Allergy/AdvReac Type Severity Reaction Status Date / Time No Known Drug Allergies Allergy Verified 05/14/19 09:55 Medical - H&P: Exam - Constitutional Vitals: Temp Pulse Resp BP Pulse Ox 97.4 F 39 L 13 69/40 96 05/14/19 09:52 05/14/19 13:01 05/14/19 13:01 05/14/19 13:01 05/14/19 13:01 General appearance: morbidly obese, no acute distress Exam: Head normocephalic Alert Oral cavity dry No ear nose discharge Neck no lymphadenopathy S1-S2 irregular bradycardia Diminished breath sounds bases Abdomen pendulous, soft nontender nondistended Lower extremity no sinus clubbing but lymphedema noted Skin no suspicious lesion Psych alert but anxious Neuro bilateral lower extremity weakness/neuropathy grade 3 strength Medical - H&P: Reslt - Labs CBC & Chem 7: 05/15/19 06:33 05/15/19 06:33 Labs: Short CBC 05/14/19 Range/Units 10:19 WBC 9.2 (4.50-11.00) K/mcL Hgb 13.9 (13.7-17.5) g/dL Hct 42.6 (40.1-51.0) % Plt Count 191 (140-440) K/mcL BMP 05/14/19 10:19 Sodium 135 Potassium 4.4 Chloride 94 L Carbon Dioxide 25 BUN 19 Creatinine 1.4 H Glucose 249 H Calcium 9.3 Liver Function 05/14/19 Range/Units 10:19 Total Bilirubin 0.5 (0.0-1.0) mg/dL AST 20 (0-37) U/l ALT 14 (0-40) U/l Alkaline Phosphatase 86 (39-117) U/L Albumin 3.4 (3.2-5.2) gm/dL Medical - H&P: A/P (1) Calcium channel abner adverse reaction Current visit: Yes Status: Acute * Circulatory shock secondary to CCB adverse reaction secondary to diltiazem. Start glucagon/crystalloids/IV calcium/norepinephrine to keep map at goal. * Bradycardia secondary to above continue management as above. * History of NYHA class III systolic heart failure with EF 25 to 30%. Currently compensated * Poorly controlled DM type II-CC diet. Hold insulin until CCB adverse reaction improves * History of morbid obesity/NEISHA home CPAP * History of hypertension- meds on hold * Atrial fibrillation currently rate controlled on Coreg/sotalol/Cardizem. Currently held in light of bradycardia/hypotension. On anticoagulation for CVA prophylaxis. * History of CVA on prophylaxis on Coumadin. INR supratherapeutic. * History of PVD status post stenting by Dr. Meek * Deconditioning, wheelchair-bound, PT OT as indicated * CODE STATUS DNI Plan * ICU admission * Vasopressors/IV glucagon/IV calcium/crystalloids to maintain map at goal * Bradycardia monitoring * Coumadin dosing based on INR * Prior medical condition management poorly managed on home medications once patient clinically improves Critical care time spent in excess of 35 minutes on management of circulatory shock in addition to time spent on history and physical
[2019-05-14] MEDS: 0.9 % SODIUM CHLORIDE 250 ML IV SCH (14:45)
--- NOTE | 2019-05-14 14:53 | XRay Report ---
CLINICAL INFORMATION: Hypotension COMPARISON: 04/04/2019 FINDINGS: Moderate cardiomegaly is unchanged. Mediastinum is unremarkable. Upper lobe pulmonary vessels show mild redistribution - no edema. Interval improvement in the left mid/lower lung infiltrate with small patchy residual IMPRESSION: Borderline CHF. Interval improvement in left mid and lower lung infiltrate with small patchy residual Interpreted and Authenticated by: Philippe Edwards 05/14/19
[2019-05-14] MEDS ORDERED: POTASSIUM CHLORIDE 20 MEQ PACKET PO PRN (16:33)
[2019-05-14] MEDS ORDERED: ACETAMINOPHEN 325 MG TABLET PO PRN (16:33)
[2019-05-14] MEDS ORDERED: MELATONIN 3 MG TABLET PO PRN (16:33)
[2019-05-14] MEDS ORDERED: ONDANSETRON 4 MG ODT TABLET SL PRN (16:33)
[2019-05-14] MEDS ORDERED: GLUCAGON,HUMAN RECOMBINANT 1 MG VIAL SQ ONE (16:33)
[2019-05-14] MEDS ORDERED: CALCIUM GLUCONATE 4.65 MEQ/10 ML VIAL IV ONE (16:33)
[2019-05-14] MEDS ORDERED: ACETAMINOPHEN 650 MG/65 ML BOTTLE IV PRN (16:33)
[2019-05-14] MEDS ORDERED: 0.9 % SODIUM CHLORIDE 1,000 ML IV SCH (16:33)
[2019-05-14] MEDS ORDERED: MAGNESIUM SULFATE 2 GM/50 ML BAG IV PRN (16:33)
[2019-05-14] MEDS ORDERED: ONDANSETRON 4 MG/2 ML VIAL IV PRN (16:33)
[2019-05-14] MEDS ORDERED: BISACODYL 10 MG SUPP.RECT PR PRN (16:33)
[2019-05-14] MEDS ORDERED: POLYETHYLENE GLYCOL 3350 17 GM PACKET PO PRN (16:33)
[2019-05-14] MEDS ORDERED: POTASSIUM CHLORIDE 40 MEQ in DEXTROSE 5% IN WATER 500 ML IV PRN (16:33)
[2019-05-14] MEDS ORDERED: HYDROcodone/APAP 10/325MG TABLET PO PRN (16:46)
[2019-05-14] MEDS: 0.9 % SODIUM CHLORIDE 1,000 ML IV SCH (19:35)
[2019-05-14] MEDS ORDERED: diphenhydrAMINE 25 MG CAPSULE PO PRN (21:24)
[2019-05-14] MEDS: SENNOSIDES/DOCUSATE SODIUM 1 TAB TABLET PO SCH (23:25)
[2019-05-14] MEDS: DOCUSATE SODIUM 100 MG CAPSULE PO SCH (23:25)
[2019-05-14] MEDS: 0.9 % SODIUM CHLORIDE 10 ML SYRINGE IV SCH (23:39)
[2019-05-15] MEDS: 0.9 % SODIUM CHLORIDE 10 ML SYRINGE IV SCH ×3 (06:05→21:49)
[2019-05-15] MEDS: 0.9 % SODIUM CHLORIDE 250 ML IV SCH ×2 (06:05→19:17)
[2019-05-15 07:37] LABS: Hematocrit 42.7 % (40.1-51.0); Hemoglobin 13.8 g/dL (13.7-17.5); Mean Cell Volume 98.4 fL (80.0-100.0); Mean Corpuscular HGB Conc 32.3 g/dL (31.0-36.0); Mean Platelet Volume 10.6 fL (7.4-10.4); Platelet Count 153 K/mcL (140-440); RBC 4.34 M/mcL (4.63-6.08); Red Cell Distribution Width 15.8 % (11.5-14.5); WBC 9.1 K/mcL (4.50-11.00)
[2019-05-15 08:20] LABS: INR 7.1 (0.9-1.1); Prothrombin Time 61.7 sec (11.9-14.5)
[2019-05-15] MEDS: CARVEDILOL 12.5 MG TABLET PO SCH ×2 (08:21→17:00)
[2019-05-15 08:44] LABS: ALT/SGPT 12 U/l (0-40); AST/SGOT 15 U/l (0-37); Albumin 3.5 gm/dL (3.2-5.2); Albumin/Globulin Ratio 1.1 (1.0-2.3); Alkaline Phosphatase 87 U/L (39-117); Bilirubin,Direct < 0.2 mg/dL (0.0-0.3); Bilirubin,Total 0.5 mg/dL (0.0-1.0); Blood Urea Nitrogen 20 mg/dl (8-23); Calcium 9.3 mg/dl (8.6-10.4); Carbon Dioxide 26 mmol/L (22-30); Chloride 100 mmol/L (96-108); Globulin 3.3 gm/dL (2.2-3.7); Glomerular Filtration Rate 89; Glucose 168 mg/dL (70-105); Lactate Dehydrogenase 187 U/L (94-250); Phosphorous 3.7 mg/dL (2.7-4.5); Triglycerides 154 mg/dl (<150)
[2019-05-15 08:51] LABS: Anisocytosis 1+ (NONE SEEN); Band Neutrophils % 1 % (0-10); Eosinophils % (Manual) 5 % (0-7); Lymphocytes % 21 % (15-49); Monocytes % (Manual) 13 % (1-12); Platelet Estimate NORMAL (NORMAL); RBC Morphology ABNORM (NORMAL); Reactive Lymphocytes 3 % (0-2); Segmented Neutrophils % 57 % (38-78)
[2019-05-15] MEDS: MULTIVIT,THER IRON,CA,FA & MIN 1 TABLET PO SCH (09:37)
[2019-05-15] MEDS: sitaGLIPtin 100 MG TABLET PO SCH (09:37)
[2019-05-15] MEDS: ALLOPURINOL 300 MG TABLET PO SCH (09:37)
[2019-05-15] MEDS: FUROSEMIDE 40 MG TABLET PO SCH (09:37)
[2019-05-15] MEDS: THIAMINE 100 MG TABLET PO SCH (09:37)
[2019-05-15] MEDS: DILTIAZEM 180 MG CAP.XL.24H PO SCH (09:38)
[2019-05-15] MEDS: INSULIN GLARGINE, HUMAN 1 UNIT/0.01 ML SQ SCH (09:38)
--- NOTE | 2019-05-15 09:48 | Internal Med Progress Note ---
Medical - PN: Subj Patient information: Note initiated : 05/15/19 at 9:32 am Service Date, if different from initiated Date: [] Patient: Luke Palacios a 73 y/o M admitted on 05/14/19 for Low BP, Here Yesterday. Chief Complaint: [] Interval history: Mr. Palacios is a 73 year old M with extensive past medical history including T2 DM, A. 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 Patient was brought in the ER the night prior with complaints of palpitations/A. fib RVR. He was discharged after resolution of RVR and was advised to hold Coumadin for additional 2 days following an INR 5.9. Patient was found this morning by his caregiver in a confused and groggy state. He was subsequent brought into the ER for further evaluation. Initial work-up was consistent with hypotension with blood pressure in 60s attributed to calcium channel abner adverse reaction. Patient was started on Levophed/crystalloids with improvement in blood pressure. Hospitalist service was consulted. At the time evaluation patient is alert and now able to answer most of the questions. He denies chest pain, lightheadedness, diaphoresis or dizziness. He denies overnight fever chills. Is minimally short of breath. 05/14-doing well. Off pressors. Bradycardia resolved and now A. fib RVR. Back to diltiazem/Coreg. Continue rate control measures. Await echocardiogram. No overnight fever chills. No other concerns per nursing staff. Continue telemetry monitoring. - Constitutional Vitals: Vital Signs Temp Pulse Resp BP Pulse Ox 97.7 F 95 H 17 140/63 95 05/15/19 08:09 05/14/19 21:30 05/15/19 08:09 05/15/19 08:09 05/15/19 08:09 Period Temp Pulse Resp BP Sys/Elizalde Pulse Ox Last 24 Hr 97 F-98.3 F 28-103 12-24 61-210/29-167 74-97 Intake and Output 05/14/19 05/15/19 05/15/19 21:59 05:59 13:59 Intake Total 71 Output Total 400 Balance 71 -400 Weight 308 lb 9.6 oz Intake & Output: Intake & Output 05/14/19 05/15/19 05/15/19 21:59 05:59 13:59 Intake Total 71 Output Total 400 Balance 71 -400 Weight 308 lb 9.6 oz Intake: IV 71 Sodium Chloride 0.9% 250 ml @ 48 20 mls/hr IV .[id number] [facility] Rx#: [id number] Levophed 16 mg In Sodium 23 Chloride 0.9% 234 ml @ 10 MCG/ MIN 9.375 mls/hr IV Q24H [facility] Rx #:[id number] Output: Urine Catheter Amount 400 Other: Urine Appearance Clear Urine Color Straw Urine Odor Normal General appearance: no acute distress Exam: Alert oriented Head normocephalic Irregular rhythm tachycardia 130s No lymphedema No anxiety Medical - PN: Obj Da - Labs CBC & Chem 7: 05/15/19 06:33 05/15/19 06:33 Labs: Abnormal Lab Results 05/15/19 05/15/19 05/15/19 06:33 06:33 06:33 RBC 4.34 L RDW 15.8 H MPV 10.6 H [place] # (Auto) Monocytes % (Manual) 13 H Reactive Lymphocytes 3 H RBC Morphology Abnorm A Anisocytosis 1+ A PT 61.7 H INR 7.1 H* APTT Chloride Creatinine Glucose 168 H GGT 83 H Triglycerides 154 H 05/14/19 05/14/19 05/14/19 10:19 10:19 10:19 RBC RDW MPV [place] # (Auto) Monocytes % (Manual) Reactive Lymphocytes RBC Morphology Anisocytosis PT 49.2 H INR 5.3 H APTT 62 H Chloride 94 L Creatinine 1.4 H Glucose 249 H GGT Triglycerides 05/14/19 10:19 RBC 4.29 L RDW 16.0 H MPV 10.8 H [place] # (Auto) 0.95 H Monocytes % (Manual) Reactive Lymphocytes RBC Morphology Anisocytosis PT INR APTT Chloride Creatinine Glucose GGT Triglycerides Meds: Medications Acetaminophen (Tylenol) 650 mg PO Q4-6HP PRN; Protocol PRN Reason: Per Pain Protocol/Fever > 101 Hydrocodone Bitart/Acetaminophen ([place] 10/325mg) 1 tab PO TIDP PRN; Protocol PRN Reason: Pain Allopurinol (Zylopriim) 300 mg PO DAILY KARINE Bisacodyl (Dulcolax) 10 mg [place] Q2-3DAYS PRN PRN Reason: Constipation Carvedilol (Coreg) 12.5 mg PO BIDCC [facility] Last Admin: 05/15/19 08:21 Dose: 12.5 mg Documented by: Diagnostic Test (Pha) (Accu-Chek) 1 each FS ACHS [facility] Last Admin: 05/15/19 08:21 Dose: 1 each Documented by: Diltiazem HCl (Cardizem Cd) 360 mg PO DAILY [facility] Diphenhydramine HCl (Benadryl) 25 mg PO HSP PRN PRN Reason: sleep aid Docusate Sodium (Colace) 100 mg PO BID [facility] Last Admin: 05/14/19 23:25 Dose: Not Given Documented by: Duloxetine HCl (Cymbalta) 20 mg PO DAILY [facility] Furosemide (Lasix) 40 mg PO DAILY [facility] Gabapentin (Neurontin) 600 mg PO TIDP PRN PRN Reason: Muscle Spasm Norepinephrine Bitartrate 16 (mg/ Sodium Chloride) 250 mls @ 9.375 mls/hr IV Q24HP PRN; Protocol PRN Reason: Hypotension Sodium Chloride (Sodium Chloride 0.9%) 250 mls @ 20 mls/hr IV .[id number] [facility] Last Admin: 05/15/19 06:05 Dose: Not Given Documented by: Sodium Chloride (Sodium Chloride 0.9%) 1,000 mls @ 50 mls/hr IV .Q20H [facility] Stop: 05/17/19 04:32 Last Admin: 05/14/19 19:35 Dose: 50 mls/hr Documented by: Acetaminophen (Ofirmev) 650 mg in 65 mls @ 130 mls/hr IV Q6HP PRN; Protocol PRN Reason: Per Pain Protocol/Fever > 101 Potassium Chloride 40 meq/ (Dextrose) 520 mls @ 130 mls/hr IV UD PRN PRN Reason: K+ = or < 3.5 Magnesium Sulfate (Magnesium Sulfate) 2 gm in 50 mls @ 50 mls/hr IV UD PRN PRN Reason: MG = or < 1.7 Insulin Glargine (Lantus) 30 unit SQ DAILY [facility] Iron Carb/Multivit/[place]/Folic Acid (Multivitamin W/Minerals) 1 tab PO DAILY [facility] Melatonin (Melatonin 3mg Tablet) 3 mg PO HSP PRN PRN Reason: Insomnia Mupirocin (Bactroban Oint 2%) 1 dose NARES BID [facility] Ondansetron HCl (Zofran Odt) 4 mg SL Q4-6HP PRN; Protocol PRN Reason: Nausea And Vomiting Ondansetron HCl (Zofran) 4 mg IV Q4-6HP PRN; Protocol PRN Reason: Nausea And Vomiting Dapagliflozin Propanediol [Farxiga ] 10 Mg Tab 1 dose PO DAILY [facility] Polyethylene Glycol (Miralax) 17 gm PO DAILYP PRN PRN Reason: Constipation Potassium Chloride (Klor-Con) 40 meq PO DAILYP PRN PRN Reason: K+ < 3.5 Senna/Docusate Sodium (Senna Plus Tablet) 1 tab PO HS [facility] Last Admin: 05/14/19 23:25 Dose: Not Given Documented by: Sitagliptin Phosphate (Januvia) 100 mg PO DAILY [facility] Sodium Chloride (Saline Flush) 10 ml IV Q8 [facility] Last Admin: 05/15/19 06:05 Dose: Not Given Documented by: Thiamine HCl (Vitamin B1) 100 mg PO DAILY [facility] Warfarin Sodium (Coumadin Per Pharmacy) 1 order PO UD [facility] Medical - PN: A/P - Time Spent With Patient Total time spent is greater than 50% in coordination of care (as documented) at patient's floor/unit and/or counseling patient: 25 - 35 minutes (1) Calcium channel abner adverse reaction Status: Acute Assessment and plan: * A. fib RVR continue rate control measures on Coreg/Cardizem. Await echocardiogram. * Circulatory shock secondary to CCB adverse reaction secondary to diltiazem. Responding well to crystalloids and vasopressors. Now off pressors * Bradycardia secondary to CCB adverse reaction resolved * History of NYHA class III systolic heart failure with EF 25 to 30%. Currently compensated * Poorly controlled DM type II-CC diet. Restart home medications/CCD * History of morbid obesity/NEISHA home CPAP * History of hypertension-restart home meds * Atrial fibrillation currently rate controlled on Coreg/sotalol/Cardizem. Currently held in light of bradycardia/hypotension. On anticoagulation for CVA prophylaxis. * History of CVA on prophylaxis on Coumadin. INR supratherapeutic. * History of PVD status post stenting by Dr. Meek * Deconditioning, wheelchair-bound, PT OT as indicated * CODE STATUS DNI Plan * Continue rate control measures * Coumadin dosing based on INR * Pre-existing medical condition management home meds * PT OT nutrition support * Discharge planning Current Visit: Yes Medical - PN: Qual - Stroke Symptom Onset Unknown: No - VTE Deep Vein Thrombosis/Pulmonary Embolism Present on Admission: No
[2019-05-15] MEDS: HYDROcodone/APAP 10/325MG TABLET PO PRN ×2 (09:55→21:55)
[2019-05-15] MEDS: MUPIROCIN OINT 2% 22GM NARES SCH ×2 (10:00→21:44)
[2019-05-15] MEDS: DULoxetine 20 MG CAPSULE PO SCH (10:00)
[2019-05-15] MEDS: DOCUSATE SODIUM 100 MG CAPSULE PO SCH ×2 (12:35→21:44)
[2019-05-15] MEDS: Dapagliflozin Propanediol [Farxiga] 10 mg Tab PO SCH (12:36)
[2019-05-15] MEDS ORDERED: NOREPINEPHRINE BITARTRATE 16 MG in 0.9 % SODIUM CHLORIDE 234 ML IV PRN (13:30)
[2019-05-15] MEDS: 0.9 % SODIUM CHLORIDE 1,000 ML IV SCH (14:48)
[2019-05-15] MEDS: GABAPENTIN 300 MG CAPSULE PO PRN (21:44)
[2019-05-15] MEDS: SENNOSIDES/DOCUSATE SODIUM 1 TAB TABLET PO SCH (21:44)
[2019-05-16] MEDS: 0.9 % SODIUM CHLORIDE 10 ML SYRINGE IV SCH ×3 (04:43→20:18)
[2019-05-16] MEDS: 0.9 % SODIUM CHLORIDE 250 ML IV SCH ×2 (04:44→18:38)
[2019-05-16 07:35] LABS: Hematocrit 39.8 % (40.1-51.0); Mean Corpuscular HGB Conc 32.7 g/dL (31.0-36.0); Mean Platelet Volume 10.6 fL (7.4-10.4); Platelet Count 164 K/mcL (140-440); RBC 4.02 M/mcL (4.63-6.08); Red Cell Distribution Width 15.6 % (11.5-14.5); WBC 8.5 K/mcL (4.50-11.00)
[2019-05-16 07:51] LABS: INR 5.9 (0.9-1.1); Prothrombin Time 53.2 sec (11.9-14.5)
[2019-05-16 08:02] LABS: ALT/SGPT 12 U/l (0-40); AST/SGOT 16 U/l (0-37); Albumin 3.4 gm/dL (3.2-5.2); Alkaline Phosphatase 85 U/L (39-117); Bilirubin,Direct < 0.2 mg/dL (0.0-0.3); Bilirubin,Total 0.5 mg/dL (0.0-1.0); Blood Urea Nitrogen 16 mg/dl (8-23); Carbon Dioxide 30 mmol/L (22-30); Chloride 99 mmol/L (96-108); Globulin 3.3 gm/dL (2.2-3.7); Glucose 179 mg/dL (70-105); Lactate Dehydrogenase 188 U/L (94-250); Triglycerides 141 mg/dl (<150); Uric Acid 4.5 mg/dL (2.5-8.0)
[2019-05-16 08:03] LABS: Glomerular Filtration Rate 100; Phosphorous 2.5 mg/dL (2.7-4.5)
[2019-05-16 08:19] LABS: Lymphocytes % 27 % (15-49); Macrocytosis 1+ (NONE SEEN); Monocytes % (Manual) 4 % (1-12); Platelet Estimate NORMAL (NORMAL); RBC Morphology ABNORMAL (NORMAL); Reactive Lymphocytes 1 % (0-2); Segmented Neutrophils % 68 % (38-78)
[2019-05-16] MEDS: THIAMINE 100 MG TABLET PO SCH (08:35)
[2019-05-16] MEDS: sitaGLIPtin 100 MG TABLET PO SCH (08:36)
[2019-05-16] MEDS: CARVEDILOL 12.5 MG TABLET PO SCH ×2 (08:36→17:40)
[2019-05-16] MEDS: ALLOPURINOL 300 MG TABLET PO SCH (08:36)
[2019-05-16] MEDS: FUROSEMIDE 40 MG TABLET PO SCH (08:36)
[2019-05-16] MEDS: INSULIN GLARGINE, HUMAN 1 UNIT/0.01 ML SQ SCH (08:36)
[2019-05-16] MEDS: MULTIVIT,THER IRON,CA,FA & MIN 1 TABLET PO SCH (08:36)
[2019-05-16] MEDS: DILTIAZEM 180 MG CAP.XL.24H PO SCH (08:36)
[2019-05-16] MEDS: DOCUSATE SODIUM 100 MG CAPSULE PO SCH ×2 (08:37→20:17)
[2019-05-16] MEDS: MUPIROCIN OINT 2% 22GM NARES SCH ×2 (08:37→20:25)
[2019-05-16] MEDS: Dapagliflozin Propanediol [Farxiga] 10 mg Tab PO SCH (08:37)
[2019-05-16] MEDS: DULoxetine 20 MG CAPSULE PO SCH (09:54)
[2019-05-16] MEDS ORDERED: DEXTROSE 31 GM ORAL.SUSP PO PRN (11:06)
[2019-05-16] MEDS ORDERED: DEXTROSE 50% 50 ML VIAL IV PRN (11:06)
[2019-05-16] MEDS: GABAPENTIN 300 MG CAPSULE PO PRN (11:45)
[2019-05-16] MEDS: HYDROcodone/APAP 10/325MG TABLET PO PRN (11:45)
[2019-05-16] MEDS: INSULIN LISPRO 1 UNIT/0.01 ML UNIT SQ SCH ×4 (11:48→20:17)
--- NOTE | 2019-05-16 13:16 | Internal Med Progress Note ---
Medical - PN: Subj Patient information: Note initiated : 05/16/19 at 1:14 pm Service Date, if different from initiated Date: [] Patient: Luke Palacios a 73 y/o M admitted on 05/14/19 for Low BP, Here Yesterday. Chief Complaint: [] Interval history: Mr. Palacios is a 73 year old M with extensive past medical history including T2 DM, A. 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 Patient was brought in the ER the night prior with complaints of palpitations/A. fib RVR. He was discharged after resolution of RVR and was advised to hold Coumadin for additional 2 days following an INR 5.9. Patient was found this morning by his caregiver in a confused and groggy state. He was subsequent brought into the ER for further evaluation. Initial work-up was consistent with hypotension with blood pressure in 60s attributed to calcium channel abner adverse reaction. Patient was started on Levophed/crystalloids with improvement in blood pressure. Hospitalist service was consulted. At the time evaluation patient is alert and now able to answer most of the questions. He denies chest pain, lightheadedness, diaphoresis or dizziness. He denies overnight fever chills. Is minimally short of breath. 05/14-doing well. Off pressors. Bradycardia resolved and now A. fib RVR. Back to diltiazem/Coreg. Continue rate control measures. Await echocardiogram. No overnight fever chills. No other concerns per nursing staff. Continue telemetry monitoring. 05/15-patient doing well. Now rate controlled. Continuing Cardizem 360 daily/Coreg. On anticoagulation for CVA prophylaxis. No overnight events. Much more lucid alert. Ongoing physical therapy. - Constitutional Vitals: Vital Signs Temp Pulse Resp BP Pulse Ox 97.7 F 72 18 115/55 98 05/16/19 08:03 05/16/19 05:30 05/16/19 08:03 05/16/19 09:57 05/16/19 09:57 Period Temp Pulse Resp BP Sys/Elizalde Pulse Ox Last 24 Hr 97.2 F-98.1 F 68-80 13-20 115-153/55-104 91-98 Intake and Output 03/05/16/19 05/16/19 21:59 05:59 13:59 Intake Total 1561 Output Total 1225 275 525 Balance 336 -275 -525 Weight 309 lb 12.8 oz Intake & Output: Intake & Output 05/15/19 05/16/19 05/16/19 21:59 05:59 13:59 Intake Total 1561 Output Total 1225 275 525 Balance 336 -275 -525 Weight 309 lb 12.8 oz Intake: IV 961 Sodium Chloride 0.9% 1,000 ml @ 961 50 mls/hr IV .Q20H [facility] Rx#: [id number] Oral 600 Output: Urine Catheter Amount 275 Void Amount 1225 525 Other: Meal Dinner Percent of Meal Consumed 100% Feeding Ability Independent Urine Appearance Clear Clear Clear Urine Color Bright Yellow Bright Yellow Bright Yellow General appearance: no acute distress Exam: Alert oriented Nonlabored breathing No anxiety Nondistended abdomen Medical - PN: Obj Da - Labs CBC & Chem 7: 05/16/19 06:17 05/16/19 06:17 Labs: Abnormal Lab Results 05/16/19 05/16/19 05/16/19 06:17 06:17 06:17 RBC 4.02 L Hgb 13.0 L Hct 39.8 L RDW 15.6 H MPV 10.6 H [place] # (Auto) Monocytes % (Manual) Reactive Lymphocytes RBC Morphology Anisocytosis Macrocytosis 1+ A PT 53.2 H INR 5.9 H* APTT Chloride Creatinine 0.6 L Glucose 179 H Phosphorus 2.5 L GGT 86 H Triglycerides 05/15/19 05/15/19 05/15/19 06:33 06:33 06:33 RBC 4.34 L Hgb Hct RDW 15.8 H MPV 10.6 H [place] # (Auto) Monocytes % (Manual) 13 H Reactive Lymphocytes 3 H RBC Morphology Abnorm A Anisocytosis 1+ A Macrocytosis PT 61.7 H INR 7.1 H* APTT Chloride Creatinine Glucose 168 H Phosphorus GGT 83 H Triglycerides 154 H 05/14/19 05/14/19 05/14/19 10:19 10:19 10:19 RBC Hgb Hct RDW MPV [place] # (Auto) Monocytes % (Manual) Reactive Lymphocytes RBC Morphology Anisocytosis Macrocytosis PT 49.2 H INR 5.3 H APTT 62 H Chloride 94 L Creatinine 1.4 H Glucose 249 H Phosphorus GGT Triglycerides 05/14/19 10:19 RBC 4.29 L Hgb Hct RDW 16.0 H MPV 10.8 H [place] # (Auto) 0.95 H Monocytes % (Manual) Reactive Lymphocytes RBC Morphology Anisocytosis Macrocytosis PT INR APTT Chloride Creatinine Glucose Phosphorus GGT Triglycerides Meds: Medications Acetaminophen (Tylenol) 650 mg PO Q4-6HP PRN; Protocol PRN Reason: Per Pain Protocol/Fever > 101 Hydrocodone Bitart/Acetaminophen ([place] 10/325mg) 1 tab PO TIDP PRN; Protocol PRN Reason: Pain Last Admin: 05/16/19 11:45 Dose: 1 tab Documented by: Allopurinol (Zylopriim) 300 mg PO DAILY [facility] Last Admin: 05/16/19 08:36 Dose: 300 mg Documented by: Bisacodyl (Dulcolax) 10 mg MS Q2-3DAYS PRN PRN Reason: Constipation Carvedilol (Coreg) 12.5 mg PO BIDCC [facility] Last Admin: 05/16/19 08:36 Dose: 12.5 mg Documented by: Dextrose (Dextrose 50%) 0 ml IV UD PRN PRN Reason: Hypoglycemia Diagnostic Test (Pha) (Accu-Chek) 1 each FS ACHS [facility] Last Admin: 05/16/19 11:46 Dose: 1 each Documented by: Diagnostic Test (Pha) (Accu-Chek) 1 each FS ACHS [facility] Last Admin: 05/16/19 11:48 Dose: Not Given Documented by: Diltiazem HCl (Cardizem Cd) 360 mg PO DAILY [facility] Last Admin: 05/16/19 08:36 Dose: 360 mg Documented by: Diphenhydramine HCl (Benadryl) 25 mg PO HSP PRN PRN Reason: sleep aid Docusate Sodium (Colace) 100 mg PO BID [facility] Last Admin: 05/16/19 08:37 Dose: Not Given Documented by: Duloxetine HCl (Cymbalta) 20 mg PO DAILY [facility] Last Admin: 05/16/19 09:54 Dose: 20 mg Documented by: Furosemide (Lasix) 40 mg PO DAILY [facility] Last Admin: 05/16/19 08:36 Dose: 40 mg Documented by: Gabapentin (Neurontin) 600 mg PO TIDP PRN PRN Reason: Muscle Spasm Last Admin: 05/16/19 11:45 Dose: 600 mg Documented by: Glucose (Insta-Glucose) 15 gm PO PRN PRN PRN Reason: Hypoglycemia Norepinephrine Bitartrate 16 (mg/ Sodium Chloride) 250 mls @ 9.375 mls/hr IV Q24HP PRN; Protocol PRN Reason: Hypotension Sodium Chloride (Sodium Chloride 0.9%) 250 mls @ 20 mls/hr IV .[id number] [facility] Last Admin: 05/16/19 04:44 Dose: Not Given Documented by: Sodium Chloride (Sodium Chloride 0.9%) 1,000 mls @ 50 mls/hr IV .Q20H [facility] Stop: 05/17/19 04:32 Last Admin: 05/15/19 14:48 Dose: 50 mls/hr Documented by: Acetaminophen (Ofirmev) 650 mg in 65 mls @ 130 mls/hr IV Q6HP PRN; Protocol PRN Reason: Per Pain Protocol/Fever > 101 Potassium Chloride 40 meq/ (Dextrose) 520 mls @ 130 mls/hr IV UD PRN PRN Reason: K+ = or < 3.5 Magnesium Sulfate (Magnesium Sulfate) 2 gm in 50 mls @ 50 mls/hr IV UD PRN PRN Reason: MG = or < 1.7 Last Admin: 05/15/19 21:44 Dose: 50 mls/hr Documented by: Insulin Glargine (Lantus) 30 unit SQ DAILY [facility] Last Admin: 05/16/19 08:36 Dose: 30 unit Documented by: Insulin Human Lispro (Humalog) 0 unit SQ ACHS [facility]; Protocol Last Admin: 05/16/19 11:48 Dose: Not Given Documented by: Iron Carb/Multivit/Tyrrell/Folic Acid (Multivitamin W/Minerals) 1 tab PO DAILY [facility] Last Admin: 05/16/19 08:36 Dose: 1 tab Documented by: Melatonin (Melatonin 3mg Tablet) 3 mg PO HSP PRN PRN Reason: Insomnia Mupirocin (Bactroban Oint 2%) 1 dose NARES BID [facility] Last Admin: 05/16/19 08:37 Dose: 1 dose Documented by: Ondansetron HCl (Zofran Odt) 4 mg SL Q4-6HP PRN; Protocol PRN Reason: Nausea And Vomiting Ondansetron HCl (Zofran) 4 mg IV Q4-6HP PRN; Protocol PRN Reason: Nausea And Vomiting Dapagliflozin Propanediol [Farxiga ] 10 Mg Tab 1 dose PO DAILY [facility] Last Admin: 05/16/19 08:37 Dose: Not Given Documented by: Polyethylene Glycol (Miralax) 17 gm PO DAILYP PRN PRN Reason: Constipation Potassium Chloride (Klor-Con) 40 meq PO DAILYP PRN PRN Reason: K+ < 3.5 Senna/Docusate Sodium (Senna Plus Tablet) 1 tab PO HS [facility] Last Admin: 05/15/19 21:44 Dose: Not Given Documented by: Sitagliptin Phosphate (Januvia) 100 mg PO DAILY [facility] Last Admin: 05/16/19 08:36 Dose: 100 mg Documented by: Sodium Chloride (Saline Flush) 10 ml IV Q8 [facility] Last Admin: 05/16/19 04:43 Dose: Not Given Documented by: Thiamine HCl (Vitamin B1) 100 mg PO DAILY [facility] Last Admin: 05/16/19 08:35 Dose: 100 mg Documented by: Warfarin Sodium (Coumadin Per Pharmacy) 1 order PO UD [facility] Medical - PN: A/P - Time Spent With Patient Total time spent is greater than 50% in coordination of care (as documented) at patient's floor/unit and/or counseling patient: 25 - 35 minutes (1) Calcium channel abner adverse reaction Status: Acute Assessment and plan: * A. fib RVR adequate rate control on Coreg/Cardizem. * Circulatory shock secondary to CCB adverse reaction secondary to diltiazem. Responding well to crystalloids and vasopressors. Now off pressors * Bradycardia secondary to CCB adverse reaction resolved. * History of NYHA class III systolic heart failure with EF 25 to 30%. Currently compensated * Poorly controlled DM type II-CC diet. Well controlled on home medications/CCD * History of morbid obesity/NEISHA home CPAP * History of hypertension-continue home meds * Atrial fibrillation currently rate controlled on Coreg/Cardizem. On anticoagulation for CVA prophylaxis. * History of CVA on prophylaxis on Coumadin. INR supratherapeutic. * History of PVD status post stenting by Dr. Meek * Deconditioning, wheelchair-bound, PT OT as indicated * CODE STATUS DNI Plan * Continue rate control measures * Coumadin dosing based on INR * Continue pre-existing medical condition management home meds * PT OT nutrition support * Discharge home in 24 hours if no further episodes of RVR or hypotension Current Visit: Yes Medical - PN: Qual - Stroke Symptom Onset Unknown: No - VTE Deep Vein Thrombosis/Pulmonary Embolism Present on Admission: No
[2019-05-16] MEDS: 0.9 % SODIUM CHLORIDE 1,000 ML IV SCH (15:53)
[2019-05-16] MEDS: SENNOSIDES/DOCUSATE SODIUM 1 TAB TABLET PO SCH (20:17)
[2019-05-17 05:56] LABS: Hematocrit 40.3 % (40.1-51.0); Hemoglobin 13.2 g/dL (13.7-17.5); Mean Cell Volume 97.6 fL (80.0-100.0); Mean Corpuscular HGB Conc 32.8 g/dL (31.0-36.0); Mean Platelet Volume 10.3 fL (7.4-10.4); Platelet Count 157 K/mcL (140-440); RBC 4.13 M/mcL (4.63-6.08); Red Cell Distribution Width 15.4 % (11.5-14.5); WBC 7.2 K/mcL (4.50-11.00)
[2019-05-17 06:12] LABS: ALT/SGPT 12 U/l (0-40); AST/SGOT 18 U/l (0-37); Albumin 3.2 gm/dL (3.2-5.2); Alkaline Phosphatase 85 U/L (39-117); Bilirubin,Direct < 0.2 mg/dL (0.0-0.3); Bilirubin,Total 0.6 mg/dL (0.0-1.0); Blood Urea Nitrogen 12 mg/dl (8-23); Calcium 8.9 mg/dl (8.6-10.4); Carbon Dioxide 28 mmol/L (22-30); Chloride 96 mmol/L (96-108); Globulin 3.2 gm/dL (2.2-3.7); Glomerular Filtration Rate 100; Glucose 185 mg/dL (70-105); Lactate Dehydrogenase 189 U/L (94-250); Phosphorous 2.6 mg/dL (2.7-4.5); Triglycerides 145 mg/dl (<150); Uric Acid 4.2 mg/dL (2.5-8.0)
[2019-05-17 06:39] LABS: INR 4.4 (0.9-1.1); Prothrombin Time 42.7 sec (11.9-14.5)
[2019-05-17 07:19] LABS: Anisocytosis 1+ (NONE SEEN); Eosinophils % (Manual) 7 % (0-7); Lymphocytes % 23 % (15-49); Monocytes % (Manual) 7 % (1-12); Platelet Estimate NORMAL (NORMAL); RBC Morphology ABNORM (NORMAL); Reactive Lymphocytes 4 % (0-2); Segmented Neutrophils % 59 % (38-78)
[2019-05-17] MEDS: 0.9 % SODIUM CHLORIDE 10 ML SYRINGE IV SCH ×2 (07:43→12:07)
[2019-05-17] MEDS: MUPIROCIN OINT 2% 22GM NARES SCH (08:12)
[2019-05-17] MEDS: DILTIAZEM 180 MG CAP.XL.24H PO SCH (08:12)
[2019-05-17] MEDS: MULTIVIT,THER IRON,CA,FA & MIN 1 TABLET PO SCH (08:13)
[2019-05-17] MEDS: CARVEDILOL 12.5 MG TABLET PO SCH (08:13)
[2019-05-17] MEDS: ALLOPURINOL 300 MG TABLET PO SCH (08:14)
[2019-05-17] MEDS: DULoxetine 20 MG CAPSULE PO SCH (08:14)
[2019-05-17] MEDS: DOCUSATE SODIUM 100 MG CAPSULE PO SCH (08:14)
[2019-05-17] MEDS: INSULIN LISPRO 1 UNIT/0.01 ML UNIT SQ SCH ×2 (08:14→12:07)
[2019-05-17] MEDS: sitaGLIPtin 100 MG TABLET PO SCH (08:14)
[2019-05-17] MEDS: INSULIN GLARGINE, HUMAN 1 UNIT/0.01 ML SQ SCH (08:14)
[2019-05-17] MEDS: FUROSEMIDE 40 MG TABLET PO SCH (08:14)
[2019-05-17] MEDS: THIAMINE 100 MG TABLET PO SCH (08:15)
[2019-05-17] MEDS: Dapagliflozin Propanediol [Farxiga] 10 mg Tab PO SCH (08:15)
[2019-05-17] MEDS: 0.9 % SODIUM CHLORIDE 250 ML IV SCH (08:20)
--- NOTE | 2019-05-17 09:11 | Discharge Summary ---
Medical - DS: Prov Patient information: Note initiated : 05/17/19 at 9:09 am Service Date, if different from initiated Date: [] Patient: Luke Palacios 73 y/o M admitted on 05/14/19 for Low BP, Here Yesterday. Chief Complaint: [] Date of admission: 05/14/19 15:47 Discharge date: 05/17/19 Primary care physician: Heike Raman Consults: 05/15/19 08:50 Consult to Physician [CONS] Routine Comment: Consulting Provider: Duke Vo Reason For Exam: Physician to Consult Medical - DS: Meds - Discharge Medications Active and Home Medications: Home Medications cholecalciferol (vitamin D3) 125 mcg (5,000 unit) tablet 5,000 unit PO QHS tab 08/27/14 [History Confirmed 05/14/19 Last Taken 05/12/19 19:00] furosemide 40 mg tablet 40 mg PO DAILY tab 12/09/17 [History Confirmed 05/14/19 Last Taken 05/14/19 08:15] HYDROcodone/ACETAMINOPHEN [[place] Hd 10-325 mg Tablet] 1 tab PO TIDP PRN 05/10/18 [History Confirmed 05/14/19 Last Taken 05/14/19 17:00] Warfarin [Coumadin] 5 mg PO TUTHSA@1400 05/10/18 [History Confirmed 05/15/19 Last Taken 05/10/19 08:15] Dapagliflozin Propanediol [Farxiga] 10 mg PO DAILY 02/12/19 [History Confirmed 05/14/19 Last Taken 05/14/19 08:15] Allopurinol [Zylopriim] 300 mg PO DAILY 02/13/19 [History Confirmed 05/14/19 Last Taken 05/14/19 08:15] Gabapentin 600 mg PO TIDP PRN 02/13/19 [History Confirmed 05/14/19 Last Taken 05/14/19 08:15] tiZANidine HCL [Tizanidine HCl] 4 mg PO QID PRN 02/13/19 [History Confirmed 05/15/19 Last Taken 05/13/19 21:30] Ramipril [Altace] 1.25 mg PO BID #60 cap 02/18/19 [Rx Confirmed 05/15/19 Last Taken 05/14/19 08:15] CPAP Machine 1 each .ROUTE .MEDSUPPLY 02/19/19 [History Confirmed 02/26/19 Last Taken 02/12/19] Heavy Duty Wheelchair 1 each .ROUTE CONT 02/19/19 [History Confirmed 02/26/19 Last Taken Unknown] Hospital Bed 1 each .ROUTE CONT 02/19/19 [History Confirmed 02/26/19 Last Taken Unknown] Mikeo Cushion 1 each .ROUTE CONT 02/19/19 [History Confirmed 02/26/19 Last Taken Unknown] Carvedilol [Coreg] 12.5 mg PO BIDCC #60 tab 02/20/19 [Rx Confirmed 05/14/19 Last Taken 05/14/19 08:15] Blood Sugar Diagnostic [Glucose Test Strip] 1 each ACHS #120 strip 02/21/19 [Rx Confirmed 02/26/19 Last Taken Unknown] Blood-Glucose Meter [Advanced Glucose Meter] 1 each ACHS #1 each 02/21/19 [Rx Confirmed 02/26/19 Last Taken Unknown] DULoxetine HCL [Duloxetine HCl] 20 mg PO DAILY 02/26/19 [History Confirmed 05/14/19 Last Taken 05/14/19 08:15] Insulin Glargine,Hum.rec.anlog [Basaglar Kwikpen U-100] 30 unit SQ DAILY 02/26/19 [History Confirmed 05/14/19 Last Taken 05/14/19 18:15] Pravastatin Sodium [Pravachol] 40 mg PO DAILY 02/26/19 [History Confirmed 05/15/19 Last Taken 05/14/19 08:15] Diltiazem [Cardizem Cd] 360 mg PO DAILY #30 cap.xl.24h 04/04/19 [Rx Confirmed 05/14/19 Last Taken 05/13/19 16:00] Acetaminophen [Tylenol] 500 mg PO QHS 05/14/19 [History Confirmed 05/14/19 Last Taken 05/13/19 21:30] diphenhydrAMINE [Benadryl] 25 mg PO HSP PRN 05/14/19 [History Confirmed 05/14/19 Last Taken 05/13/19 21:30] sitaGLIPtin [Januvia] 100 mg PO DAILY 05/15/19 [History Confirmed 05/15/19 Last Taken 05/14/19 08:15] Medical - DS: Hosp Hospital Course: Discharge Diagnosis * A. fib RVR managed on diltiazem drip. Now adequately rate controlled on Coreg/Cardizem. * Circulatory shock secondary to CCB adverse reaction secondary to diltiazem. Responded well to crystalloids and vasopressors. Now off pressors * Bradycardia resolved. * History of NYHA class III systolic heart failure with EF 25 to 30%. Currently well compensated * Poorly controlled DM type II-CC diet. Well controlled on home medications/CCD * History of morbid obesity/NEISHA home CPAP * History of hypertension-continue home meds * Atrial fibrillation currently rate controlled on Coreg/Cardizem. On anticoagulation for CVA prophylaxis. * History of CVA on prophylaxis on Coumadin. INR supratherapeutic. * History of PVD status post stenting by Dr. Meek * Deconditioning, wheelchair-bound, PT OT as indicated * CODE STATUS DNI Brief Hospital course Mr. Palacios is a 73 year old M with extensive past medical history including T2 DM, A. 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 Patient was brought in the ER the night prior with complaints of palpitations/A. fib RVR. He was discharged after resolution of RVR and was advised to hold Coumadin for additional 2 days following an INR 5.9. Patient was found this morning by his caregiver in a confused and groggy state. He was subsequent brought into the ER for further evaluation. Initial work-up was consistent with hypotension with blood pressure in 60s attributed to calcium channel abner adverse reaction. Patient was started on Levophed/crystalloids with improvement in blood pressure. Hospitalist service was consulted. At the time evaluation patient is alert and now able to answer most of the qu estions. He denies chest pain, lightheadedness, diaphoresis or dizziness. He denies overnight fever chills. Is minimally short of breath. 05/14-doing well. Off pressors. Bradycardia resolved and now A. fib RVR. Back to diltiazem/Coreg. Continue rate control measures. Await echocardiogram. No overnight fever chills. No other concerns per nursing staff. Continue telemetry monitoring. 05/15-patient doing well. Now rate controlled. Continuing Cardizem 360 daily/Coreg. On anticoagulation for CVA prophylaxis. No overnight events. Much more lucid alert. Ongoing physical therapy. 05/16-patient doing well. Discharging today. Continue home health physical therapy. Discharge diagnosis: . - Time Spent with Patient Total time spent providing and/or coordinating discharge services: Greater than 30 minutes Medical - DS: Exam - Constitutional Vitals: Vital Signs Temp Pulse Resp BP BP BP Pulse Ox 05/17/19 07:00 97.6 F 20 129/85 94 05/17/19 04:00 97.8 F 78 18 128/72 94 05/17/19 02:00 97.2 F 68 15 132/74 94 05/16/19 22:00 98.8 F 70 16 118/68 92 05/16/19 20:00 98.6 F 64 17 113/80 96 05/16/19 17:41 128/70 97 05/16/19 15:54 137/53 96 05/16/19 14:28 96.1 F L 104/60 05/16/19 14:00 18 96 05/16/19 12:15 110/56 05/16/19 09:57 115/55 98 Intake and Output 05/16/19 05/17/19 05/17/19 21:59 05:59 13:59 Intake Total 480 960 Output Total 625 350 Balance -145 610 Intake: Oral 480 960 Output: Void Amount 625 350 Other: Meal Dinner ice cream and crackers Percent of Meal Consumed 100% 100% Feeding Ability Independent Independent Urine Appearance Clear Clear Urine Color Bright Yellow Pale Urine Odor Normal Weight 311 lb 9.6 oz Medical - DS: Data Labs on day of discharge: Labs from last 24 hours 05/17/19 05/17/19 05/17/19 04:30 04:30 04:30 WBC 7.2 RBC 4.13 L Hgb 13.2 L Hct 40.3 MCV 97.6 MCH 32.0 MCHC 32.8 RDW 15.4 H Plt Count 157 MPV 10.3 Total Counted 100 Seg Neutrophils % 59 Band Neutrophils % Not Reportable Lymphocytes % 23 Monocytes % (Manual) 7 Eosinophils % (Manual) 7 Reactive Lymphocytes 4 H Platelet Estimate Normal RBC Morphology Abnorm A Anisocytosis 1+ A PT 42.7 H INR 4.4 H Sodium 135 Potassium 3.9 Chloride 96 Carbon Dioxide 28 Anion Gap 11.0 BUN 12 Creatinine 0.6 L GFR Calculation 100 Glucose 185 H Uric Acid 4.2 Calcium 8.9 Phosphorus 2.6 L Magnesium 1.5 L Total Bilirubin 0.6 Direct Bilirubin < 0.2 GGT 83 H AST 18 ALT 12 Alkaline Phosphatase 85 Lactate Dehydrogenase 189 Total Protein 6.4 Albumin 3.2 Globulin 3.2 Albumin/Globulin Ratio 1.0 Triglycerides 145 Medical - DS: A/P - Patient/Caregiver Discharge Instructions Activity: as per physical therapy Diet: Regular Diet Additional Instructions: Follow-up PCP in 5 days--See scheduled appointment. I recommend PCP to check INR, CBC BMP UA as a posthospital follow-up in 1 week. Continue aggressive bowel regimen to prevent constipation Continue fall precautions Continue aggressive PT OT home health High protein calorie supplements All meals on chair sitting upright at 90 degrees to prevent aspiration Return to ER if worsening fever chills shortness of breath, diarrhea, bleeding Continue diet and activity as advised - Problem Maintenance (1) Calcium channel abner adverse reaction Status: Acute - Follow up Plan Follow up with: Heike Raamn DNP, [employer] [Primary Care Provider] - 05/24/19 2:30 pm Disposition: Home Health Service Care Plan Goals: This discharge packet is provided to you to help keep you informed about your care. We want to ensure you get everything you need when you go home. You will also be receiving a call from us in a few days to follow up with you and see how you are doing since your discharge. This gives us a chance to listen to any concerns you maybe experiencing since you were discharged or any additional needs you may have, as well as providing us feedback on your care experience. We strive to always provide excellent care and thank you for your feedback and for choosing [facility]. Prognosis: Fair Rehab Potential: Fair I certify that the patient requires SNF services: No Overall status at discharge: patient is progressing back to baseline Medical - DS: Qual - VTE Deep Vein Thrombosis/Pulmonary Embolism Present on Admission: No
[2019-05-17] MEDS: GABAPENTIN 300 MG CAPSULE PO PRN (12:08)
[2019-05-17] MEDS: HYDROcodone/APAP 10/325MG TABLET PO PRN (12:08)
== END 2019-05-17 13:53 | disposition home health service (06) | DRG 312 ==
LOC: ED 09:51 → ICU 13:55
PROVIDERS: ADMIT Internal Medicine; ATTEND Internal Medicine